=== PATIENT | female | born 1960 | race African-American/Black ===

== ENCOUNTER 2023-01-04 01:13 | Emergency (ER) | payer OTHER ==
--- OUTSIDE RECORDS SUMMARY | 2023-01-04 01:20 | XMS REPORT | Clinical Summary ---
:1960 Demographics Address [address] [place] [address] Home Phone Email Address Email Address Preferred Language [place] Marital Status Single Christianity Affiliation Unknown Race Black or Ethnic Group Not or Author Organization [facility] Address [address] [place] [address] Care Team Providers Name Role Phone Manpreet Gutierrez MD Primary Care Provider Allergies Active Allergy Reactions Severity Noted Date Comments Tramadol 09/14/2018 Medications Medication Sig Dispensed Refills Start Date End Date Status amLODIPine (NORVASC) 10 mg Take 10 mg by 0 9 Active tablet mouth daily. aspirin 81 mg EC tablet Take 81 mg by 0 08/16/2016 Active mouth daily. atorvastatin (LIPITOR) 40 Take 40 mg by 0 06/23/2018 Active mg tablet mouth daily. enalapril (VASOTEC) 20 mg Take 20 mg by 0 05/29/2018 Active tablet mouth daily. hydroCHLOROthiazide Take 25 mg by 0 06/23/2018 Active (HYDRODIURIL) 25 mg tablet mouth daily. citalopram (CeleXA) 10 mg Take 1 tablet 30 tablet 2 01/20/2019 Active tabletIndications: (10 mg) by Adjustment disorder with mouth daily. depressed mood varenicline (CHANTIX) 1 mg Take 1/2 56 tablet 0 01/20/2019 Active tabletIndications: Tobacco tablet by dependence syndrome mouth daily for 4 days, THEN take 1 tablet daily for 6 days, THEN take 1 tablet twice a day from then on (take each tablet / dose with full meal) Active Problems Problem Noted Date Tobacco dependence syndrome 11/24/2018 Adjustment disorder with depressed mood 11/24/2018 Multiple nodules of lung 11/24/2018 Overview: May 2018 CT: Screening CT read as raul ng RADS category 2. November 24, 2018:Pulmonary findings are mos t consistent with chronic or atypical infection, possibly atypical mycobacterial infection. There is no significant change from May and no convincing evidence of primary or metastatic lung cancer. Last Assessment & Plan: She continues to actively smoke, and has a tobacco history that would place her eligible for NLST with yearly annual low dose CT based lung cancer screening. Her CT today indicates that she can retu rn to yearly screening. We have offered to work with her to return to screening back near her home where she has previously had screening before, at [facility], but e indicates that she would rather enter a screening program in [facility]. We will see if it is possible to get her enrolled in ED or Kristine trial for low- dose CT based screening. If she is ineligible for this, we will refer her to cancer prevention for standard CT screening. She can return to clinic as necessary. Cough 11/24/2018 Last Assessment & Plan: Formatting of th is note might be different from the original. 2 weeks of cough, productive of renal sp utum. No hemoptysis. She has emphysema by CT. No pulmonary fu nction testing on record. This seems to be a mild respiratory infection, with no evidence right now that this is any acute exacerbation of COPD. [facility]. However, I have asked her to establish care with a primary medical doctor for continued follow-up of this. Should she be unable to, we can certainly measure pulm onary function testing here and consider more advanced therapy for COPD. Surgical History Surgery Date Site/Laterality Comments HYSTERECTOMY BACK SURGERY Medical History Medical History Date Comments Chronic obstructive pulmonary disease Hypertension Hyperlipidemia H/O: depression Family History Medical History Relation Name Comments Lung cancer Maternal Grandmother Relation Name Status Comments Maternal Grandmother Social History Tobacco Use Types Packs/Day Years Used Date Smoking Tobacco: Every Day Cigarettes 0.5 40 S tarted: 05/05/1978 Smokeless Tobacco: Never Tobacco Cessation: Ready to Quit: Yes; C ounseling Given: Yes Comments: 10 cpd since 2016 Alcohol Use Standard Drinks/Week Comments Not Currently 0 (1 standard drink = 0.6 oz pure alcoho l) Sex Assigned at Date Recorded Not on file Obstetrics History Last Filed Vital Signs Not on file Plan of Treatment Health Maintenance Due Date Last Done Comments COVID-19 Vaccination (#1) 1960 Results Not on fileafter 01/04/2022 Insurance Payer Benefit Plan / Subscriber ID Effective Dates Phone Addre ss Type Group [employer] [id number] 2019-[address] [place] [address] Guarantor Name Account Type Relation to Date of Phone Bill ing Patient Address Pebbles Bains Personal/Family Self 1960 [address] [facility] [address] [place] [address] Pebbles Bains Personal/Family Self [address] [place] [address] N (Home) [address] [place] [address] Pebbles Bains Personal/Family Self [address] [place] [address] N (Home) [address] [place] [address] Care Teams Nuclear Engineer Relationship Specialty Start Date End Date Manpreet Gutierrez MD PCP - General Internal Medicine 09/14/[address] [place] [id number]
--- OUTSIDE RECORDS SUMMARY | 2023-01-04 01:39 | XMS REPORT | Continuity of Care Document ---
:1960 Author Organization [facility] t Address [address] [facility] [address] [place] [address] Care Team Providers Name Role Phone Manpreet Gutierrez MD Primary Care Physician DEBORAH NELSON Attending Clinician Unavailable Eva Elaine MA Attending Clinician Unavailable SHOLA KWONG Attending Clinician Unavailable Lara Manning MD Attending Clinician Shola Kwong MD Attending Clinician RANDA MALDONADO Attending Clinician Unavailable Deborah Nelson MD Attending Clinician Zaina Garcia Attending Clinician Unavailable EBEN PADILLA Attending Clinician Unavailable Eben Padilla MD Attending Clinician Sola GUPTA, Wes Attending Clinician WES DOUGLAS Attending Clinician Unavailable Doctor Unassigned, [place] Attending Clinician Unavailable Godfrey Ginna Apple Attending Clinician Unavailable TRACY WILLSON Attending Clinician Unavailable TRACY WILLSON Attending Clinician Unavailable Ivy Pinto MD Attending Clinician LYNDSEY SOLITARIO Attending Clinician Unavailable Lisa Mejia Attending Clinician Unavailable Ashley Greer Attending Clinician MELISSA VIDAL Attending Clinician Unavailable Service/[place], Surgery C Attending Clinician Unavailable Melissa Vidal DO Attending Clinician PHOEBE COLON JR Attending Clinician Unavailable Rickie Lester RN Attending Clinician Unavailable LARA VALDES Attending Clinician Unavailable Roberto Johnson MD Attending Clinician Lara Valdes MD Attending Clinician Lion Palacios Attending Clinician Unavailable SHAILESH MATTHEWS Attending Clinician Unavailable Meghan Choi LVN Attending Clinician Unavailable GEN GOODE Attending Clinician Unavailable Gen Goode MD Attending Clinician BILL ENGLISH Attending Clinician Unavailable Bill Gomes Attending Clinician Annabella Cope Attending Clinician [phone] ANNABELLA SAAB Attending Clinician Unavailable Unknown, Attending Attending Clinician Unavailable Randa Maldonado MD Attending Clinician Nicole SOUTH, Carrol Palma Attending Clinician Unavailable HOUSTON SCOTT Attending Clinician Unavailable Pamela Monreal Attending Clinician [phone] Clara Pelaez MD Attending Clinician [place] Scott MD Attending Clinician Ruth Ann Wyatt RN Attending Clinician Unavailable STEPHANIE MOYA Attending Clinician Unavailable Stephanie Moya MD Attending Clinician Alexa Saab MD Attending Clinician ALEXA SAAB Attending Clinician Unavailable ROBERTO JOHNSON Attending Clinician Unavailable Solange Laboy PA-C Attending Clinician [phone] SOLANGE LABOY Attending Clinician Unavailable Pcp-Lab Attending Clinician Unavailable Rasheed GUPTA, John Solis Attending Clinician JOHN IQBAL Attending Clinician Unavailable Shailesh Matthews MD Attending Clinician NIESHA MAURICIO Attending Clinician Unavailable Jayy Cunningham MD Attending Clinician Regina Vega MD Attending Clinician RIN ESTRADA Attending Clinician Unavailable Phani Cardoso Attending Clinician PHANI CARDOSO Attending Clinician Unavailable Rin Ryan Attending Clinician TRISTIAN HOOVER Attending Clinician Unavailable Tristian Hoover MD Attending Clinician LEILA CROCKER Attending Clinician Unavailable Leila Crocker MD Attending Clinician Agustina Thorpe Attending Clinician AGUSTINA SMITH Attending Clinician Unavailable ANAYELI ALFARO Attending Clinician Unavailable Nurse, Gal Adult Urgent Attending Clinician Unavailable UNKNOWN, ATTENDING Attending Clinician Unavailable Sonam Lance MD Attending Clinician JING MANZANARES Attending Clinician Unavailable BRUNO RUTLEDGE Attending Clinician Unavailable Bruno Rutledge MD Attending Clinician Berenice Joe Attending Clinician BERENICE HANNA Attending Clinician Unavailable Andria Fagan MD Attending Clinician PHIL ALBA Attending Clinician Unavailable SATYA RIBEIRO Attending Clinician Unavailable SHIREEN GALVEZ Attending Clinician Unavailable MARSHALL COLON Attending Clinician Unavailable VALENTE QUARLES Attending Clinician Unavailable Navarro Callahan Attending Clinician Unavailable Francoise Liang MD Attending Clinician Skylar Kendall Attending Clinician Unavailable MILDRED DIAZ Attending Clinician Unavailable Mildred Diaz LCSW Attending Clinician José Gonzalez DO Attending Clinician LARA LOPEZ Attending Clinician Unavailable MELISSA LINDSEY II Attending Clinician Unavailable MICKEY NELSON Attending Clinician Unavailable VIDA AQUINO Attending Clinician Unavailable GLYNN FUENTES Attending Clinician Unavailable Physician, No Primary or Family Admitting Clinician Unavaila ble UNDEFINED Admitting Clinician Unavailable LARA VALDES Admitting Clinician Unavailable Lara Valdes MD Admitting Clinician CLARA PELAEZ Admitting Clinician Unavailable Clara Pelaez MD Admitting Clinician STEPHANIE MOYA Admitting Clinician Unavailable ROBERTO JOHNSON Admitting Clinician Unavailable NIESHA MAURICIO Admitting Clinician Unavailable DEBORAH NELSON Admitting Clinician Unavailable SHAILESH MATTHEWS Admitting Clinician Unavailable ALEXA SAAB Admitting Clinician Unavailable AGUSTINA SMITH Admitting Clinician Unavailable BERENICE HANNA Admitting Clinician Unavailable LARA LOPEZ Admitting Clinician Unavailable GLYNN FUENTES Admitting Clinician Unavailable Payers Payer Name Policy Type Policy Number Effective Date Expiration Date S jolie [facility] [id number] 2021 00:00:00 [employer] [id number] 2020 00:00:00 [facility] DUAL [id number] 2021 COMP HMO D SNP 00:00:00 [facility] [place] STAR PLUS [id number] 2020 00:00:00 Problems Condition Condition Condition Status Onset Resolution Last Treating Co mments Source Name Details Category Date Date Treatment Clinician Date Open wound Open wound Disease Active U nivers of scalp, of scalp, 5-24 ity of unspecif[place] Medical wound wound Branch type, type, initial initial encounter encounter Ankle Ankle Disease Active Univers wound, wound, 5-24 ity of right, right, 00:00: [place] initial initial 00 Medical encounter encounter Bran ch Open knee Open knee Disease Active Uni vers wound, wound, 5-24 ity of left, left, 00:00: [place] initial initial Medical encounter encounter Bran ch Open knee Open knee Disease Active Uni vers wound, wound, 5-24 ity of right, right, 00:00: [place] initial initial Medical encounter encounter Bran ch Obesity Obesity Disease Active Univers (BMI (BMI 5-04 ity of 30-39.9) 30-39.9) 00:00: [place] Medical Branch Trauma Trauma Disease Active Univers 5-03 ity of 00:00: Medical Branch Chronic Chronic Disease Active 2021-05 Univers obstructiv obstructiv 1- it y of e e 00:00: [place] pulmonary pulmonary 00 Medi zita disease disease Branch with acute with acute exacerbati exacerbati on on Tobacco Tobacco Disease Active Univers dependence dependence - it y of syndrome syndrome 00:00: 00 MD [facility] Adjustment Adjustment Disease Active U nivers disorder disorder 7- ity of with with 00:00: [place] depressed depressed mood mood [facility] Multiple Multiple Disease Active Overview: Un enzo nodules of nodules of 7- Formattin ity of lung lung 00:00: g of this note might be Anderso different n from the Cancer original. Center May 2018 CT: Screening CT read as lung RADS category 2.November 24, 2018:Pulm onary findings are most consisten t with chronic or atypical infection , possibly atypical mycobacte rial infection . There is no significa nt change from May and no convincin g evidence of primary or metastati c lung cancer.La st Assessmen t & Plan: Formattin g of this note might be different from the original. She continues to actively smoke, and has a tobacco history that would place her eligible for NLST with yearly annual low dose CT based lung cancer screening .Her CT today indicates that she can return to yearly screening . We have offered to work with her to return to screening back near her home where she has previousl y had screening before, at [facility], but she indicates that she would rather enter a screening program in [facility]. We will see if it is possible to get her enrolled in LCED or Kristine trial for low-dose CT based screening . If she is ineligibl e for this, we will refer her to cancer preventio n for standard CT screening .She can return to clinic as necessary . Cough Cough Disease Active Last Univers 7-23 Assessmen ity of 00:00: t & Plan: Trent rangel of this Anderso note n might be Cancer different Center from the original. 2 weeks of cough, productiv e of renal sputum. No hemoptysi s.She has emphysema by CT. No pulmonary function testing on record. This seems to be a mild respirato ry infection , with no evidence right now that this is any acute exacerbat ion of COPD. We will watch for clinical resolutio n of this cough without treating this as a COPD exacerbat ion. However, I have asked her to establish care with a primary medical doctor for continued follow-up of this. Should she be unable to, we can certainly measure pulmonary function testing here and consider more advanced therapy for COPD. Anxiety Anxiety Disease Active Univers 2-12 ity of 00:00: Medical Branch Light Light Disease Active Univers cigarette cigarette 2-12 ity of smoker smoker 00:00: [place] (1-9 (1-9 00 Medical cigs/day) cigs/day) Bran ch Prediabete Prediabete Disease Active U nivers s s 2-12 ity of 00:: Medical Branch S/P lumbar S/P lumbar Disease Active U nivers fusion fusion 9-25 ity of :: Medical Branch Hypertensi Hypertensi Disease Active 2014-05 U nivers ve urgency ve urgency 0-26 it y of 00:: Medical Branch Crushing Crushing Disease Active Overview: Un enzo injury of injury of 3-18 Formattin i ty of finger finger 00:00: g of this note Medical might be Branch different from the original. ICD10 Diagnosis Term Clammer Utility Essential Essential Disease Active Overview: Univers hypertensi hypertensi 9-30 Formattin ity of on on 00:00: g of this note Medical might be Branch different from the original. ICD10 Diagnosis Term Clammer Utility Allergies, Adverse Reactions, Alerts Allergy Allergy Status Severity Reaction(s) Onset Inactive Treating Comm ents Source Name Type Date Date Clinician Gabapent Propensi Active Hallucinatio 2020-05 Patient Univers in ty to ns 06-10 reported ity of adverse 00:00: [place] reaction 00 Medical s to Branch drug Pregabal Propensi Active Itching 2020-05 Patient Univ ers in ty to 06-10 reported ity of adverse 00:00: [place] reaction 00 Medical s to Branch drug GABAPENT DRUG Active Hallucinates 2020-05 Un enzo IN INGREDI 06-10 ity of 00:00: [place] 00 Medical Branch PREGABAL DRUG Active ITCHING 2020-05 Univers IN INGREDI 06-10 ity of 00:00: [place] 00 Medical Branch CODEINE DRUG Active Unknown-Cmnt Uni vers INGREDI 01-26 ity of 00:00: [place] 00 Medical Branch Codeine Propensi Active Unknown - Patient Uni vers ty to See comments 01-26 reports ity of adverse 00:00: Tylenol [place] reaction with Medical s codeine Branch make her itch Tramadol Propensi Active Univer s ty to 09-14 ity of adverse 00:00: [place] reaction 00 MD [facility] TRAMADOL DRUG Active Other-Cmnt 2015-05 Univ ers INGREDI 05-08 ity of 00:00: [place] 00 Medical Branch Tramadol Propensi Active Other - See 2015-05 Instruct e Univers ty to comments 05-08 d not to ity of adverse 00:00: take it [place] reaction 00 "throws Medical s my Branch metabolis m off" Sulfa DA Active [place] ITCHING RASH [facility] (Sulfona 7-11 [place] mide 00:00: d Antibiot 00 [facility] ics[facility] Sulfa DA Active [place] [facility] (Sulfona 7-11 Clear mide 00:00: [facility] Antibiot [facility] tramadol DA Active [place] 2013-05 [facility] Clear 00:[facility] [place] [facility] tramadol DA Active [place] SHORTNESS OF 2013-05 [facility] A BREATH [place] 00:00: d 00 [facility] MELOXICA DRUG Active Rash 2008-05 Univers M INGREDI 0-26 ity of 00:00: [place] 00 Medical Branch METHOCAR DRUG Active Rash 2008-05 Univers BAMOL INGREDI 0-26 ity of 00:00: [place] 00 Medical Branch Meloxica Propensi Active Rash 2008-05 Univer s m ty to 0-26 ity of adverse 00:00: [place] reaction 00 Medical s Branch Methocar Propensi Active Rash 2008-05 Univer s bamol ty to 0-26 ity of adverse 00:00: [place] reaction 00 Medical s Branch Family History Family Member Diagnosis Comments Start Date Stop Date Source Maternal grandmother Lung cancer Uni versity of [place] MD Blair Avila r Ramon Social History Social Habit Start Date Stop Date Quantity Comments Source History SDOH University o f Alcohol Std Drinks [place] [facility] History SDOH University o f Alcohol Binge [place] [facility] al Branch History SDOH Social Unive rsity of Connections Get [place] Med ical Together Branch History SDOH Social Unive rsity of Connections Synagogue [place] [facility] History SDOH Social Unive rsity of Connections [place] [facility] Membership Branch History SDOH Social Unive rsity of Connections [place] [facility] Meetings Branch Gender identity Universit y of [place] [facility] Sexual orientation Univer sity of [place] [facility] History of tobacco Passive smoker Un iversity of use [place] [facility] Exposure to 2022-09-22 2022-10-02 Not sure University of SARS-CoV-2 (event) 00:00:00 13:18:00 [place] [facility] History SDOH 2022-09-06 2022-09-06 2 University o f Transport Med 00:00:00 00:00:00 [place] Medic al Branch History SDOH 2022-09-06 2022-09-06 2 University o f Transport Non-Med 00:00:00 00:00:00 [place] M edical Branch History SDOH 2022-09-06 2022-09-06 1 University o f Alcohol Frequency 00:00:00 00:00:00 [place] M edical Branch History SDOH Social 2022-09-06 2022-09-06 5 Unive rsity of Connections Phone 00:00:00 00:00:00 [place] M edical Branch History SDOH Social 2022-09-06 2022-09-06 7 Unive rsity of Connections Living 00:00:00 00:00:00 [place] [facility] History SDOH 2022-09-06 2022-09-06 0 University o f Physical Activity 00:00:00 00:00:00 [place] M edical DPW Branch History SDOH 2022-09-06 2022-09-06 0 University o f Physical Activity 00:00:00 00:00:00 Francheska Criss edical MPS Branch History of Social 2022-04-08 2022-04-08 Univers ity of function 00:00:00 00:00:00 [place] [facility] History SDOH Food 2022-04-03 2022-04-03 1 Univers ity of Worry 00:00:00 00:00:00 [place] [facility] History SDOH Food 2022-04-03 2022-04-03 1 Univers ity of Scarcity 00:00:00 00:00:00 [facility] Tobacco use and 2022-03-31 2022-03-31 User of Universit y of exposure 00:00:00 00:00:00 smokeless [facility] tobacco [place] Alcohol intake 2019-01-18 2019-01-18 Ex-drinker University of 00:00:00 00:00:00 (finding) [place] MD [facility] Tobacco Comment 2018-11-24 2018-11-24 10 cpd since Univers ity of 00:00:00 00:00:00 2016 [place] MD Bartolo murphy [facility] Cigarettes smoked 2018-11-24 2018-11-24 Univers ity of current (pack per 00:00:00 00:00:00 [place] Criss Dennis ) - Reported Cancer Ce nter Cigarette 2018-11-24 2018-11-24 University of pack-years 00:00:00 00:00:00 [place] MD Bartolo murphy [facility] Sex Ass[birth year] At [birth year] Universit y of 00:00:00 00:00:00 [place] MD Bartolo murphy [facility] Smoking Status Start Date Stop Date Source Tobacco smoking consumption Univ ersity of [facility] unknown Branch Occasional tobacco smoker 2022-03-31 00:00:00 Un iversity of [facility] Smokes tobacco daily 2018-11-24 00:00:00 [facility] [place] [facility] [place] Medications Ordered Filled Start Stop Current Ordering Indication Dosage Frequency Signature Comments Components Source Medication Medication Date Date Medication? Clinician (SIG) Name Name enalapril 2022-0 Yes [id number] 20mg Take 1 Un enzo 20 mg 8-22 tablet by ity of tablet 00:00: mouth in [place] 00 the Medical morning Branch and 1 tablet in the evening. FLUoxetine 2022-0 Yes [id number] 20mg Take 1 Univers 20 mg 8-22 tablet by ity of tablet 00:00: mouth in [place] 00 the Medical morning. Branch enalapril 2022-0 Yes [id number] 20mg Take 1 Un enzo 20 mg 8-22 tablet by ity of tablet 00:00: mouth in [place] 00 the Medical morning Branch and 1 tablet in the evening. FLUoxetine 2022-0 Yes [id number] 20mg Take 1 Univers 20 mg 8-22 tablet by ity of tablet 00:00: mouth in [place] 00 the Medical morning. Branch enalapril 2022-0 Yes [id number] 20mg Take 1 Un enzo 20 mg 8-22 tablet by ity of tablet 00:00: mouth in [place] the Medical morning Branch and 1 tablet in the evening. FLUoxetine 2022-0 Yes [id number] 20mg Take 1 Univers 20 mg 8-22 tablet by ity of tablet 00:00: mouth in [place] the Medical morning. Branch enalapril 2022-0 Yes [id number] 20mg Take 1 Un enzo 20 mg 8-22 tablet by ity of tablet 00:00: mouth in [place] 00 the Medical morning Branch and 1 tablet in the evening. FLUoxetine 2022-0 Yes [id number] 20mg Take 1 Univers 20 mg 8-22 tablet by ity of tablet 00:00: mouth in [place] the Medical morning. Branch enalapril 2022-0 Yes [id number] 20mg Take 1 Un enzo 20 mg 8-22 tablet by ity of tablet 00:00: mouth in [place] the Medical morning Branch and 1 tablet in the evening. FLUoxetine 2022-0 Yes [id number] 20mg Take 1 Univers 20 mg 8-22 tablet by ity of tablet 00:00: mouth in [place] 00 the Medical morning. Branch enalapril 2022-0 Yes [id number] 20mg Take 1 Un enzo 20 mg 8-22 tablet by ity of tablet 00:00: mouth in [place] 00 the Medical morning Branch and 1 tablet in the evening. FLUoxetine 2022-0 Yes [id number] 20mg Take 1 Univers 20 mg 8-22 tablet by ity of tablet 00:00: mouth in [place] 00 the Medical morning. Branch HYDROcodone 2022-0 2022- Yes [id number] 1{tbl} Take 1 U nivers -acetaminop 8-15 08-26 tablet by it y of hen 5-325 00:00: 04:59 mouth [place] mg tablet 00 :00 every 4 Medical (four) Branch hours as needed for Pain (scale 7-10) for up to 10 days. Indication s: acute pain HYDROcodone 2022- Yes [id number] 1{tbl} Take 1 U nivers -acetaminop 8-15 08-26 tablet by it y of hen 5-325 00:00: 04:59 mouth [place] mg tablet 00 :00 every 4 Medical (four) Branch hours as needed for Pain (scale 7-10) for up to 10 days. Indication s: acute pain HYDROcodone 2022- Yes [id number] 1{tbl} Take 1 U nivers -acetaminop 8-15 08-26 tablet by it y of hen 5-325 00:00: 04:59 mouth [place] mg tablet 00 :00 every 4 Medical (four) Branch hours as needed for Pain (scale 7-10) for up to 10 days. Indication s: acute pain HYDROcodone 2022- Yes [id number] 1{tbl} Take 1 U nivers -acetaminop 8-15 08-26 tablet by it y of hen 5-325 00:00: 04:59 mouth [place] mg tablet 00 :00 every 4 Medical (four) Branch hours as needed for Pain (scale 7-10) for up to 10 days. Indication s: acute pain HYDROcodone 2022- Yes [id number] 1{tbl} Take 1 U nivers -acetaminop 8-15 08-26 tablet by it y of hen 5-325 00:00: 04:59 mouth [place] mg tablet 00 :00 every 4 Medical (four) Branch hours as needed for Pain (scale 7-10) for up to 10 days. Indication s: acute pain HYDROcodone 2022-2022- Yes [id number] 1{tbl} Take 1 U nivers -acetaminop 8-15 08-26 tablet by it y of hen 5-325 00:00: 04:59 mouth [place] mg tablet 00 :00 every 4 Medical (four) Branch hours as needed for Pain (scale 7-10) for up to 10 days. Indication s: acute pain HYDROcodone 2023-0 2023- Yes [id number] 1{tbl} Take 1 U nivers -acetaminop 8-15 08-26 tablet by it y of hen 5-325 00:00: 04:59 mouth [place] mg tablet 00 :00 every 4 Medical (four) Branch hours as needed for Pain (scale 7-10) for up to 10 days. Indication s: acute pain HYDROcodone 2022-0 3- Yes [id number] 1{tbl} Take 1 U nivers -acetaminop 8-15 08-26 tablet by it y of hen 5-325 00:00: 04:59 mouth [place] mg tablet 00 :00 every 4 Medical (four) Branch hours as needed for Pain (scale 7-10) for up to 10 days. Indication s: acute pain amLODIPine 2022-0 Yes [id number] 10mg Take 1 U nivers 10 mg 5-19 tablet by ity of tablet 00:00: mouth in [place] 00 the Medical morning. Branch Diclofenac 2022-0 Yes [id number] Apply 2 Univers Sodium 1 % 5-19 grams to ity o f gel 00:00: the skin [place] 00 of the Medical affected Branch area four times per day (maximum of 30 g per day) enalapril 2022-0 Yes [id number] 20mg Take 1 Un enzo 20 mg 5-19 tablet by ity of tablet 00:00: mouth in [place] 00 the Medical morning Branch and 1 tablet in the evening. pantoprazol 2022-0 Yes [id number] 40mg Take 1 Univers e 5-19 tablet by ity of (PROTONIX) 00:00: mouth in [facility] as 40 mg EC 00 the Medical tablet morning. Branch SERTraline 2022-0 Yes [id number] 100mg Take 1 Univers (ZOLOFT) 5-19 tablet by ity of 100 mg 00:00: mouth at [place] tablet 00 bedtime. Medical Branch amLODIPine 2022-0 Yes [id number] 10mg Take 1 U nivers 10 mg 5-19 tablet by ity of tablet 00:00: mouth in [place] 00 the Medical morning. Branch Diclofenac 2022-0 Yes [id number] Apply 2 Univers Sodium 1 % 5-19 grams to ity o f gel 00:00: the skin [place] 00 of the Medical affected Branch area four times per day (maximum of 30 g per day) enalapril 2022-0 Yes [id number] 20mg Take 1 Un enzo 20 mg 5-19 tablet by ity of tablet 00:00: mouth in [place] 00 the Medical morning Branch and 1 tablet in the evening. pantoprazol 2022-0 Yes [id number] 40mg Take 1 Univers e 5-19 tablet by ity of (PROTONIX) 00:00: mouth in [place] 40 mg EC 00 the Medical tablet morning. Branch SERTraline 2022-0 Yes [id number] 100mg Take 1 Univers (ZOLOFT) 5-19 tablet by ity of 100 mg 00:00: mouth at [place] tablet 00 bedtime. Medical Branch amLODIPine 2022-0 Yes [id number] 10mg Take 1 U nivers 10 mg 5-19 tablet by ity of tablet 00:00: mouth in [place] 00 the Medical morning. Branch Diclofenac 2022-0 Yes [id number] Apply 2 Univers Sodium 1 % 5-19 grams to ity o f gel 00:00: the skin [place] 00 of the Medical affected Branch area four times per day (maximum of 30 g per day) enalapril 2022-0 Yes [id number] 20mg Take 1 Un enzo 20 mg 5-19 tablet by ity of tablet 00:00: mouth in [place] the Medical morning Branch and 1 tablet in the evening. pantoprazol 2022-0 Yes [id number] 40mg Take 1 Univers e 5-19 tablet by ity of (PROTONIX) 00:00: mouth in [place] 40 mg EC 00 the Medical tablet morning. Branch SERTraline 2022-0 Yes [id number] 100mg Take 1 Univers (ZOLOFT) 5-19 tablet by ity of 100 mg 00:00: mouth at [place] tablet 00 bedtime. Medical Branch amLODIPine 2022-0 Yes [id number] 10mg Take 1 U nivers 10 mg 5-19 tablet by ity of tablet 00:00: mouth in [place] 00 the Medical morning. Branch Diclofenac 3-0 Yes [id number] Apply 2 Univers Sodium 1 % 5-19 grams to ity o f gel 00:00: the skin [place] 00 of the Medical affected Branch area four times per day (maximum of 30 g per day) enalapril 2023-0 Yes [id number] 20mg Take 1 Un enzo 20 mg 5-19 tablet by ity of tablet 00:00: mouth in [place] 00 the Medical morning Branch and 1 tablet in the evening. pantoprazol 3-0 Yes [id number] 40mg Take 1 Univers e 5-19 tablet by ity of (PROTONIX) 00:00: mouth in [place] 40 mg EC 00 the Medical tablet morning. Branch SERTraline 2022-0 Yes [id number] 100mg Take 1 Univers (ZOLOFT) 5-19 tablet by ity of 100 mg 00:00: mouth at [place] tablet 00 bedtime. Medical Branch amLODIPine 2022-0 Yes [id number] 10mg Take 1 U nivers 10 mg 5-19 tablet by ity of tablet 00:00: mouth in [place] 00 the Medical morning. Branch Diclofenac 2022-0 Yes [id number] Apply 2 Univers Sodium 1 % 5-19 grams to ity o f gel 00:00: the skin [place] 00 of the Medical affected Branch area four times per day (maximum of 30 g per day) enalapril 2022-0 Yes [id number] 20mg Take 1 Un enzo 20 mg 5-19 tablet by ity of tablet 00:00: mouth in [place] 00 the Medical morning Branch and 1 tablet in the evening. pantoprazol 2022-0 Yes [id number] 40mg Take 1 Univers e 5-19 tablet by ity of (PROTONIX) 00:00: mouth in [place] 40 mg EC 00 the Medical tablet morning. Branch SERTraline 2022-0 Yes [id number] 100mg Take 1 Univers (ZOLOFT) 5-19 tablet by ity of 100 mg 00:00: mouth at [place] tablet 00 bedtime. Medical Branch amLODIPine 2022-0 Yes [id number] 10mg Take 1 U nivers 10 mg 5-19 tablet by ity of tablet 00:00: mouth in [place] 00 the Medical morning. Branch Diclofenac 2022-0 Yes [id number] Apply 2 Univers Sodium 1 % 5-19 grams to ity o f gel 00:00: the skin [place] 00 of the Medical affected Branch area four times per day (maximum of 30 g per day) enalapril 2023-0 Yes [id number] 20mg Take 1 Un enzo 20 mg 5-19 tablet by ity of tablet 00:00: mouth in [place] 00 the Medical morning Branch and 1 tablet in the evening. pantoprazol 2023-0 Yes [id number] 40mg Take 1 [facility] e 5-19 tablet by [facility] of (PROTONIX) 00:00: mouth in [place] 40 mg EC 00 the Medical tablet morning. Branch SERTraline 2022-0 Yes [id number] 100mg Take 1 [facility] (ZOLOFT) 5-19 tablet by ity of 100 mg 00:00: mouth at [place] tablet 00 bedtime. Medical Branch amLODIPine 2022-0 Yes [id number] 10mg Take 1 [facility] nivers 10 mg 5-19 tablet by ity of tablet 00:00: mouth in [place] 00 the Medical morning. Branch Diclofenac 2022-0 Yes [id number] Apply 2 [facility] Sodium 1 % 5-19 grams to ity o f gel 00:00: the skin [place] 00 of the Medical affected Branch area four times per day (maximum of 30 g per day) enalapril 2022-0 Yes [id number] 20mg Take 1 Un enzo 20 mg 5-19 tablet by ity of tablet 00:00: mouth in [place] 00 the Medical morning Branch and 1 tablet in the evening. pantoprazol 2022-0 Yes [id number] 40mg Take 1 [facility] e 5-19 tablet by ity of (PROTONIX) 00:00: mouth in [place] as 40 mg EC 00 the Medical tablet morning. Branch SERTraline 2022-0 Yes [id number] 100mg Take 1 [facility] (ZOLOFT) 5-19 tablet by ity of 100 mg 00:00: mouth at [place] tablet 00 bedtime. Medical Branch amLODIPine 2022-0 Yes [id number] 10mg Take 1 [facility] nivers 10 mg 5-19 tablet by ity of tablet 00:00: mouth in [place] 00 the Medical morning. Branch Diclofenac 2022-0 Yes [id number] Apply 2 [facility] Sodium 1 % 5-19 grams to ity o f gel 00:00: the skin [place] 00 of the Medical affected Branch area four times per day (maximum of 30 g per day) enalapril 3-0 Yes [id number] 20mg Take 1 Un enzo 20 mg 5-19 tablet by ity of tablet 00:00: mouth in [place] 00 the Medical morning Branch and 1 tablet in the evening. pantoprazol 3-0 Yes [id number] 40mg Take 1 [facility] e 5-19 tablet by ity of (PROTONIX) 00:00: mouth in [place] as 40 mg EC 00 the Medical tablet morning. Branch SERTraline 2023-0 Yes [id number] 100mg Take 1 [facility] (ZOLOFT) 5-19 tablet by ity of 100 mg 00:00: mouth at [place] tablet 00 bedtime. Medical Branch amLODIPine 2022-0 Yes [id number] 10mg Take 1 [facility] nivers 10 mg 5-19 tablet by ity of tablet 00:00: mouth in [place] 00 the Medical morning. Branch Diclofenac 3-0 Yes [id number] Apply 2 [facility] Sodium 1 % 5-19 grams to ity o f gel 00:00: the skin [place] 00 of the Medical affected Branch area four times per day (maximum of 30 g per day) enalapril 3-0 Yes [id number] 20mg Take 1 [facility] enzo 20 mg 5-19 tablet by ity of tablet 00:00: mouth in [place] 00 the Medical morning Branch and 1 tablet in the evening. pantoprazol 2022-0 Yes [id number] 40mg Take 1 [facility] e 5-19 tablet by it[facility] of (PROTONIX) 00:00: mouth in [place] 40 mg EC 00 the Medical tablet morning. Branch SERTraline 2022-0 Yes [id number] 100mg Take 1 [facility] (ZOLOFT) 5-19 tablet by ity of 100 mg 00:00: mouth at [place] tablet 00 bedtime. Medical Branch amLODIPine 2022-0 Yes [id number] 10mg Take 1 [facility] nivers 10 mg 5-19 tablet by ity of tablet 00:00: mouth in [place] 00 the Medical morning. Branch Diclofenac 2022-0 Yes [id number] Apply 2 [facility] Sodium 1 % 5-19 grams to ity o f gel 00:00: the skin [place] 00 of the Medical affected Branch area four times per day (maximum of 30 g per day) enalapril 3-0 Yes [id number] 20mg Take 1 [facility] enzo 20 mg 5-19 tablet by ity of tablet 00:00: mouth in [place] 00 the Medical morning Branch and 1 tablet in the evening. pantoprazol 3-0 Yes [id number] 40mg Take 1 [facility] e 5-19 tablet by ity of (PROTONIX) 00:00: mouth in [place] as 40 mg EC 00 the Medical tablet morning. Branch SERTraline 2022-0 Yes [id number] 100mg Take 1 [facility] (ZOLOFT) 5-19 tablet by ity of 100 mg 00:00: mouth at [place] tablet 00 bedtime. Medical Branch amLODIPine 2022-0 Yes [id number] 10mg Take 1 U nivers 10 mg 5-19 tablet by ity of tablet 00:00: mouth in [place] 00 the Medical morning. Branch Diclofenac 2022-0 Yes [id number] Apply 2 [facility] Sodium 1 % 5-19 grams to ity o f gel 00:00: the skin [place] 00 of the Medical affected Branch area four times per day (maximum of 30 g per day) enalapril 3-0 Yes [id number] 20mg Take 1 [facility] enzo 20 mg 5-19 tablet by ity of tablet 00:00: mouth in [place] 00 the Medical morning Branch and 1 tablet in the evening. pantoprazol 2022-0 Yes [id number] 40mg Take 1 [facility] e 5-19 tablet by ity of (PROTONIX) 00:00: mouth in [facility] as 40 mg EC 00 the Medical tablet morning. Branch SERTraline 2022-0 Yes [id number] 100mg Take 1 [facility] (ZOLOFT) 5-19 tablet by ity of 100 mg 00:00: mouth at [place] tablet 00 bedtime. Medical Branch amLODIPine 2022-0 Yes [id number] 10mg Take 1 U nivers 10 mg 5-19 tablet by ity of tablet 00:00: mouth in [place] the Medical morning. Branch Diclofenac 2022-0 Yes [id number] Apply 2 [facility] Sodium 1 % 5-19 grams to ity o f gel 00:00: the skin [place] 00 of the Medical affected Branch area four times per day (maximum of 30 g per day) enalapril 3-0 Yes [id number] 20mg Take 1 Un enzo 20 mg 5-19 tablet by ity of tablet 00:00: mouth in [place] 00 the Medical morning Branch and 1 tablet in the evening. pantoprazol 2022-0 Yes [id number] 40mg Take 1 [facility] e 5-19 tablet by ity of (PROTONIX) 00:00: mouth in [place] as 40 mg EC 00 the Medical tablet morning. Branch SERTraline 2022-0 Yes [id number] 100mg Take 1 [facility] (ZOLOFT) 5-19 tablet by ity of 100 mg 00:00: mouth at [place] tablet 00 bedtime. Medical Branch amLODIPine 2022-0 Yes [id number] 10mg Take 1 [facility] nivers 10 mg 5-19 tablet by ity of tablet 00:00: mouth in [place] 00 the Medical morning. Branch Diclofenac 2022-0 Yes [id number] Apply 2 [facility] Sodium 1 % 5-19 grams to ity o f gel 00:00: the skin [place] 00 of the Medical affected Branch area four times per day (maximum of 30 g per day) enalapril 3-0 Yes [id number] 20mg Take 1 [facility] enzo 20 mg 5-19 tablet by ity of tablet 00:00: mouth in [place] 00 the Medical morning Branch and 1 tablet in the evening. pantoprazol 2022-0 Yes [id number] 40mg Take 1 [facility] e 5-19 tablet by ity of (PROTONIX) 00:00: mouth in [place] as 40 mg EC 00 the Medical tablet morning. Branch SERTraline 2022-0 Yes [id number] 100mg Take 1 [facility] (ZOLOFT) 5-19 tablet by ity of 100 mg 00:00: mouth at [place] tablet 00 bedtime. Medical Branch amLODIPine 2022-0 Yes [id number] 10mg Take 1 [facility] nivers 10 mg 5-19 tablet by ity of tablet 00:00: mouth in [place] 00 the Medical morning. Branch Diclofenac 2022-0 Yes [id number] Apply 2 [facility] Sodium 1 % 5-19 grams to ity o f gel 00:00: the skin [place] 00 of the Medical affected Branch area four times per day (maximum of 30 g per day) enalapril 2022-0 Yes [id number] 20mg Take 1 Un enzo 20 mg 5-19 tablet by ity of tablet 00:00: mouth in [place] 00 the Medical morning Branch and 1 tablet in the evening. pantoprazol 2022-0 Yes [id number] 40mg Take 1 [facility] e 5-19 tablet by ity of (PROTONIX) 00:00: mouth in [place] as 40 mg EC 00 the Medical tablet morning. Branch SERTraline 2022-0 Yes [id number] 100mg Take 1 [facility] (ZOLOFT) 5-19 tablet by ity of 100 mg 00:00: mouth at [place] tablet 00 bedtime. Medical Branch amLODIPine 2022-0 Yes [id number] 10mg Take 1 [facility] nivers 10 mg 5-19 tablet by ity of tablet 00:00: mouth in [place] 00 the Medical morning. Branch Diclofenac 2022-0 Yes [id number] Apply 2 [facility] Sodium 1 % 5-19 grams to ity o f gel 00:00: the skin [place] 00 of the Medical affected Branch area four times per day (maximum of 30 g per day) enalapril 3-0 Yes [id number] 20mg Take 1 Un enzo 20 mg 5-19 tablet by ity of tablet 00:00: mouth in [place] 00 the Medical morning Branch and 1 tablet in the evening. pantoprazol 2022-0 Yes [id number] 40mg Take 1 [facility] e 5-19 tablet by ity of (PROTONIX) 00:00: mouth in [place] as 40 mg EC 00 the Medical tablet morning. Branch SERTraline 2022-0 Yes [id number] 100mg Take 1 [facility] (ZOLOFT) 5-19 tablet by ity of 100 mg 00:00: mouth at [place] tablet 00 bedtime. Medical Branch amLODIPine 2022-0 Yes [id number] 10mg Take 1 [facility] nivers 10 mg 5-19 tablet by ity of tablet 00:00: mouth in [place] 00 the Medical morning. Branch Diclofenac 2022-0 Yes [id number] Apply 2 [facility] Sodium 1 % 5-19 grams to ity o f gel 00:00: the skin [place] 00 of the Medical affected Branch area four times per day (maximum of 30 g per day) enalapril 2022-0 Yes [id number] 20mg Take 1 Un enzo 20 mg 5-19 tablet by ity of tablet 00:00: mouth in [place] 00 the Medical morning Branch and 1 tablet in the evening. pantoprazol 2022-0 Yes [id number] 40mg Take 1 [facility] e 5-19 tablet by ity of (PROTONIX) 00:00: mouth in [place] as 40 mg EC 00 the Medical tablet morning. Branch SERTraline 2022-0 Yes [id number] 100mg Take 1 [facility] (ZOLOFT) 5-19 tablet by ity of 100 mg 00:00: mouth at [place] tablet 00 bedtime. Medical Branch amLODIPine 2022-0 Yes [id number] 10mg Take 1 [facility] nivers 10 mg 5-19 tablet by ity of tablet 00:00: mouth in [place] 00 the Medical morning. Branch Diclofenac 2022-0 Yes [id number] Apply 2 [facility] Sodium 1 % 5-19 grams to ity o f gel 00:00: the skin [place] 00 of the Medical affected Branch area four times per day (maximum of 30 g per day) enalapril 3-0 Yes [id number] 20mg Take 1 Un enzo 20 mg 5-19 tablet by ity of tablet 00:00: mouth in [place] 00 the Medical morning Branch and 1 tablet in the evening. pantoprazol 3-0 Yes [id number] 40mg Take 1 [facility] e 5-19 tablet by ity of (PROTONIX) 00:00: mouth in [place] as 40 mg EC 00 the Medical tablet morning. Branch SERTraline 2022-0 Yes [id number] 100mg Take 1 [facility] (ZOLOFT) 5-19 tablet by ity of 100 mg 00:00: mouth at [place] tablet 00 bedtime. Medical Branch amLODIPine 2022-0 Yes [id number] 10mg Take 1 U nivers 10 mg 5-19 tablet by ity of tablet 00:00: mouth in [place] 00 the Medical morning. Branch Diclofenac 2022-0 Yes [id number] Apply 2 [facility] Sodium 1 % 5-19 grams to ity o f gel 00:00: the skin [place] of the Medical affected Branch area four times per day (maximum of 30 g per day) enalapril 3-0 Yes [id number] 20mg Take 1 Un enzo 20 mg 5-19 tablet by ity of tablet 00:00: mouth in [place] the Medical morning Branch and 1 tablet in the evening. pantoprazol 2022-0 Yes [id number] 40mg Take 1 [facility] e 5-19 tablet by ity of (PROTONIX) 00:00: mouth in [place] as 40 mg EC 00 the Medical tablet morning. Branch SERTraline 2022-0 Yes [id number] 100mg Take 1 [facility] (ZOLOFT) 5-19 tablet by ity of 100 mg 00:00: mouth at [place] tablet 00 bedtime. Medical Branch amLODIPine 2022-0 Yes [id number] 10mg Take 1 U nivers 10 mg 5-19 tablet by ity of tablet 00:00: mouth in [place] 00 the Medical morning. Branch Diclofenac 2022-0 Yes [id number] Apply 2 [facility] Sodium 1 % 5-19 grams to ity o f gel 00:00: the skin [place] 00 of the Medical affected Branch area four times per day (maximum of 30 g per day) enalapril 2023-0 Yes [id number] 20mg Take 1 Un enzo 20 mg 5-19 tablet by ity of tablet 00:00: mouth in [place] 00 the Medical morning Branch and 1 tablet in the evening. pantoprazol 2022-0 Yes [id number] 40mg Take 1 [facility] e 5-19 tablet by ity of (PROTONIX) 00:00: mouth in [place] as 40 mg EC 00 the Medical tablet morning. Branch SERTraline 2022-0 Yes [id number] 100mg Take 1 [facility] (ZOLOFT) 5-19 tablet by ity of 100 mg 00:00: mouth at [place] tablet 00 bedtime. Medical Branch amLODIPine 2022-0 Yes [id number] 10mg Take 1 U nivers 10 mg 5-19 tablet by ity of tablet 00:00: mouth in [place] 00 the Medical morning. Branch Diclofenac 2022-0 Yes [id number] Apply 2 [facility] Sodium 1 % 5-19 grams to ity o f gel 00:00: the skin [place] 00 of the Medical affected Branch area four times per day (maximum of 30 g per day) enalapril 2022-0 Yes [id number] 20mg Take 1 Un enzo 20 mg 5-19 tablet by ity of tablet 00:00: mouth in [place] 00 the Medical morning Branch and 1 tablet in the evening. pantoprazol 2022-0 Yes [id number] 40mg Take 1 [facility] e 5-19 tablet by ity of (PROTONIX) 00:00: mouth in [place] as 40 mg EC 00 the Medical tablet morning. Branch SERTraline 2022-0 Yes [id number] 100mg Take 1 [facility] (ZOLOFT) 5-19 tablet by ity of 100 mg 00:00: mouth at [place] tablet 00 bedtime. Medical Branch amLODIPine 2022-0 Yes [id number] 10mg Take 1 U nivers 10 mg 5-19 tablet by ity of tablet 00:00: mouth in [place] 00 the Medical morning. Branch Diclofenac 2022-0 Yes [id number] Apply 2 [facility] Sodium 1 % 5-19 grams to ity o f gel 00:00: the skin [place] 00 of the Medical affected Branch area four times per day (maximum of 30 g per day) pantoprazol 3-0 Yes [id number] 40mg Take 1 [facility] e 5-19 tablet by ity of (PROTONIX) 00:00: mouth in [place] 40 mg EC 00 the Medical tablet morning. Branch amLODIPine 2022-0 Yes [id number] 10mg Take 1 U nivers 10 mg 5-19 tablet by ity of tablet 00:00: mouth in [place] 00 the Medical morning. Branch Diclofenac 2022-0 Yes [id number] Apply 2 [facility] Sodium 1 % 5-19 grams to ity o f gel 00:00: the skin [place] 00 of the Medical affected Branch area four times per day (maximum of 30 g per day) pantoprazol 2023-0 Yes [id number] 40mg Take 1 [facility] e 5-19 tablet by ity of (PROTONIX) 00:00: mouth in [place] as 40 mg EC 00 the Medical tablet morning. Branch amLODIPine 2022-0 Yes [id number] 10mg Take 1 U nivers 10 mg 5-19 tablet by ity of tablet 00:00: mouth in [place] 00 the Medical morning. Branch Diclofenac 2022-0 Yes [id number] Apply 2 [facility] Sodium 1 % 5-19 grams to ity o f gel 00:00: the skin [place] 00 of the Medical affected Branch area four times per day (maximum of 30 g per day) pantoprazol 2023-0 Yes [id number] 40mg Take 1 [facility] e 5-19 tablet by ity of (PROTONIX) 00:00: mouth in [place] as 40 mg EC 00 the Medical tablet morning. Branch amLODIPine 2022-0 Yes [id number] 10mg Take 1 U nivers 10 mg 5-19 tablet by ity of tablet 00:00: mouth in [place] 00 the Medical morning. Branch Diclofenac 2022-0 Yes [id number] Apply 2 [facility] Sodium 1 % 5-19 grams to ity o f gel 00:00: the skin [place] 00 of the Medical affected Branch area four times per day (maximum of 30 g per day) pantoprazol 2023-0 Yes [id number] 40mg Take 1 [facility] e 5-19 tablet by ity of (PROTONIX) 00:00: mouth in [place] 40 mg EC 00 the Medical tablet morning. Branch amLODIPine 2022-0 Yes [id number] 10mg Take 1 U nivers 10 mg 5-19 tablet by ity of tablet 00:00: mouth in [place] 00 the Medical morning. Branch Diclofenac 3-0 Yes [id number] Apply 2 [facility] Sodium 1 % 5-19 grams to ity o f gel 00:00: the skin [place] 00 of the Medical affected Branch area four times per day (maximum of 30 g per day) pantoprazol 2022-0 Yes [id number] 40mg Take 1 [facility] e 5-19 tablet by ity of (PROTONIX) 00:00: mouth in [place] 40 mg EC 00 the Medical tablet morning. Branch amLODIPine 0 Yes [id number] 10mg Take 1 U nivers 10 mg 5-19 tablet by ity of tablet 00:00: mouth in [place] 00 the Medical morning. Branch Diclofenac 2022-0 Yes [id number] Apply 2 [facility] Sodium 1 % 5-19 grams to ity o f gel 00:00: the skin [place] 00 of the Medical affected Branch area four times per day (maximum of 30 g per day) pantoprazol 2022-0 Yes [id number] 40mg Take 1 [facility] e 5-19 tablet by ity of (PROTONIX) 00:00: mouth in [place] as 40 mg EC 00 the Medical tablet morning. Branch enalapril 2022- No [id number] 20mg Take 1 U nivers 20 mg 5-19 08-22 tablet by ity of tablet 00:00: 00:00 mouth in [place] 00 :00 the Medical morning Branch and 1 tablet in the evening. SERTraline 2022- No [id number] 100mg Take 1 [facility] (ZOLOFT) 5-19 08-22 tablet by ity o f 100 mg 00:00: 00:00 mouth at [place] tablet 00 :00 bedtime. Medical Branch enalapril 2022- No [id number] 20mg Take 1 U nivers 20 mg 5-19 08-22 tablet by ity of tablet 00:00: 00:00 mouth in [place] 00 :00 the Medical morning Branch and 1 tablet in the evening. SERTraline 2022- No [id number] 100mg Take 1 [facility] (ZOLOFT) 5-19 08-22 tablet by ity o f 100 mg 00:00: 00:00 mouth at [place] tablet 00 :00 bedtime. Medical Branch enalapril 2022- No [id number] 20mg Take 1 U nivers 20 mg 5-19 08-22 tablet by ity of tablet 00:00: 00:00 mouth in [place] 00 :00 the Medical morning Branch and 1 tablet in the evening. SERTraline 2022- No [id number] 100mg Take 1 [facility] (ZOLOFT) -21 12-22 tablet by ity o f 100 mg 00:00: 00:00 mouth at [place] tablet 00 :00 bedtime. Medical Branch enalapril 2022- No [id number] 20mg Take 1 U nivers 20 mg -21 12-22 tablet by ity of tablet 00:00: 00:00 mouth in [place] 00 :00 the Medical morning Branch and 1 tablet in the evening. SERTraline 2022- No [id number] 100mg Take 1 [facility] (ZOLOFT) -21 12- tablet by ity o f 100 mg 00:00: 00:00 mouth at [place] tablet 00 :00 bedtime. Medical Branch SERTraline 2022- No [id number] 100mg Take 1 [facility] (ZOLOFT) -20 09- tablet by ity o f 100 mg 00:00: 00:00 mouth at [place] tablet 00 :00 bedtime. Medical Branch amLODIPine 2022- No [id number] 10mg Take 1 [facility] 10 mg -20 09- tablet by ity of tablet 00:00: 00:00 mouth in [place] 00 :00 the Medical morning. Branch enalapril 2022- No [id number] 20mg Take 1 U nivers 20 mg -20 09- tablet by ity of tablet 00:00: 00:00 mouth in [place] 00 :00 the Medical morning Branch and 1 tablet in the evening. pantoprazol 2022- No [id number] 40mg Take 1 [facility] e -20 09- tablet by ity of (PROTONIX) 00:00: 00:00 mouth in [place] 40 mg EC 00 :00 the Medical tablet morning. Branch Diclofenac 2022- No [id number] Apply 2 [facility] Sodium 1 % -20 09- grams to ity of gel 00:00: 00:00 the skin [place] 00 :00 of the Medical affected Branch area four times per day (maximum of 30 g per day) SERTraline 2022-2022- No [id number] 100mg Take 1 [facility] (ZOLOFT) -20 09-19 tablet by ity o f 100 mg 00:00: 00:00 mouth at [place] tablet 00 :00 bedtime. Medical Branch amLODIPine 2022- No [id number] 10mg Take 1 [facility] 10 mg 5-19 05-19 tablet by ity of tablet 00:00: 00:00 mouth in [place] 00 :00 the Medical morning. Branch enalapril 2022- No [id number] 20mg Take 1 U nivers 20 mg 5-19 05-19 tablet by ity of tablet 00:00: 00:00 mouth in [place] 00 :00 the Medical morning Branch and 1 tablet in the evening. pantoprazol 2022- No [id number] 40mg Take 1 [facility] e 5-19 05-19 tablet by ity of (PROTONIX) 00:00: 00:00 mouth in [place] 40 mg EC 00 :00 the Medical tablet morning. Branch Diclofenac 2022- No [id number] Apply 2 [facility] Sodium 1 % 5-19 05-19 grams to ity of gel 00:00: 00:00 the skin [place] 00 :00 of the Medical affected Branch area four times per day (maximum of 30 g per day) SERTraline 2022- No [id number] 100mg Take 1 [facility] (ZOLOFT) 5-19 05-19 tablet by ity o f 100 mg 00:00: 00:00 mouth at [place] tablet 00 :00 bedtime. Medical Branch amLODIPine 2022- No [id number] 10mg Take 1 [facility] 10 mg 5-19 05-19 tablet by ity of tablet 00:00: 00:00 mouth in [place] 00 :00 the Medical morning. Branch enalapril 2022- No [id number] 20mg Take 1 U nivers 20 mg 5-19 05-19 tablet by ity of tablet 00:00: 00:00 mouth in [place] 00 :00 the Medical morning Branch and 1 tablet in the evening. pantoprazol 2022- No [id number] 40mg Take 1 [facility] e 5-19 05-19 tablet by ity of (PROTONIX) 00:00: 00:00 mouth in [place] 40 mg EC 00 :00 the Medical tablet morning. Branch Diclofenac 2022- No [id number] Apply 2 [facility] Sodium 1 % 5-19 05-19 grams to ity of gel 00:00: 00:00 the skin [place] 00 :00 of the Medical affected Branch area four times per day (maximum of 30 g per day) cephALEXin 2023-0 2023- No 500mg Take 1 [facility] vers 500 mg 5-10 05-19 capsule by ity of capsule 00:00: 00:00 mouth in [place] 00 :00 the Medical morning Branch and 1 capsule at noon and 1 capsule in the evening. cephALEXin 2023-0 2023- No 500mg Take 1 [facility] vers 500 mg 5-10 05-19 capsule by ity of capsule 00:00: 00:00 mouth in [place] 00 :00 the Medical morning Branch and 1 capsule at noon and 1 capsule in the evening. cephALEXin 2023-0 2023- No 500mg Take 1 [facility] vers 500 mg 5-10 05-19 capsule by ity of capsule 00:00: 00:00 mouth in [place] 00 :00 the Medical morning Branch and 1 capsule at noon and 1 capsule in the evening. HYDROcodone 2022-0 Yes 1{tbl} 1 tablet, [facility] -acetaminop 5-05 Oral, ity of hen (NORCO 15:43: Q6HPRN, [place]) 5-325 mg 59 Starting Medi zita tablet 1 on Fri Branch tablet 09/06/22 at 1043, Until Discontinu ed, Routine, Pain (scale 7-10) enoxaparin 2022-0 Yes 30mg 30 mg, Unive rs (LOVENOX) 5-05 Subcutaneo ity of injection 13:00: us, Q12H, [place] 30 mg 00 First dose Medical (after Branch last modificati on) on Fri09/06/22 at 0800, Until Discontinu ed, Routine acetaminoph 2023-0 Yes [id number] 500mg Take 1 [facility] en 500 mg 5-05 tablet by ity o f tablet 00:00: mouth [place] 00 every 6 Medical (six) Branch hours as needed for Pain. acetaminoph 2023-0 Yes [id number] 500mg Take 1 [facility] en 500 mg 5-05 tablet by ity o f tablet 00:00: mouth [place] 00 every 6 Medical (six) Branch hours as needed for Pain. acetaminoph 2023-0 Yes [id number] 500mg Take 1 [facility] en 500 mg 5-05 tablet by ity o f tablet 00:00: mouth [place] 00 every 6 Medical (six) Branch hours as needed for Pain. acetaminoph 2023-0 Yes [id number] 500mg Take 1 [facility] en 500 mg 5-05 tablet by ity o f tablet 00:00: mouth [place] 00 every 6 Medical (six) Branch hours as needed for Pain. acetaminoph 2023-0 Yes [id number] 500mg Take 1 [facility] en 500 mg 5-05 tablet by ity o f tablet 00:00: mouth [place] 00 every 6 Medical (six) Branch hours as needed for Pain. acetaminoph 2023-0 Yes [id number] 500mg Take 1 [facility] en 500 mg 5-05 tablet by ity o f tablet 00:00: mouth [place] 00 every 6 Medical (six) Branch hours as needed for Pain. acetaminoph 2023-0 Yes [id number] 500mg Take 1 [facility] en 500 mg 5-05 tablet by ity o f tablet 00:00: mouth [place] 00 every 6 Medical (six) Branch hours as needed for Pain. acetaminoph 2023-0 Yes [id number] 500mg Take 1 [facility] en 500 mg 5-05 tablet by ity o f tablet 00:00: mouth [place] 00 every 6 Medical (six) Branch hours as needed for Pain. acetaminoph 2023-0 Yes [id number] 500mg Take 1 [facility] en 500 mg 5-05 tablet by ity o f tablet 00:00: mouth [place] 00 every 6 Medical (six) Branch hours as needed for Pain. acetaminoph 2023-0 Yes [id number] 500mg Take 1 [facility] en 500 mg 5-05 tablet by ity o f tablet 00:00: mouth [place] 00 every 6 Medical (six) Branch hours as needed for Pain. acetaminoph 2023-0 Yes [id number] 500mg Take 1 [facility] en 500 mg 5-05 tablet by ity o f tablet 00:00: mouth [place] 00 every 6 Medical (six) Branch hours as needed for Pain. acetaminoph 2023-0 Yes [id number] 500mg Take 1 [facility] en 500 mg 5-05 tablet by ity o f tablet 00:00: mouth [place] 00 every 6 Medical (six) Branch hours as needed for Pain. acetaminoph 2023-0 Yes [id number] 500mg Take 1 [facility] en 500 mg 5-05 tablet by ity o f tablet 00:00: mouth [place] 00 every 6 Medical (six) Branch hours as needed for Pain. acetaminoph 2023-0 Yes [id number] 500mg Take 1 [facility] en 500 mg 5-05 tablet by ity o f tablet 00:00: mouth [place] 00 every 6 Medical (six) Branch hours as needed for Pain. acetaminoph 2023-0 Yes [id number] 500mg Take 1 [facility] en 500 mg 5-05 tablet by ity o f tablet 00:00: mouth [place] 00 every 6 Medical (six) Branch hours as needed for Pain. acetaminoph 2023-0 Yes [id number] 500mg Take 1 [facility] en 500 mg 5-05 tablet by ity o f tablet 00:00: mouth [place] 00 every 6 Medical (six) Branch hours as needed for Pain. acetaminoph 2023-0 Yes [id number] 500mg Take 1 [facility] en 500 mg 5-05 tablet by ity o f tablet 00:00: mouth [place] 00 every 6 Medical (six) Branch hours as needed for Pain. acetaminoph 2023-0 Yes [id number] 500mg Take 1 [facility] en 500 mg 5-05 tablet by ity o f tablet 00:00: mouth [place] 00 every 6 Medical (six) Branch hours as needed for Pain. acetaminoph 2023-0 Yes [id number] 500mg Take 1 [facility] en 500 mg 5-05 tablet by ity o f tablet 00:00: mouth [place] 00 every 6 Medical (six) Branch hours as needed for Pain. acetaminoph 2023-0 Yes [id number] 500mg Take 1 [facility] en 500 mg 5-05 tablet by ity o f tablet 00:00: mouth [place] 00 every 6 Medical (six) Branch hours as needed for Pain. acetaminoph 2023-0 Yes [id number] 500mg Take 1 [facility] en 500 mg 5-05 tablet by ity o f tablet 00:00: mouth [place] 00 every 6 Medical (six) Branch hours as needed for Pain. acetaminoph 2023-0 Yes [id number] 500mg Take 1 [facility] en 500 mg 5-05 tablet by ity o f tablet 00:00: mouth [place] 00 every 6 Medical (six) Branch hours as needed for Pain. acetaminoph 2023-0 Yes [id number] 500mg Take 1 [facility] en 500 mg 5-05 tablet by ity o f tablet 00:00: mouth [place] 00 every 6 Medical (six) Branch hours as needed for Pain. acetaminoph 2023-0 Yes [id number] 500mg Take 1 [facility] en 500 mg 5-05 tablet by ity o f tablet 00:00: mouth [place] 00 every 6 Medical (six) Branch hours as needed for Pain. acetaminoph 2023-0 Yes [id number] 500mg Take 1 [facility] en 500 mg 5-05 tablet by ity o f tablet 00:00: mouth [place] 00 every 6 Medical (six) Branch hours as needed for Pain. acetaminoph 2023-0 Yes [id number] 500mg Take 1 [facility] en 500 mg 5-05 tablet by ity o f tablet 00:00: mouth [place] 00 every 6 Medical (six) Branch hours as needed for Pain. acetaminoph 2023-0 Yes [id number] 500mg Take 1 [facility] en 500 mg 5-05 tablet by ity o f tablet 00:00: mouth [place] 00 every 6 Medical (six) Branch hours as needed for Pain. acetaminoph 2023-0 Yes [id number] 500mg Take 1 [facility] en 500 mg 5-05 tablet by ity o f tablet 00:00: mouth [place] 00 every 6 Medical (six) Branch hours as needed for Pain. acetaminoph 2023-0 Yes [id number] 500mg Take 1 [facility] en 500 mg 5-05 tablet by ity o f tablet 00:00: mouth [place] 00 every 6 Medical (six) Branch hours as needed for Pain. acetaminoph 2023-0 Yes [id number] 500mg Take 1 [facility] en 500 mg 5-05 tablet by ity o f tablet 00:00: mouth [place] 00 every 6 Medical (six) Branch hours as needed for Pain. acetaminoph 2023-0 Yes [id number] 500mg Take 1 [facility] en 500 mg 5-05 tablet by ity o f tablet 00:00: mouth [place] 00 every 6 Medical (six) Branch hours as needed for Pain. acetaminoph 2023-0 Yes [id number] 500mg Take 1 [facility] en 500 mg 5-05 tablet by ity o f tablet 00:00: mouth [place] 00 every 6 Medical (six) Branch hours as needed for Pain. acetaminoph 2023-0 Yes [id number] 500mg Take 1 [facility] en 500 mg 5-05 tablet by ity o f tablet 00:00: mouth [place] 00 every 6 Medical (six) Branch hours as needed for Pain. acetaminoph 2023-0 Yes [id number] 500mg Take 1 [facility] en 500 mg 5-05 tablet by ity o f tablet 00:00: mouth [place] 00 every 6 Medical (six) Branch hours as needed for Pain. acetaminoph 2023-0 Yes [id number] 500mg Take 1 [facility] en 500 mg 5-05 tablet by ity o f tablet 00:00: mouth [place] 00 every 6 Medical (six) Branch hours as needed for Pain. acetaminoph 2023-0 Yes [id number] 500mg Take 1 [facility] en 500 mg 5-05 tablet by ity o f tablet 00:00: mouth [place] 00 every 6 Medical (six) Branch hours as needed for Pain. acetaminoph 3-0 Yes [id number] 500mg Take 1 [facility] en 500 mg 5-05 tablet by ity o f tablet 00:00: mouth [place] 00 every 6 Medical (six) Branch hours as needed for Pain. HYDROcodone 2022-0 2022- No [id number] 1{tbl} Take 1 U nivers -acetaminop 5-05 05-13 tablet by it y of hen (NORCO) 00:00: 04:59 mouth [place] 5-325 mg 00 :00 every 6 Medical tablet (six) Branch hours as needed for Pain (scale 7-10) for up to 7 days. Indication s: acute pain HYDROcodone 2022-0 2022- No 4647 1{tbl} Take 1 U nivers -acetaminop 5-05 05-13 tablet by it y of hen (NORCO) 00:00: 04:59 mouth [place] 5-325 mg 00 :00 every 6 Medical tablet (six) Branch hours as needed for Pain (scale 7-10) for up to 7 days. Indication s: acute pain HYDROcodone 3-0 2022- No 4647 1{tbl} Take 1 U nivers -acetaminop 5-05 05-13 tablet by it y of hen (NORCO) 00:00: 04:59 mouth [place] 5-325 mg 00 :00 every 6 Medical tablet (six) Branch hours as needed for Pain (scale 7-10) for up to 7 days. Indication s: acute pain HYDROcodone 2022- No 4647 1{tbl} Take 1 U nivers -acetaminop 5-05 05-13 tablet by it y of hen ([employer]) 00:00: 04:59 mouth [place] 5-325 mg 00 :00 every 6 Medical tablet (six) Branch hours as needed for Pain (scale 7-10) for up to 7 days. Indication s: acute pain HYDROcodone 2022- No 4647 1{tbl} Take 1 U nivers -acetaminop 5-05 05-13 tablet by it y of hen ([employer]) 00:00: 04:59 mouth [place] 5-325 mg 00 :00 every 6 Medical tablet (six) Branch hours as needed for Pain (scale 7-10) for up to 7 days. Indication s: acute pain HYDROcodone 2022- No 4647 1{tbl} Take 1 U nivers -acetaminop 5-05 05-13 tablet by it y of hen ([employer]) 00:00: 04:59 mouth [place] 5-325 mg 00 :00 every 6 Medical tablet (six) Branch hours as needed for Pain (scale 7-10) for up to 7 days. Indication s: acute pain HYDROcodone 2022- No 4647 1{tbl} Take 1 U nivers -acetaminop 5-05 05-13 tablet by it y of hen ([employer]) 00:00: 04:59 mouth [place] 5-325 mg 00 :00 every 6 Medical tablet (six) Branch hours as needed for Pain (scale 7-10) for up to 7 days. Indication s: acute pain celecoxib 0 Yes 100mg 100 mg, Univ ers (CELEBREX) 5-04 Oral, BID ity of capsule 100 22:00: MEALS, [place] mg 00 First dose Medical on [place] Branch 09/05/22 at 1700, Until Discontinu ed, Routine methocarbam 2022-0 Yes 500mg 500 mg, Un enzo oL 5-04 Oral, QID, ity of (ROBAXIN) 17:00: First dose [place] tablet 500 00 on [place] Medical mg 09/05/22 at Branch 1200, Until Discontinu ed, Routine amLODIPine 2022-0 Yes 5mg 5 mg, Univer s (NORVASC) 5-04 Oral, ity of tablet 5 mg 14:00: DAILY, [place] 00 First dose Medical on [facility]3] 09/05/22 at 0900, Until Discontinu ed, Routine multivitami 2022-0 Yes 1{tbl} 1 tablet, Univers n tablet 1 09-05 Oral, ity of tablet 14:00: DAILY, [place] 00 First dose Medical on [facility]3] 09/05/22 at 0900, Until Discontinu ed, Routine foLIC acid 0 Yes 1mg 1 mg, Univer s (FOLATE) 09-05 Oral, ity of tablet 1 mg 14:00: DAILY, [place] 00 First dose Medical on [facility]3] 09/05/22 at 0900, Until Discontinu ed, Routine thiamine 2022-0 Yes 100mg 100 mg, Unive rs (VITAMIN 09-05 Oral, ity of B1) tablet 14:00: DAILY, [place] 100 mg 00 First dose Medical on [facility]3] 09/05/22 at 0900, Until Discontinu ed, Routine pantoprazol 0 Yes 40mg 40 mg, Univ ers e 09-05 Oral, ity of (PROTONIX) 14:00: DAILY, [place] EC tablet 00 First dose Medi zita 40 mg on [facility]3] 09/05/22 at 0900, Until Discontinu ed, Routine bacitracin 2022-0 Yes Topical Univ ers 500 unit/g 09-05 (Apply To ity of ointment 30 13:00: Affected [place] g tube 00 Areas), Medical TID, First Branch dose on [facility] 09/05/22 at 0800, Until Discontinu ed, Routine NaCl 0.9% 2022-0 202- No 1000mL at 100 Uni vers (NS) IV 09-05 05-04 mL/hr, IV ity of infusion 05:30: 16:16 Infusion, [place] 1,000 mL 00 :35 CONTINUOUS Medic al , Starting Branch on [facility] 09/05/22 at 0030, Until [facility] 09/05/22 at 1116, Routine oxazepam 2022-0 Yes 15mg 15 mg, Univers (SERAX) -04 Oral, ity of capsule 15 05:16: Q4HPRN, [place] mg 56 Starting Medical on [facility]3] 09/05/22 at 0016, Until Discontinu ed, Routine, Only while awake for DBP equal to or greater than 100, HR equal to or greater than 100. labetaloL Yes 20mg 20 mg, Univer s (NORMODYNE) 09-05 Slow IV ity o f injection 05:15: Push, PRN [place] 20 mg 26 - SEE Medical INSTRUCTIO Branch NS, Starting on [place] 09/05/22 at 0015, Until Discontinu ed, Routine, Give IV every 10 minutes until target of SBP < 140 reached, max cumulative dose 300 mg in a day. NaCl 0.9% 2022- No 1000mL at 125 Uni vers (NS) IV 09-05-04 mL/hr, IV ity of infusion 04:30: 05:19 Infusion, [place] 1,000 mL 00 :00 CONTINUOUS Medic al , Starting Branch on Fri09/04/22 at 2330, Until [place] 09/05/22 at 0019, Routine labetaloL No 10mg 10 mg, Unive rs (NORMODYNE) 09-05- Slow IV ity of injection 03:21: 05:19 Push, PRN [place] 10 mg 20 :00 - SEE Medical INSTRUCTIO Branch NS, Starting on Fri09/04/22 at 2221, Until Fri09/05/22 at 0019, Routine, high blood pressure acetaminoph 2022- No 1000mg 1,000 mg, Univers en ADULT 09-05- IV ity of (OFIRMEV) 03:00: 22:28 Infusion, [place] injection 00 :00 at 400 Medical 1,000 mg mL/hr Branch Administer over 15 Minutes, Q8H, 3 doses, First dose on Fri09/04/22 at 2200, Last dose on Fri09/05/22 at 1400, Routine
Indicatio n: Non-periop erative Patient&lt ;br>Approv ed by: Per Policy (NPO Status) morpHINE (2 2022- No 2mg 2 mg, Slow Univers mg/mL) 09-05 05-05 IV Push, ity of injection 2 02:49: 15:44 Q3HPRN, [place] mg 14 :23 Starting Medical on Fri Branch 09/04/22 at 2149, Until Fri09/06/22 at 1044, Routine, Pain (scale 7-10) pantoprazol 2022- No 40mg 40 mg, Uni vers e 09-05 Slow IV ity of (PROTONIX) 02:45: 05:19 Push, [place] injection 00 :00 Q24H, 3 Medical 40 mg doses, Branch First dose on Fri09/04/22 at 2145, Last dose on Fri09/06/22 at 2145 ondansetron Yes 4mg 4 mg, Slow Univers (ZOFRAN 09-05 IV Push, ity of (PF)) 02:32: Q6HPRN, [place] injection 4 29 Starting Medi zita mg on Fri09/04/22 at 2132, Until Discontinu ed, Routine, Nausea and Vomiting (N/V) ceFAZolin 2022- No 2000mg 2,000 mg, Univers (ANCEF) 09-05 Intravenou ity o f 2,000 mg in 02:30: 03:00 s, ONCE, 1 [place] NaCl 0.9% 00 :00 dose, On Medica l (NS) 100 mL Fri09/04/22 Br anch MINI-BAG at 2130, Administer over 30 Minutes, 100 mL
R chato for Anti-Infec tive: Empiric Non-Surgic al Prophylaxi s
Durat ion of therapy: 72 hours FENTanyl PF 2022- No 100ug 100 mcg, Univers (SUBLIMAZE 09-05 Slow IV ity o f (PF)) 02:30: 03:45 Push, [place] injection 00 :00 ONCE, 1 Medical 100 mcg dose, On Branch Fri09/04/22 at 2130, Routine iopamidol 2022- No [id number] 100mL 100 mL, Univers (ISOVUE 09-05 Intravenou ity o f 370-500 mL) 01:45: 01:40 s, ONCE, 1 [place] injection 00 :00 dose, On Medica l 100 mL Fri09/04/22 Branch at 2045, Routine capsicum 2022- No [id number] Apply to Univers 0.075 % 06-12 area(s) 4 ity of topical 00:00: 05:59 (four) [place] cream 00 :00 times Medical daily as Branch needed for Pain (scale 7-10) for up to 14 days. capsicum 2022-2022- No [id number] Apply to Univers 0.075 % 06-12 area(s) 4 ity of topical 00:00: 05:59 (four) [place] cream 00 :00 times Medical daily as Branch needed for Pain (scale 7-10) for up to 14 days. capsicum 2022-2022- No [id number] Apply to Univers 0.075 % 06-12 area(s) 4 ity of topical 00:00: 05:59 (four) [place] cream 00 :00 times Medical daily as Branch needed for Pain (scale 7-10) for up to 14 days. capsicum 2022-2022- No [id number] Apply to Univers 0.075 % 06-12 area(s) 4 ity of topical 00:00: 05:59 (four) [place] cream 00 :00 times Medical daily as Branch needed for Pain (scale 7-10) for up to 14 days. capsicum 2022-2022- No [id number] Apply to Univers 0.075 % 06-12 area(s) 4 ity of topical 00:00: 05:59 (four) [place] cream 00 :00 times Medical daily as Branch needed for Pain (scale 7-10) for up to 14 days. lidocaine 5 2022- No [id number] 1{patch Apply 1 Univers % (700 06-07 9107 } Patch to ity of mg/patch) 00:00: 05:59 area(s) in [place] patch 00 :00 the Medical morning Branch for 10 doses. lidocaine 5 2022- No [id number] 1{patch Apply 1 Univers % (700 06-07 9107 } Patch to ity of mg/patch) 00:00: 05:59 area(s) in [place] patch 00 :00 the Medical morning Branch for 10 doses. lidocaine 5 2022- No [id number] 1{patch Apply 1 Univers % (700 06-07 9107 } Patch to ity of mg/patch) 00:00: 05:59 area(s) in [place] patch 00 :00 the Medical morning Branch for 10 doses. lidocaine 5 2022- No [id number] 1{patch Apply 1 Univers % (700 06-07 9107 } Patch to ity of mg/patch) 00:00: 05:59 area(s) in [place] patch 00 :00 the Medical morning Branch for 10 doses. lidocaine 5 2022- No [id number] 1{patch Apply 1 Univers % (700 06-07 9107 } Patch to ity of mg/patch) 00:00: 05:59 area(s) in [place] patch 00 :00 the Medical morning Branch for 10 doses. lidocaine 5 2022- No [id number] 1{patch Apply 1 Univers % (700 06-07 9107 } Patch to ity of mg/patch) 00:00: 05:59 area(s) in [place] patch 00 :00 the Medical morning Branch for 10 doses. lidocaine 5 2022- No [id number] 1{patch Apply 1 Univers % (700 06-07 9107 } Patch to ity of mg/patch) 00:00: 05:59 area(s) in [place] patch 00 :00 the Medical morning Branch for 10 doses. predniSONE 2022-0 2022- No [id number] 20mg Take 1 Univers 20 mg [id number] tablet by ity of tablet 00:00: 05:59 mouth in [place] 00 :00 the Medical morning Branch for 5 days. predniSONE 2022-0 2022- No [id number] 20mg Take 1 Univers 20 mg 06-07 9107 tablet by ity of tablet 00:00: 05:59 mouth in [place] 00 :00 the Medical morning Branch for 5 days. predniSONE 202-0 202- No [id number] 20mg Take 1 Univers 20 mg [id number] tablet by ity of tablet 00:00: 05:59 mouth in [place] 00 :00 the Medical morning Branch for 5 days. predniSONE 2022-0 2022- No [id number] 20mg Take 1 Univers 20 mg 06-07 9107 tablet by ity of tablet 00:00: 05:59 mouth in [place] 00 :00 the Medical morning Branch for 5 days. methylPREDN 2021-05- No [id number] 40mg Univers ISolone 06-25 ity of acetate 00:15: 19:00 [place] (DEPO-MEDRO 00 :00 Medical L) Branch injection 40 mg methylPREDN 2021-05- No [id number] 40mg 40 mg, Univers ISolone 06-25 Intralesio ity o f acetate 00:15: 19:00 nal, ONCE, [place] (DEPO-MEDRO 00 :00 1 dose, On Me dical L) Tue Branch injection 04/23/22 40 mg at 1815, Routine methylPREDN 2021-05- No [id number] 40mg Univers ISolone 06-25 ity of acetate 00:15: 19:00 [place] (DEPO-MEDRO 00 :00 Medical L) Branch injection 40 mg methylPREDN 2021-05- No [id number] 40mg 40 mg, Univers ISolone 06-25 Intralesio ity o f acetate 00:15: 19:00 nal, ONCE, [place] (DEPO-MEDRO 00 :00 1 dose, On Me dical L) Tue Branch injection 04/23/22 40 mg at 1815, Routine SERTraline 2021-05 Yes [id number] 100mg Take 1 Univers (ZOLOFT) 2-05 tablet by ity of 100 mg 00:00: mouth at [place] tablet 00 bedtime. Medical Branch albuterol 2021-05 Yes [id number] 2{puff} Inhale 2 Univers 90 2-05 Puffs ity of mcg/actuati 00:00: every 4 [place] on inhaler 00 (four) Medical hours as Branch needed for Wheezing or Shortness of Breath. tiotropium 2021-05 Yes [id number] 18ug Inhale 1 Univers 18 mcg 2-05 capsule in ity of inhalation 00:00: the [place] 00 morning. Medical Branch SERTraline 2021-05 Yes [id number] 100mg Take 1 Univers (ZOLOFT) 2-05 tablet by ity of 100 mg 00:00: mouth at [place] tablet 00 bedtime. Medical Branch albuterol 2021-05 Yes [id number] 2{puff} Inhale 2 Univers 90 2-05 Puffs ity of mcg/actuati 00:00: every 4 [place] on inhaler 00 (four) Medical hours as Branch needed for Wheezing or Shortness of Breath. tiotropium 2021-05 Yes [id number] 18ug Inhale 1 Univers 18 mcg 2-05 capsule in ity of inhalation 00:00: the [place] 00 morning. Medical Branch SERTraline 2021-05 Yes [id number] 100mg Take 1 Univers (ZOLOFT) 2-05 tablet by ity of 100 mg 00:00: mouth at [place] tablet 00 bedtime. Medical Branch albuterol 2021-05 Yes [id number] 2{puff} Inhale 2 Univers 90 2-05 Puffs ity of mcg/actuati 00:00: every 4 [place] on inhaler 00 (four) Medical hours as Branch needed for Wheezing or Shortness of Breath. tiotropium 2021-05 Yes [id number] 18ug Inhale 1 Univers 18 mcg 2-05 capsule in ity of inhalation 00:00: the [place] 00 morning. Medical Branch SERTraline 2021-05 Yes [id number] 100mg Take 1 Univers (ZOLOFT) 2-05 tablet by ity of 100 mg 00:00: mouth at [place] tablet 00 bedtime. Medical Branch albuterol 2021-05 Yes [id number] 2{puff} Inhale 2 Univers 90 2-05 Puffs ity of mcg/actuati 00:00: every 4 [place] on inhaler 00 (four) Medical hours as Branch needed for Wheezing or Shortness of Breath. tiotropium 2021-05 Yes [id number] 18ug Inhale 1 Univers 18 mcg 2-05 capsule in ity of inhalation 00:00: the [place] 00 morning. Medical Branch SERTraline 2021-05 Yes [id number] 100mg Take 1 Univers (ZOLOFT) 2-05 tablet by ity of 100 mg 00:00: mouth at [place] tablet 00 bedtime. Medical Branch albuterol 2021-05 Yes [id number] 2{puff} Inhale 2 Univers 90 2-05 Puffs ity of mcg/actuati 00:00: every 4 [place] on inhaler 00 (four) Medical hours as Branch needed for Wheezing or Shortness of Breath. tiotropium 2021-05 Yes [id number] 18ug Inhale 1 Univers 18 mcg 2-05 capsule in ity of inhalation 00:00: the [place] 00 morning. Medical Branch SERTraline 2021-05 Yes [id number] 100mg Take 1 Univers (ZOLOFT) 2-05 tablet by ity of 100 mg 00:00: mouth at [place] tablet 00 bedtime. Medical Branch albuterol 2021-05 Yes [id number] 2{puff} Inhale 2 Univers 90 2-05 Puffs ity of mcg/actuati 00:00: every 4 [place] on inhaler 00 (four) Medical hours as Branch needed for Wheezing or Shortness of Breath. tiotropium 2021-05 Yes [id number] 18ug Inhale 1 Univers 18 mcg 2-05 capsule in ity of inhalation 00:00: the [place] 00 morning. Medical Branch SERTraline 2021-05 Yes [id number] 100mg Take 1 Univers (ZOLOFT) 2-05 tablet by ity of 100 mg 00:00: mouth at [place] tablet 00 bedtime. Medical Branch albuterol 2021-05 Yes [id number] 2{puff} Inhale 2 Univers 90 2-05 Puffs ity of mcg/actuati 00:00: every 4 [place] on inhaler 00 (four) Medical hours as Branch needed for Wheezing or Shortness of Breath. tiotropium 2021-05 Yes [id number] 18ug Inhale 1 Univers 18 mcg 2-05 capsule in ity of inhalation 00:00: the [place] 00 morning. Medical Branch SERTraline 2021-05 Yes [id number] 100mg Take 1 Univers (ZOLOFT) 2-05 tablet by ity of 100 mg 00:00: mouth at [place] tablet 00 bedtime. Medical Branch albuterol 2021-05 Yes [id number] 2{puff} Inhale 2 Univers 90 2-05 Puffs ity of mcg/actuati 00:00: every 4 [place] on inhaler 00 (four) Medical hours as Branch needed for Wheezing or Shortness of Breath. tiotropium 2021-05 Yes [id number] 18ug Inhale 1 Univers 18 mcg 2-05 capsule in ity of inhalation 00:00: the [place] 00 morning. Medical Branch SERTraline 2021-05 Yes [id number] 100mg Take 1 Univers (ZOLOFT) 2-05 tablet by ity of 100 mg 00:00: mouth at [place] tablet 00 bedtime. Medical Branch albuterol 2021-05 Yes [id number] 2{puff} Inhale 2 Univers 90 2-05 Puffs ity of mcg/actuati 00:00: every 4 [place] on inhaler 00 (four) Medical hours as Branch needed for Wheezing or Shortness of Breath. tiotropium 2021-05 Yes [id number] 18ug Inhale 1 Univers 18 mcg 2-05 capsule in ity of inhalation 00:00: the [place] 00 morning. Medical Branch SERTraline 2021-05 Yes [id number] 100mg Take 1 Univers (ZOLOFT) 2-05 tablet by ity of 100 mg 00:00: mouth at [place] tablet 00 bedtime. Medical Branch albuterol 2021-05 Yes [id number] 2{puff} Inhale 2 Univers 90 2-05 Puffs ity of mcg/actuati 00:00: every 4 [place] on inhaler 00 (four) Medical hours as Branch needed for Wheezing or Shortness of Breath. tiotropium 2021-05 Yes [id number] 18ug Inhale 1 Univers 18 mcg 2-05 capsule in ity of inhalation 00:00: the [place] 00 morning. Medical Branch SERTraline 2021-05 Yes [id number] 100mg Take 1 Univers (ZOLOFT) 2-05 tablet by ity of 100 mg 00:00: mouth at [place] tablet 00 bedtime. Medical Branch albuterol 2021-05 Yes [id number] 2{puff} Inhale 2 Univers 90 2-05 Puffs ity of mcg/actuati 00:00: every 4 [place] on inhaler 00 (four) Medical hours as Branch needed for Wheezing or Shortness of Breath. tiotropium 2021-05 Yes [id number] 18ug Inhale 1 Univers 18 mcg 2-05 capsule in ity of inhalation 00:00: the [place] 00 morning. Medical Branch SERTraline 2021-05 Yes [id number] 100mg Take 1 Univers (ZOLOFT) 2-05 tablet by ity of 100 mg 00:00: mouth at [place] tablet 00 bedtime. Medical Branch albuterol 2021-05 Yes [id number] 2{puff} Inhale 2 Univers 90 2-05 Puffs ity of mcg/actuati 00:00: every 4 [place] on inhaler 00 (four) Medical hours as Branch needed for Wheezing or Shortness of Breath. tiotropium 2021-05 Yes [id number] 18ug Inhale 1 Univers 18 mcg 2-05 capsule in ity of inhalation 00:00: the [place] 00 morning. Medical Branch SERTraline 2021-05 Yes [id number] 100mg Take 1 Univers (ZOLOFT) 2-05 tablet by ity of 100 mg 00:00: mouth at [place] tablet 00 bedtime. Medical Branch albuterol 2021-05 Yes [id number] 2{puff} Inhale 2 Univers 90 2-05 Puffs ity of mcg/actuati 00:00: every 4 [place] on inhaler 00 (four) Medical hours as Branch needed for Wheezing or Shortness of Breath. tiotropium 2021-05 Yes [id number] 18ug Inhale 1 Univers 18 mcg 2-05 capsule in ity of inhalation 00:00: the [place] 00 morning. Medical Branch SERTraline 2021-05 Yes [id number] 100mg Take 1 Univers (ZOLOFT) 2-05 tablet by ity of 100 mg 00:00: mouth at [place] tablet 00 bedtime. Medical Branch albuterol 2021-05 Yes [id number] 2{puff} Inhale 2 Univers 90 2-05 Puffs ity of mcg/actuati 00:00: every 4 [place] on inhaler 00 (four) Medical hours as Branch needed for Wheezing or Shortness of Breath. tiotropium 2021-05 Yes [id number] 18ug Inhale 1 Univers 18 mcg 2-05 capsule in ity of inhalation 00:00: the [place] 00 morning. Medical Branch SERTraline 2021-05 Yes [id number] 100mg Take 1 Univers (ZOLOFT) 2-05 tablet by ity of 100 mg 00:00: mouth at [place] tablet 00 bedtime. Medical Branch albuterol 2021-05 Yes [id number] 2{puff} Inhale 2 Univers 90 2-05 Puffs ity of mcg/actuati 00:00: every 4 [place] on inhaler 00 (four) Medical hours as Branch needed for Wheezing or Shortness of Breath. tiotropium 2021-05 Yes [id number] 18ug Inhale 1 Univers 18 mcg 2-05 capsule in ity of inhalation 00:00: the [place] 00 morning. Medical Branch SERTraline 2021-05 Yes [id number] 100mg Take 1 Univers (ZOLOFT) 2-05 tablet by ity of 100 mg 00:00: mouth at [place] tablet 00 bedtime. Medical Branch albuterol 2021-05 Yes [id number] 2{puff} Inhale 2 Univers 90 2-05 Puffs ity of mcg/actuati 00:00: every 4 [place] on inhaler 00 (four) Medical hours as Branch needed for Wheezing or Shortness of Breath. tiotropium 2021-05 Yes [id number] 18ug Inhale 1 Univers 18 mcg 2-05 capsule in ity of inhalation 00:00: the [place] 00 morning. Medical Branch SERTraline 2021-05 Yes [id number] 100mg Take 1 Univers (ZOLOFT) 2-05 tablet by ity of 100 mg 00:00: mouth at [place] tablet 00 bedtime. Medical Branch albuterol 2021-05 Yes [id number] 2{puff} Inhale 2 Univers 90 2-05 Puffs ity of mcg/actuati 00:00: every 4 [place] on inhaler 00 (four) Medical hours as Branch needed for Wheezing or Shortness of Breath. tiotropium 2021-05 Yes [id number] 18ug Inhale 1 Univers 18 mcg 2-05 capsule in ity of inhalation 00:00: the [place] 00 morning. Medical Branch SERTraline 2021-05 Yes [id number] 100mg Take 1 Univers (ZOLOFT) 2-05 tablet by ity of 100 mg 00:00: mouth at [place] tablet 00 bedtime. Medical Branch albuterol 2021-05 Yes [id number] 2{puff} Inhale 2 Univers 90 2-05 Puffs ity of mcg/actuati 00:00: every 4 [place] on inhaler 00 (four) Medical hours as Branch needed for Wheezing or Shortness of Breath. tiotropium 2021-05 Yes [id number] 18ug Inhale 1 Univers 18 mcg 2-05 capsule in ity of inhalation 00:00: the [place] 00 morning. Medical Branch SERTraline 2021-05 Yes [id number] 100mg Take 1 Univers (ZOLOFT) 2-05 tablet by ity of 100 mg 00:00: mouth at [place] tablet 00 bedtime. Medical Branch albuterol 2021-05 Yes [id number] 2{puff} Inhale 2 Univers 90 2-05 Puffs ity of mcg/actuati 00:00: every 4 [place] on inhaler 00 (four) Medical hours as Branch needed for Wheezing or Shortness of Breath. tiotropium 2021-05 Yes [id number] 18ug Inhale 1 Univers 18 mcg 2-05 capsule in ity of inhalation 00:00: the [place] 00 morning. Medical Branch SERTraline 2021-05 Yes [id number] 100mg Take 1 Univers (ZOLOFT) 2-05 tablet by ity of 100 mg 00:00: mouth at [place] tablet 00 bedtime. Medical Branch albuterol 2021-05 Yes [id number] 2{puff} Inhale 2 Univers 90 2-05 Puffs ity of mcg/actuati 00:00: every 4 [place] on inhaler 00 (four) Medical hours as Branch needed for Wheezing or Shortness of Breath. tiotropium 2021-05 Yes [id number] 18ug Inhale 1 Univers 18 mcg 2-05 capsule in ity of inhalation 00:00: the [place] 00 morning. Medical Branch SERTraline 2021-05 Yes [id number] 100mg Take 1 Univers (ZOLOFT) 2-05 tablet by ity of 100 mg 00:00: mouth at [place] tablet 00 bedtime. Medical Branch albuterol 2021-05 Yes [id number] 2{puff} Inhale 2 Univers 90 2-05 Puffs ity of mcg/actuati 00:00: every 4 [place] on inhaler 00 (four) Medical hours as Branch needed for Wheezing or Shortness of Breath. tiotropium 2021-05 Yes [id number] 18ug Inhale 1 Univers 18 mcg 2-05 capsule in ity of inhalation 00:00: the [place] 00 morning. Medical Branch SERTraline 2021-05 Yes [id number] 100mg Take 1 Univers (ZOLOFT) 2-05 tablet by ity of 100 mg 00:00: mouth at [place] tablet 00 bedtime. Medical Branch albuterol 2021-05 Yes [id number] 2{puff} Inhale 2 Univers 90 2-05 Puffs ity of mcg/actuati 00:00: every 4 [place] on inhaler 00 (four) Medical hours as Branch needed for Wheezing or Shortness of Breath. tiotropium 2021-05 Yes [id number] 18ug Inhale 1 Univers 18 mcg 2-05 capsule in ity of inhalation 00:00: the [place] 00 morning. Medical Branch SERTraline 2021-05 Yes [id number] 100mg Take 1 Univers (ZOLOFT) 2-05 tablet by ity of 100 mg 00:00: mouth at [place] tablet 00 bedtime. Medical Branch albuterol 2021-05 Yes [id number] 2{puff} Inhale 2 Univers 90 2-05 Puffs ity of mcg/actuati 00:00: every 4 [place] on inhaler 00 (four) Medical hours as Branch needed for Wheezing or Shortness of Breath. tiotropium 2021-05 Yes [id number] 18ug Inhale 1 Univers 18 mcg 2-05 capsule in ity of inhalation 00:00: the [place] 00 morning. Medical Branch SERTraline 2021-05 Yes [id number] 100mg Take 1 Univers (ZOLOFT) 2-05 tablet by ity of 100 mg 00:00: mouth at [place] tablet 00 bedtime. Medical Branch albuterol 2021-05 Yes [id number] 2{puff} Inhale 2 [facility] 90 2-05 Puffs ity of mcg/actuati 00:00: every 4 [place] as on inhaler 00 (four) Medical hours as Branch needed for Wheezing or Shortness of Breath. tiotropium 2021-05 Yes [id number] 18ug Inhale 1 [facility] 18 mcg 2-05 capsule in ity of inhalation 00:00: the [place] 00 morning. Medical Branch SERTraline 2021-05 Yes [id number] 100mg Take 1 [facility] (ZOLOFT) 2-05 tablet by ity of 100 mg 00:00: mouth at [place] tablet 00 bedtime. Medical Branch albuterol 2021-05 Yes [id number] 2{puff} Inhale 2 [facility] 90 2-05 Puffs ity of mcg/actuati 00:00: every 4 [place] as on inhaler 00 (four) Medical hours as Branch needed for Wheezing or Shortness of Breath. tiotropium 2021-05 Yes [id number] 18ug Inhale 1 [facility] 18 mcg 2-05 capsule in ity of inhalation 00:00: the [place] 00 morning. Medical Branch SERTraline 2021-05 Yes [id number] 100mg Take 1 [facility] (ZOLOFT) 2-05 tablet by ity of 100 mg 00:00: mouth at [place] tablet 00 bedtime. Medical Branch albuterol 2021-05 Yes [id number] 2{puff} Inhale 2 [facility] 90 2-05 Puffs ity of mcg/actuati 00:00: every 4 [place] as on inhaler 00 (four) Medical hours as Branch needed for Wheezing or Shortness of Breath. tiotropium 2021-05 Yes [id number] 18ug Inhale 1 [facility] 18 mcg 2-05 capsule in ity of inhalation 00:00: the [place] 00 morning. Medical Branch SERTraline 2021-05 Yes [id number] 100mg Take 1 [facility] (ZOLOFT) 2-05 tablet by ity of 100 mg 00:00: mouth at [place] tablet 00 bedtime. Medical Branch albuterol 2021-05 Yes [id number] 2{puff} Inhale 2 [facility] 90 2-05 Puffs ity of mcg/actuati 00:00: every 4 [place] as on inhaler 00 (four) Medical hours as Branch needed for Wheezing or Shortness of Breath. tiotropium 2021-05 Yes [id number] 18ug Inhale 1 [facility] 18 mcg 2-05 capsule in ity of inhalation 00:00: the [place] 00 morning. Medical Branch SERTraline 2021-05 Yes [id number] 100mg Take 1 [facility] (ZOLOFT) 2-05 tablet by ity of 100 mg 00:00: mouth at [place] tablet 00 bedtime. Medical Branch albuterol 2021-05 Yes [id number] 2{puff} Inhale 2 [facility] 90 2-05 Puffs ity of mcg/actuati 00:00: every 4 [place] as on inhaler 00 (four) Medical hours as Branch needed for Wheezing or Shortness of Breath. tiotropium 2021-05 Yes [id number] 18ug Inhale 1 [facility] 18 mcg 2-05 capsule in ity of inhalation 00:00: the [place] 00 morning. Medical Branch SERTraline 2021-05 Yes [id number] 100mg Take 1 [facility] (ZOLOFT) 2-05 tablet by ity of 100 mg 00:00: mouth at [place] tablet 00 bedtime. Medical Branch albuterol 2021-05 Yes [id number] 2{puff} Inhale 2 [facility] 90 2-05 Puffs ity of mcg/actuati 00:00: every 4 [place] as on inhaler 00 (four) Medical hours as Branch needed for Wheezing or Shortness of Breath. tiotropium 2021-05 Yes [id number] 18ug Inhale 1 [facility] 18 mcg 2-05 capsule in ity of inhalation 00:00: the [place] 00 morning. Medical Branch SERTraline 2021-05 Yes [id number] 100mg Take 1 [facility] (ZOLOFT) 2-05 tablet by ity of 100 mg 00:00: mouth at [place] tablet 00 bedtime. Medical Branch albuterol 2021-05 Yes [id number] 2{puff} Inhale 2 [facility] 90 2-05 Puffs ity of mcg/actuati 00:00: every 4 [place] as on inhaler 00 (four) Medical hours as Branch needed for Wheezing or Shortness of Breath. tiotropium 2021-05 Yes [id number] 18ug Inhale 1 [facility] 18 mcg 2-05 capsule in ity of inhalation 00:00: the [place] morning. Medical Branch albuterol 2021-05 Yes [id number] 2{puff} Inhale 2 [facility] 90 2-05 Puffs ity of mcg/actuati 00:00: every 4 [place] as on inhaler 00 (four) Medical hours as Branch needed for Wheezing or Shortness of Breath. tiotropium 2021-05 Yes [id number] 18ug Inhale 1 [facility] 18 mcg 2-05 capsule in ity of inhalation 00:00: the [place] 00 morning. Medical Branch albuterol 2021-05 Yes [id number] 2{puff} Inhale 2 [facility] 90 2-05 Puffs ity of mcg/actuati 00:00: every 4 [place] as on inhaler 00 (four) Medical hours as Branch needed for Wheezing or Shortness of Breath. tiotropium 2021-05 Yes [id number] 18ug Inhale 1 [facility] 18 mcg 2-05 capsule in ity of inhalation 00:00: the [place] morning. Medical Branch albuterol 2021-05 Yes [id number] 2{puff} Inhale 2 [facility] 90 2-05 Puffs ity of mcg/actuati 00:00: every 4 [place] as on inhaler 00 (four) Medical hours as Branch needed for Wheezing or Shortness of Breath. tiotropium 2021-05 Yes [id number] 18ug Inhale 1 [facility] 18 mcg 2-05 capsule in ity of inhalation 00:00: the [place] 00 morning. Medical Branch albuterol 2021-05 Yes [id number] 2{puff} Inhale 2 [facility] 90 2-05 Puffs ity of mcg/actuati 00:00: every 4 [place] as on inhaler 00 (four) Medical hours as Branch needed for Wheezing or Shortness of Breath. tiotropium 2021-05 Yes [id number] 18ug Inhale 1 [facility] 18 mcg 2-05 capsule in ity of inhalation 00:00: the [place] 00 morning. Medical Branch albuterol 2021-05 Yes [id number] 2{puff} Inhale 2 [facility] 90 2-05 Puffs ity of mcg/actuati 00:00: every 4 [place] as on inhaler 00 (four) Medical hours as Branch needed for Wheezing or Shortness of Breath. tiotropium 2021-05 Yes [id number] 18ug Inhale 1 [facility] 18 mcg 2-05 capsule in ity of inhalation 00:00: the [place] 00 morning. Medical Branch albuterol 2021-05 Yes [id number] 2{puff} Inhale 2 [facility] 90 2-05 Puffs ity of mcg/actuati 00:00: every 4 [place] as on inhaler 00 (four) Medical hours as Branch needed for Wheezing or Shortness of Breath. tiotropium 2021-05 Yes [id number] 18ug Inhale 1 [facility] 18 mcg 2-05 capsule in ity of inhalation 00:00: the [place] 00 morning. Medical Branch albuterol 2021-05 Yes [id number] 2{puff} Inhale 2 [facility] 90 2-05 Puffs ity of mcg/actuati 00:00: every 4 [place] as on inhaler 00 (four) Medical hours as Branch needed for Wheezing or Shortness of Breath. tiotropium 2021-05 Yes [id number] 18ug Inhale 1 [facility] 18 mcg 2-05 capsule in ity of inhalation 00:00: the [place] morning. Medical Branch albuterol 2021-05 Yes [id number] 2{puff} Inhale 2 [facility] 90 2-05 Puffs ity of mcg/actuati 00:00: every 4 [place] as on inhaler 00 (four) Medical hours as Branch needed for Wheezing or Shortness of Breath. tiotropium 2021-05 Yes [id number] 18ug Inhale 1 [facility] 18 mcg 2-05 capsule in ity of inhalation 00:00: the [place] 00 morning. Medical Branch albuterol 2021-05 Yes [id number] 2{puff} Inhale 2 [facility] 90 2-05 Puffs ity of mcg/actuati 00:00: every 4 [place] as on inhaler 00 (four) Medical hours as Branch needed for Wheezing or Shortness of Breath. tiotropium 2021-05 Yes [id number] 18ug Inhale 1 [facility] 18 mcg 2-05 capsule in ity of inhalation 00:00: the [place] 00 morning. Medical Branch albuterol 2021-05 Yes [id number] 2{puff} Inhale 2 [facility] 90 2-05 Puffs ity of mcg/actuati 00:00: every 4 [place] as on inhaler 00 (four) Medical hours as Branch needed for Wheezing or Shortness of Breath. tiotropium 2021-05 Yes [id number] 18ug Inhale 1 [facility] 18 mcg 2-05 capsule in ity of inhalation 00:00: the [place] 00 morning. Medical Branch albuterol 2021-05 Yes [id number] 2{puff} Inhale 2 [facility] 90 2-05 Puffs ity of mcg/actuati 00:00: every 4 [place] as on inhaler 00 (four) Medical hours as Branch needed for Wheezing or Shortness of Breath. tiotropium 2021-05 Yes [id number] 18ug Inhale 1 [facility] 18 mcg 2-05 capsule in ity of inhalation 00:00: the [place] 00 morning. Medical Branch albuterol 2021-05 Yes [id number] 2{puff} Inhale 2 [facility] 90 2-05 Puffs ity of mcg/actuati 00:00: every 4 [place] as on inhaler 00 (four) Medical hours as Branch needed for Wheezing or Shortness of Breath. tiotropium 2021-05 Yes [id number] 18ug Inhale 1 [facility] 18 mcg 2-05 capsule in ity of inhalation 00:00: the [place] morning. Medical Branch albuterol 2021-05 Yes [id number] 2{puff} Inhale 2 [facility] 90 2-05 Puffs ity of mcg/actuati 00:00: every 4 [place] as on inhaler 00 (four) Medical hours as Branch needed for Wheezing or Shortness of Breath. tiotropium 2021-05 Yes [id number] 18ug Inhale 1 [facility] 18 mcg 2-05 capsule in ity of inhalation 00:00: the [place] 00 morning. Medical Branch albuterol 2021-05 Yes [id number] 2{puff} Inhale 2 [facility] 90 2-05 Puffs ity of mcg/actuati 00:00: every 4 [place] as on inhaler 00 (four) Medical hours as Branch needed for Wheezing or Shortness of Breath. tiotropium 2021-05 Yes [id number] 18ug Inhale 1 [facility] 18 mcg 2-05 capsule in ity of inhalation 00:00: the [place] 00 morning. Medical Branch albuterol 2021-05 Yes [id number] 2{puff} Inhale 2 [facility] 90 2-05 Puffs ity of mcg/actuati 00:00: every 4 [place] as on inhaler 00 (four) Medical hours as Branch needed for Wheezing or Shortness of Breath. tiotropium 2021-05 Yes [id number] 18ug Inhale 1 [facility] 18 mcg 2-05 capsule in ity of inhalation 00:00: the [place] 00 morning. Medical Branch albuterol 2021-05 Yes [id number] 2{puff} Inhale 2 [facility] 90 2-05 Puffs ity of mcg/actuati 00:00: every 4 [place] as on inhaler 00 (four) Medical hours as Branch needed for Wheezing or Shortness of Breath. tiotropium 2021-05 Yes [id number] 18ug Inhale 1 [facility] 18 mcg 2-05 capsule in ity of inhalation 00:00: the [place] 00 morning. Medical Branch albuterol 2021-05 Yes [id number] 2{puff} Inhale 2 [facility] 90 2-05 Puffs ity of mcg/actuati 00:00: every 4 [place] as on inhaler 00 (four) Medical hours as Branch needed for Wheezing or Shortness of Breath. tiotropium 2021-05 Yes [id number] 18ug Inhale 1 [facility] 18 mcg 2-05 capsule ity of inhalation 00:00: in the [place] 00 morning. Medical Branch albuterol 2021-05 Yes [id number] 2{puff} Inhale 2 [facility] 90 2-05 Puffs ity of mcg/actuati 00:00: every 4 [place] as on inhaler 00 (four) Medical hours as Branch needed for Wheezing or Shortness of Breath. tiotropium 2021-05 Yes [id number] 18ug Inhale 1 [facility] 18 mcg 2-05 capsule in ity of inhalation 00:00: the [place] 00 morning. Medical Branch albuterol 2021-05 Yes [id number] 2{puff} Inhale 2 [facility] 90 2-05 Puffs ity of mcg/actuati 00:00: every 4 [place] as on inhaler 00 (four) Medical hours as Branch needed for Wheezing or Shortness of Breath. tiotropium 2021-05 Yes [id number] 18ug Inhale 1 [facility] 18 mcg 2-05 capsule in ity of inhalation 00:00: the [place] 00 morning. Medical Branch albuterol 2021-05 Yes [id number] 2{puff} Inhale 2 [facility] 90 2-05 Puffs ity of mcg/actuati 00:00: every 4 [place] as on inhaler 00 (four) Medical hours as Branch needed for Wheezing or Shortness of Breath. tiotropium 2021-05 Yes [id number] 18ug Inhale 1 [facility] 18 mcg 2-05 capsule in ity of inhalation 00:00: the [place] 00 morning. Medical Branch albuterol 2021-05 Yes [id number] 2{puff} Inhale 2 [facility] 90 2-05 Puffs ity of mcg/actuati 00:00: every 4 [place] as on inhaler 00 (four) Medical hours as Branch needed for Wheezing or Shortness of Breath. tiotropium 2021-05 Yes [id number] 18ug Inhale 1 [facility] 18 mcg 2-05 capsule in ity of inhalation 00:00: the [place] 00 morning. Medical Branch albuterol 2021-05 Yes [id number] 2{puff} Inhale 2 [facility] 90 2-05 Puffs ity of mcg/actuati 00:00: every 4 [place] as on inhaler 00 (four) Medical hours as Branch needed for Wheezing or Shortness of Breath. tiotropium 2021-05 Yes [id number] 18ug Inhale 1 [facility] 18 mcg 2-05 capsule in ity of inhalation 00:00: the [place] morning. Medical Branch albuterol 2021-05 Yes [id number] 2{puff} Inhale 2 [facility] 90 2-05 Puffs ity of mcg/actuati 00:00: every 4 [place] as on inhaler 00 (four) Medical hours as Branch needed for Wheezing or Shortness of Breath. tiotropium 2021-05 Yes [id number] 18ug Inhale 1 [facility] 18 mcg 2-05 capsule in ity of inhalation 00:00: the [place] 00 morning. Medical Branch albuterol 2021-05 Yes [id number] 2{puff} Inhale 2 [facility] 90 2-05 Puffs ity of mcg/actuati 00:00: every 4 [place] as on inhaler 00 (four) Medical hours as Branch needed for Wheezing or Shortness of Breath. tiotropium 2021-05 Yes [id number] 18ug Inhale 1 [facility] 18 mcg 2-05 capsule in ity of inhalation 00:00: the [place] 00 morning. Medical Branch albuterol 2021-05 Yes [id number] 2{puff} Inhale 2 [facility] 90 2-05 Puffs ity of mcg/actuati 00:00: every 4 [place] as on inhaler 00 (four) Medical hours as Branch needed for Wheezing or Shortness of Breath. tiotropium 2021-05 Yes [id number] 18ug Inhale 1 [facility] 18 mcg 2-05 capsule in ity of inhalation 00:00: the [place] 00 morning. Medical Branch albuterol 2021-05 Yes [id number] 2{puff} Inhale 2 [facility] 90 2-05 Puffs ity of mcg/actuati 00:00: every 4 [place] as on inhaler 00 (four) Medical hours as Branch needed for Wheezing or Shortness of Breath. tiotropium 2021-05 Yes [id number] 18ug Inhale 1 [facility] 18 mcg 2-05 capsule in ity of inhalation 00:00: the [place] 00 morning. Medical Branch SERTraline 2021-05- No [id number] 100mg Take 1 [facility] (ZOLOFT) 2- 05-19 tablet by ity o f 100 mg 00:00: 00:00 mouth at [place] tablet 00 :00 bedtime. Medical Branch SERTraline 2021-05- No [id number] 100mg Take 1 [facility] (ZOLOFT) 2- 05-19 tablet by ity o f 100 mg 00:00: 00:00 mouth at [place] tablet 00 :00 bedtime. Medical Branch SERTraline 2021-05- No [id number] 100mg Take 1 [facility] (ZOLOFT) 2-05 05-19 tablet by ity o f 100 mg 00:00: 00:00 mouth at [place] tablet 00 :00 bedtime. Medical Branch predniSONE 2021-05- No [id number] 40mg Take 2 [facility] 20 mg 06-02 tablets by ity of tablet 00:00: 05:59 mouth in [place] 00 :00 the Medical morning Branch for 3 days. predniSONE 2021-05- No [id number] 40mg Take 2 [facility] 20 mg 06-02 tablets by ity of tablet 00:00: 05:59 mouth in [place] 00 :00 the Medical morning Branch for 3 days. fluticasone 2021-05 Yes 1{spray 1 [place], [facility] propionate 06-01 } Nasal, ity of 50 15:00: DAILY, [place] mcg/actuati 00 First dose Me dical on nasal on Fri Branch spray 1 04/01/22 [place] at 0900, Until Discontinu ed, Routine amLODIPine 2021-05 Yes 10mg 10 mg, Unive rs (NORVASC) 06-01 Oral, ity of tablet 10 15:00: DAILY, [place] mg 00 First dose Medical on Fri Branch 04/01/22 at 0900, Until Discontinu ed, Routine predniSONE 2021-05 No 40mg 40 mg, Univ ers (DELTASONE) 06-0103 Oral, ity of tablet 40 15:00: 14:59 DAILY, 5 [place] as mg 00 :00 doses, Medical First dose Branch on Fri04/01/22 at 0900, Last dose on Fri04/05/22 at 0900, Routine SERTraline 2021-05 Yes 100mg 100 mg, Uni vers (ZOLOFT) 06-01 Oral, QHS, ity o f tablet 100 03:00: First dose [place] mg 00 on [facility] 03/31/22 Branch at 2100, Until Discontinu ed, Routine ipratropium 2021-05 Yes 3mL 3 mL, Unive rs -albuteroL 06-01 Inhalation ity of (DUONEB) 02:00: , Q4H, [place] 0.5 mg-3 00 First dose Medic al mg(2.5 mg on [facility] base)/3 mL 03/31/22 nebulizer at 2000, solution 3 Until mL Discontinu ed, Routine famotidine 2021-05 Yes 40mg 40 mg, Unive rs (PEPCID AC) 06-01 Oral, BID, it y of tablet 40 02:00: First dose [place] mg 00 on [facility] 03/31/22 Branch at 2000, Until Discontinu ed, Routine enalapril 2021-05 Yes 20mg 20 mg, Univer s (VASOTEC) 06-01 Oral, BID, ity of tablet 20 02:00: First dose [place] mg 00 on [facility] 03/31/22 Branch at 2000, Until Discontinu ed, Routine doxycycline 2021-05- No [id number] 100mg Take 1 [facility] hyclate 100 06-01 capsule by i ty of mg capsule 00:00: 05:59 mouth [place] 00 :00 every 12 Medical (twelve) Branch hours for 3 days. doxycycline 2021-05- No [id number] 100mg Take 1 [facility] hyclate 100 06-01 capsule by i ty of mg capsule 00:00: 05:59 mouth [place] 00 :00 every 12 Medical (twelve) Branch hours for 3 days. doxycycline 2021-05- No 100mg 100 mg, U nivers hyclate 05-31 Oral, Q12H ity o f (Vibramycin 22:30: 22:29 ABX, 10 [place] ) capsule 00 :00 doses, Medical 100 mg First dose Branch on [place] 03/31/22 at 1630, Last dose on Fri04/05/22 at 0430, EDMUNDO
Re ason for Anti-Infec tive: Empiric Therapy for Suspected Infection< br>Empiric Therapy Site: Respirator y
Durat ion of therapy: 5 days guaiFENesin 2021-05 Yes 200mg 200 mg, Un enzo 100 mg/5 mL 05-31 Oral, ity of solution 22:23: Q6HPRN, [place] 200 mg 06 Starting Medical on [facility] 03/31/22 at 1623, Until Discontinu ed, Routine, Cough acetaminoph 2021-05 Yes 650mg 650 mg, Un enzo en 05-31 Oral, ity of (TYLENOL) 22:20: Q6HPRN, [place] tablet 650 48 Starting Medic al mg on [facility] 03/31/22 at 1620, Until Discontinu ed, Routine, Pain (scale 1-3) albuterol 2021-05 Yes 2{puff} 2 Puff, Un enzo (VENTOLIN) 05-31 Inhalation ity of inhaler 2 22:12: , Q4HPRN, [place] as Puff 11 Starting Medical on [facility] 03/31/22 at 1612, Until Discontinu ed, Routine, Wheezing, Shortness of Breath iopamidol 2021-05- No [id number] 80mL 80 mL, Univers (ISOVUE 05-31 Intravenou ity o f 370-500 mL) 20:45: 20:45 s, ONCE, 1 [place] injection 00 :00 dose, On Medica l 80 mL [place] Branch 03/31/22 at 1445, Routine methylpredn 2021-05 No 125mg 125 mg, U nivers isolone sod 05-31 Intravenou i ty of succ 18:15: 17:36 s, ONCE, 1 [place] (SOLU-MEDRO 00 :00 dose, On Medi zita L) Sun Branch injection 03/31/22 125 mg at 1215, 2 mL ipratropium 2021-05 No 3mL 3 mL, Univ ers -albuteroL 05-31 Inhalation it y of (DUONEB) 18:00: 21:02 , QID, [place] 0.5 mg-3 00 :36 First dose Medic al mg(2.5 mg on [place] Branch base)/3 mL 03/31/22 nebulizer at 1200, solution 3 Until mL Discontinu ed, Routine ondansetron 2021-05 No 4mg 4 mg, Slow Univers (ZOFRAN 05-30 IV Push, ity of (PF)) 11:00: 10:29 ONCE, 1 [place] injection 4 00 :00 dose, On Medi zita mg Sat Branch 03/30/22 at 0500, EDMUNDO ipratropium 2021-05 No 3mL 3 mL, Univ ers -albuteroL 05-30 Inhalation it y of (DUONEB) 11:00: 10:50 , ONCE, 1 [place] as 0.5 mg-3 00 :00 dose, On Medical mg(2.5 mg [facility] Branch base)/3 mL 03/30/22 nebulizer at 0500, solution 3 Routine mL NaCl 0.9% 2021-05- No 1000mL at 999 Uni vers (NS) bolus 05-30 mL/hr, ity of infusion 11:00: 12:05 1,000 mL, [place] as 1,000 mL 00 :00 IV Medical Infusion, Branch ONCE, 1 dose, On 03/30/22 at 0500, STAT ketorolac 2022-1 2022- No 30mg 30 mg, Unive rs (TORADOL) 05-30 Slow IV ity of injection 10:45: 10:29 Push, [place] 30 mg 00 :00 ONCE, 1 Medical dose, On Branch 03/30/22 at 0445, Routine methylpredn 2021-05- No 125mg 125 mg, U nivers isolone sod 05-30 Intravenou i ty of succ 10:45: 10:30 s, ONCE, 1 [place] (SOLU-MEDRO 00 :00 dose, On Medi zita L) Sat Branch injection 03/30/22 125 mg at 0445, 2 mL benzonatate 2021-05 Yes [id number] 100mg Take 1 [facility] 100 mg 1-26 capsule by ity of capsule 00:00: mouth 3 [place] (three) Medical times Branch daily as needed for Cough. albuterol 2021-05 Yes [id number] 2{puff} Inhale 2 [facility] 90 1-26 Puffs ity of mcg/actuati 00:00: every 4 [place] as on inhaler 00 (four) Medical hours as Branch needed for Wheezing or Shortness of Breath. proMETHazin 2021-05 Yes [id number] 25mg Take 1 Univers e 25 mg 1-26 tablet by ity of tablet 00:00: mouth [place] 00 every 6 Medical (six) Branch hours as needed for Nausea and Vomiting (N/V). benzonatate 2021-05 Yes [id number] 100mg Take 1 [facility] 100 mg 1-26 capsule by ity of capsule 00:00: mouth 3 [place] 00 (three) Medical times Branch daily as needed for Cough. albuterol 2021-05 Yes [id number] 2{puff} Inhale 2 [facility] 90 1-26 Puffs ity of mcg/actuati 00:00: every 4 [place] as on inhaler 00 (four) Medical hours as Branch needed for Wheezing or Shortness of Breath. proMETHazin 2021-05 Yes [id number] 25mg Take 1 Univers e 25 mg 1-26 tablet by ity of tablet 00:00: mouth [place] 00 every 6 Medical (six) Branch hours as needed for Nausea and Vomiting (N/V). benzonatate 2021-05 Yes [id number] 100mg Take 1 [facility] 100 mg 1-26 capsule by ity of capsule 00:00: mouth 3 [place] 00 (three) Medical times Branch daily as needed for Cough. albuterol 2021-05 Yes [id number] 2{puff} Inhale 2 [facility] 90 1-26 Puffs ity of mcg/actuati 00:00: every 4 [place] as on inhaler 00 (four) Medical hours as Branch needed for Wheezing or Shortness of Breath. proMETHazin 2021-05 Yes [id number] 25mg Take 1 Univers e 25 mg 1-26 tablet by ity of tablet 00:00: mouth [place] 00 every 6 Medical (six) Branch hours as needed for Nausea and Vomiting (N/V). benzonatate 2021-05 Yes [id number] 100mg Take 1 [facility] 100 mg 1-26 capsule by ity of capsule 00:00: mouth 3 (three) Medical times Branch daily as needed for Cough. albuterol 2021-05 Yes [id number] 2{puff} Inhale 2 [facility] 90 1-26 Puffs ity of mcg/actuati 00:00: every 4 [place] as on inhaler 00 (four) Medical hours as Branch needed for Wheezing or Shortness of Breath. proMETHazin 2021-05 Yes [id number] 25mg Take 1 Univers e 25 mg 1-26 tablet by ity of tablet 00:00: mouth [place] 00 every 6 Medical (six) Branch hours as needed for Nausea and Vomiting (N/V). benzonatate 2021-05 Yes [id number] 100mg Take 1 [facility] 100 mg 1-26 capsule by ity of capsule 00:00: mouth 3 (three) Medical times Branch daily as needed for Cough. albuterol 2021-05 Yes [id number] 2{puff} Inhale 2 [facility] 90 1-26 Puffs ity of mcg/actuati 00:00: every 4 [place] as on inhaler 00 (four) Medical hours as Branch needed for Wheezing or Shortness of Breath. proMETHazin 2021-05 Yes [id number] 25mg Take 1 Univers e 25 mg 1-26 tablet by ity of tablet 00:00: mouth [place] 00 every 6 Medical (six) Branch hours as needed for Nausea and Vomiting (N/V). benzonatate 2021-05 Yes [id number] 100mg Take 1 [facility] 100 mg 1-26 capsule by ity of capsule 00:00: mouth 3 [place] 00 (three) Medical times Branch daily as needed for Cough. proMETHazin 2021-05 Yes [id number] 25mg Take 1 Univers e 25 mg 1-26 tablet by ity of tablet 00:00: mouth [place] 00 every 6 Medical (six) Branch hours as needed for Nausea and Vomiting (N/V). benzonatate 2021-05 Yes [id number] 100mg Take 1 [facility] 100 mg 1-26 capsule by ity of capsule 00:00: mouth 3 [place] 00 (three) Medical times Branch daily as needed for Cough. proMETHazin 2021-05 Yes [id number] 25mg Take 1 Univers e 25 mg 1-26 tablet by ity of tablet 00:00: mouth [place] 00 every 6 Medical (six) Branch hours as needed for Nausea and Vomiting (N/V). benzonatate 2021-05 Yes [id number] 100mg Take 1 [facility] 100 mg 1-26 capsule by ity of capsule 00:00: mouth 3 [place] 00 (three) Medical times Branch daily as needed for Cough. proMETHazin 2021-05 Yes [id number] 25mg Take 1 Univers e 25 mg 1-26 tablet by ity of tablet 00:00: mouth [place] 00 every 6 Medical (six) Branch hours as needed for Nausea and Vomiting (N/V). benzonatate 2021-05 Yes [id number] 100mg Take 1 [facility] 100 mg 1-26 capsule by ity of capsule 00:00: mouth 3 00 (three) Medical times Branch daily as needed for Cough. proMETHazin 2021-05 Yes [id number] 25mg Take 1 Univers e 25 mg 1-26 tablet by ity of tablet 00:00: mouth [place] 00 every 6 Medical (six) Branch hours as needed for Nausea and Vomiting (N/V). benzonatate 2021-05 Yes [id number] 100mg Take 1 [facility] 100 mg 1-26 capsule by ity of capsule 00:00: mouth 3 [place] 00 (three) Medical times Branch daily as needed for Cough. proMETHazin 2021-05 Yes [id number] 25mg Take 1 Univers e 25 mg 1-26 tablet by ity of tablet 00:00: mouth [place] 00 every 6 Medical (six) Branch hours as needed for Nausea and Vomiting (N/V). benzonatate 2021-05 Yes [id number] 100mg Take 1 [facility] 100 mg 1-26 capsule by ity of capsule 00:00: mouth 3 [place] 00 (three) Medical times Branch daily as needed for Cough. proMETHazin 2021-05 Yes [id number] 25mg Take 1 Univers e 25 mg 1-26 tablet by ity of tablet 00:00: mouth [place] 00 every 6 Medical (six) Branch hours as needed for Nausea and Vomiting (N/V). benzonatate 2021-05 Yes [id number] 100mg Take 1 [facility] 100 mg 1-26 capsule by ity of capsule 00:00: mouth 3 [place] 00 (three) Medical times Branch daily as needed for Cough. proMETHazin 2021-05 Yes [id number] 25mg Take 1 Univers e 25 mg 1-26 tablet by ity of tablet 00:00: mouth [place] 00 every 6 Medical (six) Branch hours as needed for Nausea and Vomiting (N/V). benzonatate 2021-05 Yes [id number] 100mg Take 1 [facility] 100 mg 1-26 capsule by ity of capsule 00:00: mouth 3 [place] 00 (three) Medical times Branch daily as needed for Cough. proMETHazin 2021-05 Yes [id number] 25mg Take 1 Univers e 25 mg 1-26 tablet by ity of tablet 00:00: mouth [place] 00 every 6 Medical (six) Branch hours as needed for Nausea and Vomiting (N/V). benzonatate 2021-05 Yes [id number] 100mg Take 1 [facility] 100 mg 1-26 capsule by ity of capsule 00:00: mouth 3 [place] 00 (three) Medical times Branch daily as needed for Cough. proMETHazin 2021-05 Yes [id number] 25mg Take 1 Univers e 25 mg 1-26 tablet by ity of tablet 00:00: mouth [place] 00 every 6 Medical (six) Branch hours as needed for Nausea and Vomiting (N/V). benzonatate 2021-05 Yes [id number] 100mg Take 1 [facility] 100 mg 1-26 capsule by ity of capsule 00:00: mouth 3 [place] 00 (three) Medical times Branch daily as needed for Cough. proMETHazin 2021-05 Yes [id number] 25mg Take 1 Univers e 25 mg 1-26 tablet by ity of tablet 00:00: mouth [place] 00 every 6 Medical (six) Branch hours as needed for Nausea and Vomiting (N/V). benzonatate 2021-05 Yes [id number] 100mg Take 1 [facility] 100 [facility]-26 capsule by [facility] capsule 00:00: mouth 3 [place] 00 (three) Medical times Branch daily as needed for Cough. proMETHazin 2021-05 Yes [id number] 25mg Take 1 [facility] e 25 mg 1-26 tablet by [facility] tablet 00:00: mouth [place] 00 every 6 Medical (six) Branch hours as needed for Nausea and Vomiting (N/V). benzonatate 2021-05 Yes [id number] 100mg Take 1 [facility] 100 mg 1-26 capsule by [facility] capsule 00:00: mouth 3 00 (three) Medical times Branch daily as needed for Cough. proMETHazin 2021-05 Yes [id number] 25mg Take 1 [facility] 25 mg 1-26 tablet by [facility] tablet 00:00: mouth [place] 00 every 6 Medical (six) Branch hours as needed for Nausea and Vomiting (N/V). benzonatate 2021-05 Yes [id number] 100mg Take 1 [facility] 100 mg 1-26 capsule by [facility] capsule 00:00: mouth 3 00 (three) Medical times Branch daily as needed for Cough. proMETHazin 2021-05 Yes [id number] 25mg Take 1 [facility] 25 mg 1-26 tablet by [facility] tablet 00:00: mouth [place] 00 every 6 Medical (six) Branch hours as needed for Nausea and Vomiting (N/V). benzonatate 2021-05 Yes [id number] 100mg Take 1 [facility] 100 mg 1-26 capsule by [facility] capsule 00:00: mouth 3 00 (three) Medical times Branch daily as needed for Cough. proMETHazin 2021-05 Yes [id number] 25mg Take 1 [facility] 25 mg 1-26 tablet by [facility] tablet 00:00: mouth [place] 00 every 6 Medical (six) Branch hours as needed for Nausea and Vomiting (N/V). benzonatate 2021-05 Yes [id number] 100mg Take 1 [facility] 100 mg 1-26 capsule by [facility] capsule 00:00: mouth 3 00 (three) Medical times Branch daily as needed for Cough. proMETHazin 2021-05 Yes [id number] 25mg Take 1 [facility] 25 mg 1-26 tablet by [facility] tablet 00:00: mouth [place] 00 every 6 Medical (six) Branch hours as needed for Nausea and Vomiting (N/V). benzonatate 2021-05 Yes [id number] 100mg Take 1 [facility] 100 mg 1-26 capsule by [facility] capsule 00:00: mouth 3 [place] 00 (three) Medical times Branch daily as needed for Cough. proMETHazin 2021-05 Yes [id number] 25mg Take 1 [facility] 25 mg 1-26 tablet by [facility] tablet 00:00: mouth [place] 00 every 6 Medical (six) Branch hours as needed for Nausea and Vomiting (N/V). benzonatate 2021-05 Yes [id number] 100mg Take 1 [facility] 100 mg 1-26 capsule by [facility] capsule 00:00: mouth 3 [place] 00 (three) Medical times Branch daily as needed for Cough. proMETHazin 2021-05 Yes [id number] 25mg Take 1 [facility] 25 mg 1-26 tablet by [facility] tablet 00:00: mouth [place] 00 every 6 Medical (six) Branch hours as needed for Nausea and Vomiting (N/V). benzonatate 2021-05 Yes [id number] 100mg Take 1 [facility] 100 mg 1-26 capsule by [facility] capsule 00:00: mouth 3 00 (three) Medical times Branch daily as needed for Cough. proMETHazin 2021-05 Yes [id number] 25mg Take 1 [facility] 25 mg 1-26 tablet by [facility] tablet 00:00: mouth [place] 00 every 6 Medical (six) Branch hours as needed for Nausea and Vomiting (N/V). benzonatate 2021-05 Yes [id number] 100mg Take 1 [facility] 100 mg 1-26 capsule by [facility] capsule 00:00: mouth 3 [place] 00 (three) Medical times Branch daily as needed for Cough. proMETHazin 2021-05 Yes [id number] 25mg Take 1 [facility] 25 mg 1-26 tablet by [facility] tablet 00:00: mouth [place] 00 every 6 Medical (six) Branch hours as needed for Nausea and Vomiting (N/V). benzonatate 2021-05 Yes [id number] 100mg Take 1 [facility] 100 mg 1-26 capsule by [facility] capsule 00:00: mouth 3 [place] 00 (three) Medical times Branch daily as needed for Cough. proMETHazin 2021-05 Yes [id number] 25mg Take 1 [facility] 25 mg 1-26 tablet by [facility] tablet 00:00: mouth [place] 00 every 6 Medical (six) Branch hours as needed for Nausea and Vomiting (N/V). benzonatate 2021-05 Yes [id number] 100mg Take 1 [facility] 100 mg 1-26 capsule by [facility] capsule 00:00: mouth 3 [place] 00 (three) Medical times Branch daily as needed for Cough. proMETHazin 2021-05 Yes [id number] 25mg Take 1 [facility] 25 mg 1-26 tablet by [facility] tablet 00:00: mouth [place] 00 every 6 Medical (six) Branch hours as needed for Nausea and Vomiting (N/V). benzonatate 2021-05 Yes [id number] 100mg Take 1 [facility] 100 mg 1-26 capsule by [facility] capsule 00:00: mouth 3 [place] 00 (three) Medical times Branch daily as needed for Cough. proMETHazin 2021-05 Yes [id number] 25mg Take 1 [facility] 25 mg 1-26 tablet by [facility] tablet 00:00: mouth [place] 00 every 6 Medical (six) Branch hours as needed for Nausea and Vomiting (N/V). benzonatate 2021-05 Yes [id number] 100mg Take 1 [facility] 100 mg 1-26 capsule by [facility] capsule 00:00: mouth 3 [place] 00 (three) Medical times Branch daily as needed for Cough. proMETHazin 2021-05 Yes [id number] 25mg Take 1 [facility] 25 mg 1-26 tablet by [facility] tablet 00:00: mouth [place] 00 every 6 Medical (six) Branch hours as needed for Nausea and Vomiting (N/V). benzonatate 2021-05 Yes [id number] 100mg Take 1 [facility] 100 mg 1-26 capsule by [facility] capsule 00:00: mouth 3 [place] 00 (three) Medical times Branch daily as needed for Cough. proMETHazin 2021-05 Yes [id number] 25mg Take 1 [facility] 25 mg 1-26 tablet by [facility] tablet 00:00: mouth [place] 00 every 6 Medical (six) Branch hours as needed for Nausea and Vomiting (N/V). benzonatate 2021-05 Yes [id number] 100mg Take 1 [facility] 100 mg 1-26 capsule by [facility] capsule 00:00: mouth 3 [place] 00 (three) Medical times Branch daily as needed for Cough. proMETHazin 2021-05 Yes [id number] 25mg Take 1 [facility] 25 mg 1-26 tablet by [facility] tablet 00:00: mouth [place] 00 every 6 Medical (six) Branch hours as needed for Nausea and Vomiting (N/V). benzonatate 2021-05 Yes [id number] 100mg Take 1 [facility] 100 mg 1-26 capsule by [facility] capsule 00:00: mouth 3 [place] 00 (three) Medical times Branch daily as needed for Cough. proMETHazin 2021-05 Yes [id number] 25mg Take 1 [facility] 25 mg 1-26 tablet by [facility] tablet 00:00: mouth [place] 00 every 6 Medical (six) Branch hours as needed for Nausea and Vomiting (N/V). benzonatate 2021-05 Yes [id number] 100mg Take 1 [facility] 100 mg 1-26 capsule by [facility] capsule 00:00: mouth 3 [place] 00 (three) Medical times Branch daily as needed for Cough. proMETHazin 2021-05 Yes [id number] 25mg Take 1 [facility] 25 mg 1-26 tablet by [facility] tablet 00:00: mouth [place] 00 every 6 Medical (six) Branch hours as needed for Nausea and Vomiting (N/V). benzonatate 2021-05 Yes [id number] 100mg Take 1 [facility] 100 mg 1-26 capsule by [facility] capsule 00:00: mouth 3 [place] 00 (three) Medical times Branch daily as needed for Cough. proMETHazin 2021-05 Yes [id number] 25mg Take 1 [facility] 25 mg 1-26 tablet by [facility] tablet 00:00: mouth [place] 00 every 6 Medical (six) Branch hours as needed for Nausea and Vomiting (N/V). benzonatate 2021-05 Yes [id number] 100mg Take 1 [facility] 100 mg 1-26 capsule by [facility] capsule 00:00: mouth 3 [place] 00 (three) Medical times Branch daily as needed for Cough. proMETHazin 2021-05 Yes [id number] 25mg Take 1 [facility] 25 mg 1-26 tablet by [facility] tablet 00:00: mouth [place] 00 every 6 Medical (six) Branch hours as needed for Nausea and Vomiting (N/V). benzonatate 2021-05 Yes [id number] 100mg Take 1 [facility] 100 mg 1-26 capsule by [facility] capsule 00:00: mouth 3 [place] 00 (three) Medical times Branch daily as needed for Cough. proMETHazin 2021-05 Yes [id number] 25mg Take 1 [facility] 25 mg 1-26 tablet by [facility] tablet 00:00: mouth [place] 00 every 6 Medical (six) Branch hours as needed for Nausea and Vomiting (N/V). benzonatate 2021-05 Yes [id number] 100mg Take 1 [facility] 100 mg 1-26 capsule by [facility] capsule 00:00: mouth 3 [place] 00 (three) Medical times Branch daily as needed for Cough. proMETHazin 2021-05 Yes [id number] 25mg Take 1 [facility] 25 mg 1-26 tablet by [facility] tablet 00:00: mouth [place] 00 every 6 Medical (six) Branch hours as needed for Nausea and Vomiting (N/V). benzonatate 2021-05 Yes [id number] 100mg Take 1 [facility] 100 mg 1-26 capsule by [facility] capsule 00:00: mouth 3 00 (three) Medical times Branch daily as needed for Cough. proMETHazin 2021-05 Yes [id number] 25mg Take 1 [facility] 25 mg 1-26 tablet by [facility] tablet 00:00: mouth [place] 00 every 6 Medical (six) Branch hours as needed for Nausea and Vomiting (N/V). benzonatate 2021-05 Yes [id number] 100mg Take 1 [facility] 100 mg 1-26 capsule by [facility] capsule 00:00: mouth 3 00 (three) Medical times Branch daily as needed for Cough. proMETHazin 2021-05 Yes [id number] 25mg Take 1 [facility] 25 mg 1-26 tablet by [facility] tablet 00:00: mouth [place] 00 every 6 Medical (six) Branch hours as needed for Nausea and Vomiting (N/V). benzonatate 2021-05 Yes [id number] 100mg Take 1 [facility] 100 mg 1-26 capsule by [facility] capsule 00:00: mouth 3 [place] 00 (three) Medical times Branch daily as needed for Cough. proMETHazin 2021-05 Yes [id number] 25mg Take 1 [facility] 25 mg 1-26 tablet by [facility] tablet 00:00: mouth [place] 00 every 6 Medical (six) Branch hours as needed for Nausea and Vomiting (N/V). benzonatate 2021-05 Yes [id number] 100mg Take 1 [facility] 100 mg 1-26 capsule by [facility] capsule 00:00: mouth 3 [place] 00 (three) Medical times Branch daily as needed for Cough. proMETHazin 2021-05 Yes [id number] 25mg Take 1 [facility] 25 mg 1-26 tablet by [facility] of tablet 00:00: mouth [place] 00 every 6 Medical (six) Branch hours as needed for Nausea and Vomiting (N/V). benzonatate 2021-05 Yes [id number] 100mg Take 1 [facility] 100 mg 1-26 capsule by [facility] capsule 00:00: mouth 3 [place] 00 (three) Medical times Branch daily as needed for Cough. proMETHazin 2021-05 Yes [id number] 25mg Take 1 [facility] 25 mg 1-26 tablet by [facility] of tablet 00:00: mouth [place] 00 every 6 Medical (six) Branch hours as needed for Nausea and Vomiting (N/V). benzonatate 2021-05 Yes [id number] 100mg Take 1 [facility] 100 mg 1-26 capsule by [facility] capsule 00:00: mouth 3 [place] 00 (three) Medical times Branch daily as needed for Cough. proMETHazin 2021-05 Yes [id number] 25mg Take 1 [facility] 25 mg 1-26 tablet by [facility] tablet 00:00: mouth [place] 00 every 6 Medical (six) Branch hours as needed for Nausea and Vomiting (N/V). benzonatate 2021-05 Yes [id number] 100mg Take 1 [facility] 100 mg 1-26 capsule by [facility] capsule 00:00: mouth 3 [place] 00 (three) Medical times Branch daily as needed for Cough. proMETHazin 2021-05 Yes [id number] 25mg Take 1 [facility] 25 mg 1-26 tablet by [facility] of tablet 00:00: mouth [place] 00 every 6 Medical (six) Branch hours as needed for Nausea and Vomiting (N/V). benzonatate 2021-05 Yes [id number] 100mg Take 1 [facility] 100 mg 1-26 capsule by [facility] capsule 00:00: mouth 3 [place] 00 (three) Medical times Branch daily as needed for Cough. proMETHazin 2021-05 Yes [id number] 25mg Take 1 [facility] 25 mg 1-26 tablet by [facility] of tablet 00:00: mouth [place] 00 every 6 Medical (six) Branch hours as needed for Nausea and Vomiting (N/V). benzonatate 2021-05 Yes [id number] 100mg Take 1 [facility] 100 mg 1-26 capsule by [facility] capsule 00:00: mouth 3 [place] 00 (three) Medical times Branch daily as needed for Cough. proMETHazin 2021-05 Yes [id number] 25mg Take 1 [facility] 25 mg 1-26 tablet by [facility] of tablet 00:00: mouth [place] 00 every 6 Medical (six) Branch hours as needed for Nausea and Vomiting (N/V). benzonatate 2021-05 Yes [id number] 100mg Take 1 [facility] 100 mg 1-26 capsule by [facility] capsule 00:00: mouth 3 [place] 00 (three) Medical times Branch daily as needed for Cough. proMETHazin 2021-05 Yes [id number] 25mg Take 1 [facility] 25 mg 1-26 tablet by [facility] of tablet 00:00: mouth [place] 00 every 6 Medical (six) Branch hours as needed for Nausea and Vomiting (N/V). benzonatate 2021-05 Yes [id number] 100mg Take 1 [facility] 100 mg 1-26 capsule by [facility] of capsule 00:00: mouth 3 [place] 00 (three) Medical times Branch daily as needed for Cough. proMETHazin 2021-05 Yes [id number] 25mg Take 1 [facility] 25 mg 1-26 tablet by [facility] of tablet 00:00: mouth [place] 00 every 6 Medical (six) Branch hours as needed for Nausea and Vomiting (N/V). benzonatate 2021-05 Yes [id number] 100mg Take 1 [facility] 100 mg 1-26 capsule by [facility] of capsule 00:00: mouth 3 [place] 00 (three) Medical times Branch daily as needed for Cough. proMETHazin 2021-05 Yes [id number] 25mg Take 1 [facility] 25 mg 1-26 tablet by [facility] of tablet 00:00: mouth [place] 00 every 6 Medical (six) Branch hours as needed for Nausea and Vomiting (N/V). benzonatate 2021-05 Yes [id number] 100mg Take 1 [facility] 100 mg 1-26 capsule by [facility] capsule 00:00: mouth 3 [place] 00 (three) Medical times Branch daily as needed for Cough. proMETHazin 2021-05 Yes [id number] 25mg Take 1 [facility] 25 mg 1-26 tablet by [facility] of tablet 00:00: mouth [place] 00 every 6 Medical (six) Branch hours as needed for Nausea and Vomiting (N/V). benzonatate 2021-05 Yes [id number] 100mg Take 1 [facility] 100 mg 1-26 capsule by [facility] capsule 00:00: mouth 3 [place] 00 (three) Medical times Branch daily as needed for Cough. proMETHazin 2021-05 Yes [id number] 25mg Take 1 [facility] 25 mg 1-26 tablet by [facility] of tablet 00:00: mouth [place] 00 every 6 Medical (six) Branch hours as needed for Nausea and Vomiting (N/V). benzonatate 2021-05 Yes [id number] 100mg Take 1 [facility] 100 mg 1-26 capsule by [facility] of capsule 00:00: mouth 3 [place] 00 (three) Medical times Branch daily as needed for Cough. proMETHazin 2021-05 Yes [id number] 25mg Take 1 [facility] 25 mg 1-26 tablet by [facility] of tablet 00:00: mouth [place] 00 every 6 Medical (six) Branch hours as needed for Nausea and Vomiting (N/V). benzonatate 2021-05 Yes [id number] 100mg Take 1 [facility] 100 mg 1-26 capsule by [facility] of capsule 00:00: mouth 3 [place] 00 (three) Medical times Branch daily as needed for Cough. proMETHazin 2021-05 Yes [id number] 25mg Take 1 [facility] 25 mg 1-26 tablet by [facility] of tablet 00:00: mouth [place] 00 every 6 Medical (six) Branch hours as needed for Nausea and Vomiting (N/V). benzonatate 2021-05 Yes [id number] 100mg Take 1 [facility] 100 mg 1-26 capsule by [facility] capsule 00:00: mouth 3 [place] 00 (three) Medical times Branch daily as needed for Cough. proMETHazin 2021-05 Yes [id number] 25mg Take 1 [facility] 25 mg 1-26 tablet by [facility] of tablet 00:00: mouth [place] 00 every 6 Medical (six) Branch hours as needed for Nausea and Vomiting (N/V). benzonatate 2021-05 Yes [id number] 100mg Take 1 [facility] 100 mg 1-26 capsule by [facility] of capsule 00:00: mouth 3 [place] 00 (three) Medical times Branch daily as needed for Cough. proMETHazin 2021-05 Yes [id number] 25mg Take 1 [facility] 25 mg 1-26 tablet by [facility] of tablet 00:00: mouth [place] 00 every 6 Medical (six) Branch hours as needed for Nausea and Vomiting (N/V). benzonatate 2021-05 Yes [id number] 100mg Take 1 [facility] 100 mg 1-26 capsule by [facility] of capsule 00:00: mouth 3 [place] 00 (three) Medical times Branch daily as needed for Cough. proMETHazin 2021-05 Yes [id number] 25mg Take 1 [facility] 25 mg 1-26 tablet by [facility] of tablet 00:00: mouth [place] 00 every 6 Medical (six) Branch hours as needed for Nausea and Vomiting (N/V). benzonatate 2021-05 Yes [id number] 100mg Take 1 [facility] 100 mg 1-26 capsule by [facility] of capsule 00:00: mouth 3 [place] 00 (three) Medical times Branch daily as needed for Cough. proMETHazin 2021-05 Yes [id number] 25mg Take 1 [facility] e 25 mg 1-26 tablet by [facility] of tablet 00:00: mouth [place] 00 every 6 Medical (six) Branch hours as needed for Nausea and Vomiting (N/V). benzonatate 2021-05 Yes [id number] 100mg Take 1 [facility] 100 mg 1-26 capsule by [facility] of capsule 00:00: mouth 3 [place] 00 (three) Medical times Branch daily as needed for Cough. proMETHazin 2021-05 Yes [id number] 25mg Take 1 [facility] e 25 mg 1-26 tablet by [facility] of tablet 00:00: mouth [place] 00 every 6 Medical (six) Branch hours as needed for Nausea and Vomiting (N/V). benzonatate 2021-05 Yes [id number] 100mg Take 1 [facility] 100 mg 1-26 capsule by [facility] of capsule 00:00: mouth 3 [place] 00 (three) Medical times Branch daily as needed for Cough. proMETHazin 2021-05 Yes [id number] 25mg Take 1 [facility] e 25 mg 1-26 tablet by [facility] of tablet 00:00: mouth [place] 00 every 6 Medical (six) Branch hours as needed for Nausea and Vomiting (N/V). benzonatate 2021-05 Yes [id number] 100mg Take 1 [facility] 100 mg 1-26 capsule by [facility] of capsule 00:00: mouth 3 [place] 00 (three) Medical times Branch daily as needed for Cough. proMETHazin 2021-05 Yes [id number] 25mg Take 1 [facility] e 25 mg 1-26 tablet by [facility] of tablet 00:00: mouth [place] 00 every 6 Medical (six) Branch hours as needed for Nausea and Vomiting (N/V). benzonatate 2021-05 Yes [id number] 100mg Take 1 [facility] 100 mg 1-26 capsule by [facility] of capsule 00:00: mouth 3 [place] 00 (three) Medical times Branch daily as needed for Cough. proMETHazin 2021-05 Yes [id number] 25mg Take 1 [facility] e 25 mg 1-26 tablet by [facility] of tablet 00:00: mouth [place] 00 every 6 Medical (six) Branch hours as needed for Nausea and Vomiting (N/V). benzonatate 2021-05 Yes [id number] 100mg Take 1 [facility] 100 mg 1-26 capsule by [facility] of capsule 00:00: mouth 3 [place] 00 (three) Medical times Branch daily as needed for Cough. proMETHazin 2021-05 Yes [id number] 25mg Take 1 [facility] e 25 mg 1-26 tablet by [facility] of tablet 00:00: mouth [place] 00 every 6 Medical (six) Branch hours as needed for Nausea and Vomiting (N/V). albuterol 2021-05- No [id number] 2{puff} Inhale 2 [facility] 90 1-26 12-05 Puffs [facility] of mcg/actuati 00:00: 00:00 every 4 [place] on inhaler 00 :00 (four) Medical hours as Branch needed for Wheezing or Shortness of Breath. albuterol 2021-05- No [id number] 2{puff} Inhale 2 [facility] 90 1-26 12-05 Puffs [facility] of mcg/actuati 00:00: 00:00 every 4 [place] on inhaler 00 :00 (four) Medical hours as Branch needed for Wheezing or Shortness of Breath. albuterol 2021-05- No [id number] 2{puff} Inhale 2 [facility] 90 1-26 12-05 Puffs [facility] of mcg/actuati 00:00: 00:00 every 4 [place] on inhaler 00 :00 (four) Medical hours as Branch needed for Wheezing or Shortness of Breath. predniSONE 2021-05- No [id number] 60mg Take 3 [facility] 20 mg 1-26 12-02 tablets by [facility] of tablet 00:00: 05:59 mouth [place] 00 :00 every Medical morning Branch for 5 days. predniSONE 2021-05- No [id number] 60mg Take 3 [facility] 20 mg -26 12-02 tablets by [facility] of tablet 00:00: 05:59 mouth [place] 00 :00 every Medical morning Branch for 5 days. predniSONE 2021-05- No [id number] 60mg Take 3 [facility] 20 mg -26 11-28 tablets by [facility] of tablet 00:00: 00:00 mouth [place] 00 :00 every Medical morning Branch for 5 days. amLODIPine 2021-05 Yes [id number] 10mg Take 1 [facility] 10 mg 1-22 tablet by [facility] of tablet 00:00: mouth in [place] 00 the Medical morning. Branch SERTraline 2021-05 Yes [id number] 100mg Take 1 [facility] (ZOLOFT) 1-22 tablet by [facility] of 100 mg 00:00: mouth at [place] tablet 00 bedtime. Medical Branch amLODIPine 2021-05 Yes [id number] 10mg Take 1 [facility] 10 mg 1-22 tablet by [facility] of tablet 00:00: mouth in [place] 00 the Medical morning. Branch SERTraline 2021-05 Yes [id number] 100mg Take 1 [facility] (ZOLOFT) 1-22 tablet by [facility] of 100 mg 00:00: mouth at [place] tablet 00 bedtime. Medical Branch amLODIPine 2021-05 Yes [id number] 10mg Take 1 [facility] 10 mg 1-22 tablet by [facility] of tablet 00:00: mouth in [place] 00 the Medical morning. Branch SERTraline 2021-05 Yes [id number] 100mg Take 1 [facility] (ZOLOFT) 1-22 tablet by [facility] of 100 mg 00:00: mouth at [place] tablet 00 bedtime. Medical Branch amLODIPine 2021-05 Yes [id number] 10mg Take 1 [facility] 10 mg 1-22 tablet by [facility] of tablet 00:00: mouth in [place] 00 the Medical morning. Branch SERTraline 2021-05 Yes [id number] 100mg Take 1 [facility] (ZOLOFT) 1-22 tablet by [facility] of 100 mg 00:00: mouth at [place] tablet 00 bedtime. Medical Branch amLODIPine 2021-05 Yes [id number] 10mg Take 1 [facility] 10 mg 1-22 tablet by [facility] of tablet 00:00: mouth in [place] 00 the Medical morning. Branch SERTraline 2021-05 Yes [id number] 100mg Take 1 [facility] (ZOLOFT) 1-22 tablet by [facility] of 100 mg 00:00: mouth at [place] tablet 00 bedtime. Medical Branch amLODIPine 2021-05 Yes [id number] 10mg Take 1 [facility] 10 mg 1-22 tablet by [facility] of tablet 00:00: mouth in [place] 00 the Medical morning. Branch SERTraline 2021-05 Yes [id number] 100mg Take 1 [facility] (ZOLOFT) 1-22 tablet by [facility] of 100 mg 00:00: mouth at [place] tablet 00 bedtime. Medical Branch amLODIPine 2021-05 Yes [id number] 10mg Take 1 [facility] 10 mg 1-22 tablet by [facility] of tablet 00:00: mouth in [place] 00 the Medical morning. Branch amLODIPine 2021-05 Yes [id number] 10mg Take 1 [facility] 10 mg 1-22 tablet by [facility] of tablet 00:00: mouth in [place] the Medical morning. Branch amLODIPine 2021-05 Yes [id number] 10mg Take 1 [facility] 10 mg 1-22 tablet by [facility] of tablet 00:00: mouth in [place] the Medical morning. Branch amLODIPine 2021-05 Yes [id number] 10mg Take 1 [facility] 10 mg 1-22 tablet by [facility] of tablet 00:00: mouth in [place] the Medical morning. Branch amLODIPine 2021-05 Yes [id number] 10mg Take 1 [facility] 10 mg 1-22 tablet by [facility] of tablet 00:00: mouth in [place] 00 the Medical morning. Branch amLODIPine 2021-05 Yes [id number] 10mg Take 1 [facility] 10 mg 1-22 tablet by [facility] of tablet 00:00: mouth in [place] 00 the Medical morning. Branch amLODIPine 2021- Yes [id number] 10mg Take 1 [facility] 10 mg 1-22 tablet by [facility] of tablet 00:00: mouth in [place] 00 the Medical morning. Branch amLODIPine 2021- Yes [id number] 10mg Take 1 [facility] 10 mg 1-22 tablet by [facility] of tablet 00:00: mouth in [place] the Medical morning. Branch amLODIPine 2021-05 Yes [id number] 10mg Take 1 [facility] 10 mg 1-22 tablet by [facility] of tablet 00:00: mouth in [place] the Medical morning. Branch amLODIPine 2021-05 Yes [id number] 10mg Take 1 [facility] 10 mg 1-22 tablet by [facility] of tablet 00:00: mouth in [place] the Medical morning. Branch amLODIPine 2021-05 Yes [id number] 10mg Take 1 [facility] 10 mg 1-22 tablet by [facility] of tablet 00:00: mouth in [place] the Medical morning. Branch amLODIPine 2021-05 Yes [id number] 10mg Take 1 [facility] 10 mg 1-22 tablet by [facility] of tablet 00:00: mouth in [place] the Medical morning. Branch amLODIPine 2021- Yes [id number] 10mg Take 1 [facility] 10 mg 1-22 tablet by [facility] of tablet 00:00: mouth in [place] the Medical morning. Branch amLODIPine 2021-05 Yes [id number] 10mg Take 1 [facility] 10 mg 1-22 tablet by [facility] of tablet 00:00: mouth in [place] the Medical morning. Branch amLODIPine 2021-05 Yes [id number] 10mg Take 1 [facility] 10 mg 1-22 tablet by [facility] of tablet 00:00: mouth in [place] the Medical morning. Branch amLODIPine 2021-05 Yes [id number] 10mg Take 1 [facility] 10 mg 1-22 tablet by [facility] of tablet 00:00: mouth in [place] the Medical morning. Branch amLODIPine 2021- Yes [id number] 10mg Take 1 [facility] 10 mg 1-22 tablet by [facility] of tablet 00:00: mouth in [place] the Medical morning. Branch amLODIPine 2021- Yes [id number] 10mg Take 1 [facility] 10 mg 1-22 tablet by [facility] of tablet 00:00: mouth in [place] the Medical morning. Branch amLODIPine 2021- Yes [id number] 10mg Take 1 [facility] 10 mg 1-22 tablet by [facility] of tablet 00:00: mouth in [place] 00 the Medical morning. Branch amLODIPine 2021- Yes [id number] 10mg Take 1 [facility] 10 mg 1-22 tablet by [facility] of tablet 00:00: mouth in [place] 00 the Medical morning. Branch amLODIPine 2021-05 Yes [id number] 10mg Take 1 [facility] 10 mg 1-22 tablet by [facility] of tablet 00:00: mouth in [place] 00 the Medical morning. Branch amLODIPine 2021-05 Yes [id number] 10mg Take 1 [facility] 10 mg 1-22 tablet by [facility] of tablet 00:00: mouth in [place] 00 the Medical morning. Branch amLODIPine 2021-05 Yes [id number] 10mg Take 1 [facility] 10 mg 1-22 tablet by [facility] of tablet 00:00: mouth in [place] 00 the Medical morning. Branch amLODIPine 2021-05 Yes [id number] 10mg Take 1 [facility] 10 mg 1-22 tablet by [facility] of tablet 00:00: mouth in [place] 00 the Medical morning. Branch amLODIPine 2021-05 Yes [id number] 10mg Take 1 [facility] 10 mg 1-22 tablet by [facility] of tablet 00:00: mouth in [place] 00 the Medical morning. Branch amLODIPine 2021-05 Yes [id number] 10mg Take 1 [facility] 10 mg 1-22 tablet by [facility] of tablet 00:00: mouth in [place] 00 the Medical morning. Branch amLODIPine 2021-05 Yes [id number] 10mg Take 1 [facility] 10 mg 1-22 tablet by [facility] of tablet 00:00: mouth in [place] 00 the Medical morning. Branch amLODIPine 2021-05 Yes [id number] 10mg Take 1 [facility] 10 mg 1-22 tablet by [facility] of tablet 00:00: mouth in [place] 00 the Medical morning. Branch amLODIPine 2021-05 Yes [id number] 10mg Take 1 [facility] 10 mg 1-22 tablet by [facility] of tablet 00:00: mouth in [place] 00 the Medical morning. Branch amLODIPine 2021-05 Yes [id number] 10mg Take 1 [facility] 10 mg 1-22 tablet by [facility] of tablet 00:00: mouth in [place] 00 the Medical morning. Branch amLODIPine 2021-05- No [id number] 10mg Take 1 [facility] 10 mg 1-22 05-19 tablet by [facility] of tablet 00:00: 00:00 mouth in [place] 00 :00 the Medical morning. Branch amLODIPine 2021-2022- No [id number] 10mg Take 1 [facility] 10 mg 1-22 05-19 tablet by [facility] of tablet 00:00: 00:00 mouth in [place] 00 :00 the Medical morning. Branch amLODIPine 2021-05- No [id number] 10mg Take 1 [facility] 10 mg 05-26 05-19 tablet by ity of tablet 00:00: 00:00 mouth in [place] 00 :00 the Medical morning. Branch SERTraline 2021-05- No [id number] 100mg Take 1 [facility] (ZOLOFT) 05-26 tablet by ity o f 100 mg 00:00: 00:00 mouth at [place] tablet 00 :00 bedtime. Medical Branch SERTraline 2021-05- No [id number] 100mg Take 1 [facility] (ZOLOFT) 05-26 tablet by ity o f 100 mg 00:00: 00:00 mouth at [place] tablet 00 :00 bedtime. Medical Branch SERTraline 2021-05- No [id number] 100mg Take 1 [facility] (ZOLOFT) 05-26 tablet by ity o f 100 mg 00:00: 00:00 mouth at [place] tablet 00 :00 bedtime. Medical Branch MIGDALIA Burciaga 2021-05 Yes Take by [facility] rs 1-09 mouth. ity of 00:00: [place] 00 Medical Branch MIGDALIA Burciaga 2021-05 Yes Take by [facility] rs 1-09 mouth. ity of 00:00: [place] 00 Medical Branch MIGDALIA Burciaga 2021-05 Yes Take by [facility] rs 1-09 mouth. ity of 00:00: [place] 00 Medical Branch MIGDALIA Burciaga 2021-05 Yes Take by [facility] rs 1-09 mouth. ity of 00:00: 00 Medical Branch MIGDALIA Burciaga 2021-05 Yes Take by [facility] rs 1-09 mouth. ity of 00:00: 00 Medical Branch LOGANOS Patrica 2021-05 Yes Take by [facility] rs 1-09 mouth. ity of 00:00: [place] 00 Medical Branch MIGDALIA Burciaga 2021-05 Yes Take by [facility] rs 1-09 mouth. ity of 00:00: [place] 00 Medical Branch MIGDALIA Burciaga 2021-05 Yes Take by [facility] rs 1-09 mouth. ity of 00:00: [place] 00 Medical Branch MIGDALIA Burciaga 2021-05 Yes Take by [facility] rs 1-09 mouth. ity of 00:00: [place] 00 Medical Branch VIOS Patrica 2021-05 Yes Take by [facility] rs 1-09 mouth. ity of 00:00: [place] 00 Medical Branch VIOS Patrica 2021-05 Yes Take by [facility] rs 1-09 mouth. ity of 00:00: [place] 00 Medical Branch VIOS Patrica 2021-05 Yes Take by [facility] rs 1-09 mouth. ity of 00:00: [place] 00 Medical Branch VIOS Patrica 2021-05 Yes Take by [facility] rs 1-09 mouth. ity of 00:00: [place] 00 Medical Branch VIOS Patrica 2021-05 Yes Take by [facility] rs 1-09 mouth. ity of 00:00: [place] 00 Medical Branch VIOS Patrica 2021-05 Yes Take by [facility] rs 1-09 mouth. ity of 00:00: [place] 00 Medical Branch VIOS Patrica 2021-05 Yes Take by [facility] rs 1-09 mouth. ity of 00:00: [place] 00 Medical Branch VIOS Patrica 2021-05 Yes Take by [facility] rs 1-09 mouth. ity of 00:00: [place] 00 Medical Branch VIOS Patrica 2021-05 Yes Take by [facility] rs 1-09 mouth. ity of 00:00: [place] 00 Medical Branch VIOS Patrica 2021-05 Yes Take by [facility] rs 1-09 mouth. ity of 00:00: [place] 00 Medical Branch VIOS Patrica 2021-05 Yes Take by [facility] rs 1-09 mouth. ity of 00:00: [place] 00 Medical Branch VIOS Patrica 2021-05 Yes Take by [facility] rs 1-09 mouth. ity of 00:00: [place] 00 Medical Branch VIOS Patrica 2021-05 Yes Take by [facility] rs 1-09 mouth. ity of 00:00: [place] 00 Medical Branch VIOS Patrica 2021-05 Yes Take by [facility] rs 1-09 mouth. ity of 00:00: [place] 00 Medical Branch VIOS Patrica 2021-05 Yes Take by [facility] rs 1-09 mouth. ity of 00:00: [place] 00 Medical Branch VIOS Patrica 2021-05 Yes Take by [facility] rs 1-09 mouth. ity of 00:00: [place] 00 Medical Branch VIOS Patrica 2021-05 Yes Take by [facility] rs 1-09 mouth. ity of 00:00: [place] 00 Medical Branch VIOS Patrica 2021-05 Yes Take by [facility] rs 1-09 mouth. ity of 00:00: [place] 00 Medical Branch VIOS Patrica 2021-05 Yes Take by [facility] rs 1-09 mouth. ity of 00:00: [place] 00 Medical Branch VIOS Patrica 2021-05 Yes Take by [facility] rs 1-09 mouth. ity of 00:00: [place] 00 Medical Branch VIOS Patrica 2021-05 Yes Take by [facility] rs 1-09 mouth. ity of 00:00: [place] 00 Medical Branch VIOS Patrica 2021-05 Yes Take by [facility] ers 1-09 mouth. ity of 00:00: [place] 00 Medical Branch VIOS Patrica 2021-05 Yes Take by [facility] rs 1-09 mouth. ity of 00:00: [place] 00 Medical Branch VIOS Patrica 2021-05 Yes Take by [facility] rs 1-09 mouth. ity of 00:00: [place] 00 Medical Branch VIOS Patrica 2021-05 Yes Take by [facility] rs 1-09 mouth. ity of 00:00: [place] 00 Medical Branch VIOS Patrica 2021-05 Yes Take by [facility] rs 1-09 mouth. ity of 00:00: [place] 00 Medical Branch VIOS Patrica 2021-05 Yes Take by [facility] rs 1-09 mouth. ity of 00:00: [place] 00 Medical Branch VIOS Patrica 2021-05 Yes Take by [facility] rs 1-09 mouth. ity of 00:00: [place] 00 Medical Branch VIOS Patrica 2021-05 Yes Take by [facility] rs 1-09 mouth. ity of 00:00: [place] 00 Medical Branch VIOS Patrica 2021-05 Yes Take by [facility] rs 1-09 mouth. ity of 00:00: [place] 00 Medical Branch VIOS Patrica 2021-05 Yes Take by [facility] rs 1-09 mouth. ity of 00:00: [place] 00 Medical Branch VIOS Patrica 2021-05 Yes Take by [facility] rs 1-09 mouth. ity of 00:00: [place] 00 Medical Branch VIOS Patrica 2021-05 Yes Take by [facility] rs 1-09 mouth. ity of 00:00: [place] 00 Medical Branch VIOS Patrica 2021-05 Yes Take by [facility] rs 1-09 mouth. ity of 00:00: [place] 00 Medical Branch VIOS Patrica 2021-05 Yes Take by Unive rs 1-09 mouth. ity of 00:00: Medical Branch VIOS Patrica 2021-05 Yes Take by Unive rs 1-09 mouth. ity of 00:00: Medical Branch VIOS Partica 2021-05 Yes Take by [facility] rs -09 mouth. ity of 00:00: Medical Branch VIOS Patrica 2021-05 Yes Take by Unive rs 1-09 mouth. ity of 00:00: Medical Branch VIOS Patrica 2021-05 Yes Take by [facility] rs -09 mouth. ity of 00:00: Medical Branch VIOS Patrica 2021-05 Yes Take by [facility] rs -09 mouth. ity of 00:00: Medical Branch HYDROcodone 2021-05 Yes 1{tbl} 1 tablet, [facility] -acetaminop 05-07 Oral, ity of hen (NORCO) 19:34: Q6HPRN, [place] as 10-325 mg 36 Starting Medica l tablet 1 on [place] Branch tablet 03/07/22 at 1434, Until Discontinu ed, Routine, Pain (scale 1-3) HYDROcodone 2021-05- No [id number] 1{tbl} Take 1-2 [facility] -acetaminop 05-07-11 tablets by i ty of hen 5-325 00:00: 05:59 mouth [place] mg tablet 00 :00 every 6 Medical (six) Branch hours as needed for Pain (scale 1-3) for up to 7 days. Indication s: acute pain predniSONE 2021-05- No [id number] 60mg Take 3 [facility] 20 mg 05-07 tablets by ity of tablet 00:00: 05:59 mouth [place] 00 :00 every Medical morning Branch for 5 days. benzonatate 2021- No [id number] 200mg Take 2 [facility] (TESSALON 12-28 capsules ity o f DAVID) 100 00:00: 04:59 by mouth [place] mg capsule 00 :00 every 8 Medica l (eight) Branch hours as needed for Cough for up to 7 days. dextrometho 2021- No [id number] 10mL Take 10 mL [facility] rphan-guaif 12-28 by mouth ity of enesin 00:00: 04:59 every 6 [place] 10-100 mg/5 00 :00 (six) Medical mL solution hours as Bran ch needed for Cough for up to 7 days. methylPREDN 2021-0 Yes Take by [facility] ISolone 4 8-17 mouth ity of mg tablets 00:00: SEE-INSTRU [place] 00 CTIONS. Medical follow Branch package directions albuterol 2021-0 Yes [id number] 2{puff} Inhale 2 [facility] 90 8-17 Puffs ity of mcg/actuati 00:00: every 4 [place] on inhaler 00 (four) Medical hours as Branch needed for Wheezing or Shortness of Breath. methylPREDN 2021-0 Yes [id number] Take by [facility] ISolone 4 8-17 mouth ity of mg tablets 00:00: SEE-INSTRU [place] 00 CTIONS. Medical follow Branch package directions albuterol 2021-0 Yes [id number] 2{puff} Inhale 2 [facility] 90 8-17 Puffs ity of mcg/actuati 00:00: every 4 [place] inhaler 00 (four) Medical hours as Branch needed for Wheezing or Shortness of Breath. methylPREDN 2021-0 Yes [id number] Take by [facility] ISolone 4 8-17 mouth ity of mg tablets 00:00: SEE-INSTRU [place] 00 CTIONS. Medical follow Branch package directions albuterol 2021-0 Yes [id number] 2{puff} Inhale 2 [facility] 90 8-17 Puffs ity of mcg/actuati 00:00: every 4 [place] on inhaler 00 (four) Medical hours as Branch needed for Wheezing or Shortness of Breath. methylPREDN 2021-0 Yes [id number] Take by [facility] ISolone 4 8-17 mouth ity of mg tablets 00:00: SEE-INSTRU [place] 00 CTIONS. Medical follow Branch package directions methylPREDN 2021-0 Yes [id number] Take by [facility] ISolone 4 8-17 mouth ity of mg tablets 00:00: SEE-INSTRU [place] 00 CTIONS. Medical follow Branch package directions methylPREDN 2021-0 Yes [id number] Take by [facility] ISolone 4 8-17 mouth ity of mg tablets 00:00: SEE-INSTRU [place] 00 CTIONS. Medical follow Branch package directions methylPREDN 2022-0 Yes [id number] Take by [facility] [place] [facility] ISolone 4 8-17 mouth ity of mg tablets 00:00: SEE-INSTRU [place] 00 CTIONS. Medical follow Branch package directions methylPREDN 2022-0 Yes Take by [facility] [place] [facility] ISolone 4 8-17 mouth ity of mg tablets 00:00: SEE-INSTRU [place] 00 CTIONS. Medical follow Branch package directions methylPREDN 2022-0 Yes Take by [facility] [place] [facility] ISolone 4 8-17 mouth ity of mg tablets 00:00: SEE-INSTRU [place] 00 CTIONS. Medical follow Branch package directions methylPREDN 2022-0 Yes [id number] Take by [facility] 4 8-17 mouth ity of mg tablets 00:00: SEE-INSTRU [place] 00 CTIONS. Medical follow Branch package directions methylPREDN 2022-0 Yes [id number] Take by [facility] [place] [facility] ISolone 4 8-17 mouth ity of mg tablets 00:00: SEE-INSTRU [place] 00 CTIONS. Medical follow Branch package directions methylPREDN 2022-0 Yes Take by [facility] [place] [facility] ISolone 4 8-17 mouth ity of mg tablets 00:00: SEE-INSTRU [place] 00 CTIONS. Medical follow Branch package directions methylPREDN 2022-0 Yes Take by [facility] 4 8-17 mouth ity of mg tablets 00:00: SEE-INSTRU [place] 00 CTIONS. Medical follow Branch package directions methylPREDN 2022-0 Yes [id number] Take by [facility] [place] [facility] ISolone 4 8-17 mouth ity of mg tablets 00:00: SEE-INSTRU [place] 00 CTIONS. Medical follow Branch package directions methylPREDN 2022-0 Yes [id number] Take by [facility] 4 8-17 mouth ity of mg tablets 00:00: SEE-INSTRU [place] 00 CTIONS. Medical follow Branch package directions methylPREDN 2022-0 Yes [id number] Take by [facility] [place] [facility] ISolone 4 8-17 mouth ity of mg tablets 00:00: SEE-INSTRU [place] 00 CTIONS. Medical follow Branch package directions methylPREDN 2022-0 Yes [id number] Take by [facility] [place] [facility] ISolone 4 8-17 mouth ity of mg tablets 00:00: SEE-INSTRU [place] 00 CTIONS. Medical follow Branch package directions methylPREDN 2022-0 Yes [id number] Take by [facility] 4 8-17 mouth ity of mg tablets 00:00: SEE-INSTRU [place] 00 CTIONS. Medical follow Branch package directions methylPREDN 2022-0 Yes [id number] Take by [facility] 4 8-17 mouth ity of mg tablets 00:00: SEE-INSTRU [place] 00 CTIONS. Medical follow Branch package directions methylPREDN 2022-0 Yes [id number] Take by [facility] 4 8-17 mouth ity of mg tablets 00:00: SEE-INSTRU [place] 00 CTIONS. Medical follow Branch package directions methylPREDN 2022-0 Yes [id number] Take by [facility] 4 8-17 mouth ity of mg tablets 00:00: SEE-INSTRU [place] 00 CTIONS. Medical follow Branch package directions methylPREDN 2022-0 Yes [id number] Take by [facility] 4 8-17 mouth ity of mg tablets 00:00: SEE-INSTRU [place] 00 CTIONS. Medical follow Branch package directions methylPREDN 2022-0 Yes [id number] Take by [facility] 4 8-17 mouth ity of mg tablets 00:00: SEE-INSTRU [place] 00 CTIONS. Medical follow Branch package directions methylPREDN 2022-0 Yes [id number] Take by [facility] 4 8-17 mouth ity of mg tablets 00:00: SEE-INSTRU [place] 00 CTIONS. Medical follow Branch package directions methylPREDN 2022-0 Yes [id number] Take by [facility] 4 8-17 mouth ity of mg tablets 00:00: SEE-INSTRU [place] 00 CTIONS. Medical follow Branch package directions methylPREDN 2022-0 Yes [id number] Take by [facility] 4 8-17 mouth ity of mg tablets 00:00: SEE-INSTRU [place] 00 CTIONS. Medical follow Branch package directions methylPREDN 2022-0 Yes [id number] Take by [facility] 4 8-17 mouth ity of mg tablets 00:00: SEE-INSTRU [place] 00 CTIONS. Medical follow Branch package directions methylPREDN 2022-0 Yes [id number] Take by [facility] 4 8-17 mouth ity of mg tablets 00:00: SEE-INSTRU [place] 00 CTIONS. Medical follow Branch package directions methylPREDN 2022-0 Yes Take by [facility] 4 8-17 mouth ity of mg tablets 00:00: SEE-INSTRU [place] 00 CTIONS. Medical follow Branch package directions methylPREDN 2022-[address] [facility] 4 8-17 mouth ity of mg tablets 00:00: SEE-INSTRU [place] 00 CTIONS. Medical follow Branch package directions methylPREDN 2022-[address] [facility] 4 8-17 mouth ity of mg tablets 00:00: SEE-INSTRU [place] 00 CTIONS. Medical follow Branch package directions methylPREDN 2022-0 Yes [id number] Take by [facility] 4 8-17 mouth ity of mg tablets 00:00: SEE-INSTRU [place] 00 CTIONS. Medical follow Branch package directions methylPREDN 2022-[address] [facility] 4 8-17 mouth ity of mg tablets 00:00: SEE-INSTRU [place] 00 CTIONS. Medical follow Branch package directions methylPREDN 2022-[address] [facility] 4 8-17 mouth ity of mg tablets 00:00: SEE-INSTRU [place] 00 CTIONS. Medical follow Branch package directions methylPREDN 2022-0 Yes [id number] Take by [facility] 4 8-17 mouth ity of mg tablets 00:00: SEE-INSTRU [place] 00 CTIONS. Medical follow Branch package directions methylPREDN 2022-[address] [facility] 4 8-17 mouth ity of mg tablets 00:00: SEE-INSTRU [place] 00 CTIONS. Medical follow Branch package directions methylPREDN 2022-0 Yes Take by [facility] 4 8-17 mouth ity of mg tablets 00:00: SEE-INSTRU [place] 00 CTIONS. Medical follow Branch package directions methylPREDN 2022-0 Yes [id number] Take by [facility] 4 8-17 mouth ity of mg tablets 00:00: SEE-INSTRU [place] 00 CTIONS. Medical follow Branch package directions methylPREDN 2022-0 Yes [id number] Take by [facility] [place] [facility] ISolone 4 8-17 mouth ity of mg tablets 00:00: SEE-INSTRU [place] 00 CTIONS. Medical follow Branch package directions methylPREDN 2022-0 Yes Take by [facility] [place] [facility] ISolone 4 8-17 mouth ity of mg tablets 00:00: SEE-INSTRU [place] 00 CTIONS. Medical follow Branch package directions methylPREDN 2022-0 Yes Take by [facility] 4 8-17 mouth ity of mg tablets 00:00: SEE-INSTRU [place] 00 CTIONS. Medical follow Branch package directions methylPREDN 2022-0 Yes Take by [facility] 4 8-17 mouth ity of mg tablets 00:00: SEE-INSTRU [place] 00 CTIONS. Medical follow Branch package directions methylPREDN 2022-0 Yes [id number] Take by [facility] 4 8-17 mouth ity of mg tablets 00:00: SEE-INSTRU [place] 00 CTIONS. Medical follow Branch package directions methylPREDN 2022-[address] [facility] 4 8-17 mouth ity of mg tablets 00:00: SEE-INSTRU [place] 00 CTIONS. Medical follow Branch package directions methylPREDN 2022-0 Yes Take by [facility] 4 8-17 mouth ity of mg tablets 00:00: SEE-INSTRU [place] 00 CTIONS. Medical follow Branch package directions methylPREDN 2022-0 Yes [id number] Take by [facility] 4 8-17 mouth ity of mg tablets 00:00: SEE-INSTRU [place] 00 CTIONS. Medical follow Branch package directions methylPREDN 2022-0 Yes [id number] Take by [facility] 4 8-17 mouth ity of mg tablets 00:00: SEE-INSTRU [place] 00 CTIONS. Medical follow Branch package directions methylPREDN 2022-0 Yes [id number] Take by [facility] [place] [facility] ISolone 4 8-17 mouth ity of mg tablets 00:00: SEE-INSTRU [place] 00 CTIONS. Medical follow Branch package directions methylPREDN 2022-0 Yes [id number] Take by [facility] [place] [facility] ISolone 4 8-17 mouth ity of mg tablets 00:00: SEE-INSTRU [place] 00 CTIONS. Medical follow Branch package directions methylPREDN 2022-0 Yes Take by [facility] 4 8-17 mouth ity of mg tablets 00:00: SEE-INSTRU [place] 00 CTIONS. Medical follow Branch package directions methylPREDN 2022-0 Yes Take by [facility] 4 8-17 mouth ity of mg tablets 00:00: SEE-INSTRU [place] 00 CTIONS. Medical follow Branch package directions methylPREDN 2022-[address] [facility] 4 8-17 mouth ity of mg tablets 00:00: SEE-INSTRU [place] 00 CTIONS. Medical follow Branch package directions methylPREDN 2022-[address] [facility] 4 8-17 mouth ity of mg tablets 00:00: SEE-INSTRU [place] 00 CTIONS. Medical follow Branch package directions methylPREDN 2022-[address] [facility] 4 8-17 mouth ity of mg tablets 00:00: SEE-INSTRU [place] 00 CTIONS. Medical follow Branch package directions methylPREDN 2022-0 Yes [id number] Take by [facility] 4 8-17 mouth ity of mg tablets 00:00: SEE-INSTRU [place] 00 CTIONS. Medical follow Branch package directions methylPREDN 2022-0 Yes [id number] Take by [facility] 4 8-17 mouth ity of mg tablets 00:00: SEE-INSTRU [place] 00 CTIONS. Medical follow Branch package directions methylPREDN 2022-0 Yes [id number] Take by [facility] 4 8-17 mouth ity of mg tablets 00:00: SEE-INSTRU [place] 00 CTIONS. Medical follow Branch package directions methylPREDN 2022-0 Yes [id number] Take by [facility] 4 8-17 mouth ity of mg tablets 00:00: SEE-INSTRU [place] 00 CTIONS. Medical follow Branch package directions methylPREDN 2022-0 Yes [id number] Take by [facility] 4 8-17 mouth ity of mg tablets 00:00: SEE-INSTRU [place] 00 CTIONS. Medical follow Branch package directions methylPREDN 2022-0 Yes [id number] Take by [facility] ISolone 4 8-17 mouth ity of mg tablets 00:00: SEE-INSTRU [place] 00 CTIONS. Medical follow Branch package directions methylPREDN 2021-0 Yes [id number] Take by [facility] ISolone 4 8-17 mouth ity of mg tablets 00:00: SEE-INSTRU [place] 00 CTIONS. Medical follow Branch package directions methylPREDN 2021-0 Yes [id number] Take by [facility] ISolone 4 8-17 mouth ity of mg tablets 00:00: SEE-INSTRU [place] 00 CTIONS. Medical follow Branch package directions methylPREDN 2021-0 Yes [id number] Take by [facility] ISolone 4 8-17 mouth ity of mg tablets 00:00: SEE-INSTRU [place] 00 CTIONS. Medical follow Branch package directions methylPREDN 2021-0 Yes [id number] Take by [facility] [place] [facility] ISolone 4 8-17 mouth ity of mg tablets 00:00: SEE-INSTRU [place] 00 CTIONS. Medical follow Branch package directions albuterol 2021- No [id number] 2{puff} Inhale 2 [facility] 90 -17 11-26 Puffs ity of mcg/actuati 00:00: 00:00 every 4 [place] on inhaler 00 :00 (four) Medical hours as Branch needed for Wheezing or Shortness of Breath. benzonatate 2021- No [id number] 100mg Take 1 [facility] 100 mg 17 08-26 capsule by ity of capsule 00:00: 00:00 mouth 3 [place] 00 :00 (three) Medical times Branch daily as needed for Cough. lactulose Yes [id number] Take 30 ml [facility] 10 gram/15 6-29 once day x ity of mL oral 00:00: 2 weeks [place] solution 00 for Medical constipati Branch on lactulose Yes [id number] Take 30 ml [facility] 10 gram/15 6-29 once day x ity of mL oral 00:00: 2 weeks [place] solution 00 for Medical constipati Branch on lactulose Yes [id number] Take 30 ml [facility] 10 gram/15 6-29 once day x ity of mL oral 00:00: 2 weeks [place] solution 00 for Medical constipati Branch on lactulose Yes [id number] Take 30 ml [facility] 10 gram/15 6-29 once day x ity of mL oral 00:00: 2 weeks [place] solution 00 for Medical constipati Branch on lactulose 2021-0 Yes [id number] Take 30 ml [facility] 10 gram/15 6-29 once day x ity of mL oral 00:00: 2 weeks [place] solution 00 for Medical constipati Branch on lactulose 2021-0 Yes [id number] Take 30 ml [facility] 10 gram/15 6-29 once day x ity of mL oral 00:00: 2 weeks [place] solution 00 for Medical constipati Branch on lactulose 2021-0 Yes [id number] Take 30 ml [facility] 10 gram/15 6-29 once day x ity of mL oral 00:00: 2 weeks [place] solution 00 for Medical constipati Branch on lactulose 2021-0 Yes [id number] Take 30 ml [facility] 10 gram/15 6-29 once day x ity of mL oral 00:00: 2 weeks [place] solution 00 for Medical constipati Branch on lactulose 2021-0 Yes [id number] Take 30 ml [facility] 10 gram/15 6-29 once day x ity of mL oral 00:00: 2 weeks [place] solution 00 for Medical constipati Branch on lactulose 2021-0 Yes [id number] Take 30 ml [facility] 10 gram/15 6-29 once day x ity of mL oral 00:00: 2 weeks [place] solution 00 for Medical constipati Branch on lactulose 2021-0 Yes [id number] Take 30 ml [facility] 10 gram/15 6-29 once day x ity of mL oral 00:00: 2 weeks [place] solution 00 for Medical constipati Branch on lactulose 2021-0 Yes [id number] Take 30 ml [facility] 10 gram/15 6-29 once day x ity of mL oral 00:00: 2 weeks [place] solution 00 for Medical constipati Branch on lactulose 2021-0 Yes [id number] Take 30 ml [facility] 10 gram/15 6-29 once day x ity of mL oral 00:00: 2 weeks [place] solution 00 for Medical constipati Branch on lactulose 2021-0 Yes [id number] Take 30 ml [facility] 10 gram/15 6-29 once day x ity of mL oral 00:00: 2 weeks [place] solution 00 for Medical constipati Branch on lactulose 2021-0 Yes [id number] Take 30 ml [facility] 10 gram/15 6-29 once day x ity of mL oral 00:00: 2 weeks [place] solution 00 for Medical constipati Branch on lactulose 2021-0 Yes [id number] Take 30 ml [facility] 10 gram/15 6-29 once day x ity of mL oral 00:00: 2 weeks [place] solution 00 for Medical constipati Branch on lactulose 2021-0 Yes [id number] Take 30 ml [facility] 10 gram/15 6-29 once day x ity of mL oral 00:00: 2 weeks [place] solution 00 for Medical constipati Branch on lactulose 2021-0 Yes [id number] Take 30 ml [facility] 10 gram/15 6-29 once day x ity of mL oral 00:00: 2 weeks [place] solution 00 for Medical constipati Branch on lactulose 2021-0 Yes [id number] Take 30 ml [facility] 10 gram/15 6-29 once day x ity of mL oral 00:00: 2 weeks [place] solution 00 for Medical constipati Branch on lactulose 2021-0 Yes [id number] Take 30 ml [facility] 10 gram/15 6-29 once day x ity of mL oral 00:00: 2 weeks [place] solution 00 for Medical constipati Branch on lactulose 2021-0 Yes [id number] Take 30 ml [facility] 10 gram/15 6-29 once day x ity of mL oral 00:00: 2 weeks [place] solution 00 for Medical constipati Branch on lactulose 2021-0 Yes [id number] Take 30 ml [facility] 10 gram/15 6-29 once day x ity of mL oral 00:00: 2 weeks [place] solution 00 for Medical constipati Branch on lactulose 2021-0 Yes [id number] Take 30 ml [facility] 10 gram/15 6-29 once day x ity of mL oral 00:00: 2 weeks [place] solution 00 for Medical constipati Branch on lactulose 2021-0 Yes [id number] Take 30 ml [facility] 10 gram/15 6-29 once day x ity of mL oral 00:00: 2 weeks [place] solution 00 for Medical constipati Branch on lactulose 2021-0 Yes [id number] Take 30 ml [facility] 10 gram/15 6-29 once day x ity of mL oral 00:00: 2 weeks [place] solution 00 for Medical constipati Branch on lactulose 2021-0 Yes [id number] Take 30 ml [facility] 10 gram/15 6-29 once day x ity of mL oral 00:00: 2 weeks [place] solution 00 for Medical constipati Branch on lactulose 2021-0 Yes [id number] Take 30 ml [facility] 10 gram/15 6-29 once day x ity of mL oral 00:00: 2 weeks [place] solution 00 for Medical constipati Branch on lactulose 2021-0 Yes [id number] Take 30 ml [facility] 10 gram/15 6-29 once day x ity of mL oral 00:00: 2 weeks [place] solution 00 for Medical constipati Branch on lactulose 2021-0 Yes [id number] Take 30 ml [facility] 10 gram/15 6-29 once day x ity of mL oral 00:00: 2 weeks [place] [facility] 00 for [facility] constipati Branch on lactulose 2021- Yes [id number] Take 30 ml [facility] 10 gram/15 6-29 once day x ity of mL oral 00:00: 2 weeks [place] [facility] 00 for [facility] constipati Branch on lactulose Yes [id number] Take 30 ml [facility] 10 gram/15 6-29 once day x [facility] of mL oral 00:00: 2 weeks [place] [facility] 00 for [facility] constipati Branch on lactulose 2021-0 Yes [id number] Take 30 ml [facility] 10 gram/15 6-29 once day x ity of mL oral 00:00: 2 weeks [place] [facility] 00 for Medical constipati Branch on lactulose Yes [id number] Take 30 ml [facility] 10 gram/15 6-29 once day x ity of mL oral 00:00: 2 weeks [place] solution 00 for Medical constipati Branch on lactulose 2021-0 Yes [id number] Take 30 ml [facility] 10 gram/15 6-29 once day x ity of mL oral 00:00: 2 weeks [place] [facility] 00 for Medical constipati Branch on lactulose 2021-0 Yes [id number] Take 30 ml [facility] 10 gram/15 6-29 once day x ity of mL oral 00:00: 2 weeks [place] solution 00 for Medical constipati Branch on lactulose 2021-0 Yes [id number] Take 30 ml [facility] 10 gram/15 6-29 once day x ity of mL oral 00:00: 2 weeks [place] solution 00 for Medical constipati Branch on lactulose 2021-0 Yes [id number] Take 30 ml [facility] 10 gram/15 6-29 once day x ity of mL oral 00:00: 2 weeks [place] solution 00 for Medical constipati Branch on lactulose 2021-0 Yes [id number] Take 30 ml [facility] 10 gram/15 6-29 once day x ity of mL oral 00:00: 2 weeks [place] solution 00 for Medical constipati Branch on lactulose 2021-0 Yes [id number] Take 30 ml [facility] 10 gram/15 6-29 once day x ity of mL oral 00:00: 2 weeks [place] solution 00 for Medical constipati Branch on lactulose 2021-0 Yes [id number] Take 30 ml [facility] 10 gram/15 6-29 once day x ity of mL oral 00:00: 2 weeks [place] solution 00 for Medical constipati Branch on lactulose 2021-0 Yes [id number] Take 30 ml [facility] 10 gram/15 6-29 once day x ity of mL oral 00:00: 2 weeks [place] solution 00 for Medical constipati Branch on lactulose 2021-0 Yes [id number] Take 30 ml [facility] 10 gram/15 6-29 once day x ity of mL oral 00:00: 2 weeks [place] [facility] 00 for Medical constipati Branch on lactulose 2021-0 Yes [id number] Take 30 ml [facility] 10 gram/15 6-29 once day x ity of mL oral 00:00: 2 weeks [place] [facility] 00 for Medical constipati Branch on lactulose 2021-0 Yes [id number] Take 30 ml [facility] 10 gram/15 6-29 once day x ity of mL oral 00:00: 2 weeks [place] [facility] 00 for Medical constipati Branch on lactulose 2021-0 Yes [id number] Take 30 ml [facility] 10 gram/15 6-29 once day x ity of mL oral 00:00: 2 weeks [place] [facility] 00 for [facility] constipati Branch on lactulose 2021-0 Yes [id number] Take 30 ml [facility] 10 gram/15 6-29 once day x it[facility] of mL oral 00:00: 2 weeks [place] [facility] 00 for [facility] constipati Branch on lactulose 2021-0 Yes [id number] Take 30 ml [facility] 10 gram/15 6-29 once day x it[facility] of mL oral 00:00: 2 weeks [place] solution 00 for Medical constipati Branch on lactulose 2021-0 Yes [id number] Take 30 ml [facility] 10 gram/15 6-29 once day x ity of mL oral 00:00: 2 weeks [place] [facility] 00 for Medical constipati Branch on lactulose 2021-0 Yes [id number] Take 30 ml [facility] 10 gram/15 6-29 once day x ity of mL oral 00:00: 2 weeks [place] [facility] 00 for [facility] constipati Branch on lactulose 2021-0 Yes [id number] Take 30 ml [facility] 10 gram/15 6-29 once day x ity of mL oral 00:00: 2 weeks [place] solution 00 for Medical constipati Branch on lactulose 2021-0 Yes [id number] Take 30 ml [facility] 10 gram/15 6-29 once day x ity of mL oral 00:00: 2 weeks [place] solution 00 for Medical constipati Branch on lactulose 2021-0 Yes [id number] Take 30 ml [facility] 10 gram/15 6-29 once day x ity of mL oral 00:00: 2 weeks [place] [facility] 00 for Medical constipati Branch on lactulose 2021-0 Yes [id number] Take 30 ml [facility] 10 gram/15 6-29 once day x [facility] of mL oral 00:00: 2 weeks [place] [facility] 00 for [facility] constipati Branch on lactulose 2021-0 Yes [id number] Take 30 ml [facility] 10 gram/15 6-29 once day x [facility] of mL oral 00:00: 2 weeks [place] [facility] 00 for [facility] constipati Branch on lactulose 2021-0 Yes [id number] Take 30 ml [facility] 10 gram/15 6-29 once day x [facility] of mL oral 00:00: 2 weeks [place] solution 00 for Medical constipati Branch on lactulose 2021-0 Yes [id number] Take 30 ml [facility] 10 gram/15 6-29 once day x ity of mL oral 00:00: 2 weeks [place] [facility] 00 for [facility] constipati Branch on lactulose 2021-0 Yes [id number] Take 30 ml [facility] 10 gram/15 6-29 once day x [facility] of mL oral 00:00: 2 weeks [place] solution 00 for [facility] constipati Branch on lactulose 2021-0 Yes [id number] Take 30 ml [facility] 10 gram/15 6-29 once day x [facility] of mL oral 00:00: 2 weeks [place] solution 00 for [facility] constipati Branch on lactulose 2021-0 Yes [id number] Take 30 ml [facility] 10 gram/15 6-29 once day x ity of mL oral 00:00: 2 weeks [place] [facility] 00 for [facility] constipati Branch on lactulose 2021-0 Yes [id number] Take 30 ml [facility] 10 gram/15 6-29 once day x [facility] of mL oral 00:00: 2 weeks [place] [facility] 00 for Medical constipati Branch on lactulose 2021-0 Yes [id number] Take 30 ml [facility] 10 gram/15 6-29 once day x [facility] of mL oral 00:00: 2 weeks [place] [facility] 00 for [facility] constipati Branch on lactulose 2021-0 Yes [id number] Take 30 ml [facility] 10 gram/15 6-29 once day x [facility] of mL oral 00:00: 2 weeks [place] [facility] 00 for [facility] constipati Branch on lactulose 2021-0 Yes [id number] Take 30 ml [facility] 10 gram/15 6-29 once day x [facility] of mL oral 00:00: 2 weeks [place] [facility] 00 for [facility] constipati Branch on lactulose 2021-0 Yes [id number] Take 30 ml [facility] 10 gram/15 6-29 once day x it[facility] of mL oral 00:00: 2 weeks [place] [facility] 00 for Medical constipati Branch on amLODIPine Yes [id number] 10mg Take 1 [facility] 10 mg 6-06 tablet by [facility] of tablet 00:00: mouth [place] 00 daily. [facility] Branch ondansetron 2021- Yes [id number] 4mg Take 1 [facility] 4 mg 6-06 tablet by [facility] of disintegrat 00:00: mouth [place] ing tablet 00 every 8 Medica l (eight) Branch hours as needed for Nausea and Vomiting (N/V). dicyclomine 2021-0 Yes [id number] 10mg Take 1 [facility] 10 mg 6-06 capsule by [facility] of capsule 00:00: mouth [place] 00 every 6 Medical (six) Branch hours as needed for Abdominal pain. famotidine 0 Yes [id number] 40mg Take 1 [facility] 40 mg 6-06 tablet by [facility] of tablet 00:00: mouth 2 [place] 00 (two) Medical times Branch daily. amLODIPine 2021-0 Yes [id number] 10mg Take 1 [facility] 10 mg 6-06 tablet by [facility] of tablet 00:00: mouth [place] 00 daily. Medical Branch ondansetron 2021-0 Yes [id number] 4mg Take 1 [facility] 4 mg 6-06 tablet by [facility] of disintegrat 00:00: mouth [place] ing tablet 00 every 8 Medica l (eight) Branch hours as needed for Nausea and Vomiting (N/V). dicyclomine 2021-0 Yes [id number] 10mg Take 1 [facility] 10 mg 6-06 capsule by [facility] of capsule 00:00: mouth [place] 00 every 6 Medical (six) Branch hours as needed for Abdominal pain. famotidine 2-0 Yes [id number] 40mg Take 1 [facility] 40 mg 6-06 tablet by [facility] of tablet 00:00: mouth 2 [place] 00 (two) Medical times Branch daily. ondansetron 2-0 Yes [id number] 4mg Take 1 [facility] 4 mg 6-06 tablet by [facility] of disintegrat 00:00: mouth [place] ing tablet 00 every 8 Medica l (eight) Branch hours as needed for Nausea and Vomiting (N/V). dicyclomine 2-0 Yes [id number] 10mg Take 1 [facility] 10 mg 6-06 capsule by [facility] of capsule 00:00: mouth [place] 00 every 6 Medical (six) Branch hours as needed for Abdominal pain. famotidine 2-0 Yes [id number] 40mg Take 1 [facility] 40 mg 6-06 tablet by [facility] of tablet 00:00: mouth 2 [place] 00 (two) Medical times Branch daily. ondansetron 2-0 Yes [id number] 4mg Take 1 [facility] 4 mg 6-06 tablet by [facility] of disintegrat 00:00: mouth [place] ing tablet 00 every 8 Medica l (eight) Branch hours as needed for Nausea and Vomiting (N/V). dicyclomine 2022-0 Yes [id number] 10mg Take 1 [facility] 10 mg 6-06 capsule by [facility] of capsule 00:00: mouth [place] 00 every 6 Medical (six) Branch hours as needed for Abdominal pain. famotidine 2022-0 Yes [id number] 40mg Take 1 [facility] 40 mg 6-06 tablet by [facility] of tablet 00:00: mouth 2 [place] 00 (two) Medical times Branch daily. ondansetron 2022-0 Yes [id number] 4mg Take 1 [facility] 4 mg 6-06 tablet by [facility] of disintegrat 00:00: mouth [place] ing tablet 00 every 8 Medica l (eight) Branch hours as needed for Nausea and Vomiting (N/V). dicyclomine 2022-0 Yes [id number] 10mg Take 1 [facility] 10 mg 6-06 capsule by [facility] of capsule 00:00: mouth [place] 00 every 6 Medical (six) Branch hours as needed for Abdominal pain. famotidine 2022-0 Yes [id number] 40mg Take 1 [facility] 40 mg 6-06 tablet by [facility] of tablet 00:00: mouth 2 [place] 00 (two) Medical times Branch daily. ondansetron 2022-0 Yes [id number] 4mg Take 1 [facility] 4 mg 6-06 tablet by [facility]y of disintegrat 00:00: mouth [place] ing tablet 00 every 8 Medica l (eight) Branch hours as needed for Nausea and Vomiting (N/V). dicyclomine 2-0 Yes [id number] 10mg Take 1 [facility] 10 mg 6-06 capsule by [facility] of capsule 00:00: mouth [place] 00 every 6 Medical (six) Branch hours as needed for Abdominal pain. famotidine 2-0 Yes [id number] 40mg Take 1 [facility] 40 mg 6-06 tablet by [facility] of tablet 00:00: mouth 2 [place] 00 (two) Medical times Branch daily. ondansetron 2-0 Yes [id number] 4mg Take 1 [facility] 4 mg 6-06 tablet by [facility] of disintegrat 00:00: mouth [place] ing tablet 00 every 8 Medica l (eight) Branch hours as needed for Nausea and Vomiting (N/V). dicyclomine 2-0 Yes [id number] 10mg Take 1 [facility] 10 mg 6-06 capsule by [facility] of capsule 00:00: mouth [place] 00 every 6 Medical (six) Branch hours as needed for Abdominal pain. famotidine 2-0 Yes [id number] 40mg Take 1 [facility] 40 mg 6-06 tablet by [facility] of tablet 00:00: mouth 2 [place] 00 (two) Medical times Branch daily. ondansetron 2-0 Yes [id number] 4mg Take 1 [facility] 4 mg 6-06 tablet by [facility]y of disintegrat 00:00: mouth [place] ing tablet 00 every 8 Medica l (eight) Branch hours as needed for Nausea and Vomiting (N/V). dicyclomine 2022-0 Yes [id number] 10mg Take 1 [facility] 10 mg 6-06 capsule by [facility] of capsule 00:00: mouth [place] 00 every 6 Medical (six) Branch hours as needed for Abdominal pain. famotidine 2022-0 Yes [id number] 40mg Take 1 [facility] 40 mg 6-06 tablet by [facility] of tablet 00:00: mouth 2 [place] 00 (two) Medical times Branch daily. ondansetron 2021-0 Yes [id number] 4mg Take 1 [facility] 4 mg 6-06 tablet by [facility] of disintegrat 00:00: mouth [place] ing tablet 00 every 8 Medica l (eight) Branch hours as needed for Nausea and Vomiting (N/V). dicyclomine 2022-0 Yes [id number] 10mg Take 1 [facility] 10 mg 6-06 capsule by [facility] of capsule 00:00: mouth [place] 00 every 6 Medical (six) Branch hours as needed for Abdominal pain. famotidine 2022-0 Yes [id number] 40mg Take 1 [facility] 40 mg 6-06 tablet by [facility] of tablet 00:00: mouth 2 [place] 00 (two) Medical times Branch daily. ondansetron 2022-0 Yes [id number] 4mg Take 1 [facility] 4 mg 6-06 tablet by [facility] of disintegrat 00:00: mouth [place] ing tablet 00 every 8 Medica l (eight) Branch hours as needed for Nausea and Vomiting (N/V). dicyclomine 2022-0 Yes [id number] 10mg Take 1 [facility] 10 mg 6-06 capsule by [facility] of capsule 00:00: mouth [place] 00 every 6 Medical (six) Branch hours as needed for Abdominal pain. famotidine 2022-0 Yes [id number] 40mg Take 1 [facility] 40 mg 6-06 tablet by [facility] of tablet 00:00: mouth 2 [place] 00 (two) Medical times Branch daily. ondansetron 2022-0 Yes [id number] 4mg Take 1 [facility] 4 mg 6-06 tablet by [facility]y of disintegrat 00:00: mouth [place] ing tablet 00 every 8 Medica l (eight) Branch hours as needed for Nausea and Vomiting (N/V). dicyclomine 2022-0 Yes [id number] 10mg Take 1 [facility] 10 mg 6-06 capsule by [facility] of capsule 00:00: mouth [place] 00 every 6 Medical (six) Branch hours as needed for Abdominal pain. famotidine 2022-0 Yes [id number] 40mg Take 1 [facility] 40 mg 6-06 tablet by [facility] of tablet 00:00: mouth 2 [place] 00 (two) Medical times Branch daily. ondansetron 2022-0 Yes [id number] 4mg Take 1 [facility] 4 mg 6-06 tablet by ity of disintegrat 00:00: mouth [place] ing tablet 00 every 8 Medica l (eight) Branch hours as needed for Nausea and Vomiting (N/V). dicyclomine 2022-0 Yes [id number] 10mg Take 1 [facility] 10 mg 6-06 capsule by [facility] of capsule 00:00: mouth [place] 00 every 6 Medical (six) Branch hours as needed for Abdominal pain. famotidine 2022-0 Yes [id number] 40mg Take 1 [facility] 40 mg 6-06 tablet by [facility] of tablet 00:00: mouth 2 [place] 00 (two) Medical times Branch daily. ondansetron 2022-0 Yes [id number] 4mg Take 1 [facility] 4 mg 6-06 tablet by ity of disintegrat 00:00: mouth [place] ing tablet 00 every 8 Medica l (eight) Branch hours as needed for Nausea and Vomiting (N/V). dicyclomine 2022-0 Yes [id number] 10mg Take 1 [facility] 10 mg 6-06 capsule by [facility] of capsule 00:00: mouth [place] 00 every 6 Medical (six) Branch hours as needed for Abdominal pain. famotidine 2-0 Yes [id number] 40mg Take 1 [facility] 40 mg 6-06 tablet by [facility] of tablet 00:00: mouth 2 [place] 00 (two) Medical times Branch daily. ondansetron 2022-0 Yes [id number] 4mg Take 1 [facility] 4 mg 6-06 tablet by [facility]y of disintegrat 00:00: mouth [place] ing tablet 00 every 8 Medica l (eight) Branch hours as needed for Nausea and Vomiting (N/V). dicyclomine 2022-0 Yes [id number] 10mg Take 1 [facility] 10 mg 6-06 capsule by [facility] of capsule 00:00: mouth [place] 00 every 6 Medical (six) Branch hours as needed for Abdominal pain. famotidine 2022-0 Yes [id number] 40mg Take 1 [facility] 40 mg 6-06 tablet by [facility] of tablet 00:00: mouth 2 [place] 00 (two) Medical times Branch daily. ondansetron 2022-0 Yes [id number] 4mg Take 1 [facility] 4 mg 6-06 tablet by [facility]y of disintegrat 00:00: mouth [place] ing tablet 00 every 8 Medica l (eight) Branch hours as needed for Nausea and Vomiting (N/V). dicyclomine 2022-0 Yes [id number] 10mg Take 1 [facility] 10 mg 6-06 capsule by [facility] of capsule 00:00: mouth [place] 00 every 6 Medical (six) Branch hours as needed for Abdominal pain. famotidine 2022-0 Yes [id number] 40mg Take 1 [facility] 40 mg 6-06 tablet by [facility] of tablet 00:00: mouth 2 [place] 00 (two) Medical times Branch daily. ondansetron 2022-0 Yes [id number] 4mg Take 1 [facility] 4 mg 6-06 tablet by [facility]y of disintegrat 00:00: mouth [place] ing tablet 00 every 8 Medica l (eight) Branch hours as needed for Nausea and Vomiting (N/V). dicyclomine 2022-0 Yes [id number] 10mg Take 1 [facility] 10 mg 6-06 capsule by [facility] of capsule 00:00: mouth [place] 00 every 6 Medical (six) Branch hours as needed for Abdominal pain. famotidine 2-0 Yes [id number] 40mg Take 1 [facility] 40 mg 6-06 tablet by [facility] of tablet 00:00: mouth 2 [place] 00 (two) Medical times Branch daily. ondansetron 2-0 Yes [id number] 4mg Take 1 [facility] 4 mg 6-06 tablet by [facility]y of disintegrat 00:00: mouth [place] ing tablet 00 every 8 Medica l (eight) Branch hours as needed for Nausea and Vomiting (N/V). dicyclomine 2022-0 Yes [id number] 10mg Take 1 [facility] 10 mg 6-06 capsule by [facility] of capsule 00:00: mouth [place] 00 every 6 Medical (six) Branch hours as needed for Abdominal pain. famotidine 2022-0 Yes [id number] 40mg Take 1 [facility] 40 mg 6-06 tablet by [facility] of tablet 00:00: mouth 2 [place] 00 (two) Medical times Branch daily. ondansetron 2022-0 Yes [id number] 4mg Take 1 [facility] 4 mg 6-06 tablet by [facility]y of disintegrat 00:00: mouth [place] ing tablet 00 every 8 Medica l (eight) Branch hours as needed for Nausea and Vomiting (N/V). dicyclomine 2022-0 Yes [id number] 10mg Take 1 [facility] 10 mg 6-06 capsule by [facility] of capsule 00:00: mouth [place] 00 every 6 Medical (six) Branch hours as needed for Abdominal pain. famotidine 2022-0 Yes [id number] 40mg Take 1 [facility] 40 mg 6-06 tablet by [facility] of tablet 00:00: mouth 2 [place] 00 (two) Medical times Branch daily. ondansetron 2022-0 Yes [id number] 4mg Take 1 [facility] 4 mg 6-06 tablet by [facility]y of disintegrat 00:00: mouth [place] ing tablet 00 every 8 Medica l (eight) Branch hours as needed for Nausea and Vomiting (N/V). dicyclomine 2022-0 Yes [id number] 10mg Take 1 [facility] 10 mg 6-06 capsule by [facility] of capsule 00:00: mouth [place] 00 every 6 Medical (six) Branch hours as needed for Abdominal pain. famotidine 2022-0 Yes [id number] 40mg Take 1 [facility] 40 mg 6-06 tablet by [facility] of tablet 00:00: mouth 2 [place] 00 (two) Medical times Branch daily. ondansetron 2022-0 Yes [id number] 4mg Take 1 [facility] 4 mg 6-06 tablet by [facility] of disintegrat 00:00: mouth [place] ing tablet 00 every 8 Medica l (eight) Branch hours as needed for Nausea and Vomiting (N/V). dicyclomine 2022-0 Yes [id number] 10mg Take 1 [facility] 10 mg 6-06 capsule by [facility] of capsule 00:00: mouth [place] 00 every 6 Medical (six) Branch hours as needed for Abdominal pain. famotidine 2022-0 Yes [id number] 40mg Take 1 [facility] 40 mg 6-06 tablet by [facility] of tablet 00:00: mouth 2 [place] 00 (two) Medical times Branch daily. ondansetron 2022-0 Yes [id number] 4mg Take 1 [facility] 4 mg 6-06 tablet by [facility]y of disintegrat 00:00: mouth [place] ing tablet 00 every 8 Medica l (eight) Branch hours as needed for Nausea and Vomiting (N/V). dicyclomine 2022-0 Yes [id number] 10mg Take 1 [facility] 10 mg 6-06 capsule by [facility] of capsule 00:00: mouth [place] 00 every 6 Medical (six) Branch hours as needed for Abdominal pain. famotidine 2022-0 Yes [id number] 40mg Take 1 [facility] 40 mg 6-06 tablet by [facility] of tablet 00:00: mouth 2 [place] 00 (two) Medical times Branch daily. ondansetron 2022-0 Yes [id number] 4mg Take 1 [facility] 4 mg 6-06 tablet by [facility]y of disintegrat 00:00: mouth [place] ing tablet 00 every 8 Medica l (eight) Branch hours as needed for Nausea and Vomiting (N/V). dicyclomine 2022-0 Yes [id number] 10mg Take 1 [facility] 10 mg 6-06 capsule by [facility] of capsule 00:00: mouth [place] 00 every 6 Medical (six) Branch hours as needed for Abdominal pain. famotidine 2022-0 Yes [id number] 40mg Take 1 [facility] 40 mg 6-06 tablet by [facility] of tablet 00:00: mouth 2 [place] (two) Medical times Branch daily. ondansetron 2-0 Yes [id number] 4mg Take 1 [facility] 4 mg 6-06 tablet by [facility]y of disintegrat 00:00: mouth [place] ing tablet 00 every 8 Medica l (eight) Branch hours as needed for Nausea and Vomiting (N/V). dicyclomine 2-0 Yes [id number] 10mg Take 1 [facility] 10 mg 6-06 capsule by [facility] of capsule 00:00: mouth [place] 00 every 6 Medical (six) Branch hours as needed for Abdominal pain. famotidine 2-0 Yes [id number] 40mg Take 1 [facility] 40 mg 6-06 tablet by [facility] of tablet 00:00: mouth 2 [place] (two) Medical times Branch daily. ondansetron 2-0 Yes [id number] 4mg Take 1 [facility] 4 mg 6-06 tablet by [facility]y of disintegrat 00:00: mouth [place] ing tablet 00 every 8 Medica l (eight) Branch hours as needed for Nausea and Vomiting (N/V). dicyclomine 2022-0 Yes [id number] 10mg Take 1 [facility] 10 mg 6-06 capsule by [facility] of capsule 00:00: mouth [place] 00 every 6 Medical (six) Branch hours as needed for Abdominal pain. famotidine 2022-0 Yes [id number] 40mg Take 1 [facility] 40 mg 6-06 tablet by [facility] of tablet 00:00: mouth 2 [place] 00 (two) Medical times Branch daily. ondansetron 2022-0 Yes [id number] 4mg Take 1 [facility] 4 mg 6-06 tablet by [facility]y of disintegrat 00:00: mouth [place] ing tablet 00 every 8 Medica l (eight) Branch hours as needed for Nausea and Vomiting (N/V). dicyclomine 2022-0 Yes [id number] 10mg Take 1 [facility] 10 mg 6-06 capsule by [facility] of capsule 00:00: mouth [place] 00 every 6 Medical (six) Branch hours as needed for Abdominal pain. famotidine 2022-0 Yes [id number] 40mg Take 1 [facility] 40 mg 6-06 tablet by [facility] of tablet 00:00: mouth 2 [place] 00 (two) Medical times Branch daily. ondansetron 2022-0 Yes [id number] 4mg Take 1 [facility] 4 mg 6-06 tablet by [facility]y of disintegrat 00:00: mouth [place] ing tablet 00 every 8 Medica l (eight) Branch hours as needed for Nausea and Vomiting (N/V). dicyclomine 2022-0 Yes [id number] 10mg Take 1 [facility] 10 mg 6-06 capsule by [facility] of capsule 00:00: mouth [place] 00 every 6 Medical (six) Branch hours as needed for Abdominal pain. famotidine 2022-0 Yes [id number] 40mg Take 1 [facility] 40 mg 6-06 tablet by [facility] of tablet 00:00: mouth 2 [place] 00 (two) Medical times Branch daily. ondansetron 2022-0 Yes [id number] 4mg Take 1 [facility] 4 mg 6-06 tablet by [facility]y of disintegrat 00:00: mouth [place] ing tablet 00 every 8 Medica l (eight) Branch hours as needed for Nausea and Vomiting (N/V). dicyclomine 2022-0 Yes [id number] 10mg Take 1 [facility] 10 mg 6-06 capsule by [facility] of capsule 00:00: mouth [place] 00 every 6 Medical (six) Branch hours as needed for Abdominal pain. famotidine 2022-0 Yes [id number] 40mg Take 1 [facility] 40 mg 6-06 tablet by [facility] of tablet 00:00: mouth 2 [place] 00 (two) Medical times Branch daily. ondansetron 2022-0 Yes [id number] 4mg Take 1 [facility] 4 mg 6-06 tablet by ity of disintegrat 00:00: mouth [place] ing tablet 00 every 8 Medica l (eight) Branch hours as needed for Nausea and Vomiting (N/V). dicyclomine 2022-0 Yes [id number] 10mg Take 1 [facility] 10 mg 6-06 capsule by [facility] of capsule 00:00: mouth [place] 00 every 6 Medical (six) Branch hours as needed for Abdominal pain. famotidine 2022-0 Yes [id number] 40mg Take 1 [facility] 40 mg 6-06 tablet by [facility] of tablet 00:00: mouth 2 [place] 00 (two) Medical times Branch daily. ondansetron 2022-0 Yes [id number] 4mg Take 1 [facility] 4 mg 6-06 tablet by [facility] of disintegrat 00:00: mouth [place] ing tablet 00 every 8 Medica l (eight) Branch hours as needed for Nausea and Vomiting (N/V). dicyclomine 2022-0 Yes [id number] 10mg Take 1 [facility] 10 mg 6-06 capsule by [facility] of capsule 00:00: mouth [place] 00 every 6 Medical (six) Branch hours as needed for Abdominal pain. famotidine 2022-0 Yes [id number] 40mg Take 1 [facility] 40 mg 6-06 tablet by [facility] of tablet 00:00: mouth 2 [place] 00 (two) Medical times Branch daily. ondansetron 2022-0 Yes [id number] 4mg Take 1 [facility] 4 mg 6-06 tablet by [facility]y of disintegrat 00:00: mouth [place] ing tablet 00 every 8 Medica l (eight) Branch hours as needed for Nausea and Vomiting (N/V). dicyclomine 2022-0 Yes [id number] 10mg Take 1 [facility] 10 mg 6-06 capsule by [facility] of capsule 00:00: mouth [place] 00 every 6 Medical (six) Branch hours as needed for Abdominal pain. famotidine 2022-0 Yes [id number] 40mg Take 1 [facility] 40 mg 6-06 tablet by [facility] of tablet 00:00: mouth 2 [place] 00 (two) Medical times Branch daily. ondansetron 2022-0 Yes [id number] 4mg Take 1 [facility] 4 mg 6-06 tablet by [facility]y of disintegrat 00:00: mouth [place] ing tablet 00 every 8 Medica l (eight) Branch hours as needed for Nausea and Vomiting (N/V). dicyclomine 2022-0 Yes [id number] 10mg Take 1 [facility] 10 mg 6-06 capsule by [facility] of capsule 00:00: mouth [place] 00 every 6 Medical (six) Branch hours as needed for Abdominal pain. famotidine 2021-0 Yes [id number] 40mg Take 1 [facility] 40 mg 6-06 tablet by [facility] of tablet 00:00: mouth 2 [place] 00 (two) Medical times Branch daily. ondansetron 2021-0 Yes [id number] 4mg Take 1 [facility] 4 mg 6-06 tablet by [facility]y of disintegrat 00:00: mouth [place] ing tablet 00 every 8 Medica l (eight) Branch hours as needed for Nausea and Vomiting (N/V). dicyclomine 2021-0 Yes [id number] 10mg Take 1 [facility] 10 mg 6-06 capsule by [facility] of capsule 00:00: mouth [place] 00 every 6 Medical (six) Branch hours as needed for Abdominal pain. famotidine 2021-0 Yes [id number] 40mg Take 1 [facility] 40 mg 6-06 tablet by [facility] of tablet 00:00: mouth 2 [place] 00 (two) Medical times Branch daily. ondansetron 2021-0 Yes [id number] 4mg Take 1 [facility] 4 mg 6-06 tablet by [facility] of disintegrat 00:00: mouth [place] ing tablet 00 every 8 Medica l (eight) Branch hours as needed for Nausea and Vomiting (N/V). dicyclomine 2-0 Yes [id number] 10mg Take 1 [facility] 10 mg 6-06 capsule by [facility] of capsule 00:00: mouth [place] 00 every 6 Medical (six) Branch hours as needed for Abdominal pain. famotidine 2-0 Yes [id number] 40mg Take 1 [facility] 40 mg 6-06 tablet by [facility] of tablet 00:00: mouth 2 [place] 00 (two) Medical times Branch daily. ondansetron 2022-0 Yes [id number] 4mg Take 1 [facility] 4 mg 6-06 tablet by [facility]y of disintegrat 00:00: mouth [place] ing tablet 00 every 8 Med[facility] l (eight) Branch hours as needed for Nausea and Vomiting (N/V). dicyclomine 2022-0 Yes [id number] 10mg Take 1 [facility] 10 mg 6-06 capsule by [facility] of capsule 00:00: mouth [place] 00 every 6 Medical (six) Branch hours as needed for Abdominal pain. famotidine 2022-0 Yes [id number] 40mg Take 1 [facility] 40 mg 6-06 tablet by [facility] of tablet 00:00: mouth 2 [place] 00 (two) Medical times Branch daily. ondansetron 2022-0 Yes [id number] 4mg Take 1 [facility] 4 mg 6-06 tablet by [facility] of disintegrat 00:00: mouth [place] ing tablet 00 every 8 Med[facility] l (eight) Branch hours as needed for Nausea and Vomiting (N/V). dicyclomine 2022-0 Yes [id number] 10mg Take 1 [facility] 10 mg 6-06 capsule by [facility] of capsule 00:00: mouth [place] 00 every 6 Medical (six) Branch hours as needed for Abdominal pain. famotidine 2-0 Yes [id number] 40mg Take 1 [facility] 40 mg 6-06 tablet by [facility] tablet 00:00: mouth 2 [place] 00 (two) Medical times Branch daily. ondansetron 2-0 Yes [id number] 4mg Take 1 [facility] 4 mg 6-06 tablet by [facility] disintegrat 00:00: mouth [place] ing tablet 00 every 8 Medica l (eight) Branch hours as needed for Nausea and Vomiting (N/V). dicyclomine 2022-0 Yes [id number] 10mg Take 1 [facility] 10 mg 6-06 capsule by [facility] capsule 00:00: mouth [place] 00 every 6 Medical (six) Branch hours as needed for Abdominal pain. famotidine 2022-0 Yes [id number] 40mg Take 1 [facility] 40 mg 6-06 tablet by [facility] tablet 00:00: mouth 2 [place] 00 (two) Medical times Branch daily. ondansetron 2022-0 Yes [id number] 4mg Take 1 [facility] 4 mg 6-06 tablet by [facility] disintegrat 00:00: mouth [place] ing tablet 00 every 8 Medica l (eight) Branch hours as needed for Nausea and Vomiting (N/V). dicyclomine 2022-0 Yes [id number] 10mg Take 1 [facility] 10 mg 6-06 capsule by [facility] capsule 00:00: mouth [place] 00 every 6 Medical (six) Branch hours as needed for Abdominal pain. famotidine 2022-0 Yes [id number] 40mg Take 1 [facility] 40 mg 6-06 tablet by [facility] tablet 00:00: mouth 2 [place] 00 (two) Medical times Branch daily. ondansetron 2022-0 Yes [id number] 4mg Take 1 [facility] 4 mg 6-06 tablet by [facility] disintegrat 00:00: mouth [place] ing tablet 00 every 8 Medica l (eight) Branch hours as needed for Nausea and Vomiting (N/V). dicyclomine 2022-0 Yes [id number] 10mg Take 1 [facility] 10 mg 6-06 capsule by [facility] capsule 00:00: mouth [place] 00 every 6 Medical (six) Branch hours as needed for Abdominal pain. famotidine 2022-0 Yes [id number] 40mg Take 1 [facility] 40 mg 6-06 tablet by [facility] tablet 00:00: mouth 2 [place] 00 (two) Medical times Branch daily. ondansetron 2022-0 Yes [id number] 4mg Take 1 [facility] 4 mg 6-06 tablet by [facility] disintegrat 00:00: mouth [place] ing tablet 00 every 8 Medica l (eight) Branch hours as needed for Nausea and Vomiting (N/V). dicyclomine 2022-0 Yes [id number] 10mg Take 1 [facility] 10 mg 6-06 capsule by [facility] capsule 00:00: mouth [place] 00 every 6 Medical (six) Branch hours as needed for Abdominal pain. ondansetron 2022-0 Yes [id number] 4mg Take 1 [facility] 4 mg 6-06 tablet by [facility] of disintegrat 00:00: mouth [place] ing tablet 00 every 8 Medica l (eight) Branch hours as needed for Nausea and Vomiting (N/V). dicyclomine 2022-0 Yes [id number] 10mg Take 1 [facility] 10 mg 6-06 capsule by [facility] capsule 00:00: mouth [place] 00 every 6 Medical (six) Branch hours as needed for Abdominal pain. ondansetron 2022-0 Yes [id number] 4mg Take 1 [facility] 4 mg 6-06 tablet by [facility] disintegrat 00:00: mouth [place] ing tablet 00 every 8 [facility] (eight) Branch hours as needed for Nausea and Vomiting (N/V). dicyclomine 2022-0 Yes [id number] 10mg Take 1 [facility] 10 mg 6-06 capsule by [facility] capsule 00:00: mouth [place] 00 every 6 Medical (six) Branch hours as needed for Abdominal pain. ondansetron 2022-0 Yes [id number] 4mg Take 1 [facility] 4 mg 6-06 tablet by [facility] disintegrat 00:00: mouth [place] ing tablet 00 every 8 [facility] (eight) Branch hours as needed for Nausea and Vomiting (N/V). dicyclomine 2022-0 Yes [id number] 10mg Take 1 [facility] 10 mg 6-06 capsule by [facility] capsule 00:00: mouth [place] 00 every 6 Medical (six) Branch hours as needed for Abdominal pain. ondansetron 2022-0 Yes [id number] 4mg Take 1 [facility] 4 mg 6-06 tablet by [facility] of disintegrat 00:00: mouth [place] ing tablet 00 every 8 [facility] (eight) Branch hours as needed for Nausea and Vomiting (N/V). dicyclomine 2022-0 Yes [id number] 10mg Take 1 [facility] 10 mg 6-06 capsule by [facility] of capsule 00:00: mouth [place] 00 every 6 Medical (six) Branch hours as needed for Abdominal pain. ondansetron 2022-0 Yes [id number] 4mg Take 1 [facility] 4 mg 6-06 tablet by [facility] of disintegrat 00:00: mouth [place] ing tablet 00 every 8 [facility] (eight) Branch hours as needed for Nausea and Vomiting (N/V). dicyclomine 2022-0 Yes [id number] 10mg Take 1 [facility] 10 mg 6-06 capsule by [facility] capsule 00:00: mouth [place] 00 every 6 Medical (six) Branch hours as needed for Abdominal pain. ondansetron 2022-0 Yes [id number] 4mg Take 1 [facility] 4 mg 6-06 tablet by [facility] of disintegrat 00:00: mouth [place] ing tablet 00 every 8 [facility] (eight) Branch hours as needed for Nausea and Vomiting (N/V). dicyclomine 2022-0 Yes [id number] 10mg Take 1 [facility] 10 mg 6-06 capsule by [facility] capsule 00:00: mouth [place] 00 every 6 Medical (six) Branch hours as needed for Abdominal pain. ondansetron 2022-0 Yes [id number] 4mg Take 1 [facility] 4 mg 6-06 tablet by [facility] of disintegrat 00:00: mouth [place] ing tablet 00 every 8 Med[facility] l (eight) Branch hours as needed for Nausea and Vomiting (N/V). dicyclomine 2022-0 Yes [id number] 10mg Take 1 [facility] 10 mg 6-06 capsule by [facility] capsule 00:00: mouth [place] 00 every 6 Medical (six) Branch hours as needed for Abdominal pain. ondansetron 2022-0 Yes [id number] 4mg Take 1 [facility] 4 mg 6-06 tablet by [facility] of disintegrat 00:00: mouth [place] ing tablet 00 every 8 Medica l (eight) Branch hours as needed for Nausea and Vomiting (N/V). dicyclomine 2022-0 Yes [id number] 10mg Take 1 [facility] 10 mg 6-06 capsule by [facility] capsule 00:00: mouth [place] 00 every 6 Medical (six) Branch hours as needed for Abdominal pain. ondansetron 2022-0 Yes [id number] 4mg Take 1 [facility] 4 mg 6-06 tablet by [facility] of disintegrat 00:00: mouth [place] ing tablet 00 every 8 [facility] (eight) Branch hours as needed for Nausea and Vomiting (N/V). dicyclomine 2022-0 Yes [id number] 10mg Take 1 [facility] 10 mg 6-06 capsule by [facility] capsule 00:00: mouth [place] 00 every 6 Medical (six) Branch hours as needed for Abdominal pain. ondansetron 2022-0 Yes [id number] 4mg Take 1 [facility] 4 mg 6-06 tablet by [facility] disintegrat 00:00: mouth [place] ing tablet 00 every 8 [facility] (eight) Branch hours as needed for Nausea and Vomiting (N/V). dicyclomine 2022-0 Yes [id number] 10mg Take 1 [facility] 10 mg 6-06 capsule by [facility] capsule 00:00: mouth [place] 00 every 6 Medical (six) Branch hours as needed for Abdominal pain. ondansetron 2022-0 Yes [id number] 4mg Take 1 [facility] 4 mg 6-06 tablet by [facility] disintegrat 00:00: mouth [place] ing tablet 00 every 8 [facility] (eight) Branch hours as needed for Nausea and Vomiting (N/V). dicyclomine 2022-0 Yes [id number] 10mg Take 1 [facility] 10 mg 6-06 capsule by [facility] capsule 00:00: mouth [place] 00 every 6 Medical (six) Branch hours as needed for Abdominal pain. ondansetron 2022-0 Yes [id number] 4mg Take 1 [facility] 4 mg 6-06 tablet by [facility] disintegrat 00:00: mouth [place] ing tablet 00 every 8 [facility] (eight) Branch hours as needed for Nausea and Vomiting (N/V). dicyclomine 2022-0 Yes [id number] 10mg Take 1 [facility] 10 mg 6-06 capsule by [facility] capsule 00:00: mouth [place] 00 every 6 Medical (six) Branch hours as needed for Abdominal pain. ondansetron 2022-0 Yes [id number] 4mg Take 1 [facility] 4 mg 6-06 tablet by [facility] disintegrat 00:00: mouth [place] ing tablet 00 every 8 [facility] (eight) Branch hours as needed for Nausea and Vomiting (N/V). dicyclomine 2022-0 Yes [id number] 10mg Take 1 [facility] 10 mg 6-06 capsule by [facility] capsule 00:00: mouth [place] 00 every 6 Medical (six) Branch hours as needed for Abdominal pain. ondansetron 2022-0 Yes [id number] 4mg Take 1 [facility] 4 mg 6-06 tablet by [facility] disintegrat 00:00: mouth [place] ing tablet 00 every 8 Med[facility] (eight) Branch hours as needed for Nausea and Vomiting (N/V). dicyclomine 2022-0 Yes [id number] 10mg Take 1 [facility] 10 mg 6-06 capsule by [facility] capsule 00:00: mouth [place] 00 every 6 Medical (six) Branch hours as needed for Abdominal pain. ondansetron 2022-0 Yes [id number] 4mg Take 1 [facility] 4 mg 6-06 tablet by [facility] of disintegrat 00:00: mouth [place] ing tablet 00 every 8 [facility] (eight) Branch hours as needed for Nausea and Vomiting (N/V). dicyclomine 2022-0 Yes [id number] 10mg Take 1 [facility] 10 mg 6-06 capsule by [facility] capsule 00:00: mouth [place] 00 every 6 Medical (six) Branch hours as needed for Abdominal pain. ondansetron 2022-0 Yes [id number] 4mg Take 1 [facility] 4 mg 6-06 tablet by [facility] of disintegrat 00:00: mouth [place] ing tablet 00 every 8 Med[facility] l (eight) Branch hours as needed for Nausea and Vomiting (N/V). dicyclomine 2022-0 Yes [id number] 10mg Take 1 [facility] 10 mg 6-06 capsule by [facility] capsule 00:00: mouth [place] 00 every 6 Medical (six) Branch hours as needed for Abdominal pain. ondansetron 2022-0 Yes [id number] 4mg Take 1 [facility] 4 mg 6-06 tablet by [facility] of disintegrat 00:00: mouth [place] ing tablet 00 every 8 Medica l (eight) Branch hours as needed for Nausea and Vomiting (N/V). dicyclomine 2022-0 Yes [id number] 10mg Take 1 [facility] 10 mg 6-06 capsule by [facility] of capsule 00:00: mouth [place] 00 every 6 Medical (six) Branch hours as needed for Abdominal pain. ondansetron 2022-0 Yes [id number] 4mg Take 1 [facility] 4 mg 6-06 tablet by [facility] of disintegrat 00:00: mouth [place] ing tablet 00 every 8 Med[facility] l (eight) Branch hours as needed for Nausea and Vomiting (N/V). dicyclomine 2022-0 Yes [id number] 10mg Take 1 [facility] 10 mg 6-06 capsule by [facility] of capsule 00:00: mouth [place] 00 every 6 Medical (six) Branch hours as needed for Abdominal pain. ondansetron 2022-0 Yes [id number] 4mg Take 1 [facility] 4 mg 6-06 tablet by [facility] of disintegrat 00:00: mouth [place] ing tablet 00 every 8 Medica l (eight) Branch hours as needed for Nausea and Vomiting (N/V). dicyclomine 2022-0 Yes [id number] 10mg Take 1 [facility] 10 mg 6-06 capsule by [facility] of capsule 00:00: mouth [place] 00 every 6 Medical (six) Branch hours as needed for Abdominal pain. ondansetron 2022-0 Yes [id number] 4mg Take 1 [facility] 4 mg 6-06 tablet by [facility] of disintegrat 00:00: mouth [place] ing tablet 00 every 8 Medica l (eight) Branch hours as needed for Nausea and Vomiting (N/V). dicyclomine 2022-0 Yes [id number] 10mg Take 1 [facility] 10 mg 6-06 capsule by [facility] of capsule 00:00: mouth [place] 00 every 6 Medical (six) Branch hours as needed for Abdominal pain. ondansetron 2022-0 Yes [id number] 4mg Take 1 [facility] 4 mg 6-06 tablet by [facility] of disintegrat 00:00: mouth [place] ing tablet 00 every 8 Medica l (eight) Branch hours as needed for Nausea and Vomiting (N/V). dicyclomine 2022-0 Yes [id number] 10mg Take 1 [facility] 10 mg 6-06 capsule by [facility] of capsule 00:00: mouth [place] 00 every 6 Medical (six) Branch hours as needed for Abdominal pain. ondansetron 2022-0 Yes [id number] 4mg Take 1 [facility] 4 mg 6-06 tablet by [facility] of disintegrat 00:00: mouth [place] ing tablet 00 every 8 Medica l (eight) Branch hours as needed for Nausea and Vomiting (N/V). dicyclomine 2022-0 Yes [id number] 10mg Take 1 [facility] 10 mg 6-06 capsule by [facility] of capsule 00:00: mouth [place] 00 every 6 Medical (six) Branch hours as needed for Abdominal pain. ondansetron 2022-0 Yes [id number] 4mg Take 1 [facility] 4 mg 6-06 tablet by [facility] of disintegrat 00:00: mouth [place] ing tablet 00 every 8 Medica l (eight) Branch hours as needed for Nausea and Vomiting (N/V). dicyclomine 2022-0 Yes [id number] 10mg Take 1 [facility] 10 mg 6-06 capsule by [facility] of capsule 00:00: mouth [place] 00 every 6 Medical (six) Branch hours as needed for Abdominal pain. ondansetron 2022-0 Yes [id number] 4mg Take 1 [facility] 4 mg 6-06 tablet by [facility] of disintegrat 00:00: mouth [place] ing tablet 00 every 8 Medica l (eight) Branch hours as needed for Nausea and Vomiting (N/V). dicyclomine 2022-0 Yes [id number] 10mg Take 1 [facility] 10 mg 6-06 capsule by [facility] of capsule 00:00: mouth [place] 00 every 6 Medical (six) Branch hours as needed for Abdominal pain. ondansetron 2022-0 Yes [id number] 4mg Take 1 [facility] 4 mg 6-06 tablet by [facility] of disintegrat 00:00: mouth [place] ing tablet 00 every 8 Medica l (eight) Branch hours as needed for Nausea and Vomiting (N/V). dicyclomine Yes [id number] 10mg Take 1 [facility] 10 mg 6-06 capsule by [facility] of capsule 00:00: mouth [place] 00 every 6 Medical (six) Branch hours as needed for Abdominal pain. famotidine 2022- No [id number] 40mg Take 1 [facility] 40 mg 6-06 05-19 tablet by [facility] tablet 00:00: 00:00 mouth 2 [place] 00 :00 (two) Medical times Branch daily. famotidine 2022- No [id number] 40mg Take 1 [facility] 40 mg 6-06 05-19 tablet by [facility] of tablet 00:00: 00:00 mouth 2 [place] 00 :00 (two) Medical times Branch daily. famotidine 2022- No [id number] 40mg Take 1 [facility] 40 mg 6-06 05-19 tablet by [facility] of tablet 00:00: 00:00 mouth 2 [place] 00 :00 (two) Medical times Branch daily. amLODIPine 2021- No [id number] 10mg Take 1 [facility] 10 mg 6-06 11-22 tablet by [facility] of tablet 00:00: 00:00 mouth [place] 00 :00 daily. Medical Branch FLUTICASONE 0 Yes [id number] Use 1 [facility] PROPIONATE 5-14 spray into [facility]y of 50 00:00: each [place] mcg/actuati 00 nostril Medic al on nasal every day Branch spray SERTraline 0 Yes [id number] 100mg Take 1 [facility] (ZOLOFT) 5-14 tablet by [facility] of 100 mg 00:00: mouth at [place] tablet 00 bedtime. Medical Branch DULoxetine 0 Yes [id number] 20mg Take 1 [facility] 20 mg 5-14 capsule by [facility] of capsule 00:00: mouth [place] 00 daily. Medical Branch cyclobenzap 0 Yes [id number] 5mg Take 1 [facility] rine 5 mg 5-14 tablet by [facility] o f tablet 00:00: mouth 3 [place] 00 (three) Medical times Branch daily. FLUTICASONE 2021-0 Yes [id number] Use 1 [facility] PROPIONATE 5-14 spray into [facility]y of 50 00:00: each [place] mcg/actuati 00 nostril Medic al on nasal every day Branch spray SERTraline 0 Yes [id number] 100mg Take 1 [facility] (ZOLOFT) 5-14 tablet by [facility] of 100 mg 00:00: mouth at [place] tablet 00 bedtime. Medical Branch DULoxetine Yes [id number] 20mg Take 1 [facility] 20 mg 5-14 capsule by [facility] of capsule 00:00: mouth [place] 00 daily. Medical Branch cyclobenzap Yes [id number] 5mg Take 1 [facility] rine 5 mg 5-14 tablet by [facility] o f tablet 00:00: mouth 3 [place] 00 (three) Medical times Branch daily. FLUTICASONE Yes [id number] Use 1 [facility] PROPIONATE 5-14 spray into [facility]y of 50 00:00: each [place] mcg/actuati 00 nostril Medic al on nasal every day Branch spray DULoxetine Yes [id number] 20mg Take 1 [facility] 20 mg 5-14 capsule by [facility] of capsule 00:00: mouth [place] 00 daily. Medical Branch cyclobenzap Yes [id number] 5mg Take 1 [facility] rine 5 mg 5-14 tablet by [facility] o f tablet 00:00: mouth 3 [place] 00 (three) Medical times Branch daily. FLUTICASONE 2021-0 Yes [id number] Use 1 [facility] PROPIONATE 5-14 spray into [facility]y of 50 00:00: each [place] mcg/actuati 00 nostril Medic al on nasal every day Branch spray DULoxetine 0 Yes [id number] 20mg Take 1 [facility] 20 mg 5-14 capsule by [facility] of capsule 00:00: mouth [place] 00 daily. Medical Branch cyclobenzap 0 Yes [id number] 5mg Take 1 [facility] rine 5 mg 5-14 tablet by ity o f tablet 00:00: mouth 3 [place] 00 (three) Medical times Branch daily. FLUTICASONE 2021-0 Yes [id number] Use 1 [facility] PROPIONATE 5-14 spray into ity of 50 00:00: each [place] mcg/actuati 00 nostril Medic al on nasal every day Branch spray DULoxetine 0 Yes [id number] 20mg Take 1 [facility] 20 mg 5-14 capsule by [facility] of capsule 00:00: mouth [place] 00 daily. Medical Branch cyclobenzap 0 Yes [id number] 5mg Take 1 [facility] rine 5 mg 5-14 tablet by ity o f tablet 00:00: mouth 3 00 (three) Medical times Branch daily. FLUTICASONE 2021-0 Yes [id number] Use 1 [facility] PROPIONATE 5-14 spray into ity of 50 00:00: each [place] mcg/actuati 00 nostril Medic al on nasal every day Branch spray DULoxetine 2021-0 Yes [id number] 20mg Take 1 [facility] 20 mg 5-14 capsule by [facility] of capsule 00:00: mouth 00 daily. Medical Branch cyclobenzap 0 Yes [id number] 5mg Take 1 [facility] rine 5 mg 5-14 tablet by ity o f tablet 00:00: mouth 3 00 (three) Medical times Branch daily. FLUTICASONE 2021-0 Yes [id number] Use 1 [facility] PROPIONATE 5-14 spray into ity of 50 00:00: each [place] mcg/actuati 00 nostril Medic al on nasal every day Branch spray DULoxetine 2021-0 Yes [id number] 20mg Take 1 [facility] 20 mg 5-14 capsule by [facility] of capsule 00:00: mouth [place] 00 daily. Medical Branch cyclobenzap 0 Yes [id number] 5mg Take 1 [facility] rine 5 mg 5-14 tablet by ity o f tablet 00:00: mouth 3 (three) Medical times Branch daily. FLUTICASONE 2021-0 Yes [id number] Use 1 [facility] PROPIONATE 5-14 spray into ity of 50 00:00: each [place] mcg/actuati 00 nostril Medic al on nasal every day Branch spray DULoxetine 2021-0 Yes [id number] 20mg Take 1 [facility] 20 mg 5-14 capsule by [facility]y of capsule 00:00: mouth 00 daily. Medical Branch cyclobenzap 0 Yes [id number] 5mg Take 1 [facility] rine 5 mg 5-14 tablet by ity o f tablet 00:00: mouth 3 00 (three) Medical times Branch daily. FLUTICASONE 2021-0 Yes [id number] Use 1 [facility] PROPIONATE 5-14 spray into ity of 50 00:00: each [place] mcg/actuati 00 nostril Medic al on nasal every day Branch spray cyclobenzap 2021-0 Yes [id number] 5mg Take 1 [facility] rine 5 mg 5-14 tablet by ity o f tablet 00:00: mouth 3 00 (three) Medical times Branch daily. FLUTICASONE 2022-0 Yes [id number] Use 1 [facility] PROPIONATE 5-14 spray into ity of 50 00:00: each [place] mcg/actuati 00 nostril Medic al on nasal every day Branch spray cyclobenzap 2022-0 Yes [id number] 5mg Take 1 [facility] rine 5 mg 5-14 tablet by ity o f tablet 00:00: mouth 3 [place] 00 (three) Medical times Branch daily. FLUTICASONE 2022-0 Yes [id number] Use 1 [facility] PROPIONATE 5-14 spray into ity of 50 00:00: each [place] mcg/actuati 00 nostril Medic al on nasal every day Branch spray cyclobenzap 2022-0 Yes [id number] 5mg Take 1 [facility] rine 5 mg 5-14 tablet by ity o f tablet 00:00: mouth 3 00 (three) Medical times Branch daily. FLUTICASONE 2022-0 Yes [id number] Use 1 [facility] PROPIONATE 5-14 spray into ity of 50 00:00: each [place] mcg/actuati 00 nostril Medic al on nasal every day Branch spray cyclobenzap 2-0 Yes [id number] 5mg Take 1 [facility] rine 5 mg 5-14 tablet by ity o f tablet 00:00: mouth 3 [place] (three) Medical times Branch daily. FLUTICASONE 2022-0 Yes [id number] Use 1 [facility] PROPIONATE 5-14 spray into ity of 50 00:00: each [place] mcg/actuati 00 nostril Medic al on nasal every day Branch spray cyclobenzap 2022-0 Yes [id number] 5mg Take 1 [facility] rine 5 mg 5-14 tablet by ity o f tablet 00:00: mouth 3 [place] 00 (three) Medical times Branch daily. FLUTICASONE 2022-0 Yes [id number] Use 1 [facility] PROPIONATE 5-14 spray into ity of 50 00:00: each [place] mcg/actuati 00 nostril Medic al on nasal every day Branch spray cyclobenzap 2022-0 Yes [id number] 5mg Take 1 [facility] rine 5 mg 5-14 tablet by ity o f tablet 00:00: mouth 3 [place] 00 (three) Medical times Branch daily. FLUTICASONE 2022-0 Yes [id number] Use 1 [facility] PROPIONATE 5-14 spray into ity of 50 00:00: each [place] mcg/actuati 00 nostril Medic al on nasal every day Branch spray cyclobenzap 2021-0 Yes [id number] 5mg Take 1 [facility] rine 5 mg 5-14 tablet by ity o f tablet 00:00: mouth 3 [place] 00 (three) Medical times Branch daily. FLUTICASONE 2-0 Yes [id number] Use 1 [facility] PROPIONATE 5-14 spray into ity of 50 00:00: each [place] mcg/actuati 00 nostril Medic al on nasal every day Branch spray cyclobenzap 2021-0 Yes [id number] 5mg Take 1 [facility] rine 5 mg 5-14 tablet by ity o f tablet 00:00: mouth 3 [place] 00 (three) Medical times Branch daily. FLUTICASONE 2-0 Yes [id number] Use 1 [facility] PROPIONATE 5-14 spray into ity of 50 00:00: each [place] mcg/actuati 00 nostril Medic al on nasal every day Branch spray cyclobenzap 2021-0 Yes [id number] 5mg Take 1 [facility] rine 5 mg 5-14 tablet by ity o f tablet 00:00: mouth 3 [place] 00 (three) Medical times Branch daily. FLUTICASONE 2-0 Yes [id number] Use 1 [facility] PROPIONATE 5-14 spray into ity of 50 00:00: each [place] mcg/actuati 00 nostril Medic al on nasal every day Branch spray cyclobenzap 2021-0 Yes [id number] 5mg Take 1 [facility] rine 5 mg 5-14 tablet by ity o f tablet 00:00: mouth 3 [place] 00 (three) Medical times Branch daily. FLUTICASONE 2-0 Yes [id number] Use 1 [facility] PROPIONATE 5-14 spray into ity of 50 00:00: each [place] mcg/actuati 00 nostril Medic al on nasal every day Branch spray cyclobenzap 2-0 Yes [id number] 5mg Take 1 [facility] rine 5 mg 5-14 tablet by ity o f tablet 00:00: mouth 3 [place] 00 (three) Medical times Branch daily. FLUTICASONE 2022-0 Yes [id number] Use 1 [facility] PROPIONATE 5-14 spray into ity of 50 00:00: each [place] mcg/actuati 00 nostril Medic al on nasal every day Branch spray cyclobenzap 2021-0 Yes [id number] 5mg Take 1 [facility] rine 5 mg 5-14 tablet by ity o f tablet 00:00: mouth 3 [place] (three) Medical times Branch daily. FLUTICASONE 2-0 Yes [id number] Use 1 [facility] PROPIONATE 5-14 spray into ity of 50 00:00: each [place] mcg/actuati 00 nostril Medic al on nasal every day Branch spray cyclobenzap 2021-0 Yes [id number] 5mg Take 1 [facility] rine 5 mg 5-14 tablet by ity o f tablet 00:00: mouth 3 [place] (three) Medical times Branch daily. FLUTICASONE 2-0 Yes [id number] Use 1 [facility] PROPIONATE 5-14 spray into ity of 50 00:00: each [place] mcg/actuati 00 nostril Medic al on nasal every day Branch spray cyclobenzap 2021-0 Yes [id number] 5mg Take 1 [facility] rine 5 mg 5-14 tablet by ity o f tablet 00:00: mouth 3 [place] (three) Medical times Branch daily. FLUTICASONE 2-0 Yes [id number] Use 1 [facility] PROPIONATE 5-14 spray into ity of 50 00:00: each [place] mcg/actuati 00 nostril Medic al on nasal every day Branch spray cyclobenzap 2021-0 Yes [id number] 5mg Take 1 [facility] rine 5 mg 5-14 tablet by ity o f tablet 00:00: mouth 3 [place] (three) Medical times Branch daily. FLUTICASONE 2-0 Yes [id number] Use 1 [facility] PROPIONATE 5-14 spray into ity of 50 00:00: each [place] mcg/actuati 00 nostril Medic al on nasal every day Branch spray cyclobenzap 2-0 Yes [id number] 5mg Take 1 [facility] rine 5 mg 5-14 tablet by ity o f tablet 00:00: mouth 3 [place] (three) Medical times Branch daily. FLUTICASONE 2022-0 Yes [id number] Use 1 [facility] PROPIONATE 5-14 spray into ity of 50 00:00: each [place] mcg/actuati 00 nostril Medic al on nasal every day Branch spray cyclobenzap 2-0 Yes [id number] 5mg Take 1 [facility] rine 5 mg 5-14 tablet by ity o f tablet 00:00: mouth 3 [place] (three) Medical times Branch daily. FLUTICASONE 2022-0 Yes [id number] Use 1 [facility] PROPIONATE 5-14 spray into ity of 50 00:00: each [place] mcg/actuati 00 nostril Medic al on nasal every day Branch spray cyclobenzap 2022-0 Yes [id number] 5mg Take 1 [facility] rine 5 mg 5-14 tablet by ity o f tablet 00:00: mouth 3 [place] (three) Medical times Branch daily. FLUTICASONE 2022-0 Yes [id number] Use 1 [facility] PROPIONATE 5-14 spray into ity of 50 00:00: each [place] mcg/actuati 00 nostril Medic al on nasal every day Branch spray cyclobenzap 2-0 Yes [id number] 5mg Take 1 [facility] rine 5 mg 5-14 tablet by ity o f tablet 00:00: mouth 3 [place] (three) Medical times Branch daily. FLUTICASONE 2022-0 Yes [id number] Use 1 [facility] PROPIONATE 5-14 spray into ity of 50 00:00: each [place] mcg/actuati 00 nostril Medic al on nasal every day Branch spray cyclobenzap 2-0 Yes [id number] 5mg Take 1 [facility] rine 5 mg 5-14 tablet by ity o f tablet 00:00: mouth 3 [place] (three) Medical times Branch daily. FLUTICASONE 2022-0 Yes [id number] Use 1 [facility] PROPIONATE 5-14 spray into ity of 50 00:00: each [place] mcg/actuati 00 nostril Medic al on nasal every day Branch spray cyclobenzap 2022-0 Yes [id number] 5mg Take 1 [facility] rine 5 mg 5-14 tablet by ity o f tablet 00:00: mouth 3 [place] (three) Medical times Branch daily. FLUTICASONE 2022-0 Yes [id number] Use 1 [facility] PROPIONATE 5-14 spray into ity of 50 00:00: each [place] mcg/actuati 00 nostril Medic al on nasal every day Branch spray cyclobenzap 2022-0 Yes [id number] 5mg Take 1 [facility] rine 5 mg 5-14 tablet by ity o f tablet 00:00: mouth 3 [place] (three) Medical times Branch daily. FLUTICASONE 2022-0 Yes [id number] Use 1 [facility] PROPIONATE 5-14 spray into ity of 50 00:00: each [place] mcg/actuati 00 nostril Medic al on nasal every day Branch spray cyclobenzap 2-0 Yes [id number] 5mg Take 1 [facility] rine 5 mg 5-14 tablet by ity o f tablet 00:00: mouth 3 [place] 00 (three) Medical times Branch daily. FLUTICASONE 2-0 Yes [id number] Use 1 [facility] PROPIONATE 5-14 spray into ity of 50 00:00: each [place] mcg/actuati 00 nostril Medic al on nasal every day Branch spray cyclobenzap 2021-0 Yes [id number] 5mg Take 1 [facility] rine 5 mg 5-14 tablet by ity o f tablet 00:00: mouth 3 [place] 00 (three) Medical times Branch daily. FLUTICASONE 2-0 Yes [id number] Use 1 [facility] PROPIONATE 5-14 spray into ity of 50 00:00: each [place] mcg/actuati 00 nostril Medic al on nasal every day Branch spray cyclobenzap 2021-0 Yes [id number] 5mg Take 1 [facility] rine 5 mg 5-14 tablet by ity o f tablet 00:00: mouth 3 [place] 00 (three) Medical times Branch daily. FLUTICASONE 2-0 Yes [id number] Use 1 [facility] PROPIONATE 5-14 spray into ity of 50 00:00: each [place] mcg/actuati 00 nostril Medic al on nasal every day Branch spray cyclobenzap 2-0 Yes [id number] 5mg Take 1 [facility] rine 5 mg 5-14 tablet by ity o f tablet 00:00: mouth 3 [place] 00 (three) Medical times Branch daily. FLUTICASONE 2-0 Yes [id number] Use 1 [facility] PROPIONATE 5-14 spray into ity of 50 00:00: each [place] mcg/actuati 00 nostril Medic al on nasal every day Branch spray cyclobenzap 2022-0 Yes [id number] 5mg Take 1 [facility] rine 5 mg 5-14 tablet by ity o f tablet 00:00: mouth 3 [place] 00 (three) Medical times Branch daily. FLUTICASONE 2022-0 Yes [id number] Use 1 [facility] PROPIONATE 5-14 spray into ity of 50 00:00: each [place] mcg/actuati 00 nostril Medic al on nasal every day Branch spray cyclobenzap 2021-0 Yes [id number] 5mg Take 1 [facility] rine 5 mg 5-14 tablet by ity o f tablet 00:00: mouth 3 [place] (three) Medical times Branch daily. FLUTICASONE 2-0 Yes [id number] Use 1 [facility] PROPIONATE 5-14 spray into ity of 50 00:00: each [place] mcg/actuati 00 nostril Medic al on nasal every day Branch spray cyclobenzap 2021-0 Yes [id number] 5mg Take 1 [facility] rine 5 mg 5-14 tablet by ity o f tablet 00:00: mouth 3 [place] (three) Medical times Branch daily. FLUTICASONE 2-0 Yes [id number] Use 1 [facility] PROPIONATE 5-14 spray into ity of 50 00:00: each [place] mcg/actuati 00 nostril Medic al on nasal every day Branch spray cyclobenzap 2021-0 Yes [id number] 5mg Take 1 [facility] rine 5 mg 5-14 tablet by ity o f tablet 00:00: mouth 3 [place] (three) Medical times Branch daily. FLUTICASONE 2-0 Yes [id number] Use 1 [facility] PROPIONATE 5-14 spray into ity of 50 00:00: each [place] mcg/actuati 00 nostril Medic al on nasal every day Branch spray cyclobenzap 2021-0 Yes [id number] 5mg Take 1 [facility] rine 5 mg 5-14 tablet by ity o f tablet 00:00: mouth 3 [place] (three) Medical times Branch daily. FLUTICASONE 2-0 Yes [id number] Use 1 [facility] PROPIONATE 5-14 spray into ity of 50 00:00: each [place] mcg/actuati 00 nostril Medic al on nasal every day Branch spray cyclobenzap 2-0 Yes [id number] 5mg Take 1 [facility] rine 5 mg 5-14 tablet by ity o f tablet 00:00: mouth 3 [place] (three) Medical times Branch daily. FLUTICASONE 2-0 Yes [id number] Use 1 [facility] PROPIONATE 5-14 spray into ity of 50 00:00: each [place] mcg/actuati 00 nostril Medic al on nasal every day Branch spray cyclobenzap 2-0 Yes [id number] 5mg Take 1 [facility] rine 5 mg 5-14 tablet by ity o f tablet 00:00: mouth 3 (three) Medical times Branch daily. FLUTICASONE 2022-0 Yes [id number] Use 1 [facility] PROPIONATE 5-14 spray into ity of 50 00:00: each [place] mcg/actuati 00 nostril Medic al on nasal every day Branch spray cyclobenzap 2-0 Yes [id number] 5mg Take 1 [facility] rine 5 mg 5-14 tablet by ity o f tablet 00:00: mouth 3 (three) Medical times Branch daily. FLUTICASONE 2022-0 Yes [id number] Use 1 [facility] PROPIONATE 5-14 spray into ity of 50 00:00: each [place] mcg/actuati 00 nostril Medic al on nasal every day Branch spray cyclobenzap 2-0 Yes [id number] 5mg Take 1 [facility] rine 5 mg 5-14 tablet by ity o f tablet 00:00: mouth 3 (three) Medical times Branch daily. FLUTICASONE 2022-0 Yes [id number] Use 1 [facility] PROPIONATE 5-14 spray into ity of 50 00:00: each [place] mcg/actuati 00 nostril Medic al on nasal every day Branch spray cyclobenzap 2-0 Yes [id number] 5mg Take 1 [facility] rine 5 mg 5-14 tablet by ity o f tablet 00:00: mouth 3 (three) Medical times Branch daily. FLUTICASONE 2022-0 Yes [id number] Use 1 [facility] PROPIONATE 5-14 spray into ity of 50 00:00: each [place] mcg/actuati 00 nostril Medic al on nasal every day Branch spray cyclobenzap 2-0 Yes [id number] 5mg Take 1 [facility] rine 5 mg 5-14 tablet by ity o f tablet 00:00: mouth 3 [place] (three) Medical times Branch daily. FLUTICASONE 2022-0 Yes [id number] Use 1 [facility] PROPIONATE 5-14 spray into ity of 50 00:00: each [place] mcg/actuati 00 nostril Medic al on nasal every day Branch spray cyclobenzap 2022-0 Yes [id number] 5mg Take 1 [facility] rine 5 mg 5-14 tablet by ity o f tablet 00:00: mouth 3 (three) Medical times Branch daily. FLUTICASONE 2022-0 Yes [id number] Use 1 [facility] PROPIONATE 5-14 spray into ity of 50 00:00: each [place] mcg/actuati 00 nostril Medic al on nasal every day Branch spray cyclobenzap 2-0 Yes [id number] 5mg Take 1 [facility] rine 5 mg 5-14 tablet by ity o f tablet 00:00: mouth 3 [place] 00 (three) Medical times Branch daily. FLUTICASONE 2022-0 Yes [id number] Use 1 [facility] PROPIONATE 5-14 spray into ity of 50 00:00: each [place] mcg/actuati 00 nostril Medic al on nasal every day Branch spray cyclobenzap 2021-0 Yes [id number] 5mg Take 1 [facility] rine 5 mg 5-14 tablet by ity o f tablet 00:00: mouth 3 [place] 00 (three) Medical times Branch daily. FLUTICASONE 2022-0 Yes [id number] Use 1 [facility] PROPIONATE 5-14 spray into ity of 50 00:00: each [place] mcg/actuati 00 nostril Medic al on nasal every day Branch spray cyclobenzap 2021-0 Yes [id number] 5mg Take 1 [facility] rine 5 mg 5-14 tablet by ity o f tablet 00:00: mouth 3 [place] 00 (three) Medical times Branch daily. FLUTICASONE 2-0 Yes [id number] Use 1 [facility] PROPIONATE 5-14 spray into ity of 50 00:00: each [place] mcg/actuati 00 nostril Medic al on nasal every day Branch spray cyclobenzap 2-0 Yes [id number] 5mg Take 1 [facility] rine 5 mg 5-14 tablet by ity o f tablet 00:00: mouth 3 [place] 00 (three) Medical times Branch daily. FLUTICASONE 2022-0 Yes [id number] Use 1 [facility] PROPIONATE 5-14 spray into ity of 50 00:00: each [place] mcg/actuati 00 nostril Medic al on nasal every day Branch spray cyclobenzap 2-0 Yes [id number] 5mg Take 1 [facility] rine 5 mg 5-14 tablet by ity o f tablet 00:00: mouth 3 [place] 00 (three) Medical times Branch daily. FLUTICASONE 2022-0 Yes [id number] Use 1 [facility] PROPIONATE 5-14 spray into ity of 50 00:00: each [place] mcg/actuati 00 nostril Medic al on nasal every day Branch spray cyclobenzap 2021-0 Yes [id number] 5mg Take 1 [facility] rine 5 mg 5-14 tablet by ity o f tablet 00:00: mouth 3 [place] (three) Medical times Branch daily. FLUTICASONE 2022-0 Yes [id number] Use 1 [facility] PROPIONATE 5-14 spray into ity of 50 00:00: each [place] mcg/actuati 00 nostril Medic al on nasal every day Branch spray cyclobenzap 2021-0 Yes [id number] 5mg Take 1 [facility] rine 5 mg 5-14 tablet by ity o f tablet 00:00: mouth 3 [place] (three) Medical times Branch daily. FLUTICASONE 2-0 Yes [id number] Use 1 [facility] PROPIONATE 5-14 spray into ity of 50 00:00: each [place] mcg/actuati 00 nostril Medic al on nasal every day Branch spray cyclobenzap 2021-0 Yes [id number] 5mg Take 1 [facility] rine 5 mg 5-14 tablet by ity o f tablet 00:00: mouth 3 [place] (three) Medical times Branch daily. FLUTICASONE 2-0 Yes [id number] Use 1 [facility] PROPIONATE 5-14 spray into ity of 50 00:00: each [place] mcg/actuati 00 nostril Medic al on nasal every day Branch spray cyclobenzap 2021-0 Yes [id number] 5mg Take 1 [facility] rine 5 mg 5-14 tablet by ity o f tablet 00:00: mouth 3 [place] (three) Medical times Branch daily. FLUTICASONE 2022-0 Yes [id number] Use 1 [facility] PROPIONATE 5-14 spray into ity of 50 00:00: each [place] mcg/actuati 00 nostril Medic al on nasal every day Branch spray cyclobenzap 2-0 Yes [id number] 5mg Take 1 [facility] rine 5 mg 5-14 tablet by ity o f tablet 00:00: mouth 3 [place] (three) Medical times Branch daily. FLUTICASONE 2022-0 Yes [id number] Use 1 [facility] PROPIONATE 5-14 spray into ity of 50 00:00: each [place] mcg/actuati 00 nostril Medic al on nasal every day Branch spray cyclobenzap 2-0 Yes [id number] 5mg Take 1 [facility] rine 5 mg 5-14 tablet by ity o f tablet 00:00: mouth 3 [place] (three) Medical times Branch daily. FLUTICASONE 2022-0 Yes [id number] Use 1 [facility] PROPIONATE 5-14 spray into ity of 50 00:00: each [place] mcg/actuati 00 nostril Medic al on nasal every day Branch spray cyclobenzap 2022-0 Yes [id number] 5mg Take 1 [facility] rine 5 mg 5-14 tablet by ity o f tablet 00:00: mouth 3 [place] (three) Medical times Branch daily. FLUTICASONE 2022-0 Yes [id number] Use 1 [facility] PROPIONATE 5-14 spray into ity of 50 00:00: each [place] mcg/actuati 00 nostril Medic al on nasal every day Branch spray cyclobenzap 2-0 Yes [id number] 5mg Take 1 [facility] rine 5 mg 5-14 tablet by ity o f tablet 00:00: mouth 3 [place] (three) Medical times Branch daily. FLUTICASONE 2022-0 Yes [id number] Use 1 [facility] PROPIONATE 5-14 spray into ity of 50 00:00: each [place] mcg/actuati 00 nostril Medic al on nasal every day Branch spray cyclobenzap 2-0 Yes [id number] 5mg Take 1 [facility] rine 5 mg 5-14 tablet by ity o f tablet 00:00: mouth 3 [place] (three) Medical times Branch daily. FLUTICASONE 2022-0 Yes [id number] Use 1 [facility] PROPIONATE 5-14 spray into ity of 50 00:00: each [place] mcg/actuati 00 nostril Medic al on nasal every day Branch spray cyclobenzap 2022-0 Yes [id number] 5mg Take 1 [facility] rine 5 mg 5-14 tablet by ity o f tablet 00:00: mouth 3 [place] (three) Medical times Branch daily. FLUTICASONE 2022-0 Yes [id number] Use 1 [facility] PROPIONATE 5-14 spray into ity of 50 00:00: each [place] mcg/actuati 00 nostril Medic al on nasal every day Branch spray cyclobenzap 2022-0 Yes [id number] 5mg Take 1 [facility] rine 5 mg 5-14 tablet by ity o f tablet 00:00: mouth 3 [place] 00 (three) Medical times Branch daily. FLUTICASONE 2021- Yes [id number] Use 1 [facility] PROPIONATE 5-14 spray into ity of 50 00:00: each [place] mcg/actuati 00 nostril Medic al on nasal every day Branch spray cyclobenzap 0 Yes [id number] 5mg Take 1 [facility] rine 5 mg 5-14 tablet by ity o f tablet 00:00: mouth 3 [place] 00 (three) Medical times Branch daily. FLUTICASONE 2021- Yes [id number] Use 1 [facility] PROPIONATE 5-14 spray into ity of 50 00:00: each [place] mcg/actuati 00 nostril Medic al on nasal every day Branch spray cyclobenzap Yes [id number] 5mg Take 1 [facility] rine 5 mg 5-14 tablet by ity o f tablet 00:00: mouth 3 [place] 00 (three) Medical times Branch daily. DULoxetine 2021- No [id number] 20mg Take 1 [facility] 20 mg 5-14 12-05 capsule by ity of capsule 00:00: 00:00 mouth [place] 00 :00 daily. Medical Branch DULoxetine 2021- No [id number] 20mg Take 1 [facility] 20 mg 5-14 12-05 capsule by ity of capsule 00:00: 00:00 mouth [place] 00 :00 daily. Medical Branch DULoxetine 2021- No [id number] 20mg Take 1 [facility] 20 mg 5-14 12-05 capsule by ity of capsule 00:00: 00:00 mouth [place] 00 :00 daily. Medical Branch SERTraline 2021- No [id number] 100mg Take 1 [facility] (ZOLOFT) 5-14 11-22 tablet by ity o f 100 mg 00:00: 00:00 mouth at [place] tablet 00 :00 bedtime. Medical Branch chlorthalid 2020-05 Yes [id number] 25mg Take 1 [facility] one 25 mg 2-15 tablet by ity o f tablet 00:00: mouth [place] 00 daily. Medical Branch chlorthalid 2020-05 Yes [id number] 25mg Take 1 [facility] one 25 mg 2-15 tablet by ity o f tablet 00:00: mouth [place] 00 daily. Medical Branch chlorthalid 2020-05 Yes [id number] 25mg Take 1 [facility] one 25 mg 2-15 tablet by ity o f tablet 00:00: mouth [place] 00 daily. Medical Branch chlorthalid 2020-05 Yes [id number] 25mg Take 1 [facility] one 25 mg 2-15 tablet by ity o f tablet 00:00: mouth [place] 00 daily. Medical Branch chlorthalid 2020-05 Yes [id number] 25mg Take 1 [facility] one 25 mg 2-15 tablet by ity o f tablet 00:00: mouth [place] 00 daily. Medical Branch chlorthalid 2020-05 Yes [id number] 25mg Take 1 [facility] one 25 mg 2-15 tablet by ity o f tablet 00:00: mouth [place] 00 daily. Medical Branch chlorthalid 2020-05 Yes [id number] 25mg Take 1 [facility] one 25 mg 2-15 tablet by ity o f tablet 00:00: mouth [place] 00 daily. Medical [facility] chlorthalid 2020-05 Yes [id number] 25mg Take 1 [facility] one 25 mg 2-15 tablet by ity o f tablet 00:00: mouth [place] 00 daily. Medical Branch chlorthalid 2020-05 Yes [id number] 25mg Take 1 [facility] one 25 mg 2-15 tablet by ity o f tablet 00:00: mouth [place] 00 daily. Medical Branch chlorthalid 2020-05 Yes [id number] 25mg Take 1 [facility] one 25 mg 2-15 tablet by ity o f tablet 00:00: mouth [place] 00 daily. Medical [facility] chlorthalid 2020-05 Yes [id number] 25mg Take 1 [facility] one 25 mg 2-15 tablet by ity o f tablet 00:00: mouth [place] 00 daily. Medical [facility] chlorthalid 2020-05 Yes [id number] 25mg Take 1 [facility] one 25 mg 2-15 tablet by ity o f tablet 00:00: mouth [place] 00 daily. Medical [facility] chlorthalid 2020-05 Yes [id number] 25mg Take 1 [facility] one 25 mg 2-15 tablet by ity o f tablet 00:00: mouth [place] 00 daily. Medical [facility] chlorthalid 2020-05 Yes [id number] 25mg Take 1 [facility] one 25 mg 2-15 tablet by ity o f tablet 00:00: mouth [place] 00 daily. Medical [facility] chlorthalid 2020-05 Yes [id number] 25mg Take 1 [facility] one 25 mg 2-15 tablet by ity o f tablet 00:00: mouth [place] 00 daily. Medical [facility] chlorthalid 2020-05 Yes [id number] 25mg Take 1 [facility] one 25 mg 2-15 tablet by ity o f tablet 00:00: mouth [place] 00 daily. Medical [facility] chlorthalid 2020-05 Yes [id number] 25mg Take 1 [facility] one 25 mg 2-15 tablet by ity o f tablet 00:00: mouth [place] 00 daily. Medical [facility] chlorthalid 2020-05 Yes [id number] 25mg Take 1 [facility] one 25 mg 2-15 tablet by ity o f tablet 00:00: mouth [place] 00 daily. Medical [facility] chlorthalid 2020-05 Yes [id number] 25mg Take 1 [facility] one 25 mg 2-15 tablet by ity o f tablet 00:00: mouth [place] 00 daily. Medical [facility] chlorthalid 2020-05 Yes [id number] 25mg Take 1 [facility] one 25 mg 2-15 tablet by ity o f tablet 00:00: mouth [place] 00 daily. Medical [facility] chlorthalid 2020-05 Yes [id number] 25mg Take 1 [facility] one 25 mg 2-15 tablet by ity o f tablet 00:00: mouth [place] 00 daily. Medical [facility] chlorthalid 2020-05 Yes [id number] 25mg Take 1 [facility] one 25 mg 2-15 tablet by ity o f tablet 00:00: mouth [place] 00 daily. Medical [facility] chlorthalid 2020-05 Yes [id number] 25mg Take 1 [facility] one 25 mg 2-15 tablet by ity o f tablet 00:00: mouth [place] 00 daily. Medical [facility] chlorthalid 2020-05 Yes [id number] 25mg Take 1 [facility] one 25 mg 2-15 tablet by ity o f tablet 00:00: mouth [place] 00 daily. [facility] chlorthalid 2020-05 Yes [id number] 25mg Take 1 [facility] one 25 mg 2-15 tablet by ity o f tablet 00:00: mouth [place] 00 daily. [facility] chlorthalid 2020-05 Yes [id number] 25mg Take 1 [facility] one 25 mg 2-15 tablet by ity o f tablet 00:00: mouth [place] 00 daily. Medical [facility] chlorthalid 2020-05 Yes [id number] 25mg Take 1 [facility] one 25 mg 2-15 tablet by ity o f tablet 00:00: mouth [place] 00 daily. Medical [facility] chlorthalid 2020-05 Yes [id number] 25mg Take 1 [facility] one 25 mg 2-15 tablet by ity o f tablet 00:00: mouth [place] 00 daily. [facility] chlorthalid 2020-05 Yes [id number] 25mg Take 1 [facility] one 25 mg 2-15 tablet by ity o f tablet 00:00: mouth [place] 00 daily. Medical [facility] chlorthalid 2020-05 Yes [id number] 25mg Take 1 [facility] one 25 mg 2-15 tablet by ity o f tablet 00:00: mouth [place] 00 daily. [facility] chlorthalid 2020-05 Yes [id number] 25mg Take 1 [facility] one 25 mg 2-15 tablet by ity o f tablet 00:00: mouth [place] 00 daily. [facility] chlorthalid 2020-05 Yes [id number] 25mg Take 1 [facility] one 25 mg 2-15 tablet by ity o f tablet 00:00: mouth [place] 00 daily. [facility] chlorthalid 2020-05 Yes [id number] 25mg Take 1 [facility] one 25 mg 2-15 tablet by ity o f tablet 00:00: mouth [place] 00 daily. [facility] chlorthalid 2020-05 Yes [id number] 25mg Take 1 [facility] one 25 mg 2-15 tablet by ity o f tablet 00:00: mouth [place] 00 daily. [facility] chlorthalid 2020-05 Yes [id number] 25mg Take 1 [facility] one 25 mg 2-15 tablet by ity o f tablet 00:00: mouth [place] 00 daily. [facility] chlorthalid 2020-05 Yes [id number] 25mg Take 1 [facility] one 25 mg 2-15 tablet by ity o f tablet 00:00: mouth [place] 00 daily. [facility] chlorthalid 2020-05 Yes [id number] 25mg Take 1 [facility] one 25 mg 2-15 tablet by ity o f tablet 00:00: mouth [place] 00 daily. [facility] chlorthalid 2020-05 Yes [id number] 25mg Take 1 [facility] one 25 mg 2-15 tablet by ity o f tablet 00:00: mouth [place] 00 daily. [facility] chlorthalid 2020-05 Yes [id number] 25mg Take 1 [facility] one 25 mg 2-15 tablet by ity o f tablet 00:00: mouth [place] 00 daily. [facility] chlorthalid 2020-05 Yes [id number] 25mg Take 1 [facility] one 25 mg 2-15 tablet by ity o f tablet 00:00: mouth [place] 00 daily. [facility] chlorthalid 2020-05 Yes [id number] 25mg Take 1 [facility] one 25 mg 2-15 tablet by ity o f tablet 00:00: mouth [place] 00 daily. [facility] chlorthalid 2020-05 Yes [id number] 25mg Take 1 [facility] one 25 mg 2-15 tablet by ity o f tablet 00:00: mouth [place] 00 daily. [facility] chlorthalid 2020-05 Yes [id number] 25mg Take 1 [facility] one 25 mg 2-15 tablet by ity o f tablet 00:00: mouth [place] 00 daily. [facility] chlorthalid 2020-05 Yes [id number] 25mg Take 1 [facility] one 25 mg 2-15 tablet by ity o f tablet 00:00: mouth [place] 00 daily. [facility] chlorthalid 2020-05 Yes [id number] 25mg Take 1 [facility] one 25 mg 2-15 tablet by ity o f tablet 00:00: mouth [place] 00 daily. [facility] chlorthalid 2020-05 Yes [id number] 25mg Take 1 [facility] one 25 mg 2-15 tablet by ity o f tablet 00:00: mouth [place] 00 daily. [facility] chlorthalid 2020-05 Yes [id number] 25mg Take 1 [facility] one 25 mg 2-15 tablet by ity o f tablet 00:00: mouth [place] 00 daily. [facility] chlorthalid 2020-05 Yes [id number] 25mg Take 1 [facility] one 25 mg 2-15 tablet by ity o f tablet 00:00: mouth [place] 00 daily. [facility] chlorthalid 2020-05 Yes [id number] 25mg Take 1 [facility] one 25 mg 2-15 tablet by ity o f tablet 00:00: mouth [place] 00 daily. [facility] chlorthalid 2020-05 Yes [id number] 25mg Take 1 [facility] one 25 mg 2-15 tablet by ity o f tablet 00:00: mouth [place] 00 daily. [facility] chlorthalid 2020-05 Yes [id number] 25mg Take 1 [facility] one 25 mg 2-15 tablet by ity o f tablet 00:00: mouth [place] 00 daily. [facility] chlorthalid 2020-05 Yes [id number] 25mg Take 1 [facility] one 25 mg 2-15 tablet by ity o f tablet 00:00: mouth [place] 00 daily. [facility] chlorthalid 2020-05 Yes [id number] 25mg Take 1 [facility] one 25 mg 2-15 tablet by ity o f tablet 00:00: mouth [place] 00 daily. [facility] chlorthalid 2020-05 Yes [id number] 25mg Take 1 [facility] one 25 mg 2-15 tablet by ity o f tablet 00:00: mouth [place] 00 daily. [facility] chlorthalid 2020-05 Yes [id number] 25mg Take 1 [facility] one 25 mg 2-15 tablet by ity o f tablet 00:00: mouth [place] 00 daily. [facility] chlorthalid 2020-05 Yes [id number] 25mg Take 1 [facility] one 25 mg 2-15 tablet by ity o f tablet 00:00: mouth [place] 00 daily. [facility] chlorthalid 2020-05 Yes [id number] 25mg Take 1 [facility] one 25 mg 2-15 tablet by ity o f tablet 00:00: mouth [place] 00 daily. [facility] chlorthalid 2020-05 Yes [id number] 25mg Take 1 [facility] one 25 mg 2-15 tablet by ity o f tablet 00:00: mouth [place] 00 daily. [facility] chlorthalid 2020-05 Yes [id number] 25mg Take 1 [facility] one 25 mg 2-15 tablet by ity o f tablet 00:00: mouth [place] 00 daily. [facility] chlorthalid 2020-05 Yes [id number] 25mg Take 1 [facility] one 25 mg 2-15 tablet by ity o f tablet 00:00: mouth [place] 00 daily. [facility] chlorthalid 2020-05 Yes [id number] 25mg Take 1 [facility] one 25 mg 2-15 tablet by ity o f tablet 00:00: mouth [place] 00 daily. [facility] chlorthalid 2020-05 Yes [id number] 25mg Take 1 [facility] one 25 mg 2-15 tablet by ity o f tablet 00:00: mouth [place] 00 daily. [facility] chlorthalid 2020-05 Yes [id number] 25mg Take 1 [facility] one 25 mg 2-15 tablet by ity o f tablet 00:00: mouth [place] 00 daily. [facility] chlorthalid 2020-05 Yes [id number] 25mg Take 1 [facility] one 25 mg 2-15 tablet by ity o f tablet 00:00: mouth [place] 00 daily. Medical [facility] simethicone 2020-05 Yes [id number] 80mg Take 1 [facility] 80 mg 2-06 tablet by ity of chewable 00:00: mouth [place] tablet 00 after Medical meals and Branch at bedtime. sodium 2020-05 Yes [id number] 1{spray Use 1 Un enzo chloride 2-06 } [facility] in ity of (SALINE 00:00: each [place] NASAL) 0.65 00 nostril as Me dical % nasal needed Branch spray (nasal congestion ). cetirizine 2020-05 Yes [id number] 10mg Take 1 [facility] 10 mg 2-06 tablet by ity of tablet 00:00: mouth [place] 00 daily. Medical [facility] simethicone 2020-05 Yes [id number] 80mg Take 1 [facility] 80 mg 2-06 tablet by ity of chewable 00:00: mouth [place] tablet 00 after Medical meals and Branch at bedtime. sodium 2020-05 Yes [id number] 1{spray Use 1 [facility] enzo chloride 2-06 } [facility] in [facility]y of (SALINE 00:00: each [place] NASAL) 0.65 00 nostril as Me dical % nasal needed Branch spray (nasal congestion ). cetirizine 2020-05 Yes [id number] 10mg Take 1 [facility] 10 mg 2-06 tablet by ity of tablet 00:00: mouth [place] 00 daily. Medical [facility] simethicone 2020-05 Yes [id number] 80mg Take 1 [facility] 80 mg 2-06 tablet by ity of chewable 00:00: mouth [place] tablet 00 after Medical meals and Branch at bedtime. sodium 2020-05 Yes [id number] 1{spray Use 1 [facility] enzo chloride 2-06 } [facility] in [facility]y of (SALINE 00:00: each [place] NASAL) 0.65 00 nostril as Me dical % nasal needed Branch spray (nasal congestion ). cetirizine 2020-05 Yes [id number] 10mg Take 1 [facility] 10 mg 2-06 tablet by ity of tablet 00:00: mouth [place] 00 daily. Medical [facility] simethicone 2020-05 Yes [id number] 80mg Take 1 [facility] 80 mg 2-06 tablet by ity of chewable 00:00: mouth [place] tablet 00 after Medical meals and Branch at bedtime. sodium 2020-05 Yes [id number] 1{spray Use 1 Un enzo chloride 2-06 } [facility] in [facility]y of (SALINE 00:00: each [place] NASAL) 0.65 00 nostril as Me dical % nasal needed Branch spray (nasal congestion ). cetirizine 2020-05 Yes [id number] 10mg Take 1 [facility] 10 mg 2-06 tablet by ity of tablet 00:00: mouth [place] 00 daily. Medical [facility] simethicone 2020-05 Yes [id number] 80mg Take 1 [facility] 80 mg 2-06 tablet by ity of chewable 00:00: mouth [place] tablet 00 after Medical meals and Branch at bedtime. sodium 2020-05 Yes [id number] 1{spray Use 1 Un enzo chloride 2-06 } [facility] in [facility]y of (SALINE 00:00: each [place] NASAL) 0.65 00 nostril as Me dical % nasal needed Branch spray (nasal congestion ). cetirizine 2020-05 Yes [id number] 10mg Take 1 [facility] 10 mg 2-06 tablet by ity of tablet 00:00: mouth [place] 00 daily. Medical [facility] simethicone 2020-05 Yes [id number] 80mg Take 1 [facility] 80 mg 2-06 tablet by ity of chewable 00:00: mouth [place] tablet 00 after Medical meals and Branch at bedtime. sodium 2020-05 Yes [id number] 1{spray Use 1 Un enzo chloride 2-06 } [facility] in [facility]y of (SALINE 00:00: each [place] NASAL) 0.65 00 nostril as Me dical % nasal needed Branch spray (nasal congestion ). cetirizine 2020-05 Yes [id number] 10mg Take 1 [facility] 10 mg 2-06 tablet by ity of tablet 00:00: mouth [place] 00 daily. [facility] [place] simethicone 2020-05 Yes [id number] 80mg Take 1 [facility] 80 mg 2-06 tablet by ity of chewable 00:00: mouth [place] tablet 00 after Medical meals and Branch at bedtime. sodium 2020-05 Yes [id number] 1{spray Use 1 [facility] enzo chloride 2-06 } [facility] in [facility]y of (SALINE 00:00: each [place] NASAL) 0.65 00 nostril as Me dical % nasal needed Branch spray (nasal congestion ). cetirizine 2020-05 Yes [id number] 10mg Take 1 [facility] 10 mg 2-06 tablet by ity of tablet 00:00: mouth [place] 00 daily. [facility] [place] simethicone 2020-05 Yes [id number] 80mg Take 1 [facility] 80 mg 2-06 tablet by ity of chewable 00:00: mouth [place] tablet 00 after Medical meals and Branch at bedtime. sodium 2020-05 Yes [id number] 1{spray Use 1 [facility] enzo chloride 2-06 } [facility] in [facility] of (SALINE 00:00: each [place] NASAL) 0.65 00 nostril as Me dical % nasal needed Branch spray (nasal congestion ). cetirizine 2020-05 Yes [id number] 10mg Take 1 [facility] 10 mg 2-06 tablet by ity of tablet 00:00: mouth [place] 00 daily. Medical [facility] simethicone 2020-05 Yes [id number] 80mg Take 1 [facility] 80 mg 2-06 tablet by ity of chewable 00:00: mouth [place] tablet 00 after Medical meals and Branch at bedtime. sodium 2020-05 Yes [id number] 1{spray Use 1 [facility] enzo chloride 2-06 } [facility] in [facility] of (SALINE 00:00: each [place] NASAL) 0.65 00 nostril as Me dical % nasal needed Branch spray (nasal congestion ). cetirizine 2020-05 Yes [id number] 10mg Take 1 [facility] 10 mg 2-06 tablet by ity of tablet 00:00: mouth [place] 00 daily. Medical [facility] simethicone 2020-05 Yes [id number] 80mg Take 1 [facility] 80 mg 2-06 tablet by ity of chewable 00:00: mouth [place] tablet 00 after Medical meals and Branch at bedtime. sodium 2020-05 Yes [id number] 1{spray Use 1 Un enzo chloride 2-06 } [facility] in [facility] of (SALINE 00:00: each [place] NASAL) 0.65 00 nostril as Me dical % nasal needed Branch spray (nasal congestion ). cetirizine 2020-05 Yes [id number] 10mg Take 1 [facility] 10 mg 2-06 tablet by ity of tablet 00:00: mouth [place] 00 daily. Medical [facility] simethicone 2020-05 Yes [id number] 80mg Take 1 [facility] 80 mg 2-06 tablet by ity of chewable 00:00: mouth [place] tablet 00 after Medical meals and Branch at bedtime. sodium 2020-05 Yes [id number] 1{spray Use 1 [facility] enzo chloride 2-06 } [facility] in [facility] of (SALINE 00:00: each [place] NASAL) 0.65 00 nostril as Me dical % nasal needed Branch spray (nasal congestion ). cetirizine 2020-05 Yes [id number] 10mg Take 1 [facility]06 tablet by [facility] tablet 00:00: mouth [place] 00 daily. [facility] simethicone 2020-05 Yes [id number] 80mg Take 1 [facility] 80 mg 2-06 tablet by [facility] chewable 00:00: mouth [place] tablet 00 after Medical meals and Branch at bedtime. sodium 2020-05 Yes [id number] 1{spray Use 1 Un enzo chloride 2-06 } [facility] (SALINE 00:00: each [place] NASAL) 0.65 00 nostril as Me dical % nasal needed Branch spray (nasal congestion ). cetirizine 2020-05 Yes [id number] 10mg Take 1 [facility] 10 mg 2-06 tablet by [facility] of tablet 00:00: mouth [place] 00 daily. [facility] simethicone 2020-05 Yes [id number] 80mg Take 1 [facility] 80 mg 2-06 tablet by [facility] of chewable 00:00: mouth [place] tablet 00 after Medical meals and Branch at bedtime. sodium 2020-05 Yes [id number] 1{spray Use 1 Un enzo chloride 2-06 } [facility] (SALINE 00:00: each [place] NASAL) 0.65 00 nostril as Me dical % nasal needed Branch spray (nasal congestion ). cetirizine 2020-05 Yes [id number] 10mg Take 1 [facility] 10 mg 2-06 tablet by [facility] of tablet 00:00: mouth [place] 00 daily. [facility] simethicone 2020-05 Yes [id number] 80mg Take 1 [facility] 80 mg 2-06 tablet by [facility] of chewable 00:00: mouth [place] tablet 00 after Medical meals and Branch at bedtime. sodium 2020-05 Yes [id number] 1{spray Use 1 Un enzo chloride 2-06 } [facility] (SALINE 00:00: each [place] NASAL) 0.65 00 nostril as Me dical % nasal needed Branch spray (nasal congestion ). cetirizine 2020-05 Yes [id number] 10mg Take 1 [facility] 10 mg 2-06 tablet by [facility] of tablet 00:00: mouth [place] 00 daily. [facility] [place] simethicone 2020-05 Yes [id number] 80mg Take 1 [facility] 80 mg 2-06 tablet by [facility] of chewable 00:00: mouth [place] tablet 00 after Medical meals and Branch at bedtime. sodium 2020-05 Yes [id number] 1{spray Use 1 Un enzo chloride 2-06 } [facility] (SALINE 00:00: each [place] NASAL) 0.65 00 nostril as Me dical % nasal needed Branch spray (nasal congestion ). cetirizine 2020-05 Yes [id number] 10mg Take 1 [facility] 10 mg 2-06 tablet by [facility] of tablet 00:00: mouth [place] 00 daily. [facility] simethicone 2020-05 Yes [id number] 80mg Take 1 [facility] 80 mg 2-06 tablet by [facility] of chewable 00:00: mouth [place] tablet 00 after Medical meals and Branch at bedtime. sodium 2020-05 Yes [id number] 1{spray Use 1 Un enzo chloride 2-06 } [facility] (SALINE 00:00: each [place] NASAL) 0.65 00 nostril as Me dical % nasal needed Branch spray (nasal congestion ). cetirizine 2020-05 Yes [id number] 10mg Take 1 [facility] 10 mg 2-06 tablet by [facility] tablet 00:00: mouth [place] 00 daily. [facility] simethicone 2020-05 Yes [id number] 80mg Take 1 [facility] 80 mg 2-06 tablet by [facility] of chewable 00:00: mouth [place] tablet 00 after Medical meals and Branch at bedtime. sodium 2020-05 Yes [id number] 1{spray Use 1 Un enzo chloride 2-06 } [facility] (SALINE 00:00: each [place] NASAL) 0.65 00 nostril as Me dical % nasal needed Branch spray (nasal congestion ). cetirizine 2020-05 Yes [id number] 10mg Take 1 [facility] 10 mg 2-06 tablet by [facility] of tablet 00:00: mouth [place] 00 daily. [facility] simethicone 2020-05 Yes [id number] 80mg Take 1 [facility] 80 mg 2-06 tablet by it[facility] of chewable 00:00: mouth [place] tablet 00 after Medical meals and Branch at bedtime. sodium 2020-05 Yes [id number] 1{spray Use 1 Un enzo chloride 2-06 } [facility] (SALINE 00:00: each [place] NASAL) 0.65 00 nostril as Me dical % nasal needed Branch spray (nasal congestion ). cetirizine 2020-05 Yes [id number] 10mg Take 1 [facility] 10 mg 2-06 tablet by [facility] of tablet 00:00: mouth [place] 00 daily. [facility] simethicone 2020-05 Yes [id number] 80mg Take 1 [facility] 80 mg 2-06 tablet by [facility] of chewable 00:00: mouth [place] tablet 00 after Medical meals and Branch at bedtime. sodium 2020-05 Yes [id number] 1{spray Use 1 Un enzo chloride 2-06 } [facility] (SALINE 00:00: each [place] NASAL) 0.65 00 nostril as Me dical % nasal needed Branch spray (nasal congestion ). cetirizine 2020-05 Yes [id number] 10mg Take 1 [facility] 10 mg 2-06 tablet by [facility] of tablet 00:00: mouth [place] 00 daily. [facility] simethicone 2020-05 Yes [id number] 80mg Take 1 [facility] 80 mg 2-06 tablet by [facility] of chewable 00:00: mouth [place] tablet 00 after Medical meals and Branch at bedtime. sodium 2020-05 Yes [id number] 1{spray Use 1 Un enzo chloride 2-06 } [facility] (SALINE 00:00: each [place] NASAL) 0.65 00 nostril as Me dical % nasal needed Branch spray (nasal congestion ). cetirizine 2020-05 Yes [id number] 10mg Take 1 [facility] 10 mg 2-06 tablet by [facility] of tablet 00:00: mouth [place] 00 daily. [facility] simethicone 2020-05 Yes [id number] 80mg Take 1 [facility] 80 mg 2-06 tablet by [facility] of chewable 00:00: mouth [place] tablet 00 after Medical meals and Branch at bedtime. sodium 2020-05 Yes [id number] 1{spray Use 1 Un enzo chloride 2-06 } [facility] (SALINE 00:00: each [place] NASAL) 0.65 00 nostril as Me dical % nasal needed Branch spray (nasal congestion ). cetirizine 2020-05 Yes [id number] 10mg Take 1 [facility] 10 mg 2-06 tablet by [facility] of tablet 00:00: mouth [place] 00 daily. [facility] simethicone 2020-05 Yes [id number] 80mg Take 1 [facility] 80 mg 2-06 tablet by [facility] of chewable 00:00: mouth [place] tablet 00 after Medical meals and Branch at bedtime. sodium 2020-05 Yes [id number] 1{spray Use 1 Un enzo chloride 2-06 } [facility] (SALINE 00:00: each [place] NASAL) 0.65 00 nostril as Me dical % nasal needed Branch spray (nasal congestion ). cetirizine 2020-05 Yes [id number] 10mg Take 1 [facility] 10 mg 2-06 tablet by [facility] of tablet 00:00: mouth [place] 00 daily. [facility] simethicone 2020-05 Yes [id number] 80mg Take 1 [facility] 80 mg 2-06 tablet by [facility] of chewable 00:00: mouth [place] tablet 00 after Medical meals and Branch at bedtime. sodium 2020-05 Yes [id number] 1{spray Use 1 Un enzo chloride 2-06 } [facility] (SALINE 00:00: each [place] NASAL) 0.65 00 nostril as Me dical % nasal needed Branch spray (nasal congestion ). cetirizine 2020-05 Yes [id number] 10mg Take 1 [facility] 10 mg 2-06 tablet by [facility] of tablet 00:00: mouth [place] 00 daily. [facility] simethicone 2020-05 Yes [id number] 80mg Take 1 [facility] 80 mg 2-06 tablet by [facility] of chewable 00:00: mouth [place] tablet 00 after Medical meals and Branch at bedtime. sodium 2020-05 Yes [id number] 1{spray Use 1 Un enzo chloride 2-06 } [facility] (SALINE 00:00: each [place] NASAL) 0.65 00 nostril as Me dical % nasal needed Branch spray (nasal congestion ). cetirizine 2020-05 Yes [id number] 10mg Take 1 [facility] 10 mg 2-06 tablet by [facility] of tablet 00:00: mouth [place] 00 daily. [facility] simethicone 2020-05 Yes [id number] 80mg Take 1 [facility] 80 mg 2-06 tablet by [facility] of chewable 00:00: mouth [place] tablet 00 after Medical meals and Branch at bedtime. sodium 2020-05 Yes [id number] 1{spray Use 1 Un enzo chloride 2-06 } [facility] (SALINE 00:00: each [place] NASAL) 0.65 00 nostril as Me dical % nasal needed Branch spray (nasal congestion ). cetirizine 2020-05 Yes [id number] 10mg Take 1 [facility] 10 mg 2-06 tablet by [facility] of tablet 00:00: mouth [place] 00 daily. [facility] simethicone 2020-05 Yes [id number] 80mg Take 1 [facility] 80 mg 2-06 tablet by [facility] of chewable 00:00: mouth [place] tablet 00 after Medical meals and Branch at bedtime. sodium 2020-05 Yes [id number] 1{spray Use 1 Un enzo chloride 2-06 } [facility] (SALINE 00:00: each [place] NASAL) 0.65 00 nostril as Me dical % nasal needed Branch spray (nasal congestion ). cetirizine 2020-05 Yes [id number] 10mg Take 1 [facility] 10 mg 2-06 tablet by [facility] of tablet 00:00: mouth [place] 00 daily. [facility] simethicone 2020-05 Yes [id number] 80mg Take 1 [facility] 80 mg 2-06 tablet by [facility] of chewable 00:00: mouth [place] tablet 00 after Medical meals and Branch at bedtime. sodium 2020-05 Yes [id number] 1{spray Use 1 Un enzo chloride 2-06 } [facility] (SALINE 00:00: each [place] NASAL) 0.65 00 nostril as Me dical % nasal needed Branch spray (nasal congestion ). cetirizine 2020-05 Yes [id number] 10mg Take 1 [facility] 10 mg 2-06 tablet by [facility] of tablet 00:00: mouth [place] 00 daily. [facility] simethicone 2020-05 Yes [id number] 80mg Take 1 [facility] 80 mg 2-06 tablet by [facility] of chewable 00:00: mouth [place] tablet 00 after Medical meals and Branch at bedtime. sodium 2020-05 Yes [id number] 1{spray Use 1 Un enzo chloride 2-06 } [facility] (SALINE 00:00: each [place] NASAL) 0.65 00 nostril as Me dical % nasal needed Branch spray (nasal congestion ). cetirizine 2020-05 Yes [id number] 10mg Take 1 [facility] 10 mg 2-06 tablet by [facility] of tablet 00:00: mouth [place] 00 daily. [facility] simethicone 2020-05 Yes [id number] 80mg Take 1 [facility] 80 mg 2-06 tablet by [facility] of chewable 00:00: mouth [place] tablet 00 after Medical meals and Branch at bedtime. sodium 2020-05 Yes [id number] 1{spray Use 1 Un enzo chloride 2-06 } [facility] (SALINE 00:00: each [place] NASAL) 0.65 00 nostril as Me dical % nasal needed Branch spray (nasal congestion ). cetirizine 2020-05 Yes [id number] 10mg Take 1 [facility] 10 mg 2-06 tablet by [facility] of tablet 00:00: mouth [place] 00 daily. [facility] Branch simethicone 2020-05 Yes [id number] 80mg Take 1 [facility] 80 mg 2-06 tablet by [facility] of chewable 00:00: mouth [place] tablet 00 after Medical meals and Branch at bedtime. sodium 2020-05 Yes [id number] 1{spray Use 1 Un enzo chloride 2-06 } [facility] of (SALINE 00:00: each [place] NASAL) 0.65 00 nostril as Me dical % nasal needed Branch spray (nasal congestion ). cetirizine 2020-05 Yes [id number] 10mg Take 1 [facility] 10 mg 2-06 tablet by [facility] of tablet 00:00: mouth [place] 00 daily. [facility] [place] simethicone 2020-05 Yes [id number] 80mg Take 1 [facility] 80 mg 2-06 tablet by [facility]y of chewable 00:00: mouth [place] tablet 00 after Medical meals and Branch at bedtime. sodium 2020-05 Yes [id number] 1{spray Use 1 Un enzo chloride 2-06 } [facility] in [facility] of (SALINE 00:00: each [place] NASAL) 0.65 00 nostril as Me dical % nasal needed Branch spray (nasal congestion ). cetirizine 2020-05 Yes [id number] 10mg Take 1 [facility] 10 mg 2-06 tablet by [facility] of tablet 00:00: mouth [place] 00 daily. [facility] [place] simethicone 2020-05 Yes [id number] 80mg Take 1 [facility] 80 mg 2-06 tablet by it[facility] of chewable 00:00: mouth [place] tablet 00 after Medical meals and Branch at bedtime. sodium 2020-05 Yes [id number] 1{spray Use 1 Un enzo chloride 2-06 } [facility] in [facility] of (SALINE 00:00: each [place] NASAL) 0.65 00 nostril as Me dical % nasal needed Branch spray (nasal congestion ). cetirizine 2020-05 Yes [id number] 10mg Take 1 [facility] 10 mg 2-06 tablet by [facility] of tablet 00:00: mouth [place] 00 daily. [facility] simethicone 2020-05 Yes [id number] 80mg Take 1 [facility] 80 mg 2-06 tablet by it[facility] of chewable 00:00: mouth [place] tablet 00 after Medical meals and Branch at bedtime. sodium 2020-05 Yes [id number] 1{spray Use 1 Un enzo chloride 2-06 } [facility] in [facility] of (SALINE 00:00: each [place] NASAL) 0.65 00 nostril as Me dical % nasal needed Branch spray (nasal congestion ). cetirizine 2020-05 Yes [id number] 10mg Take 1 [facility] 10 mg 2-06 tablet by [facility] of tablet 00:00: mouth [place] 00 daily. [facility] simethicone 2020-05 Yes [id number] 80mg Take 1 [facility] 80 mg 2-06 tablet by it[facility] of chewable 00:00: mouth [place] tablet 00 after Medical meals and Branch at bedtime. sodium 2020-05 Yes [id number] 1{spray Use 1 Un enzo chloride 2-06 } [facility] in [facility] of (SALINE 00:00: each [place] NASAL) 0.65 00 nostril as Me dical % nasal needed Branch spray (nasal congestion ). cetirizine 2020-05 Yes [id number] 10mg Take 1 [facility] 10 mg 2-06 tablet by [facility] of tablet 00:00: mouth [place] 00 daily. [facility] simethicone 2020-05 Yes [id number] 80mg Take 1 [facility] 80 mg 2-06 tablet by [facility] of chewable 00:00: mouth [place] tablet 00 after Medical meals and Branch at bedtime. sodium 2020-05 Yes [id number] 1{spray Use 1 Un enzo chloride 2-06 } [facility] of (SALINE 00:00: each [place] NASAL) 0.65 00 nostril as Me dical % nasal needed Branch spray (nasal congestion ). cetirizine 2020-05 Yes [id number] 10mg Take 1 [facility] 10 mg 2-06 tablet by it[facility] of tablet 00:00: mouth [place] 00 daily. [facility] simethicone 2020-05 Yes [id number] 80mg Take 1 [facility] 80 mg 2-06 tablet by it[facility] of chewable 00:00: mouth [place] tablet 00 after Medical meals and Branch at bedtime. sodium 2020-05 Yes [id number] 1{spray Use 1 Un enzo chloride 2-06 } [facility] in [facility] of (SALINE 00:00: each [place] NASAL) 0.65 00 nostril as Me dical % nasal needed Branch spray (nasal congestion ). cetirizine 2020-05 Yes [id number] 10mg Take 1 [facility] 10 mg 2-06 tablet by [facility] of tablet 00:00: mouth [place] 00 daily. [facility] simethicone 2020-05 Yes [id number] 80mg Take 1 [facility] 80 mg 2-06 tablet by ity of chewable 00:00: mouth [place] tablet 00 after Medical meals and Branch at bedtime. sodium 2020-05 Yes [id number] 1{spray Use 1 Un enzo chloride 2-06 } [facility] in [facility] of (SALINE 00:00: each [place] NASAL) 0.65 00 nostril as Me dical % nasal needed Branch spray (nasal congestion ). cetirizine 2020-05 Yes [id number] 10mg Take 1 [facility] 10 mg 2-06 tablet by [facility] of tablet 00:00: mouth [place] 00 daily. [facility] simethicone 2020-05 Yes [id number] 80mg Take 1 [facility] 80 mg 2-06 tablet by [facility] of chewable 00:00: mouth [place] tablet 00 after Medical meals and Branch at bedtime. sodium 2020-05 Yes [id number] 1{spray Use 1 Un enzo chloride 2-06 } [facility] in [facility] (SALINE 00:00: each [place] NASAL) 0.65 00 nostril as Me dical % nasal needed Branch spray (nasal congestion ). cetirizine 2020-05 Yes [id number] 10mg Take 1 [facility] 10 mg 2-06 tablet by [facility] of tablet 00:00: mouth [place] 00 daily. [facility] simethicone 2020-05 Yes [id number] 80mg Take 1 [facility] 80 mg 2-06 tablet by [facility] of chewable 00:00: mouth [place] tablet 00 after Medical meals and Branch at bedtime. sodium 2020-05 Yes [id number] 1{spray Use 1 Un enzo chloride 2-06 } [facility] (SALINE 00:00: each [place] NASAL) 0.65 00 nostril as Me dical % nasal needed Branch spray (nasal congestion ). cetirizine 2020-05 Yes [id number] 10mg Take 1 [facility] 10 mg 2-06 tablet by [facility] of tablet 00:00: mouth [place] 00 daily. [facility] simethicone 2020-05 Yes [id number] 80mg Take 1 [facility] 80 mg 2-06 tablet by [facility] of chewable 00:00: mouth [place] tablet 00 after Medical meals and Branch at bedtime. sodium 2020-05 Yes [id number] 1{spray Use 1 Un enzo chloride 2-06 } [facility] in [facility] of (SALINE 00:00: each [place] NASAL) 0.65 00 nostril as Me dical % nasal needed Branch spray (nasal congestion ). cetirizine 2020-05 Yes [id number] 10mg Take 1 [facility] 10 mg 2-06 tablet by [facility] of tablet 00:00: mouth [place] 00 daily. [facility] simethicone 2020-05 Yes [id number] 80mg Take 1 [facility] 80 mg 2-06 tablet by [facility] of chewable 00:00: mouth [place] tablet 00 after Medical meals and Branch at bedtime. sodium 2020-05 Yes [id number] 1{spray Use 1 Un enzo chloride 2-06 } [facility] in [facility] of (SALINE 00:00: each [place] NASAL) 0.65 00 nostril as Me dical % nasal needed Branch spray (nasal congestion ). cetirizine 2020-05 Yes [id number] 10mg Take 1 [facility] 10 mg 2-06 tablet by it[facility] of tablet 00:00: mouth [place] 00 daily. [facility] simethicone 2020-05 Yes [id number] 80mg Take 1 [facility] 80 mg 2-06 tablet by it[facility] of chewable 00:00: mouth [place] tablet 00 after Medical meals and Branch at bedtime. sodium 2020-05 Yes [id number] 1{spray Use 1 Un enzo chloride 2-06 } [facility] of (SALINE 00:00: each [place] NASAL) 0.65 00 nostril as Me dical % nasal needed Branch spray (nasal congestion ). cetirizine 2020-05 Yes [id number] 10mg Take 1 [facility] 10 mg 2-06 tablet by [facility] of tablet 00:00: mouth [place] 00 daily. [facility] simethicone 2020-05 Yes [id number] 80mg Take 1 [facility] 80 mg 2-06 tablet by [facility] of chewable 00:00: mouth [place] tablet 00 after Medical meals and Branch at bedtime. sodium 2020-05 Yes [id number] 1{spray Use 1 Un enzo chloride 2-06 } [facility] (SALINE 00:00: each [place] NASAL) 0.65 00 nostril as Me dical % nasal needed Branch spray (nasal congestion ). cetirizine 2020-05 Yes [id number] 10mg Take 1 [facility] 10 mg 2-06 tablet by [facility] of tablet 00:00: mouth [place] 00 daily. [facility] simethicone 2020-05 Yes [id number] 80mg Take 1 [facility] 80 mg 2-06 tablet by [facility] of chewable 00:00: mouth [place] tablet 00 after Medical meals and Branch at bedtime. sodium 2020-05 Yes [id number] 1{spray Use 1 Un enzo chloride 2-06 } [facility] in [facility] (SALINE 00:00: each [place] NASAL) 0.65 00 nostril as Me dical % nasal needed Branch spray (nasal congestion ). cetirizine 2020-05 Yes [id number] 10mg Take 1 [facility] 10 mg 2-06 tablet by [facility] of tablet 00:00: mouth [place] 00 daily. [facility] simethicone 2020-05 Yes [id number] 80mg Take 1 [facility] 80 mg 2-06 tablet by [facility] of chewable 00:00: mouth [place] tablet 00 after Medical meals and Branch at bedtime. sodium 2020-05 Yes [id number] 1{spray Use 1 Un enzo chloride 2-06 } [facility] in [facility] of (SALINE 00:00: each [place] NASAL) 0.65 00 nostril as Me dical % nasal needed Branch spray (nasal congestion ). cetirizine 2020-05 Yes [id number] 10mg Take 1 [facility] 10 mg 2-06 tablet by [facility] of tablet 00:00: mouth [place] 00 daily. [facility] simethicone 2020-05 Yes [id number] 80mg Take 1 [facility] 80 mg 2-06 tablet by [facility] of chewable 00:00: mouth [place] tablet 00 after Medical meals and Branch at bedtime. sodium 2020-05 Yes [id number] 1{spray Use 1 Un enzo chloride 2-06 } [facility] of (SALINE 00:00: each [place] NASAL) 0.65 00 nostril as Me dical % nasal needed Branch spray (nasal congestion ). cetirizine 2020-05 Yes [id number] 10mg Take 1 [facility] 10 mg 2-06 tablet by [facility] of tablet 00:00: mouth [place] 00 daily. [facility] simethicone 2020-05 Yes [id number] 80mg Take 1 [facility] 80 mg 2-06 tablet by [facility] of chewable 00:00: mouth [place] tablet 00 after Medical meals and Branch at bedtime. sodium 2020-05 Yes [id number] 1{spray Use 1 Un enzo chloride 2-06 } [facility] in [facility] of (SALINE 00:00: each [place] NASAL) 0.65 00 nostril as Me dical % nasal needed Branch spray (nasal congestion ). cetirizine 2020-05 Yes [id number] 10mg Take 1 [facility] 10 mg 2-06 tablet by [facility] of tablet 00:00: mouth [place] 00 daily. [facility] simethicone 2020-05 Yes [id number] 80mg Take 1 [facility] 80 mg 2-06 tablet by ity of chewable 00:00: mouth [place] tablet 00 after Medical meals and Branch at bedtime. sodium 2020-05 Yes [id number] 1{spray Use 1 Un enzo chloride 2-06 } [facility] in [facility] of (SALINE 00:00: each [place] NASAL) 0.65 00 nostril as Me dical % nasal needed Branch spray (nasal congestion ). cetirizine 2020-05 Yes [id number] 10mg Take 1 [facility] 10 mg 2-06 tablet by ity of tablet 00:00: mouth [place] 00 daily. [facility] simethicone 2020-05 Yes [id number] 80mg Take 1 [facility] 80 mg 2-06 tablet by it[facility] of chewable 00:00: mouth [place] tablet 00 after Medical meals and Branch at bedtime. sodium 2020-05 Yes [id number] 1{spray Use 1 Un enzo chloride 2-06 } [facility] in [facility] (SALINE 00:00: each [place] NASAL) 0.65 00 nostril as Me dical % nasal needed Branch spray (nasal congestion ). cetirizine 2020-05 Yes [id number] 10mg Take 1 [facility] 10 mg 2-06 tablet by [facility] of tablet 00:00: mouth [place] 00 daily. [facility] simethicone 2020-05 Yes [id number] 80mg Take 1 [facility] 80 mg 2-06 tablet by [facility] of chewable 00:00: mouth [place] tablet 00 after Medical meals and Branch at bedtime. sodium 2020-05 Yes [id number] 1{spray Use 1 Un enzo chloride 2-06 } [facility] in [facility] (SALINE 00:00: each [place] NASAL) 0.65 00 nostril as Me dical % nasal needed Branch spray (nasal congestion ). cetirizine 2020-05 Yes [id number] 10mg Take 1 [facility] 10 mg 2-06 tablet by [facility] of tablet 00:00: mouth [place] 00 daily. [facility] simethicone 2020-05 Yes [id number] 80mg Take 1 [facility] 80 mg 2-06 tablet by [facility] of chewable 00:00: mouth [place] tablet 00 after Medical meals and Branch at bedtime. sodium 2020-05 Yes [id number] 1{spray Use 1 Un enzo chloride 2-06 } [facility] in [facility] (SALINE 00:00: each [place] NASAL) 0.65 00 nostril as Me dical % nasal needed Branch spray (nasal congestion ). cetirizine 2020-05 Yes [id number] 10mg Take 1 [facility] 10 mg 2-06 tablet by [facility] of tablet 00:00: mouth [place] 00 daily. [facility] simethicone 2020-05 Yes [id number] 80mg Take 1 [facility] 80 mg 2-06 tablet by [facility] of chewable 00:00: mouth [place] tablet 00 after Medical meals and Branch at bedtime. sodium 2020-05 Yes [id number] 1{spray Use 1 Un enzo chloride 2-06 } [facility] of (SALINE 00:00: each [place] NASAL) 0.65 00 nostril as Me dical % nasal needed Branch spray (nasal congestion ). cetirizine 2020-05 Yes [id number] 10mg Take 1 [facility] 10 mg 2-06 tablet by [facility] of tablet 00:00: mouth [place] 00 daily. [facility] simethicone 2020-05 Yes [id number] 80mg Take 1 [facility] 80 mg 2-06 tablet by [facility] of chewable 00:00: mouth [place] tablet 00 after Medical meals and Branch at bedtime. sodium 2020-05 Yes [id number] 1{spray Use 1 Un enzo chloride 2-06 } [facility] in [facility] of (SALINE 00:00: each [place] NASAL) 0.65 00 nostril as Me dical % nasal needed Branch spray (nasal congestion ). cetirizine 2020-05 Yes [id number] 10mg Take 1 [facility] 10 mg 2-06 tablet by [facility] of tablet 00:00: mouth [place] 00 daily. [facility] simethicone 2020-05 Yes [id number] 80mg Take 1 [facility] 80 mg 2-06 tablet by ity of chewable 00:00: mouth [place] tablet 00 after Medical meals and Branch at bedtime. sodium 2020-05 Yes [id number] 1{spray Use 1 Un enzo chloride 2-06 } [facility] in [facility] of (SALINE 00:00: each [place] NASAL) 0.65 00 nostril as Me dical % nasal needed Branch spray (nasal congestion ). cetirizine 2020-05 Yes [id number] 10mg Take 1 [facility] 10 mg 2-06 tablet by [facility] of tablet 00:00: mouth [place] 00 daily. [facility] simethicone 2020-05 Yes [id number] 80mg Take 1 [facility] 80 mg 2-06 tablet by [facility]y of chewable 00:00: mouth [place] tablet 00 after Medical meals and Branch at bedtime. sodium 2020-05 Yes [id number] 1{spray Use 1 Un enzo chloride 2-06 } [facility] in [facility] (SALINE 00:00: each [place] NASAL) 0.65 00 nostril as Me dical % nasal needed Branch spray (nasal congestion ). cetirizine 2020-05 Yes [id number] 10mg Take 1 [facility] 10 mg 2-06 tablet by [facility] of tablet 00:00: mouth [place] 00 daily. [facility] simethicone 2020-05 Yes [id number] 80mg Take 1 [facility] 80 mg 2-06 tablet by [facility]y of chewable 00:00: mouth [place] tablet 00 after Medical meals and Branch at bedtime. sodium 2020-05 Yes [id number] 1{spray Use 1 Un enzo chloride 2-06 } [facility] in [facility] of (SALINE 00:00: each [place] NASAL) 0.65 00 nostril as Me dical % nasal needed Branch spray (nasal congestion ). cetirizine 2020-05 Yes [id number] 10mg Take 1 [facility] 10 mg 2-06 tablet by [facility] of tablet 00:00: mouth [place] 00 daily. [facility] simethicone 2020-05 Yes [id number] 80mg Take 1 [facility] 80 mg 2-06 tablet by [facility]y of chewable 00:00: mouth [place] tablet 00 after Medical meals and Branch at bedtime. sodium 2020-05 Yes [id number] 1{spray Use 1 Un enzo chloride 2-06 } [facility] in [facility] of (SALINE 00:00: each [place] NASAL) 0.65 00 nostril as Me dical % nasal needed Branch spray (nasal congestion ). cetirizine 2020-05 Yes [id number] 10mg Take 1 [facility] 10 mg 2-06 tablet by [facility] of tablet 00:00: mouth [place] 00 daily. [facility] simethicone 2020-05 Yes [id number] 80mg Take 1 [facility] 80 mg 2-06 tablet by [facility] of chewable 00:00: mouth [place] tablet 00 after Medical meals and Branch at bedtime. sodium 2020-05 Yes [id number] 1{spray Use 1 Un enzo chloride 2-06 } [facility] in [facility] of (SALINE 00:00: each [place] NASAL) 0.65 00 nostril as Me dical % nasal needed Branch spray (nasal congestion ). cetirizine 2020-05 Yes [id number] 10mg Take 1 [facility] 10 mg 2-06 tablet by [facility] of tablet 00:00: mouth [place] 00 daily. [facility] simethicone 2020-05 Yes [id number] 80mg Take 1 [facility] 80 mg 2-06 tablet by [facility]y of chewable 00:00: mouth [place] tablet 00 after Medical meals and Branch at bedtime. sodium 2020-05 Yes [id number] 1{spray Use 1 Un enzo chloride 2-06 } [facility] in [facility] of (SALINE 00:00: each [place] NASAL) 0.65 00 nostril as Me dical % nasal needed Branch spray (nasal congestion ). cetirizine 2020-05 Yes [id number] 10mg Take 1 [facility] 10 mg 2-06 tablet by [facility] of tablet 00:00: mouth [place] 00 daily. [facility] simethicone 2020-05 Yes [id number] 80mg Take 1 [facility] 80 mg 2-06 tablet by [facility]y of chewable 00:00: mouth [place] tablet 00 after Medical meals and Branch at bedtime. sodium 2020-05 Yes [id number] 1{spray Use 1 Un enzo chloride 2-06 } [facility] in [facility] of (SALINE 00:00: each [place] NASAL) 0.65 00 nostril as Me dical % nasal needed Branch spray (nasal congestion ). cetirizine 2020-05 Yes [id number] 10mg Take 1 [facility] 10 mg 2-06 tablet by [facility] of tablet 00:00: mouth [place] 00 daily. Medical Branch simethicone 2020-05 Yes [id number] 80mg Take 1 [facility] 80 mg 2-06 tablet by ity of chewable 00:00: mouth [place] tablet 00 after Medical meals and Branch at bedtime. sodium 2020-05 Yes [id number] 1{spray Use 1 [facility] enzo chloride 2-06 } [facility] in ity of (SALINE 00:00: each [place] NASAL) 0.65 00 nostril as Me dical % nasal needed Branch spray (nasal congestion ). cetirizine 2020-05 Yes [id number] 10mg Take 1 [facility] 10 mg 2-06 tablet by ity of tablet 00:00: mouth [place] 00 daily. Medical Branch simethicone 2020-05 Yes [id number] 80mg Take 1 [facility] 80 mg 2-06 tablet by ity of chewable 00:00: mouth [place] tablet 00 after Medical meals and Branch at bedtime. sodium 2020-05 Yes [id number] 1{spray Use 1 [facility] enzo chloride 2-06 } [facility] in ity of (SALINE 00:00: each [place] NASAL) 0.65 00 nostril as Me dical % nasal needed Branch spray (nasal congestion ). cetirizine 2020-05 Yes [id number] 10mg Take 1 [facility] 10 mg 2-06 tablet by ity of tablet 00:00: mouth [place] 00 daily. Medical Branch simethicone 2020-05 Yes [id number] 80mg Take 1 [facility] 80 mg 2-06 tablet by ity of chewable 00:00: mouth [place] tablet 00 after Medical meals and Branch at bedtime. sodium 2020-05 Yes [id number] 1{spray Use 1 [facility] enzo chloride 2-06 } [facility] in ity of (SALINE 00:00: each [place] NASAL) 0.65 00 nostril as Me dical % nasal needed Branch spray (nasal congestion ). cetirizine 2020-05 Yes [id number] 10mg Take 1 [facility] 10 mg 2-06 tablet by ity of tablet 00:00: mouth [place] 00 daily. Medical Branch simethicone 2020-05 Yes [id number] 80mg Take 1 [facility] 80 mg 2-06 tablet by ity of chewable 00:00: mouth [place] tablet 00 after Medical meals and Branch at bedtime. sodium 2020-05 Yes [id number] 1{spray Use 1 [facility] enzo chloride 2-06 } [facility] in ity of (SALINE 00:00: each [place] NASAL) 0.65 00 nostril as Me dical % nasal needed Branch spray (nasal congestion ). cetirizine 2020-05 Yes [id number] 10mg Take 1 [facility] 10 mg 2-06 tablet by ity of tablet 00:00: mouth [place] 00 daily. Medical Branch enalapril 2020-05 Yes [id number] 20mg Take 1 [facility] enzo 20 mg 1-24 tablet by ity of tablet 00:00: mouth 2 (two) Medical times Branch daily. enalapril 2020-05 Yes [id number] 20mg Take 1 [facility] en[facility] 20 mg 1-24 tablet by ity of tablet 00:00: mouth 2 (two) Medical times Branch daily. enalapril 2020-05 Yes [id number] 20mg Take 1 [facility] en[facility] 20 mg 1-24 tablet by ity of tablet 00:00: mouth 2 [place] (two) Medical times Branch daily. enalapril 2020-05 Yes [id number] 20mg Take 1 [facility] 20 mg 1-24 tablet by ity of tablet 00:00: mouth 2 [place] 00 (two) Medical times Branch daily. enalapril 2020-05 Yes [id number] 20mg Take 1 [facility] 20 mg 1-24 tablet by ity of tablet 00:00: mouth (two) Medical times Branch daily. enalapril 2020-05 Yes [id number] 20mg Take 1 [facility] 20 mg 1-24 tablet by ity of tablet 00:00: mouth (two) Medical times Branch daily. enalapril 2020-05 Yes [id number] 20mg Take 1 [facility] 20 mg 1-24 tablet by ity of tablet 00:00: mouth (two) Medical times Branch daily. enalapril 2020-05 Yes [id number] 20mg Take 1 [facility] enoz 20 mg 1-24 tablet by ity of tablet 00:00: mouth (two) Medical times Branch daily. enalapril 2020-05 Yes [id number] 20mg Take 1 [facility] 20 mg 1-24 tablet by ity of tablet 00:00: mouth (two) Medical times Branch daily. enalapril 2020-05 Yes [id number] 20mg Take 1 [facility] 20 mg 1-24 tablet by ity of tablet 00:00: mouth (two) Medical times Branch daily. enalapril 2020-05 Yes [id number] 20mg Take 1 [facility] 20 mg 1-24 tablet by ity of tablet 00:00: mouth (two) Medical times Branch daily. enalapril 2020-05 Yes [id number] 20mg Take 1 [facility] 20 mg 1-24 tablet by ity of tablet 00:00: mouth (two) Medical times Branch daily. enalapril 2020-05 Yes [id number] 20mg Take 1 [facility] 20 mg 1-24 tablet by ity of tablet 00:00: mouth (two) Medical times Branch daily. enalapril 2020-05 Yes [id number] 20mg Take 1 [facility] 20 mg 1-24 tablet by ity of tablet 00:00: mouth (two) Medical times Branch daily. enalapril 2020-05 Yes [id number] 20mg Take 1 [facility] 20 mg 1-24 tablet by ity of tablet 00:00: mouth (two) Medical times Branch daily. enalapril 2020-05 Yes [id number] 20mg Take 1 [facility] 20 mg 1-24 tablet by ity of tablet 00:00: mouth (two) Medical times Branch daily. enalapril 2020-05 Yes [id number] 20mg Take 1 [facility] 20 mg 1-24 tablet by ity of tablet 00:00: mouth (two) Medical times Branch daily. enalapril 2020-05 Yes [id number] 20mg Take 1 [facility] 20 mg 1-24 tablet by ity of tablet 00:00: mouth (two) Medical times Branch daily. enalapril 2020-05 Yes [id number] 20mg Take 1 [facility] 20 mg 1-24 tablet by ity of tablet 00:00: mouth (two) Medical times Branch daily. enalapril 2020-05 Yes [id number] 20mg Take 1 [facility] 20 mg 1-24 tablet by ity of tablet 00:00: mouth (two) Medical times Branch daily. enalapril 2020-05 Yes [id number] 20mg Take 1 [facility] 20 mg 1-24 tablet by ity of tablet 00:00: mouth (two) Medical times Branch daily. enalapril 2020-05 Yes [id number] 20mg Take 1 [facility] 20 mg 1-24 tablet by ity of tablet 00:00: mouth (two) Medical times Branch daily. enalapril 2020-05 Yes [id number] 20mg Take 1 [facility] 20 mg 1-24 tablet by ity of tablet 00:00: mouth (two) Medical times Branch daily. enalapril 2020-05 Yes [id number] 20mg Take 1 [facility] 20 mg 1-24 tablet by ity of tablet 00:00: mouth (two) Medical times Branch daily. enalapril 2020-05 Yes [id number] 20mg Take 1 [facility] 20 mg 1-24 tablet by ity of tablet 00:00: mouth (two) Medical times Branch daily. enalapril 2020-05 Yes [id number] 20mg Take 1 [facility] 20 mg 1-24 tablet by ity of tablet 00:00: mouth (two) Medical times Branch daily. enalapril 2020-05 Yes [id number] 20mg Take 1 [facility] 20 mg 1-24 tablet by ity of tablet 00:00: mouth (two) Medical times Branch daily. enalapril 2020-05 Yes [id number] 20mg Take 1 [facility] 20 mg 1-24 tablet by ity of tablet 00:00: mouth (two) Medical times Branch daily. enalapril 2020-05 Yes [id number] 20mg Take 1 [facility] 20 mg 1-24 tablet by ity of tablet 00:00: mouth (two) Medical times Branch daily. enalapril 2020-05 Yes [id number] 20mg Take 1 [facility] 20 mg 1-24 tablet by ity of tablet 00:00: mouth (two) Medical times Branch daily. enalapril 2020-05 Yes [id number] 20mg Take 1 [facility] 20 mg 1-24 tablet by ity of tablet 00:00: mouth (two) Medical times Branch daily. enalapril 2020-05 Yes [id number] 20mg Take 1 [facility] 20 mg 1-24 tablet by ity of tablet 00:00: mouth (two) Medical times Branch daily. enalapril 2020-05 Yes [id number] 20mg Take 1 [facility] 20 mg 1-24 tablet by ity of tablet 00:00: mouth (two) Medical times Branch daily. enalapril 2020-05 Yes [id number] 20mg Take 1 [facility] 20 mg 1-24 tablet by ity of tablet 00:00: mouth (two) Medical times Branch daily. enalapril 2020-05 Yes [id number] 20mg Take 1 [facility] 20 mg 1-24 tablet by ity of tablet 00:00: mouth (two) Medical times Branch daily. enalapril 2020-05 Yes [id number] 20mg Take 1 [facility] 20 mg 1-24 tablet by ity of tablet 00:00: mouth (two) Medical times Branch daily. enalapril 2020-05 Yes [id number] 20mg Take 1 [facility] 20 mg 1-24 tablet by ity of tablet 00:00: mouth (two) Medical times Branch daily. enalapril 2020-05 Yes [id number] 20mg Take 1 [facility] en[facility] 20 mg 1-24 tablet by ity of tablet 00:00: mouth [place] (two) Medical times Branch daily. enalapril 2020-05- No [id number] 20mg Take 1 [facility] nivers 20 mg 1-24 05-19 tablet by ity of tablet 00:00: 00:00 mouth 2 [place] 00 :00 (two) Medical times Branch daily. enalapril 2020-05- No [id number] 20mg Take 1 [facility] nivers 20 mg 1-24 05-19 tablet by ity of tablet 00:00: 00:00 mouth 2 [place] 00 :00 (two) Medical times Branch daily. enalapril 2020-05- No [id number] 20mg Take 1 [facility] nivers 20 mg 1-24 05-19 tablet by ity of tablet 00:00: 00:00 mouth [place] 00 :00 (two) Medical times Branch daily. carvediloL 2020-05 Yes 25mg Take 1 [facility] 25 mg 1-17 tablet by ity of tablet 00:00: mouth [place] (two) Medical times Branch daily with meals. carvediloL 2020-05 Yes 25mg Take 1 [facility] 25 mg 1-17 tablet by ity of tablet 00:00: mouth [place] (two) Medical times Branch daily with meals. carvediloL 2020-05 Yes 25mg Take 1 [facility] 25 mg 1-17 tablet by ity of tablet 00:00: mouth [place] (two) Medical times Branch daily with meals. carvediloL 2020-05 Yes 25mg Take 1 [facility] 25 mg 1-17 tablet by ity of tablet 00:00: mouth [place] (two) Medical times Branch daily with meals. carvediloL 2020-05 Yes 25mg Take 1 [facility] 25 mg 1-17 tablet by ity of tablet 00:00: mouth [place] (two) Medical times Branch daily with meals. carvediloL 2020-05 Yes 25mg Take 1 [facility] 25 mg 1-17 tablet by ity of tablet 00:00: mouth [place] (two) Medical times Branch daily with meals. carvediloL 2020-05 Yes 25mg Take 1 [facility] 25 mg 1-17 tablet by ity of tablet 00:00: mouth 2 [place] 00 (two) Medical times Branch daily with meals. carvediloL 2020-05 Yes 25mg Take 1 [facility] rs 25 mg 1-17 tablet by ity of tablet 00:00: mouth 2 [place] 00 (two) Medical times Branch daily with meals. carvediloL 2020-05- No 25mg Take 1 [facility] ers 25 mg 1-17 12-05 tablet by ity of tablet 00:00: 00:00 mouth 2 [place] 00 :00 (two) Medical times Branch daily with meals. carvediloL 2020-05- No 25mg Take 1 [facility] ers 25 mg 1-17 12-05 tablet by ity of tablet 00:00: 00:00 mouth 2 [place] 00 :00 (two) Medical times Branch daily with meals. carvediloL 2020-05- No 25mg Take 1 [facility] ers 25 mg 1-17 12-05 tablet by ity of tablet 00:00: 00:00 mouth 2 [place] 00 :00 (two) Medical times Branch daily with meals. chlorhexidi 2020-0 Yes [id number] 15mL [facility] ne 0.12 % 7-20 spit out ity of mouthwash 00:00: [address] [place] [address] 00 (two) Medical times Branch daily. chlorhexidi 2020-0 Yes [id number] 15mL [facility] ne 0.12 % 7-20 spit out ity of mouthwash 00:00: [address] [place] [address] 00 (two) Medical times Branch daily. chlorhexidi 1-0 Yes [id number] 15mL [facility] ne 0.12 % 7-20 spit out ity of mouthwash 00:00: [address] [place] [address] 00 (two) Medical times Branch daily. chlorhexidi 1-0 Yes [id number] 15mL [facility] ne 0.12 % 7-20 spit out ity of mouthwash 00:00: [address] [place] [address] 00 (two) Medical times Branch daily. chlorhexidi 1-0 Yes [id number] 15mL [facility] ne 0.12 % 7-20 spit out ity of mouthwash 00:00: [address] [place] [address] 00 (two) Medical times Branch daily. chlorhexidi 2021-0 Yes [id number] 15mL [facility] ne 0.12 % 7-20 spit out ity of mouthwash 00:00: 15 mL 2 [place] 00 (two) Medical times Branch daily. chlorhexidi 2021-0 Yes [id number] 15mL [facility] ne 0.12 % 7-20 spit out ity of mouthwash 00:00: 15 mL 2 [place] 00 (two) Medical times Branch daily. chlorhexidi 2021-0 Yes [id number] 15mL [facility] ne 0.12 % 7-20 spit out ity of mouthwash 00:00: 15 mL 2 [place] 00 (two) Medical times Branch daily. chlorhexidi 2021-0 Yes [id number] 15mL [facility] ne 0.12 % 7-20 spit out ity of mouthwash 00:00: 15 mL 2 [place] 00 (two) Medical times Branch daily. chlorhexidi 2021-0 Yes [id number] 15mL [facility] ne 0.12 % 7-20 spit out ity of mouthwash 00:00: 15 mL 2 [place] 00 (two) Medical times Branch daily. chlorhexidi 2021-0 Yes [id number] 15mL [facility] ne 0.12 % 7-20 spit out ity of mouthwash 00:00: 15 mL 2 [place] 00 (two) Medical times Branch daily. chlorhexidi 2021-0 Yes [id number] 15mL [facility] ne 0.12 % 7-20 spit out ity of mouthwash 00:00: 15 mL 2 [place] 00 (two) Medical times Branch daily. chlorhexidi 2021-0 Yes [id number] 15mL [facility] ne 0.12 % 7-20 spit out ity of mouthwash 00:00: 15 mL 2 [place] 00 (two) Medical times Branch daily. chlorhexidi 2021-0 Yes [id number] 15mL [facility] ne 0.12 % 7-20 spit out ity of mouthwash 00:00: 15 mL 2 [place] 00 (two) Medical times Branch daily. chlorhexidi 2021-0 Yes [id number] 15mL [facility] ne 0.12 % 7-20 spit out ity of mouthwash 00:00: 15 mL 2 [place] 00 (two) Medical times Branch daily. chlorhexidi 2021-0 Yes [id number] 15mL [facility] ne 0.12 % 7-20 spit out ity of mouthwash 00:00: 15 mL 2 [place] 00 (two) Medical times Branch daily. chlorhexidi 2021-0 Yes [id number] 15mL [facility] ne 0.12 % 7-20 spit out ity of mouthwash 00:00: 15 mL 2 [place] 00 (two) Medical times Branch daily. chlorhexidi 2021-0 Yes [id number] 15mL [facility] ne 0.12 % 7-20 spit out ity of mouthwash 00:00: 15 mL 2 [place] 00 (two) Medical times Branch daily. chlorhexidi 2021-0 Yes [id number] 15mL [facility] ne 0.12 % 7-20 spit out ity of mouthwash 00:00: 15 mL 2 [place] 00 (two) Medical times Branch daily. chlorhexidi 2021-0 Yes [id number] 15mL [facility] ne 0.12 % 7-20 spit out ity of mouthwash 00:00: 15 mL 2 [place] 00 (two) Medical times Branch daily. chlorhexidi 2021-0 Yes [id number] 15mL [facility] ne 0.12 % 7-20 spit out ity of mouthwash 00:00: 15 mL 2 [place] 00 (two) Medical times Branch daily. chlorhexidi 2021-0 Yes [id number] 15mL [facility] ne 0.12 % 7-20 spit out ity of mouthwash 00:00: 15 mL 2 [place] 00 (two) Medical times Branch daily. chlorhexidi 2021-0 Yes [id number] 15mL [facility] ne 0.12 % 7-20 spit out ity of mouthwash 00:00: 15 mL 2 [place] 00 (two) Medical times Branch daily. chlorhexidi 2021-0 Yes [id number] 15mL [facility] ne 0.12 % 7-20 spit out ity of mouthwash 00:00: 15 mL 2 [place] 00 (two) Medical times Branch daily. chlorhexidi 2021-0 Yes [id number] 15mL [facility] ne 0.12 % 7-20 spit out ity of mouthwash 00:00: 15 mL 2 [place] 00 (two) Medical times Branch daily. chlorhexidi 2021-0 Yes [id number] 15mL [facility] ne 0.12 % 7-20 spit out ity of mouthwash 00:00: 15 mL 2 [place] 00 (two) Medical times Branch daily. chlorhexidi 2021-0 Yes [id number] 15mL [facility] ne 0.12 % 7-20 spit out ity of mouthwash 00:00: 15 mL 2 [place] 00 (two) Medical times Branch daily. chlorhexidi 1-0 Yes [id number] 15mL [facility] ne 0.12 % 7-20 spit out ity of mouthwash 00:00: 15 mL 2 [place] 00 (two) Medical times Branch daily. chlorhexidi 2021-0 Yes [id number] 15mL [facility] ne 0.12 % 7-20 spit out ity of mouthwash 00:00: 15 mL 2 [place] 00 (two) Medical times Branch daily. chlorhexidi 1-0 Yes [id number] 15mL [facility] ne 0.12 % 7-20 spit out ity of mouthwash 00:00: 15 mL 2 [place] 00 (two) Medical times Branch daily. chlorhexidi 1-0 Yes [id number] 15mL [facility] ne 0.12 % 7-20 spit out ity of mouthwash 00:00: 15 mL 2 [place] 00 (two) Medical times Branch daily. chlorhexidi 2021-0 Yes [id number] 15mL [facility] ne 0.12 % 7-20 spit out ity of mouthwash 00:00: 15 mL 2 [place] 00 (two) Medical times Branch daily. chlorhexidi 2021-0 Yes [id number] 15mL [facility] ne 0.12 % 7-20 spit out ity of mouthwash 00:00: 15 mL 2 [place] 00 (two) Medical times Branch daily. chlorhexidi 2021-0 Yes [id number] 15mL [facility] ne 0.12 % 7-20 spit out ity of mouthwash 00:00: 15 mL 2 [place] 00 (two) Medical times Branch daily. chlorhexidi 2021-0 Yes [id number] 15mL [facility] ne 0.12 % 7-20 spit out ity of mouthwash 00:00: 15 mL 2 [place] 00 (two) Medical times Branch daily. chlorhexidi 1-0 Yes [id number] 15mL [facility] ne 0.12 % 7-20 spit out ity of mouthwash 00:00: 15 mL 2 [place] 00 (two) Medical times Branch daily. chlorhexidi 1-0 Yes [id number] 15mL [facility] ne 0.12 % 7-20 spit out ity of mouthwash 00:00: 15 mL 2 [place] 00 (two) Medical times Branch daily. chlorhexidi 1-0 Yes [id number] 15mL [facility] ne 0.12 % 7-20 spit out ity of mouthwash 00:00: 15 mL 2 [place] 00 (two) Medical times Branch daily. chlorhexidi 1-0 Yes [id number] 15mL [facility] ne 0.12 % 7-20 spit out ity of mouthwash 00:00: 15 mL 2 [place] 00 (two) Medical times Branch daily. chlorhexidi 1-0 Yes [id number] 15mL [facility] ne 0.12 % 7-20 spit out ity of mouthwash 00:00: 15 mL 2 [place] 00 (two) Medical times Branch daily. chlorhexidi 1-0 Yes [id number] 15mL [facility] ne 0.12 % 7-20 spit out ity of mouthwash 00:00: 15 mL 2 [place] 00 (two) Medical times Branch daily. chlorhexidi 1-0 Yes [id number] 15mL [facility] ne 0.12 % 7-20 spit out ity of mouthwash 00:00: 15 mL 2 [place] 00 (two) Medical times Branch daily. chlorhexidi 2021-0 Yes [id number] 15mL [facility] ne 0.12 % 7-20 spit out ity of mouthwash 00:00: 15 mL 2 [place] 00 (two) Medical times Branch daily. chlorhexidi 2021-0 Yes [id number] 15mL [facility] ne 0.12 % 7-20 spit out ity of mouthwash 00:00: 15 mL 2 [place] 00 (two) Medical times Branch daily. chlorhexidi 1-0 Yes [id number] 15mL [facility] ne 0.12 % 7-20 spit out ity of mouthwash 00:00: 15 mL 2 [place] 00 (two) Medical times Branch daily. chlorhexidi 2021-0 Yes [id number] 15mL [facility] ne 0.12 % 7-20 spit out ity of mouthwash 00:00: 15 mL 2 [place] 00 (two) Medical times Branch daily. chlorhexidi 2021-0 Yes [id number] 15mL [facility] ne 0.12 % 7-20 spit out ity of mouthwash 00:00: 15 mL 2 [place] 00 (two) Medical times Branch daily. chlorhexidi 2021-0 Yes [id number] 15mL [facility] ne 0.12 % 7-20 spit out ity of mouthwash 00:00: 15 mL 2 [place] 00 (two) Medical times Branch daily. chlorhexidi 1-0 Yes [id number] 15mL [facility] ne 0.12 % 7-20 spit out ity of mouthwash 00:00: 15 mL 2 [place] 00 (two) Medical times Branch daily. chlorhexidi 1-0 Yes [id number] 15mL [facility] ne 0.12 % 7-20 spit out ity of mouthwash 00:00: 15 mL 2 [place] 00 (two) Medical times Branch daily. chlorhexidi 1-0 Yes [id number] 15mL [facility] ne 0.12 % 7-20 spit out ity of mouthwash 00:00: 15 mL 2 [place] 00 (two) Medical times Branch daily. chlorhexidi 1-0 Yes [id number] 15mL [facility] ne 0.12 % 7-20 spit out ity of mouthwash 00:00: 15 mL 2 [place] 00 (two) Medical times Branch daily. chlorhexidi 2021-0 Yes [id number] 15mL [facility] ne 0.12 % 7-20 spit out ity of mouthwash 00:00: 15 mL 2 [place] 00 (two) Medical times Branch daily. chlorhexidi 2021-0 Yes [id number] 15mL [facility] ne 0.12 % 7-20 spit out ity of mouthwash 00:00: 15 mL 2 [place] 00 (two) Medical times Branch daily. chlorhexidi 2021-0 Yes [id number] 15mL [facility] ne 0.12 % 7-20 spit out ity of mouthwash 00:00: 15 mL 2 [place] 00 (two) Medical times Branch daily. chlorhexidi 2021-0 Yes [id number] 15mL [facility] ne 0.12 % 7-20 spit out ity of mouthwash 00:00: 15 mL 2 [place] 00 (two) Medical times Branch daily. chlorhexidi 2021-0 Yes [id number] 15mL [facility] ne 0.12 % 7-20 spit out ity of mouthwash 00:00: 15 mL 2 [place] 00 (two) Medical times Branch daily. chlorhexidi 2021-0 Yes [id number] 15mL [facility] ne 0.12 % 7-20 spit out ity of mouthwash 00:00: 15 mL 2 [place] 00 (two) Medical times Branch daily. chlorhexidi 2021-0 Yes [id number] 15mL [facility] ne 0.12 % 7-20 spit out ity of mouthwash 00:00: 15 mL 2 [place] 00 (two) Medical times Branch daily. chlorhexidi 2021-0 Yes [id number] 15mL [facility] ne 0.12 % 7-20 spit out ity of mouthwash 00:00: 15 mL 2 [place] 00 (two) Medical times Branch daily. chlorhexidi 2021-0 Yes [id number] 15mL [facility] ne 0.12 % 7-20 spit out ity of mouthwash 00:00: 15 mL 2 [place] 00 (two) Medical times Branch daily. chlorhexidi 2021-0 Yes [id number] 15mL [facility] ne 0.12 % 7-20 spit out ity of mouthwash 00:00: 15 mL 2 [place] 00 (two) Medical times Branch daily. chlorhexidi 2021-0 Yes [id number] 15mL [facility] ne 0.12 % 7-20 spit out ity of mouthwash 00:00: 15 mL 2 [place] 00 (two) Medical times Branch daily. chlorhexidi 2021-0 Yes [id number] 15mL [facility] ne 0.12 % 7-20 spit out ity of mouthwash 00:00: 15 mL 2 [place] 00 (two) Medical times Branch daily. citalopram Yes Adjustment 10mg Take 1 [facility] (CeleXA) 10 9-18 disorder tablet (10 ity of mg tablet 00:00: with mg) by [place] 00 depressed mouth MD mood daily. [facility] varenicline Yes Tobacco Take 1/2 [facility] (CHANTIX) 1 9-18 dependence tablet by ity of mg tablet 00:00: syndrome mouth [place] 00 daily for MD 4 days, Anderso THEN take n 1 tablet Cancer daily for Center 6 days, THEN take 1 tablet twice a day from then on (take each tablet / dose with full meal) citalopram Yes Adjustment 10mg Take 1 [facility] (CeleXA) 10 9-18 disorder tablet (10 ity of mg tablet 00:00: with mg) by [place] depressed mouth MD mood daily. [facility] varenicline Yes Tobacco Take 1/2 [facility] (CHANTIX) 1 9-18 dependence tablet by ity of mg tablet 00:00: syndrome mouth [place] 00 daily for MD 4 days, Anderso THEN take n 1 tablet Cancer daily for Center 6 days, THEN take 1 tablet twice a day from then on (take each tablet / dose with full meal) citalopram Yes Adjustment 10mg Take 1 [facility] (CeleXA) 10 9-18 disorder tablet (10 ity of mg tablet 00:00: with mg) by [place] depressed mouth MD mood daily. [facility] varenicline Yes Tobacco Take 1/2 [facility] (CHANTIX) 1 9-18 dependence tablet by ity of mg tablet 00:00: syndrome mouth [place] 00 daily for MD 4 days, Anderso THEN take n 1 tablet Cancer daily for Center 6 days, THEN take 1 tablet twice a day from then on (take each tablet / dose with full meal) citalopram Yes Adjustment 10mg Take 1 [facility] (CeleXA) 10 9-18 disorder tablet (10 ity of mg tablet 00:00: with mg) by [place] depressed mouth MD mood daily. [facility] varenicline Yes Tobacco Take 1/2 [facility] (CHANTIX) 1 9-18 dependence tablet by ity of mg tablet 00:00: syndrome mouth [place] 00 daily for MD 4 days, Anderso THEN take n 1 tablet Cancer daily for Center 6 days, THEN take 1 tablet twice a day from then on (take each tablet / dose with full meal) citalopram Yes Adjustment 10mg Take 1 [facility] (CeleXA) 10 9-18 disorder tablet (10 ity of mg tablet 00:00: with mg) by [place] 00 depressed mouth MD mood daily. [facility] varenicline Yes Tobacco Take 1/2 [facility] (CHANTIX) 1 9-18 dependence tablet by ity of mg tablet 00:00: syndrome mouth [place] 00 daily for MD 4 days, Anderso THEN take n 1 tablet Cancer daily for Center 6 days, THEN take 1 tablet twice a day from then on (take each tablet / dose with full meal) citalopram Yes Adjustment 10mg Take 1 [facility] (CeleXA) 10 9-18 disorder tablet (10 ity of mg tablet 00:00: with mg) by [place] depressed mouth MD mood daily. [facility] varenicline Yes Tobacco Take 1/2 [facility] (CHANTIX) 1 9-18 dependence tablet by ity of mg tablet 00:00: syndrome mouth [place] 00 daily for MD 4 days, Anderso THEN take n 1 tablet Cancer daily for Center 6 days, THEN take 1 tablet twice a day from then on (take each tablet / dose with full meal) citalopram Yes Adjustment 10mg Take 1 [facility] (CeleXA) 10 9-18 disorder tablet (10 ity of mg tablet 00:00: with mg) by [place] depressed mouth MD mood daily. [facility] varenicline Yes Tobacco Take 1/2 [facility] (CHANTIX) 1 9-18 dependence tablet by ity of mg tablet 00:00: syndrome mouth [place] 00 daily for MD 4 days, Anderso THEN take n 1 tablet Cancer daily for Center 6 days, THEN take 1 tablet twice a day from then on (take each tablet / dose with full meal) atorvastati Yes 40mg Take 40 mg [facility] n (LIPITOR) 2-19 by mouth ity of 40 mg 00:00: daily. [place] tablet 00 [facility] hydroCHLORO Yes 25mg Take 25 mg [facility] thiazide 2-19 by mouth ity of (HYDRODIURI 00:00: daily. [place] 25 mg 00 [place] tablet [facility] atorvastati 2019-0 Yes 40mg Take 40 mg [facility] n (LIPITOR) 2-19 by mouth ity of 40 mg 00:00: daily. [place] tablet 00 [facility] hydroCHLORO 2019-0 Yes 25mg Take 25 mg [facility] thiazide 2-19 by mouth ity of (HYDRODIURI 00:00: daily. [place] 25 mg 00 [place] tablet [facility] atorvastati [id number] Yes 40mg Take 40 mg [facility] n (LIPITOR) 2-19 by mouth ity of 40 mg 00:00: daily. [place] tablet 00 [facility] hydroCHLORO [id number] Yes 25mg Take 25 mg [facility] thiazide 2-19 by mouth ity of (HYDRODIURI 00:00: daily. [place] 25 mg 00 [facility] atorvastati [id number] Yes 40mg Take 40 mg [facility] n (LIPITOR) 2-19 by mouth ity of 40 mg 00:00: daily. [place] tablet 00 [facility] hydroCHLORO 2019-0 Yes 25mg Take 25 mg [facility] thiazide 2-19 by mouth ity of (HYDRODIURI 00:00: daily. [place]) 25 mg 00 [place] tablet [facility] atorvastati [id number] Yes 40mg Take 40 mg [facility] n (LIPITOR) 2-19 by mouth ity of 40 mg 00:00: daily. [place] tablet 00 [facility] hydroCHLORO 2019-0 Yes 25mg Take 25 mg [facility] thiazide 2-19 by mouth ity of (HYDRODIURI 00:00: daily. [place]) 25 mg 00 [place] tablet [facility] atorvastati 2019-0 Yes 40mg Take 40 mg [facility] n (LIPITOR) 2-19 by mouth ity of 40 mg 00:00: daily. [place] tablet 00 [facility] hydroCHLORO 2019-0 Yes 25mg Take 25 mg [facility] thiazide 2-19 by mouth [facility]y [facility] (HYDRODIURI [place] 25 [place] 00 [place] tablet [facility] atorvastati 2019-0 Yes 40mg Take 40 mg [facility] n (LIPITOR) 2-19 by mouth ity of 40 mg 00:00: daily. [place] tablet 00 [facility] hydroCHLORO 2019-0 Yes 25mg Take 25 mg [facility] thiazide 2-19 by mouth [facility]y [facility] (HYDRODIURI [place] 25 mg 00 [facility] askew [facility] amLODIPine 0 Yes 10mg Take 10 mg U nivers (NORVASC) 1-25 by mouth ity of 10 mg 00:00: daily. [place] tablet [facility] enalapril 2018-0 Yes 20mg Take 20 mg Un [facility] (VASOTEC) 1-25 by mouth ity of 20 mg 00:00: daily. [place] tablet 00 [facility] amLODIPine 0 Yes 10mg Take 10 mg U nivers (NORVASC) 1-25 by mouth ity of 10 mg 00:00: daily. [place] tablet [facility] enalapril 2018-0 Yes 20mg Take 20 mg [facility] (VASOTEC) 1-25 by mouth ity of 20 mg 00:00: daily. [place] tablet 00 [facility] amLODIPine 0 Yes 10mg Take 10 mg [facility] nivers (NORVASC) 1-25 by mouth ity of 10 mg 00:00: daily. [place] tablet 00 [facility] enalapril 2018-0 Yes 20mg Take 20 mg [facility] (VASOTEC) 1-25 by mouth ity of 20 mg 00:00: daily. [place] tablet 00 [facility] amLODIPine 0 Yes 10mg Take 10 mg [facility] nivers (NORVASC) 1-25 by mouth ity of 10 mg 00:00: daily. [place] tablet 00 [facility] enalapril 2019-0 Yes 20mg Take 20 mg [facility] (VASOTEC) 1-25 by mouth ity of 20 mg 00:00: daily. [place] tablet 00 [facility] amLODIPine 2018-0 Yes 10mg Take 10 mg [facility]ivers (NORVASC) 1-25 by mouth ity of 10 mg 00:00: daily. [place] tablet 00 [facility] amLODIPine 2019-0 Yes 10mg Take 10 mg [facility] nivers (NORVASC) 1-25 by mouth ity of 10 mg 00:00: daily. [place] tablet 00 [facility] enalapril 2019-0 Yes 20mg Take 20 mg [facility] (VASOTEC) 1-25 by mouth ity of 20 mg 00:00: daily. [place] tablet 00 [facility] enalapril 2018-0 Yes 20mg Take 20 mg [facility] (VASOTEC) 1-25 by mouth ity of 20 mg 00:00: daily. [place] tablet 00 [facility] amLODIPine 2018-0 Yes 10mg Take 10 mg U nivers (NORVASC) 1-25 by mouth ity of 10 mg 00:00: daily. [place] tablet 00 [facility] enalapril 0 Yes 20mg Take 20 mg [facility] (VASOTEC) 1-25 by mouth ity of 20 mg 00:00: daily. [place] tablet 00 [facility] aspirin 81 2017-0 Yes 81mg Take 1 Unive rs mg EC 4-14 tablet by ity of tablet 00:00: mouth [place] 00 daily. [facility] aspirin 81 2017-0 Yes 81mg Take 1 Unive rs mg EC 4-14 tablet by ity of tablet 00:00: mouth [place] 00 daily. [facility] aspirin 81 2017-0 Yes 81mg Take 1 Unive rs mg EC 4-14 tablet by ity of tablet 00:00: mouth [place] 00 daily. [facility] aspirin 81 2017-0 Yes 81mg Take 1 Unive rs mg EC 4-14 tablet by ity of tablet 00:00: mouth [place] 00 daily. [facility] aspirin 81 2017-0 Yes 81mg Take 1 Unive rs mg EC 4-14 tablet by ity of tablet 00:00: mouth [place] 00 daily. [facility] aspirin 81 2017-0 Yes 81mg Take 1 Unive rs mg EC 4-14 tablet by ity of tablet 00:00: mouth [place] 00 daily. [facility] aspirin 81 2017-0 Yes 81mg Take 1 Unive rs mg EC 4-14 tablet by ity of tablet 00:00: mouth [place] 00 daily. [facility] aspirin 81 2017-0 Yes 81mg Take 1 Unive rs mg EC 4-14 tablet by ity of tablet 00:00: mouth [place] 00 daily. [facility] aspirin 81 2017-0 Yes 81mg Take 1 Unive rs mg EC 4-14 tablet by ity of tablet 00:00: mouth [place] 00 daily. [facility] aspirin 81 2017-0 Yes 81mg Take 1 Unive rs mg EC 4-14 tablet by ity of tablet 00:00: mouth [place] 00 daily. [facility] aspirin 81 2017-0 Yes 81mg Take 1 Unive rs mg EC 4-14 tablet by ity of tablet 00:00: mouth [place] 00 daily. [facility] aspirin 81 2017-0 Yes 81mg Take 1 Unive rs mg EC 4-14 tablet by ity of tablet 00:00: mouth [place] 00 daily. [facility] aspirin 81 2017-0 Yes 81mg Take 1 Unive rs mg EC 4-14 tablet by ity of tablet 00:00: mouth [place] 00 daily. [facility] aspirin 81 2017-0 Yes 81mg Take 1 Unive rs mg EC 4-14 tablet by ity of tablet 00:00: mouth [place] 00 daily. [facility] aspirin 81 2017-0 Yes 81mg Take 1 Unive rs mg EC 4-14 tablet by ity of tablet 00:00: mouth [place] 00 daily. [facility] aspirin 81 2017-0 Yes 81mg Take 1 Unive rs mg EC 4-14 tablet by ity of tablet 00:00: mouth [place] 00 daily. [facility] aspirin 81 2017-0 Yes 81mg Take 1 Unive rs mg EC 4-14 tablet by ity of tablet 00:00: mouth [place] 00 daily. [facility] aspirin 81 2017-0 Yes 81mg Take 1 Unive rs mg EC 4-14 tablet by ity of tablet 00:00: mouth [place] 00 daily. [facility] aspirin 81 2017-0 Yes 81mg Take 1 Unive rs mg EC 4-14 tablet by ity of tablet 00:00: mouth [place] 00 daily. [facility] aspirin 81 2017-0 Yes 81mg Take 1 Unive rs mg EC 4-14 tablet by ity of tablet 00:00: mouth [place] 00 daily. [facility] aspirin 81 2017-0 Yes 81mg Take 1 Unive rs mg EC 4-14 tablet by ity of tablet 00:00: mouth [place] 00 daily. [facility] aspirin 81 2017-0 Yes 81mg Take 1 Unive rs mg EC 4-14 tablet by ity of tablet 00:00: mouth [place] 00 daily. [facility] aspirin 81 2017-0 Yes 81mg Take 1 Unive rs mg EC 4-14 tablet by ity of tablet 00:00: mouth [place] 00 daily. [facility] aspirin 81 2017-0 Yes 81mg Take 1 Unive rs mg EC 4-14 tablet by ity of tablet 00:00: mouth [place] 00 daily. [facility] aspirin 81 2017-0 Yes 81mg Take 1 Unive rs mg EC 4-14 tablet by ity of tablet 00:00: mouth [place] 00 daily. [facility] aspirin 81 2017-0 Yes 81mg Take 1 Unive rs mg EC 4-14 tablet by ity of tablet 00:00: mouth [place] 00 daily. [facility] aspirin 81 2017-0 Yes 81mg Take 1 Unive rs mg EC 4-14 tablet by ity of tablet 00:00: mouth [place] 00 daily. [facility] aspirin 81 2017-0 Yes 81mg Take 1 Unive rs mg EC 4-14 tablet by ity of tablet 00:00: mouth [place] 00 daily. [facility] aspirin 81 2017-0 Yes 81mg Take 1 Unive rs mg EC 4-14 tablet by ity of tablet 00:00: mouth [place] 00 daily. [facility] aspirin 81 2017-0 Yes 81mg Take 1 Unive rs mg EC 4-14 tablet by ity of tablet 00:00: mouth [place] 00 daily. [facility] aspirin 81 2017-0 Yes 81mg Take 1 Unive rs mg EC 4-14 tablet by ity of tablet 00:00: mouth [place] 00 daily. [facility] aspirin 81 2017-0 Yes 81mg Take 1 Unive rs mg EC 4-14 tablet by ity of tablet 00:00: mouth [place] 00 daily. [facility] aspirin 81 2017-0 Yes 81mg Take 1 Unive rs mg EC 4-14 tablet by ity of tablet 00:00: mouth [place] 00 daily. [facility] aspirin 81 2017-0 Yes 81mg Take 1 Unive rs mg EC 4-14 tablet by ity of tablet 00:00: mouth [place] 00 daily. [facility] aspirin 81 2017-0 Yes 81mg Take 1 Unive rs mg EC 4-14 tablet by ity of tablet 00:00: mouth [place] 00 daily. [facility] aspirin 81 2017-0 Yes 81mg Take 1 Unive rs mg EC 4-14 tablet by ity of tablet 00:00: mouth [place] 00 daily. [facility] aspirin 81 2017-0 Yes 81mg Take 1 Unive rs mg EC 4-14 tablet by ity of tablet 00:00: mouth [place] 00 daily. [facility] aspirin 81 2017-0 Yes 81mg Take 1 Unive rs mg EC 4-14 tablet by ity of tablet 00:00: mouth [place] 00 daily. [facility] aspirin 81 2017-0 Yes 81mg Take 1 Unive rs mg EC 4-14 tablet by ity of tablet 00:00: mouth [place] 00 daily. [facility] aspirin 81 2017-0 Yes 81mg Take 1 Unive rs mg EC 4-14 tablet by ity of tablet 00:00: mouth [place] 00 daily. [facility] aspirin 81 2017-0 Yes 81mg Take 1 Unive rs mg EC 4-14 tablet by ity of tablet 00:00: mouth [place] 00 daily. [facility] aspirin 81 2017-0 Yes 81mg Take 1 Unive rs mg EC 4-14 tablet by ity of tablet 00:00: mouth [place] 00 daily. [facility] aspirin 81 2017-0 Yes 81mg Take 1 Unive rs mg EC 4-14 tablet by ity of tablet 00:00: mouth [place] 00 daily. [facility] aspirin 81 2017-0 Yes 81mg Take 1 Unive rs mg EC 4-14 tablet by ity of tablet 00:00: mouth [place] 00 daily. [facility] aspirin 81 2017-0 Yes 81mg Take 1 Unive rs mg EC 4-14 tablet by ity of tablet 00:00: mouth [place] 00 daily. [facility] aspirin 81 2017-0 Yes 81mg Take 1 Unive rs mg EC 4-14 tablet by ity of tablet 00:00: mouth [place] 00 daily. [facility] aspirin 81 2017-0 Yes 81mg Take 1 Unive rs mg EC 4-14 tablet by ity of tablet 00:00: mouth [place] 00 daily. [facility] aspirin 81 2017-0 Yes 81mg Take 1 Unive rs mg EC 4-14 tablet by ity of tablet 00:00: mouth [place] 00 daily. [facility] aspirin 81 2017-0 Yes 81mg Take 1 Unive rs mg EC 4-14 tablet by ity of tablet 00:00: mouth [place] 00 daily. [facility] aspirin 81 2017-0 Yes 81mg Take 1 Unive rs mg EC 4-14 tablet by ity of tablet 00:00: mouth [place] 00 daily. [facility] aspirin 81 2017-0 Yes 81mg Take 1 Unive rs mg EC 4-14 tablet by ity of tablet 00:00: mouth [place] 00 daily. [facility] aspirin 81 2017-0 Yes 81mg Take 1 Unive rs mg EC 4-14 tablet by ity of tablet 00:00: mouth [place] 00 daily. [facility] aspirin 81 2017-0 Yes 81mg Take 1 Unive rs mg EC 4-14 tablet by ity of tablet 00:00: mouth [place] 00 daily. [facility] aspirin 81 2017-0 Yes 81mg Take 1 Unive rs mg EC 4-14 tablet by ity of tablet 00:00: mouth [place] 00 daily. [facility] aspirin 81 2017-0 Yes 81mg Take 1 Unive rs mg EC 4-14 tablet by ity of tablet 00:00: mouth [place] 00 daily. [facility] aspirin 81 2017-0 Yes 81mg Take 1 Unive rs mg EC 4-14 tablet by ity of tablet 00:00: mouth [place] 00 daily. [facility] aspirin 81 2017-0 Yes 81mg Take 1 Unive rs mg EC 4-14 tablet by ity of tablet 00:00: mouth [place] 00 daily. [facility] aspirin 81 2017-0 Yes 81mg Take 1 Unive rs mg EC 4-14 tablet by ity of tablet 00:00: mouth [place] 00 daily. [facility] aspirin 81 2017-0 Yes 81mg Take 1 Unive rs mg EC 4-14 tablet by ity of tablet 00:00: mouth [place] 00 daily. [facility] aspirin 81 2017-0 Yes 81mg Take 1 Unive rs mg EC 4-14 tablet by ity of tablet 00:00: mouth [place] 00 daily. [facility] aspirin 81 2017-0 Yes 81mg Take 1 Unive rs mg EC 4-14 tablet by ity of tablet 00:00: mouth [place] 00 daily. [facility] aspirin 81 2017-0 Yes 81mg Take 1 Unive rs mg EC 4-14 tablet by ity of tablet 00:00: mouth [place] 00 daily. [facility] aspirin 81 2017-0 Yes 81mg Take 1 Unive rs mg EC 4-14 tablet by ity of tablet 00:00: mouth [place] 00 daily. [facility] aspirin 81 2017-0 Yes 81mg Take 1 Unive rs mg EC 4-14 tablet by ity of tablet 00:00: mouth [place] 00 daily. [facility] aspirin 81 2017-0 Yes 81mg Take 81 mg U nivers mg EC 4-14 by mouth ity of tablet 00:00: daily. [place] MD Angie wagner [facility] aspirin 81 2017-0 Yes 81mg Take 81 mg U nivers mg EC 4-14 by mouth ity of tablet 00:00: daily. [place] MD Angie wagner [facility] aspirin 81 2017-0 Yes 81mg Take 81 mg U nivers mg EC 4-14 by mouth ity of tablet 00:00: daily. [place] MD Angie wagner [facility] aspirin 81 2017- Yes 81mg Take 81 mg U nivers mg EC 4-14 by mouth ity of tablet 00:00: daily. [place] MD Angie wagner [facility] aspirin 81 2017-0 Yes 81mg Take 81 mg U nivers mg EC 4-14 by mouth ity of tablet 00:00: daily. [place] MD Angie wagner [facility] aspirin 81 2017-0 Yes 81mg Take 81 mg U nivers mg EC 4-14 by mouth ity of tablet 00:00: daily. [place] MD Angie wagner [facility] aspirin 81 2017- Yes 81mg Take 81 mg U nivers mg EC 4-14 by mouth ity of tablet 00:00: daily. [place] MD Angie wagner [facility] Immunizations Ordered Filled Immunization Date Status Comments [facility] e Immunization Name Name TD Pres-Free 2022-09-04 Completed [facility] 00:00:00 [facility] TD Pres-Free 2022-09-04 Completed [facility] o f 00:00:00 [facility] TD Pres-Free 2022-09-04 Completed [facility] o f 00:00:00 [facility] TD Pres-Free 2022-09-04 Completed [facility] o f 00:00:00 [facility] TD Pres-Free 2022-09-04 Completed [facility] o f 00:00:00 [facility] TD Pres-Free 2022-09-04 Completed [facility] o f 00:00:00 [facility] TD Pres-Free 2022-09-04 Completed [facility] o f 00:00:00 [facility] TD Pres-Free 2022-09-04 Completed [facility] o f 00:00:00 [facility] TD Pres-Free 2022-09-04 Completed [facility] o f 00:00:00 [facility] TD Pres-Free 2022-09-04 Completed [facility] o f 00:00:00 [facility] TD Pres-Free 2022-09-04 Completed [facility] o f 00:00:00 [facility] TD Pres-Free 2022-09-04 Completed [facility] o f 00:00:00 [facility] TD Pres-Free 2022-09-04 Completed [facility] o f 00:00:00 [facility] TD Pres-Free 2022-09-04 Completed [facility] o f 00:00:00 [facility] TD Pres-Free 2022-09-04 Completed [facility] o f 00:00:00 [facility] TD Pres-Free 2022-09-04 Completed [facility] o f 00:00:00 [facility] TD Pres-Free 2022-09-04 Completed [facility] o f 00:00:00 [facility] TD Pres-Free 2022-09-04 Completed [facility] o f 00:00:00 [facility] TD Pres-Free 2022-09-04 Completed [facility] o f 00:00:00 [facility] TD Pres-Free 2022-09-04 Completed [facility] o f 00:00:00 [facility] TD Pres-Free 2022-09-04 Completed [facility] o f 00:00:00 [facility] TD Pres-Free 2022-09-04 Completed [facility] o f 00:00:00 [facility] TD Pres-Free 2022-09-04 Completed [facility] o f 00:00:00 [facility] TD Pres-Free 2022-09-04 Completed [facility] o f 00:00:00 [facility] TD Pres-Free 2022-09-04 Completed [facility] o f 00:00:00 [facility] TD Pres-Free 2022-09-04 Completed [facility] o f 00:00:00 [facility] TD Pres-Free 2022-09-04 Completed [facility] o f 00:00:00 [facility] TD Pres-Free 2022-09-04 Completed [facility] o f 00:00:00 [facility] TD Pres-Free 2022-09-04 Completed [facility] o f 00:00:00 [facility] TD Pres-Free 2022-09-04 Completed [facility] o f 00:00:00 [facility] TD Pres-Free 2022-09-04 Completed [facility] o f 00:00:00 [facility] TD Pres-Free 2022-09-04 Completed [facility] o f 00:00:00 [facility] TD Pres-Free 2022-09-04 Completed [facility] o f 00:00:00 [facility] TD Pres-Free 2022-09-04 Completed [facility] o f 00:00:00 [facility] TD Pres-Free 2022-09-04 Completed [facility] o f 00:00:00 [facility] TD Pres-Free 2022-09-04 Completed [facility] o f 00:00:00 [facility] TD Pres-Free 2022-09-04 Completed [facility] o f 00:00:00 [facility] SARS-COV-2 COVID-19 2021-10-09 Completed Unive rsity of MODERNA 12+ YRS 00:00:00 [place] [facility] VACCINE [facility] SARS-COV-2 COVID-19 2021-10-09 Completed Unive rsity of MODERNA 12+ YRS 00:00:00 [place] [facility] VACCINE [facility] SARS-COV-2 COVID-19 2021-10-09 Completed Unive rsity of MODERNA 12+ YRS 00:00:00 [place] [facility] VACCINE [facility] SARS-COV-2 COVID-19 2021-10-09 Completed Unive rsity of MODERNA 12+ YRS 00:00:00 [place] [facility] VACCINE Branch SARS-COV-2 COVID-19 2021-10-09 Completed Unive rsity of MODERNA 12+ YRS 00:00:00 [place] [facility] VACCINE [facility] SARS-COV-2 COVID-19 2021-10-09 Completed Unive rsity of MODERNA 12+ YRS 00:00:00 [place] [facility] VACCINE Branch SARS-COV-2 COVID-19 2021-10-09 Completed Unive rsity of MODERNA 12+ YRS 00:00:00 [place] [facility] VACCINE Branch SARS-COV-2 COVID-19 2021-10-09 Completed Unive rsity of MODERNA 12+ YRS 00:00:00 [place] [facility] VACCINE Branch SARS-COV-2 COVID-19 2021-10-09 Completed Unive rsity of MODERNA 12+ YRS 00:00:00 [place] [facility] VACCINE Branch SARS-COV-2 COVID-19 2021-10-09 Completed Unive rsity of MODERNA 12+ YRS 00:00:00 [place] [facility] VACCINE Branch SARS-COV-2 COVID-19 2021-10-09 Completed Unive rsity of MODERNA 12+ YRS 00:00:00 [place] [facility] VACCINE Branch SARS-COV-2 COVID-19 2021-10-09 Completed Unive rsity of MODERNA 12+ YRS 00:00:00 [place] [facility] VACCINE Branch SARS-COV-2 COVID-19 2021-10-09 Completed Unive rsity of MODERNA 12+ YRS 00:00:00 [place] [facility] VACCINE Branch SARS-COV-2 COVID-19 2021-10-09 Completed Unive rsity of MODERNA 12+ YRS 00:00:00 [place] [facility] VACCINE [facility] SARS-COV-2 COVID-19 2021-10-09 Completed Unive rsity of MODERNA 12+ YRS 00:00:00 [place] [facility] VACCINE Branch SARS-COV-2 COVID-19 2021-10-09 Completed Unive rsity of MODERNA 12+ YRS 00:00:00 [place] [facility] VACCINE Branch SARS-COV-2 COVID-19 2021-10-09 Completed Unive rsity of MODERNA 12+ YRS 00:00:00 [place] [facility] VACCINE Branch SARS-COV-2 COVID-19 2021-10-09 Completed Unive rsity of MODERNA 12+ YRS 00:00:00 [place] [facility] VACCINE Branch SARS-COV-2 COVID-19 2021-10-09 Completed Unive rsity of MODERNA 12+ YRS 00:00:00 [place] [facility] VACCINE Branch SARS-COV-2 COVID-19 2021-10-09 Completed Unive rsity of MODERNA 12+ YRS 00:00:00 [place] [facility] VACCINE Branch SARS-COV-2 COVID-19 2021-10-09 Completed Unive rsity of MODERNA 12+ YRS 00:00:00 [place] [facility] VACCINE Branch SARS-COV-2 COVID-19 2021-10-09 Completed Unive rsity of MODERNA 12+ YRS 00:00:00 [place] [facility] VACCINE Branch SARS-COV-2 COVID-19 2021-10-09 Completed Unive rsity of MODERNA 12+ YRS 00:00:00 [place] [facility] VACCINE Branch SARS-COV-2 COVID-19 2021-10-09 Completed Unive rsity of MODERNA 12+ YRS 00:00:00 [place] [facility] VACCINE Branch SARS-COV-2 COVID-19 2021-10-09 Completed Unive rsity of MODERNA 12+ YRS 00:00:00 [place] [facility] VACCINE Branch SARS-COV-2 COVID-19 2021-10-09 Completed Unive rsity of MODERNA 12+ YRS 00:00:00 [place] [facility] VACCINE Branch SARS-COV-2 COVID-19 2021-10-09 Completed Unive rsity of MODERNA 12+ YRS 00:00:00 [place] [facility] VACCINE Branch SARS-COV-2 COVID-19 2021-10-09 Completed Unive rsity of MODERNA 12+ YRS 00:00:00 [place] [facility] VACCINE Branch SARS-COV-2 COVID-19 2021-10-09 Completed Unive rsity of MODERNA 12+ YRS 00:00:00 [place] [facility] VACCINE Branch SARS-COV-2 COVID-19 2021-10-09 Completed Unive rsity of MODERNA 12+ YRS 00:00:00 [place] [facility] VACCINE Branch SARS-COV-2 COVID-19 2021-10-09 Completed Unive rsity of MODERNA 12+ YRS 00:00:00 [place] [facility] VACCINE Branch SARS-COV-2 COVID-19 2021-10-09 Completed Unive rsity of MODERNA 12+ YRS 00:00:00 [place] [facility] VACCINE Branch SARS-COV-2 COVID-19 2021-10-09 Completed Unive rsity of MODERNA 12+ YRS 00:00:00 [place] [facility] VACCINE Branch SARS-COV-2 COVID-19 2021-10-09 Completed Unive rsity of MODERNA 12+ YRS 00:00:00 [place] [facility] VACCINE Branch SARS-COV-2 COVID-19 2021-10-09 Completed Unive rsity of MODERNA 12+ YRS 00:00:00 [place] [facility] VACCINE Branch SARS-COV-2 COVID-19 2021-10-09 Completed Unive rsity of MODERNA 12+ YRS 00:00:00 [place] [facility] VACCINE Branch SARS-COV-2 COVID-19 2021-10-09 Completed Unive rsity of MODERNA 12+ YRS 00:00:00 [place] [facility] VACCINE Branch SARS-COV-2 COVID-19 2021-10-09 Completed Unive rsity of MODERNA 12+ YRS 00:00:00 [place] [facility] VACCINE Branch SARS-COV-2 COVID-19 2021-10-09 Completed Unive rsity of MODERNA 12+ YRS 00:00:00 [place] [facility] VACCINE Branch SARS-COV-2 COVID-19 2021-10-09 Completed Unive rsity of MODERNA 12+ YRS 00:00:00 [place] [facility] VACCINE Branch SARS-COV-2 COVID-19 2021-10-09 Completed Unive rsity of MODERNA 12+ YRS 00:00:00 [place] [facility] VACCINE Branch SARS-COV-2 COVID-19 2021-10-09 Completed Unive rsity of MODERNA 12+ YRS 00:00:00 [place] [facility] VACCINE Branch SARS-COV-2 COVID-19 2021-10-09 Completed Unive rsity of MODERNA 12+ YRS 00:00:00 [place] [facility] VACCINE Branch SARS-COV-2 COVID-19 2021-10-09 Completed Unive rsity of MODERNA 12+ YRS 00:00:00 [place] [facility] VACCINE Branch SARS-COV-2 COVID-19 2021-10-09 Completed Unive rsity of MODERNA 12+ YRS 00:00:00 [place] [facility] VACCINE Branch SARS-COV-2 COVID-19 2021-10-09 Completed Unive rsity of MODERNA 12+ YRS 00:00:00 [place] [facility] VACCINE Branch SARS-COV-2 COVID-19 2021-10-09 Completed Unive rsity of MODERNA 12+ YRS 00:00:00 [place] [facility] VACCINE [facility] SARS-COV-2 COVID-19 2021-10-09 Completed Unive rsity of MODERNA 12+ YRS 00:00:00 [place] [facility] VACCINE Branch SARS-COV-2 COVID-19 2021-10-09 Completed Unive rsity of MODERNA 12+ YRS 00:00:00 [place] [facility] VACCINE Branch SARS-COV-2 COVID-19 2021-10-09 Completed Unive rsity of MODERNA 12+ YRS 00:00:00 [place] [facility] VACCINE Branch SARS-COV-2 COVID-19 2021-10-09 Completed Unive rsity of MODERNA 12+ YRS 00:00:00 [place] [facility] VACCINE Branch SARS-COV-2 COVID-19 2021-10-09 Completed Unive rsity of MODERNA 12+ YRS 00:00:00 [place] [facility] VACCINE Branch SARS-COV-2 COVID-19 2021-10-09 Completed Unive rsity of MODERNA 12+ YRS 00:00:00 [place] [facility] VACCINE [facility] SARS-COV-2 COVID-19 2021-10-09 Completed Unive rsity of MODERNA 12+ YRS 00:00:00 [place] [facility] VACCINE Branch SARS-COV-2 COVID-19 2021-10-09 Completed Unive rsity of MODERNA 12+ YRS 00:00:00 [place] [facility] VACCINE Branch SARS-COV-2 COVID-19 2021-10-09 Completed Unive rsity of MODERNA 12+ YRS 00:00:00 [place] [facility] VACCINE [facility] SARS-COV-2 COVID-19 2021-10-09 Completed Unive rsity of MODERNA 12+ YRS 00:00:00 [place] [facility] VACCINE [facility] Moderna COVID-19 Moderna COVID-19 2021-10-09 Completed Vaccine Vaccine 00:00:00 Influenza Virus 2021-04-09 Completed [facility] Vaccine [facility], 00:00:00 [place] [facility] Preserv and ABX Branch Free 6 MO-64 YRS Influenza Virus 2021-04-09 Completed [facility] Vaccine [facility], 00:00:00 [place] [facility] Preserv and ABX Branch Free 6 MO-64 YRS Influenza Virus 2021-04-09 Completed [facility] of Vaccine [facility], 00:00:00 [place] [facility] Preserv and ABX Branch Free 6 MO-64 YRS Influenza Virus 2021-04-09 Completed [facility] of Vaccine [facility], 00:00:00 [place] [facility] Preserv and ABX Branch Free 6 MO-64 YRS Influenza Virus 2021-04-09 Completed [facility] Vaccine [facility], 00:00:00 [place] [facility] Preserv and ABX Branch Free 6 MO-64 YRS Influenza Virus 2021-04-09 Completed [facility] Vaccine [facility], 00:00:00 [place] [facility] Preserv and ABX Branch Free 6 MO-64 YRS Influenza Virus 2021-04-09 Completed [facility] Vaccine [facility], 00:00:00 [place] [facility] Preserv and ABX Branch Free 6 MO-64 YRS Influenza Virus 2021-04-09 Completed [facility] of Vaccine [facility] IM, 00:00:00 [place] [facility] Preserv and ABX Branch Free 6 MO-64 YRS Influenza Virus 2021-04-09 Completed [facility] Vaccine [facility], 00:00:00 [place] [facility] Preserv and ABX Branch Free 6 MO-64 YRS Influenza Virus 2021-04-09 Completed [facility] Vaccine [facility], 00:00:00 [place] [facility] Preserv and ABX Branch Free 6 MO-64 YRS Influenza Virus 2021-04-09 Completed [facility] Vaccine [facility], 00:00:00 [place] [facility] Preserv and ABX Branch Free 6 MO-64 YRS Influenza Virus 2021-04-09 Completed [facility] Vaccine [facility], 00:00:00 [place] [facility] Preserv and ABX Branch Free 6 MO-64 YRS Influenza Virus 2021-04-09 Completed [facility] Vaccine [facility], 00:00:00 [place] [facility] Preserv and ABX Branch Free 6 MO-64 YRS Influenza Virus 2021-04-09 Completed [facility] Vaccine [facility], 00:00:00 [place] [facility] Preserv and ABX Branch Free 6 MO-64 YRS Influenza Virus 2021-04-09 Completed [facility] Vaccine [facility], 00:00:00 [place] [facility] Preserv and ABX Branch Free 6 MO-64 YRS Influenza Virus 2021-04-09 Completed [facility] Vaccine [facility], 00:00:00 [place] [facility] Preserv and ABX Branch Free 6 MO-64 YRS Influenza Virus 2021-04-09 Completed [facility] Vaccine [facility], 00:00:00 [place] [facility] Preserv and ABX Branch Free 6 MO-64 YRS Influenza Virus 2021-04-09 Completed [facility] Vaccine [facility], 00:00:00 [place] [facility] Preserv and ABX Branch Free 6 MO-64 YRS Influenza Virus 2021-04-09 Completed [facility] Vaccine [facility], 00:00:00 [place] [facility] Preserv and ABX Branch Free 6 MO-64 YRS Influenza Virus 2021-04-09 Completed [facility] Vaccine [facility], 00:00:00 [place] [facility] Preserv and ABX Branch Free 6 MO-64 YRS Influenza Virus 2021-04-09 Completed [facility] Vaccine [facility], 00:00:00 [place] [facility] Preserv and ABX Branch Free 6 MO-64 YRS Influenza Virus 2021-04-09 Completed [facility] Vaccine [facility], 00:00:00 [place] [facility] Preserv and ABX Branch Free 6 MO-64 YRS Influenza Virus 2021-04-09 Completed [facility] Vaccine [facility], 00:00:00 [place] [facility] Preserv and ABX Branch Free 6 MO-64 YRS Influenza Virus 2021-04-09 Completed [facility] Vaccine [facility], 00:00:00 [place] [facility] Preserv and ABX Branch Free 6 MO-64 YRS Influenza Virus 2021-04-09 Completed [facility] Vaccine [facility], 00:00:00 [place] [facility] Preserv and ABX Branch Free 6 MO-64 YRS Influenza Virus 2021-04-09 Completed [facility], 00:[facility]:00 [place] [facility] ABX [facility] Free 6 MO-64 YRS Influenza Virus 2021-04-09 Completed [facility], 00:00:00 [place] [facility] Free 6 MO-64 YRS Influenza Virus 2021-04-09 Completed [facility], 00:00:00 [place] [facility] ABX [facility] Free 6 MO-64 YRS Influenza Virus 2021-04-09 Completed [facility], 00:00:00 [place] [facility] ABX [facility] Free 6 MO-64 YRS Influenza Virus 2021-04-09 Completed [facility], 00:00:00 [place] [facility] ABX [facility] Free 6 MO-64 YRS Influenza Virus 2021-04-09 Completed [facility], 00:00:00 [place] [facility] ABX [facility] Free 6 MO-64 YRS Influenza Virus 2021-04-09 Completed [facility], 00:00:00 [place] [facility] ABX [facility] Free 6 MO-64 YRS Influenza Virus 2021-04-09 Completed [facility], 00:00:00 [place] [facility] ABX [facility] Free 6 MO-64 YRS Influenza Virus 2021-04-09 Completed [facility], 00:00:00 [place] [facility] ABX [facility] Free 6 MO-64 YRS Influenza Virus 2021-04-09 Completed [facility], 00:00:00 [place] [facility] ABX [facility] Free 6 MO-64 YRS Influenza Virus 2021-04-09 Completed [facility], 00:00:00 [place] [facility] ABX [facility] Free 6 MO-64 YRS Influenza Virus 2021-04-09 Completed [facility], 00:00:00 [place] [facility] ABX [facility] Free 6 MO-64 YRS Influenza Virus 2021-04-09 Completed [facility], 00:00:00 [place] [facility] Pres[facility] ABX [facility] Free 6 MO-64 YRS Influenza Virus 2021-04-09 Completed [facility], 00:00:00 [place] [facility] Pres[facility] ABX [facility] Free 6 MO-64 YRS Influenza Virus 2021-04-09 Completed [facility], 00:00:00 [place] [facility] Pres[facility] ABX [facility] Free 6 MO-64 YRS Influenza Virus 2021-04-09 Completed [facility], 00:00:00 [place] [facility] Pres[facility] ABX [facility] Free 6 MO-64 YRS Influenza Virus 2021-04-09 Completed [facility], 00:00:00 [place] [facility] Pres[facility] ABX [facility] Free 6 MO-64 YRS Influenza Virus 2021-04-09 Completed [facility], 00:00:00 [place] [facility] Pres[facility] ABX [facility] Free 6 MO-64 YRS Influenza Virus 2021-04-09 Completed [facility], 00:00:00 [place] [facility] Pres[facility] ABX [facility] Free 6 MO-64 YRS Influenza Virus 2021-04-09 Completed [facility], 00:00:00 [place] [facility] ABX [facility] Free 6 MO-64 YRS Influenza Virus 2021-04-09 Completed [facility], 00:00:00 [place] [facility] Pres[facility] ABX [facility] Free 6 MO-64 YRS Influenza Virus 2021-04-09 Completed [facility], 00:00:00 [place] [facility] Pres[facility] ABX [facility] Free 6 MO-64 YRS Influenza Virus 2021-04-09 Completed [facility], 00:00:00 [place] [facility] Pres[facility] ABX [facility] Free 6 MO-64 YRS Influenza Virus 2021-04-09 Completed [facility], 00:00:00 [place] [facility] ABX [facility] Free 6 MO-64 YRS Influenza Virus 2021-04-09 Completed [facility], 00:00:00 [place] [facility] Pres[facility] ABX [facility] Free 6 MO-64 YRS Influenza Virus 2021-04-09 Completed [facility], 00:00:00 [place] [facility] ABX [facility] Free 6 MO-64 YRS Influenza Virus 2021-04-09 Completed [facility], 00:00:00 [place] [facility] Pres[facility] ABX [facility] Free 6 MO-64 YRS Influenza Virus 2021-04-09 Completed [facility], 00:00:00 [place] [facility] Pres[facility] ABX [facility] Free 6 MO-64 YRS Influenza Virus 2021-04-09 Completed [facility], 00:00:00 [place] [facility] Pres[facility] ABX [facility] Free 6 MO-64 YRS Influenza Virus 2021-04-09 Completed [facility], 00:00:00 [place] [facility] Pres[facility] ABX [facility] Free 6 MO-64 YRS Influenza Virus 2021-04-09 Completed [facility], 00:00:00 [place] [facility] Pres[facility] ABX [facility] Free 6 MO-64 YRS Influenza Virus 2021-04-09 Completed [facility], 00:00:00 [place] [facility] Pres[facility] ABX [facility] Free 6 MO-64 YRS Influenza Virus 2021-04-09 Completed [facility], 00:00:00 [place] [facility] Pres[facility] ABX [facility] Free 6 MO-64 YRS Influenza Virus 2021-04-09 Completed [facility], 00:00:00 [place] [facility] Pres[facility] ABX [facility] Free 6 MO-64 YRS Influenza Virus 2021-04-09 Completed [facility], 00:00:00 [place] [facility] Pres[facility] ABX [facility] Free 6 MO-64 YRS Influenza Virus 2021-04-09 Completed [facility], 00:00:00 [place] [facility] Pres[facility] ABX [facility] Free 6 MO-64 YRS Influenza Virus 2021-04-09 Completed [facility], 00:00:00 [place] [facility] Pres[facility] ABX [facility] Free 6 MO-64 YRS Influenza Virus 2021-04-09 Completed [facility], 00:00:00 [place] [facility] Pres[facility] ABX [facility] Free 6 MO-64 YRS Influenza Virus 2021-04-09 Completed [facility], 00:00:00 [place] [facility] Pres[facility] ABX [facility] Free 6 MO-64 YRS SARS-COV-2 COVID-19 2021-01-05 Completed [facility] VACCINE 00:00:00 [place] [facility] SARS-COV-2 COVID-19 2021-01-05 Completed [facility] 12+ YRS 00:00:00 [place] [facility] V[facility] SARS-COV-2 COVID-19 2021-01-05 Completed [facility] 12+ YRS 00:00:00 [place] [facility] SARS-COV-2 COVID-19 2021-01-05 Completed [facility]ERNA 12+ YRS 00:00:00 [place] [facility] SARS-COV-2 COVID-19 2021-01-05 Completed [facility]ERNA 12+ YRS 00:00:00 [place] [facility] SARS-COV-2 COVID-19 2021-01-05 Completed [facility]NA 12+ YRS 00:00:00 [place] [facility] V[facility] SARS-COV-2 COVID-19 2021-01-05 Completed [facility]ERNA 12+ YRS 00:00:00 [place] [facility] SARS-COV-2 COVID-19 2021-01-05 Completed [facility]ERNA 12+ YRS 00:00:00 [place] [facility] SARS-COV-2 COVID-19 2021-01-05 Completed [facility]ER[facility] 12+ YRS 00:00:00 [place] [facility] VACCINE [facility] SARS-COV-2 COVID-19 2021-01-05 Completed [facility]ERNA 12+ YRS 00:00:00 [place] [facility] V[facility] SARS-COV-2 COVID-19 2021-01-05 Completed [facility]ERNA 12+ YRS 00:00:00 [place] [facility] SARS-COV-2 COVID-19 2021-01-05 Completed [facility]ERNA 12+ YRS 00:00:00 [place] [facility] SARS-COV-2 COVID-19 2021-01-05 Completed [facility]ERNA 12+ YRS 00:00:00 [place] [facility] VACCINE [facility] SARS-COV-2 COVID-19 2021-01-05 Completed [facility] MODERNA 12+ YRS 00:00:00 [place] [facility] SARS-COV-2 COVID-19 2021-01-05 Completed [facility] MODERNA 12+ YRS 00:00:00 [place] [facility] VACCINE [facility] SARS-COV-2 COVID-19 2021-01-05 Completed [facility] MODERNA 12+ YRS 00:00:00 [place] [facility] SARS-COV-2 COVID-19 2021-01-05 Completed [facility]ERNA 12+ YRS 00:00:00 [place] [facility] SARS-COV-2 COVID-19 2021-01-05 Completed [facility] MODERNA 12+ YRS 00:00:00 [place] [facility] SARS-COV-2 COVID-19 2021-01-05 Completed [facility] MODERNA 12+ YRS 00:00:00 [place] [facility] VACCINE [facility] SARS-COV-2 COVID-19 2021-01-05 Completed [facility] MODERNA 12+ YRS 00:00:00 [place] [facility] SARS-COV-2 COVID-19 2021-01-05 Completed [facility]ERNA 12+ YRS 00:00:00 [place] [facility] V[facility] SARS-COV-2 COVID-19 2021-01-05 Completed [facility] MODERNA 12+ YRS 00:00:00 [place] [facility] V[facility] SARS-COV-2 COVID-19 2021-01-05 Completed [facility] MODERNA 12+ YRS 00:00:00 [place] [facility] SARS-COV-2 COVID-19 2021-01-05 Completed [facility] MODERNA 12+ YRS 00:00:00 [place] [facility]INE [facility] SARS-COV-2 COVID-19 2021-01-05 Completed [facility]ERNA 12+ YRS 00:00:00 [place] [facility] VACCINE [facility] SARS-COV-2 COVID-19 2021-01-05 Completed [facility] MODERNA 12+ YRS 00:00:00 [place] [facility]INE [facility] SARS-COV-2 COVID-19 2021-01-05 Completed [facility] MODERNA 12+ YRS 00:00:00 [place] [facility] SARS-COV-2 COVID-19 2021-01-05 Completed [facility] MODERNA 12+ YRS 00:00:00 [place] [facility] VACCINE [facility] SARS-COV-2 COVID-19 2021-01-05 Completed [facility] MODERNA 12+ YRS 00:00:00 [place] [facility]INE [facility] SARS-COV-2 COVID-19 2021-01-05 Completed [facility] MODERNA 12+ YRS 00:00:00 [place] [facility] VACCINE [facility] SARS-COV-2 COVID-19 2021-01-05 Completed [facility] MODERNA 12+ YRS 00:00:00 [place] [facility] VACCINE [facility] SARS-COV-2 COVID-19 2021-01-05 Completed [facility] MODERNA 12+ YRS 00:00:00 [place] [facility] VACCINE [facility] SARS-COV-2 COVID-19 2021-01-05 Completed [facility] MODERNA 12+ YRS 00:00:00 [place] [facility] VACCINE [facility] SARS-COV-2 COVID-19 2021-01-05 Completed [facility] MODERNA 12+ YRS 00:00:00 [place] [facility] VACCINE [facility] SARS-COV-2 COVID-19 2021-01-05 Completed [facility] MODERNA 12+ YRS 00:00:00 [place] [facility] VACCINE [facility] SARS-COV-2 COVID-19 2021-01-05 Completed [facility] MODERNA 12+ YRS 00:00:00 [place] [facility] VACCINE [facility] SARS-COV-2 COVID-19 2021-01-05 Completed [facility] MODERNA 12+ YRS 00:00:00 [place] [facility] VACCINE [facility] SARS-COV-2 COVID-19 2021-01-05 Completed [facility] MODERNA 12+ YRS 00:00:00 [place] [facility] VACCINE [facility] SARS-COV-2 COVID-19 2021-01-05 Completed [facility] MODERNA 12+ YRS 00:00:00 [place] [facility] VACCINE [facility] SARS-COV-2 COVID-19 2021-01-05 Completed [facility] MODERNA 12+ YRS 00:00:00 [place] [facility] VACCINE [facility] SARS-COV-2 COVID-19 2021-01-05 Completed [facility] MODERNA 12+ YRS 00:00:00 [place] [facility] VACCINE [facility] SARS-COV-2 COVID-19 2021-01-05 Completed [facility] MODERNA 12+ YRS 00:00:00 [place] [facility] VACCINE [facility] SARS-COV-2 COVID-19 2021-01-05 Completed [facility] MODERNA 12+ YRS 00:00:00 [place] [facility] VACCINE [facility] SARS-COV-2 COVID-19 2021-01-05 Completed [facility] MODERNA 12+ YRS 00:00:00 [place] [facility] VACCINE [facility] SARS-COV-2 COVID-19 2021-01-05 Completed [facility] MODERNA 12+ YRS 00:00:00 [place] [facility] VACCINE [facility] SARS-COV-2 COVID-19 2021-01-05 Completed [facility] MODERNA 12+ YRS 00:00:00 [place] [facility] VACCINE [facility] SARS-COV-2 COVID-19 2021-01-05 Completed [facility] MODERNA 12+ YRS 00:00:00 [place] [facility] VACCINE [facility] SARS-COV-2 COVID-19 2021-01-05 Completed [facility] MODERNA 12+ YRS 00:00:00 [place] [facility] VACCINE [facility] SARS-COV-2 COVID-19 2021-01-05 Completed [facility] MODERNA 12+ YRS 00:00:00 [place] [facility] VACCINE [facility] SARS-COV-2 COVID-19 2021-01-05 Completed [facility] MODERNA 12+ YRS 00:00:00 [place] [facility] V[facility]INE [facility] SARS-COV-2 COVID-19 2021-01-05 Completed [facility] MODERNA 12+ YRS 00:00:00 [place] [facility] VACCINE [facility] SARS-COV-2 COVID-19 2021-01-05 Completed [facility] MODERNA 12+ YRS 00:00:00 [place] [facility] V[facility]INE [facility] SARS-COV-2 COVID-19 2021-01-05 Completed [facility] MODERNA 12+ YRS 00:00:00 [place] [facility] VACCINE [facility] SARS-COV-2 COVID-19 2021-01-05 Completed [facility] MODERNA 12+ YRS 00:00:00 [place] [facility] VACCINE [facility] SARS-COV-2 COVID-19 2021-01-05 Completed [facility] MODERNA 12+ YRS 00:00:00 [place] [facility] VACCINE [facility] SARS-COV-2 COVID-19 2021-01-05 Completed [facility] MODERNA 12+ YRS 00:00:00 [place] [facility] VACCINE [facility] SARS-COV-2 COVID-19 2021-01-05 Completed [facility] MODERNA 12+ YRS 00:00:00 [place] [facility] VACCINE [facility] SARS-COV-2 COVID-19 2021-01-05 Completed [facility] MODERNA 12+ YRS 00:00:00 [place] [facility] V[facility]INE [facility] SARS-COV-2 COVID-19 2021-01-05 Completed [facility] MODERNA 12+ YRS 00:00:00 [place] [facility] V[facility]INE [facility] SARS-COV-2 COVID-19 2021-01-05 Completed [facility] MODERNA 12+ YRS 00:00:00 [place] [facility] SARS-COV-2 COVID-19 2021-01-05 Completed [facility] MODERNA 12+ YRS 00:00:00 [place] [facility] V[facility]INE [facility] SARS-COV-2 COVID-19 2021-01-05 Completed [facility] MODERNA 12+ YRS 00:00:00 [place] [facility]INE [facility] SARS-COV-2 COVID-19 2021-01-05 Completed [facility] MODERNA 12+ YRS 00:00:00 [place] [facility] V[facility]INE [facility] SARS-COV-2 COVID-19 2021-01-05 Completed [facility] MODERNA 12+ YRS 00:00:00 [facility] ica VACCINE Branch SARS-COV-2 COVID-19 2021-01-04 Completed [facility] of VACCINE - (MODERNA) 00:00:00 [facility] SARS-COV-2 COVID-19 2021-01-04 Completed [facility] of VACCINE - (MODERNA) 00:00:00 [facility] SARS-COV-2 COVID-19 2021-01-04 Completed [facility] of VACCINE - (MODERNA) 00:00:00 [facility] SARS-COV-2 COVID-19 2021-01-04 Completed [facility] of VACCINE - (MODERNA) 00:00:00 [facility] SARS-COV-2 COVID-19 2021-01-04 Completed [facility] of VACCINE - (MODERNA) 00:00:00 [facility] SARS-COV-2 COVID-19 2021-01-04 Completed [facility] VACCINE - (MODERNA) 00:00:00 [facility] Moderna COVID-19 Moderna COVID-19 2021-01-04 Completed Vaccine Vaccine 00:00:00 SARS-COV-2 COVID-19 2020-08-16 Completed [facility]ERNA VACCINE 00:00:00 [facility] ical Branch SARS-COV-2 COVID-19 2020-08-16 Completed [facility] of MODERNA 12+ YRS 00:00:00 [facility] ical VACCINE Branch SARS-COV-2 COVID-19 2020-08-16 Completed [facility] of MODERNA 12+ YRS 00:00:00 [facility] ical VACCINE Branch SARS-COV-2 COVID-19 2020-08-16 Completed [facility] of MODERNA 12+ YRS 00:00:00 [facility] ical VACCINE Branch SARS-COV-2 COVID-19 2020-08-16 Completed [facility] of MODERNA 12+ YRS 00:00:00 [facility] ical VACCINE Branch SARS-COV-2 COVID-19 2020-08-16 Completed [facility] of MODERNA 12+ YRS 00:00:00 [facility] ical VACCINE Branch SARS-COV-2 COVID-19 2020-08-16 Completed [facility] of MODERNA 12+ YRS 00:00:00 [place] [facility] SARS-COV-2 COVID-19 2020-08-16 Completed [facility] of MODERNA 12+ YRS 00:00:00 [place] [facility] VACCINE [facility] SARS-COV-2 COVID-19 2020-08-16 Completed [facility] of MODERNA 12+ YRS 00:00:00 [place] [facility] VACCINE [facility] SARS-COV-2 COVID-19 2020-08-16 Completed [facility] of MODERNA 12+ YRS 00:00:00 [place] [facility] VACCINE [facility] SARS-COV-2 COVID-19 2020-08-16 Completed [facility] of MODERNA 12+ YRS 00:00:00 [place] [facility] VACCINE [facility] SARS-COV-2 COVID-19 2020-08-16 Completed [facility] of MODERNA 12+ YRS 00:00:00 [place] [facility] VACCINE [facility] SARS-COV-2 COVID-19 2020-08-16 Completed [facility] of MODERNA 12+ YRS 00:00:00 [place] [facility] VACCINE [facility] SARS-COV-2 COVID-19 2020-08-16 Completed [facility] of MODERNA 12+ YRS 00:00:00 [place] [facility] VACCINE [facility] SARS-COV-2 COVID-19 2020-08-16 Completed [facility] of MODERNA 12+ YRS 00:00:00 [place] [facility] VACCINE [facility] SARS-COV-2 COVID-19 2020-08-16 Completed [facility] of MODERNA 12+ YRS 00:00:00 [place] [facility] VACCINE [facility] SARS-COV-2 COVID-19 2020-08-16 Completed [facility] MODERNA 12+ YRS 00:00:00 [place] [facility] VACCINE [facility] SARS-COV-2 COVID-19 2020-08-16 Completed [facility] of MODERNA 12+ YRS 00:00:00 [place] [facility] VACCINE [facility] SARS-COV-2 COVID-19 2020-08-16 Completed [facility] of MODERNA 12+ YRS 00:00:00 [place] [facility] VACCINE [facility] SARS-COV-2 COVID-19 2020-08-16 Completed [facility] of MODERNA 12+ YRS 00:00:00 [place] [facility] VACCINE [facility] SARS-COV-2 COVID-19 2020-08-16 Completed [facility] of MODERNA 12+ YRS 00:00:00 [place] [facility] VACCINE [facility] SARS-COV-2 COVID-19 2020-08-16 Completed [facility] of MODERNA 12+ YRS 00:00:00 [place] [facility] VACCINE [facility] SARS-COV-2 COVID-19 2020-08-16 Completed [facility] of MODERNA 12+ YRS 00:00:00 [place] [facility] VACCINE [facility] SARS-COV-2 COVID-19 2020-08-16 Completed [facility] of MODERNA 12+ YRS 00:00:00 [place] [facility] VACCINE [facility] SARS-COV-2 COVID-19 2020-08-16 Completed [facility] of MODERNA 12+ YRS 00:00:00 [place] [facility] VACCINE [facility] SARS-COV-2 COVID-19 2020-08-16 Completed [facility] of MODERNA 12+ YRS 00:00:00 [place] [facility] VACCINE [facility] SARS-COV-2 COVID-19 2020-08-16 Completed [facility] of MODERNA 12+ YRS 00:00:00 [place] [facility] VACCINE [facility] SARS-COV-2 COVID-19 2020-08-16 Completed [facility] of MODERNA 12+ YRS 00:00:00 [place] [facility] VACCINE [facility] SARS-COV-2 COVID-19 2020-08-16 Completed [facility] of MODERNA 12+ YRS 00:00:00 [place] [facility] VACCINE [facility] SARS-COV-2 COVID-19 2020-08-16 Completed [facility] of MODERNA 12+ YRS 00:00:00 [place] [facility] VACCINE [facility] SARS-COV-2 COVID-19 2020-08-16 Completed [facility] of MODERNA 12+ YRS 00:00:00 [place] [facility] VACCINE [facility] SARS-COV-2 COVID-19 2020-08-16 Completed [facility] of MODERNA 12+ YRS 00:00:00 [place] [facility] VACCINE [facility] SARS-COV-2 COVID-19 2020-08-16 Completed [facility] of MODERNA 12+ YRS 00:00:00 [place] [facility] VACCINE [facility] SARS-COV-2 COVID-19 2020-08-16 Completed [facility] of MODERNA 12+ YRS 00:00:00 [place] [facility] VACCINE [facility] SARS-COV-2 COVID-19 2020-08-16 Completed [facility] of MODERNA 12+ YRS 00:00:00 [place] [facility] VACCINE [facility] SARS-COV-2 COVID-19 2020-08-16 Completed [facility] of MODERNA 12+ YRS 00:00:00 [place] [facility] VACCINE [facility] SARS-COV-2 COVID-19 2020-08-16 Completed [facility] of MODERNA 12+ YRS 00:00:00 [place] [facility] VACCINE [facility] SARS-COV-2 COVID-19 2020-08-16 Completed [facility] of MODERNA 12+ YRS 00:00:00 [place] [facility] VACCINE [facility] SARS-COV-2 COVID-19 2020-08-16 Completed [facility] of MODERNA 12+ YRS 00:00:00 [place] [facility] VACCINE [facility] SARS-COV-2 COVID-19 2020-08-16 Completed [facility] of MODERNA 12+ YRS 00:00:00 [place] [facility] VACCINE [facility] SARS-COV-2 COVID-19 2020-08-16 Completed [facility] of MODERNA 12+ YRS 00:00:00 [place] [facility] VACCINE [facility] SARS-COV-2 COVID-19 2020-08-16 Completed [facility] of MODERNA 12+ YRS 00:00:00 [place] [facility] VACCINE [facility] SARS-COV-2 COVID-19 2020-08-16 Completed [facility] of MODERNA 12+ YRS 00:00:00 [place] [facility] VACCINE [facility] SARS-COV-2 COVID-19 2020-08-16 Completed [facility] of MODERNA 12+ YRS 00:00:00 [place] [facility] VACCINE [facility] SARS-COV-2 COVID-19 2020-08-16 Completed [facility] of MODERNA 12+ YRS 00:00:00 [place] [facility] VACCINE [facility] SARS-COV-2 COVID-19 2020-08-16 Completed [facility] of MODERNA 12+ YRS 00:00:00 [place] [facility] VACCINE [facility] SARS-COV-2 COVID-19 2020-08-16 Completed [facility] of MODERNA 12+ YRS 00:00:00 [place] [facility] VACCINE [facility] SARS-COV-2 COVID-19 2020-08-16 Completed [facility] of MODERNA 12+ YRS 00:00:00 [place] [facility] VACCINE [facility] SARS-COV-2 COVID-19 2020-08-16 Completed [facility] of MODERNA 12+ YRS 00:00:00 [place] [facility] VACCINE [facility] SARS-COV-2 COVID-19 2020-08-16 Completed [facility] of MODERNA 12+ YRS 00:00:00 [place] [facility] VACCINE [facility] SARS-COV-2 COVID-19 2020-08-16 Completed [facility] of MODERNA 12+ YRS 00:00:00 [place] [facility] VACCINE [facility] SARS-COV-2 COVID-19 2020-08-16 Completed [facility] of MODERNA 12+ YRS 00:00:00 [place] [facility] VACCINE [facility] SARS-COV-2 COVID-19 2020-08-16 Completed [facility] of MODERNA 12+ YRS 00:00:00 [place] [facility] VACCINE [facility] SARS-COV-2 COVID-19 2020-08-16 Completed [facility] of MODERNA 12+ YRS 00:00:00 [place] [facility] VACCINE [facility] SARS-COV-2 COVID-19 2020-08-16 Completed [facility] of MODERNA 12+ YRS 00:00:00 [place] [facility] VACCINE [facility] SARS-COV-2 COVID-19 2020-08-16 Completed [facility] of MODERNA 12+ YRS 00:00:00 [place] [facility] VACCINE [facility] SARS-COV-2 COVID-19 2020-08-16 Completed [facility] of MODERNA 12+ YRS 00:00:00 [place] [facility] VACCINE [facility] SARS-COV-2 COVID-19 2020-08-16 Completed [facility] of MODERNA 12+ YRS 00:00:00 [place] [facility] VACCINE [facility] SARS-COV-2 COVID-19 2020-08-16 Completed [facility]ity of MODERNA 12+ YRS 00:00:00 [place] [facility] VACCINE [facility] SARS-COV-2 COVID-19 2020-08-16 Completed [facility] of MODERNA 12+ YRS 00:00:00 [place] [facility] VACCINE [facility] SARS-COV-2 COVID-19 2020-08-16 Completed [facility] of MODERNA 12+ YRS 00:00:00 [place] [facility] VACCINE [facility] SARS-COV-2 COVID-19 2020-08-16 Completed [facility] of MODERNA 12+ YRS 00:00:00 [place] [facility] VACCINE [facility] SARS-COV-2 COVID-19 2020-08-16 Completed [facility] of MODERNA 12+ YRS 00:00:00 [place] [facility] VACCINE [facility] SARS-COV-2 COVID-19 2020-08-16 Completed [facility] of MODERNA 12+ YRS 00:00:00 [place] [facility]INE [facility] Moderna COVID-19 Moderna COVID-19 2020-08-16 Completed Vaccine Vaccine 00:00:00 SARS-COV-2 COVID-19 2020-07-12 Completed [facility] MODERNA VACCINE 00:00:00 [place] [facility] SARS-COV-2 COVID-19 2020-07-12 Completed [facility] of MODERNA 12+ YRS 00:00:00 [place] [facility] VACCINE [facility] SARS-COV-2 COVID-19 2020-07-12 Completed [facility] of MODERNA 12+ YRS 00:00:00 [place] [facility] VACCINE [facility] SARS-COV-2 COVID-19 2020-07-12 Completed [facility] of MODERNA 12+ YRS 00:00:00 [place] [facility] VACCINE [facility] SARS-COV-2 COVID-19 2020-07-12 Completed [facility] of MODERNA 12+ YRS 00:00:00 [place] [facility] VACCINE [facility] SARS-COV-2 COVID-19 2020-07-12 Completed [facility] of MODERNA 12+ YRS 00:00:00 [place] [facility] VACCINE [facility] SARS-COV-2 COVID-19 2020-07-12 Completed [facility] of MODERNA 12+ YRS 00:00:00 [place] [facility] VACCINE [facility] SARS-COV-2 COVID-19 2020-07-12 Completed [facility] of MODERNA 12+ YRS 00:00:00 [place] [facility] VACCINE [facility] SARS-COV-2 COVID-19 2020-07-12 Completed [facility] of MODERNA 12+ YRS 00:00:00 [place] [facility] VACCINE [facility] SARS-COV-2 COVID-19 2020-07-12 Completed [facility] of MODERNA 12+ YRS 00:00:00 [place] [facility] VACCINE [facility] SARS-COV-2 COVID-19 2020-07-12 Completed [facility] of MODERNA 12+ YRS 00:00:00 [place] [facility] VACCINE [facility] SARS-COV-2 COVID-19 2020-07-12 Completed [facility] of MODERNA 12+ YRS 00:00:00 [place] [facility] VACCINE [facility] SARS-COV-2 COVID-19 2020-07-12 Completed [facility]ity of MODERNA 12+ YRS 00:00:00 [place] [facility] VACCINE [facility] SARS-COV-2 COVID-19 2020-07-12 Completed [facility] of MODERNA 12+ YRS 00:00:00 [place] [facility] VACCINE [facility] SARS-COV-2 COVID-19 2020-07-12 Completed [facility] of MODERNA 12+ YRS 00:00:00 [place] [facility] VACCINE [facility] SARS-COV-2 COVID-19 2020-07-12 Completed [facility] of MODERNA 12+ YRS 00:00:00 [place] [facility] VACCINE [facility] SARS-COV-2 COVID-19 2020-07-12 Completed [facility] rsity of MODERNA 12+ YRS 00:00:00 [place] [facility] VACCINE [facility] SARS-COV-2 COVID-19 2020-07-12 Completed [facility]ity of MODERNA 12+ YRS 00:00:00 [place] [facility] VACCINE [facility] SARS-COV-2 COVID-19 2020-07-12 Completed [facility] rsity of MODERNA 12+ YRS 00:00:00 [place] [facility] VACCINE [facility] SARS-COV-2 COVID-19 2020-07-12 Completed [facility] rsity of MODERNA 12+ YRS 00:00:00 [place] [facility] VACCINE [facility] SARS-COV-2 COVID-19 2020-07-12 Completed [facility] rsity of MODERNA 12+ YRS 00:00:00 [place] [facility] VACCINE [facility] SARS-COV-2 COVID-19 2020-07-12 Completed [facility] rsity of MODERNA 12+ YRS 00:00:00 [place] [facility] VACCINE [facility] SARS-COV-2 COVID-19 2020-07-12 Completed [facility] 12+ YRS 00:00:00 [place] [facility]ACC[facility] SARS-COV-2 COVID-19 2020-07-12 Completed [facility] 12+ YRS 00:00:00 [place] [facility]ACC[facility] SARS-COV-2 COVID-19 2020-07-12 Completed [facility] 12+ YRS 00:00:00 [place] [facility]ACC[facility] SARS-COV-2 COVID-19 2020-07-12 Completed [facility] 12+ YRS 00:00:00 [place] [facility]ACC[facility] SARS-COV-2 COVID-19 2020-07-12 Completed [facility] 12+ YRS 00:00:00 [place] [facility] SARS-COV-2 COVID-19 2020-07-12 Completed [facility] 12+ YRS 00:00:00 [place] [facility] SARS-COV-2 COVID-19 2020-07-12 Completed [facility] 12+ YRS 00:00:00 [place] [facility]ACC[facility] SARS-COV-2 COVID-19 2020-07-12 Completed [facility] 12+ YRS 00:00:00 [place] [facility]ACC[facility] SARS-COV-2 COVID-19 2020-07-12 Completed [facility] 12+ YRS 00:00:00 [place] [facility] SARS-COV-2 COVID-19 2020-07-12 Completed [facility] 12+ YRS 00:00:00 [place] [facility]ACC[facility] SARS-COV-2 COVID-19 2020-07-12 Completed [facility] 12+ YRS 00:00:00 [facility] SARS-COV-2 COVID-19 2020-07-12 Completed [facility] 12+ YRS 00:00:00 [facility] SARS-COV-2 COVID-19 2020-07-12 Completed [facility] 12+ YRS 00:00:00 [facility] SARS-COV-2 COVID-19 2020-07-12 Completed [facility] 12+ YRS 00:00:00 [facility] SARS-COV-2 COVID-19 2020-07-12 Completed [facility] 12+ YRS 00:00:00 [facility] SARS-COV-2 COVID-19 2020-07-12 Completed [facility] 12+ YRS 00:00:00 [facility] SARS-COV-2 COVID-19 2020-07-12 Completed [facility] 12+ YRS 00:00:00 [facility] SARS-COV-2 COVID-19 2020-07-12 Completed [facility] 12+ YRS 00:00:00 [facility] SARS-COV-2 COVID-19 2020-07-12 Completed [facility] 12+ YRS 00:00:00 [facility] SARS-COV-2 COVID-19 2020-07-12 Completed [facility] 12+ YRS 00:00:00 [facility] SARS-COV-2 COVID-19 2020-07-12 Completed [facility] 12+ YRS 00:00:00 [facility] SARS-COV-2 COVID-19 2020-07-12 Completed [facility] 12+ YRS 00:00:00 [facility] SARS-COV-2 COVID-19 2020-07-12 Completed [facility] 12+ YRS 00:00:00 [facility] SARS-COV-2 COVID-19 2020-07-12 Completed [facility] 12+ YRS 00:00:00 [facility] SARS-COV-2 COVID-19 2020-07-12 Completed [facility] 12+ YRS 00:00:00 [facility] SARS-COV-2 COVID-19 2020-07-12 Completed [facility] 12+ YRS 00:00:00 [facility] SARS-COV-2 COVID-19 2020-07-12 Completed [facility] 12+ YRS 00:00:00 [facility] SARS-COV-2 COVID-19 2020-07-12 Completed [facility] 12+ YRS 00:00:00 [facility] SARS-COV-2 COVID-19 2020-07-12 Completed [facility] 12+ YRS 00:00:00 [facility] SARS-COV-2 COVID-19 2020-07-12 Completed [facility] 12+ YRS 00:00:00 [facility] SARS-COV-2 COVID-19 2020-07-12 Completed [facility] 12+ YRS 00:00:00 [facility] SARS-COV-2 COVID-19 2020-07-12 Completed [facility] 12+ YRS 00:00:00 [facility] SARS-COV-2 COVID-19 2020-07-12 Completed [facility] 12+ YRS 00:00:00 [facility] SARS-COV-2 COVID-19 2020-07-12 Completed [facility] 12+ YRS 00:00:00 [facility] SARS-COV-2 COVID-19 2020-07-12 Completed [facility] 12+ YRS 00:00:00 [facility] SARS-COV-2 COVID-19 2020-07-12 Completed [facility] 12+ YRS 00:00:00 [facility] SARS-COV-2 COVID-19 2020-07-12 Completed [facility] 12+ YRS 00:00:00 [facility] SARS-COV-2 COVID-19 2020-07-12 Completed [facility] 12+ YRS 00:00:00 [facility] SARS-COV-2 COVID-19 2020-07-12 Completed [facility] 12+ YRS 00:00:00 [facility] SARS-COV-2 COVID-19 2020-07-12 Completed [facility] 12+ YRS 00:00:00 [facility] SARS-COV-2 COVID-19 2020-07-12 Completed [facility] 12+ YRS 00:00:00 [facility] SARS-COV-2 COVID-19 2020-07-12 Completed [facility] 12+ YRS 00:00:00 [facility] Moderna COVID-19 Moderna COVID-19 2020-07-12 Completed Vaccine Vaccine 00:00:00 [facility] Vaccine 2020-06-26 Completed [facility] Recombinant 00:00:00 [facility] Zoster Vaccine 2020-06-26 Completed [facility] Recombinant 00:00:00 [facility] Zoster Vaccine 2020-06-26 Completed [facility] Recombinant 00:00:00 [facility] Zoster Vaccine 2020-06-26 Completed [facility] Recombinant 00:00:00 [facility] Zoster Vaccine 2020-06-26 Completed [facility] Recombinant 00:00:00 [facility] Zoster Vaccine 2020-06-26 Completed [facility] Recombinant 00:00:00 [facility] Zoster Vaccine 2020-06-26 Completed [facility] Recombinant 00:00:00 [facility] Zoster Vaccine 2020-06-26 Completed [facility] Recombinant 00:00:00 [facility] Zoster Vaccine 2020-06-26 Completed [facility] Recombinant 00:00:00 [facility] Zoster Vaccine 2020-06-26 Completed [facility] Recombinant 00:00:00 [facility] Zoster Vaccine 2020-06-26 Completed [facility] Recombinant 00:00:00 [facility] Zoster Vaccine 2020-06-26 Completed [facility] Recombinant 00:00:00 [facility] Zoster Vaccine 2020-06-26 Completed [facility] Recombinant 00:00:00 [facility] Zoster Vaccine 2020-06-26 Completed [facility] Recombinant 00:00:00 [facility] Zoster Vaccine 2020-06-26 Completed [facility] Recombinant 00:00:00 [facility] Zoster Vaccine 2020-06-26 Completed [facility] Recombinant 00:00:00 [facility] Zoster Vaccine 2020-06-26 Completed [facility] Recombinant 00:00:00 [facility] Zoster Vaccine 2020-06-26 Completed [facility] Recombinant 00:00:00 [facility] Zoster Vaccine 2020-06-26 Completed [facility] Recombinant 00:00:00 [facility] Zoster Vaccine 2020-06-26 Completed [facility] Recombinant 00:00:00 [facility] Zoster Vaccine 2020-06-26 Completed [facility] Recombinant 00:00:00 [facility] Zoster Vaccine 2020-06-26 Completed [facility] Recombinant 00:00:00 [facility] Zoster Vaccine 2020-06-26 Completed [facility] Recombinant 00:00:00 [facility] Zoster Vaccine 2020-06-26 Completed [facility] Recombinant 00:00:00 [facility] Zoster Vaccine 2020-06-26 Completed [facility] Recombinant 00:00:00 [facility] Zoster Vaccine 2020-06-26 Completed [facility] Recombinant 00:00:00 [facility] Zoster Vaccine 2020-06-26 Completed [facility] Recombinant 00:00:00 [facility] Zoster Vaccine 2020-06-26 Completed [facility] Recombinant 00:00:00 [facility] Zoster Vaccine 2020-06-26 Completed [facility] Recombinant 00:00:00 [facility] Zoster Vaccine 2020-06-26 Completed [facility] Recombinant 00:00:00 [facility] Zoster Vaccine 2020-06-26 Completed [facility] Recombinant 00:00:00 [facility] Zoster Vaccine 2020-06-26 Completed [facility] Recombinant 00:00:00 [facility] Zoster Vaccine 2020-06-26 Completed [facility] Recombinant 00:00:00 [facility] Zoster Vaccine 2020-06-26 Completed [facility] Recombinant 00:00:00 [facility] Zoster Vaccine 2020-06-26 Completed [facility] Recombinant 00:00:00 [facility] Zoster Vaccine 2020-06-26 Completed [facility] Recombinant 00:00:00 [facility] Zoster Vaccine 2020-06-26 Completed [facility] Recombinant 00:00:00 [facility] Zoster Vaccine 2020-06-26 Completed [facility] Recombinant 00:00:00 [facility] Zoster Vaccine 2020-06-26 Completed [facility] Recombinant 00:00:00 [facility] Zoster Vaccine 2020-06-26 Completed [facility] Recombinant 00:00:00 [facility] Zoster Vaccine 2020-06-26 Completed [facility] Recombinant 00:00:00 [facility] Zoster Vaccine 2020-06-26 Completed [facility] Recombinant 00:00:00 [facility] Zoster Vaccine 2020-06-26 Completed [facility] Recombinant 00:00:00 [facility] Zoster Vaccine 2020-06-26 Completed [facility] Recombinant 00:00:00 [facility] Zoster Vaccine 2020-06-26 Completed [facility] Recombinant 00:00:00 [facility] Zoster Vaccine 2020-06-26 Completed [facility] Recombinant 00:00:00 [facility] Zoster Vaccine 2020-06-26 Completed [facility] Recombinant 00:00:00 [facility] Zoster Vaccine 2020-06-26 Completed [facility] Recombinant 00:00:00 [facility] Zoster Vaccine 2020-06-26 Completed [facility] Recombinant 00:00:00 [facility] Zoster Vaccine 2020-06-26 Completed [facility] Recombinant 00:00:00 [facility] Zoster Vaccine 2020-06-26 Completed [facility] Recombinant 00:00:00 [facility] Zoster Vaccine 2020-06-26 Completed [facility] Recombinant 00:00:00 [facility] Zoster Vaccine 2020-06-26 Completed [facility] Recombinant 00:00:00 [facility] Zoster Vaccine 2020-06-26 Completed [facility] Recombinant 00:00:00 [facility] Zoster Vaccine 2020-06-26 Completed [facility] Recombinant 00:00:00 [facility] Zoster Vaccine 2020-06-26 Completed [facility] Recombinant 00:00:00 [facility] Zoster Vaccine 2020-06-26 Completed [facility] Recombinant 00:00:00 [facility] Zoster Vaccine 2020-06-26 Completed [facility] Recombinant 00:00:00 [facility] Zoster Vaccine 2020-06-26 Completed [facility] Recombinant 00:00:00 [facility] Zoster Vaccine 2020-06-26 Completed [facility] Recombinant 00:00:00 [facility] Zoster Vaccine 2020-06-26 Completed [facility] Recombinant 00:00:00 [facility] Zoster Vaccine 2020-06-26 Completed [facility] Recombinant 00:00:00 [facility] Zoster Vaccine 2020-06-26 Completed [facility] Recombinant 00:00:00 [facility] Zoster Vaccine 2020-06-26 Completed [facility] Recombinant 00:00:00 [facility] Zoster Vaccine 2020-05-23 Completed [facility] Recombinant 00:00:00 [facility] Zoster Vaccine 2020-05-23 Completed [facility] Recombinant 00:00:00 [facility] Zoster Vaccine 2020-05-23 Completed [facility] Recombinant 00:00:00 [facility] Zoster Vaccine 2020-05-23 Completed [facility] Recombinant 00:00:00 [facility] Zoster Vaccine 2020-05-23 Completed [facility] Recombinant 00:00:00 [facility] Zoster Vaccine 2020-05-23 Completed [facility] Recombinant 00:00:00 [facility] Zoster Vaccine 2020-05-23 Completed [facility] Recombinant 00:00:00 [facility] Zoster Vaccine 2020-05-23 Completed [facility] Recombinant 00:00:00 [facility] Zoster Vaccine 2020-05-23 Completed [facility] Recombinant 00:00:00 [facility] Zoster Vaccine 2020-05-23 Completed [facility] Recombinant 00:00:00 [facility] Zoster Vaccine 2020-05-23 Completed [facility] Recombinant 00:00:00 [facility] Zoster Vaccine 2020-05-23 Completed [facility] Recombinant 00:00:00 [facility] Zoster Vaccine 2020-05-23 Completed [facility] Recombinant 00:00:00 [facility] Zoster Vaccine 2020-05-23 Completed [facility] Recombinant 00:00:00 [facility] Zoster Vaccine 2020-05-23 Completed [facility] Recombinant 00:00:00 [facility] Zoster Vaccine 2020-05-23 Completed [facility] Recombinant 00:00:00 [facility] Zoster Vaccine 2020-05-23 Completed [facility] Recombinant 00:00:00 [facility] Zoster Vaccine 2020-05-23 Completed [facility] Recombinant 00:00:00 [facility] Zoster Vaccine 2020-05-23 Completed [facility] Recombinant 00:00:00 [facility] Zoster Vaccine 2020-05-23 Completed [facility] Recombinant 00:00:00 [facility] Zoster Vaccine 2020-05-23 Completed [facility] Recombinant 00:00:00 [facility] Zoster Vaccine 2020-05-23 Completed [facility] Recombinant 00:00:00 [facility] Zoster Vaccine 2020-05-23 Completed [facility] Recombinant 00:00:00 [facility] Zoster Vaccine 2020-05-23 Completed [facility] Recombinant 00:00:00 [facility] Zoster Vaccine 2020-05-23 Completed [facility] Recombinant 00:00:00 [facility] Zoster Vaccine 2020-05-23 Completed [facility] Recombinant 00:00:00 [facility] Zoster Vaccine 2020-05-23 Completed [facility] Recombinant 00:00:00 [facility] Zoster Vaccine 2020-05-23 Completed [facility] Recombinant 00:00:00 [facility] Zoster Vaccine 2020-05-23 Completed [facility] Recombinant 00:00:00 [facility] Zoster Vaccine 2020-05-23 Completed [facility] Recombinant 00:00:00 [facility] Zoster Vaccine 2020-05-23 Completed [facility] Recombinant 00:00:00 [facility] Zoster Vaccine 2020-05-23 Completed [facility] Recombinant 00:00:00 [facility] Zoster Vaccine 2020-05-23 Completed [facility] Recombinant 00:00:00 [facility] Zoster Vaccine 2020-05-23 Completed [facility] Recombinant 00:00:00 [facility] Zoster Vaccine 2020-05-23 Completed [facility] Recombinant 00:00:00 [facility] Zoster Vaccine 2020-05-23 Completed [facility] Recombinant 00:00:00 [facility] Zoster Vaccine 2020-05-23 Completed [facility] Recombinant 00:00:00 [facility] Zoster Vaccine 2020-05-23 Completed [facility] Recombinant 00:00:00 [facility] Zoster Vaccine 2020-05-23 Completed [facility] Recombinant 00:00:00 [facility] Zoster Vaccine 2020-05-23 Completed [facility] Recombinant 00:00:00 [facility] Zoster Vaccine 2020-05-23 Completed [facility] Recombinant 00:00:00 [facility] Zoster Vaccine 2020-05-23 Completed [facility] Recombinant 00:00:00 [facility] Zoster Vaccine 2020-05-23 Completed [facility] Recombinant 00:00:00 [facility] Zoster Vaccine 2020-05-23 Completed [facility] Recombinant 00:00:00 [facility] Zoster Vaccine 2020-05-23 Completed [facility] Recombinant 00:00:00 [facility] Zoster Vaccine 2020-05-23 Completed [facility] Recombinant 00:00:00 [facility] Zoster Vaccine 2020-05-23 Completed [facility] Recombinant 00:00:00 [facility] Zoster Vaccine 2020-05-23 Completed [facility] Recombinant 00:00:00 [facility] Zoster Vaccine 2020-05-23 Completed [facility] Recombinant 00:00:00 [facility] Zoster Vaccine 2020-05-23 Completed [facility] Recombinant 00:00:00 [facility] Zoster Vaccine 2020-05-23 Completed [facility] Recombinant 00:00:00 [facility] Zoster Vaccine 2020-05-23 Completed [facility] Recombinant 00:00:00 [facility] Zoster Vaccine 2020-05-23 Completed [facility] Recombinant 00:00:00 [facility] Zoster Vaccine 2020-05-23 Completed [facility] Recombinant 00:00:00 [facility] Zoster Vaccine 2020-05-23 Completed [facility] Recombinant 00:00:00 [facility] Zoster Vaccine 2020-05-23 Completed [facility] Recombinant 00:00:00 [facility] Zoster Vaccine 2020-05-23 Completed [facility] Recombinant 00:00:00 [facility] Zoster Vaccine 2020-05-23 Completed [facility] Recombinant 00:00:00 [facility] Zoster Vaccine 2020-05-23 Completed [facility] Recombinant 00:00:00 [facility] Zoster Vaccine 2020-05-23 Completed [facility] Recombinant 00:00:00 [facility] Zoster Vaccine 2020-05-23 Completed [facility] Recombinant 00:00:00 [facility] Zoster Vaccine 2020-05-23 Completed [facility] Recombinant 00:00:00 [facility] Zoster Vaccine 2020-05-23 Completed [facility] Recombinant 00:00:00 [facility] Zoster Vaccine 2020-05-23 Completed [facility] Recombinant 00:00:00 [facility] Influenza Virus 2019-05-12 Completed [facility] Vaccine Quad .5 mL 00:00:00 [facility] Influenza Virus 2019-05-12 Completed [facility] Vaccine [facility] .5 mL 00:00:00 [facility] Influenza Virus 2019-05-12 Completed [facility] Vaccine Quad .5 mL 00:00:00 [facility] Influenza Virus 2019-05-12 Completed [facility] Vaccine Quad .5 mL 00:00:00 [facility] Influenza Virus 2019-05-12 Completed [facility] Vaccine Quad .5 mL 00:00:00 [facility] Influenza Virus 2019-05-12 Completed [facility] Vaccine Quad .5 mL 00:00:00 [facility] Influenza Virus 2019-05-12 Completed [facility] Vaccine Quad .5 mL 00:00:00 [facility] Influenza Virus 2019-05-12 Completed [facility] Vaccine Quad .5 mL 00:00:00 [facility] Influenza Virus 2019-05-12 Completed [facility] Vaccine Quad .5 mL 00:00:00 [facility] Influenza Virus 2019-05-12 Completed [facility] Vaccine Quad .5 mL 00:00:00 [facility] Influenza Virus 2019-05-12 Completed [facility] Vaccine Quad .5 mL 00:00:00 [facility] Influenza Virus 2019-05-12 Completed [facility] Vaccine Quad .5 mL 00:00:00 [facility] Influenza Virus 2019-05-12 Completed [facility] Vaccine Quad .5 mL 00:00:00 [facility] Influenza Virus 2019-05-12 Completed [facility] Vaccine Quad .5 mL 00:00:00 [facility] Influenza Virus 2019-05-12 Completed [facility] Vaccine Quad .5 mL 00:00:00 [facility] Influenza Virus 2019-05-12 Completed [facility] Vaccine Quad .5 mL 00:00:00 [facility] Influenza Virus 2019-05-12 Completed [facility] Vaccine Quad .5 mL 00:00:00 [facility] Influenza Virus 2019-05-12 Completed [facility] Vaccine Quad .5 mL 00:00:00 [facility] Influenza Virus 2019-05-12 Completed [facility] Vaccine Quad .5 mL 00:00:00 [facility] Influenza Virus 2019-05-12 Completed [facility] Vaccine Quad .5 mL 00:00:00 [facility] Influenza Virus 2019-05-12 Completed [facility] Vaccine Quad .5 mL 00:00:00 [facility] Influenza Virus 2019-05-12 Completed [facility] Vaccine [facility] .5 mL 00:00:00 [facility] Influenza Virus 2019-05-12 Completed [facility] Vaccine Quad .5 mL 00:00:00 [facility] Influenza Virus 2019-05-12 Completed [facility] Vaccine Quad .5 mL 00:00:00 [facility] Influenza Virus 2019-05-12 Completed [facility] Vaccine Quad .5 mL 00:00:00 [facility] Influenza Virus 2019-05-12 Completed [facility] Vaccine Quad .5 mL 00:00:00 [facility] Influenza Virus 2019-05-12 Completed [facility] Vaccine Quad .5 mL 00:00:00 [facility] Influenza Virus 2019-05-12 Completed [facility] Vaccine [facility] .5 mL 00:00:00 [facility] Influenza Virus 2019-05-12 Completed [facility] Vaccine Quad .5 mL 00:00:00 [facility] Influenza Virus 2019-05-12 Completed [facility] Vaccine Quad .5 mL 00:00:00 [facility] Influenza Virus 2019-05-12 Completed [facility] Vaccine Quad .5 mL 00:00:00 [facility] Influenza Virus 2019-05-12 Completed [facility] Vaccine Quad .5 mL 00:00:00 [facility] Influenza Virus 2019-05-12 Completed [facility] Vaccine Quad .5 mL 00:00:00 [facility] Influenza Virus 2019-05-12 Completed [facility] Vaccine Quad .5 mL 00:00:00 [facility] Influenza Virus 2019-05-12 Completed [facility] Vaccine Quad .5 mL 00:00:00 [facility] Influenza Virus 2019-05-12 Completed [facility] Vaccine Quad .5 mL 00:00:00 [facility] Influenza Virus 2019-05-12 Completed [facility] Vaccine Quad .5 mL 00:00:00 [facility] Influenza Virus 2019-05-12 Completed [facility] Vaccine Quad .5 mL 00:00:00 [facility] Influenza Virus 2019-05-12 Completed [facility] Vaccine Quad .5 mL 00:00:00 [facility] Influenza Virus 2019-05-12 Completed [facility] Vaccine Quad .5 mL 00:00:00 [facility] Influenza Virus 2019-05-12 Completed [facility] Vaccine Quad .5 mL 00:00:00 [facility] Influenza Virus 2019-05-12 Completed [facility] Vaccine Quad .5 mL 00:00:00 [facility] Influenza Virus 2019-05-12 Completed [facility] Vaccine Quad .5 mL 00:00:00 [facility] Influenza Virus 2019-05-12 Completed [facility] Vaccine Quad .5 mL 00:00:00 [facility] Influenza Virus 2019-05-12 Completed [facility] Vaccine Quad .5 mL 00:00:00 [facility] Influenza Virus 2019-05-12 Completed [facility] Vaccine Quad .5 mL 00:00:00 [facility] Influenza Virus 2019-05-12 Completed [facility] Vaccine Quad .5 mL 00:00:00 [facility] Influenza Virus 2019-05-12 Completed [facility] Vaccine Quad .5 mL 00:00:00 [facility] Influenza Virus 2019-05-12 Completed [facility] Vaccine Quad .5 mL 00:00:00 [facility] Influenza Virus 2019-05-12 Completed [facility] Vaccine Quad .5 mL 00:00:00 [facility] Influenza Virus 2019-05-12 Completed [facility] Vaccine Quad .5 mL 00:00:00 [facility] Influenza Virus 2019-05-12 Completed [facility] Vaccine Quad .5 mL 00:00:00 [facility] Influenza Virus 2019-05-12 Completed [facility] Vaccine Quad .5 mL 00:00:00 [facility] Influenza Virus 2019-05-12 Completed [facility] Vaccine Quad .5 mL 00:00:00 [facility] Influenza Virus 2019-05-12 Completed [facility] Vaccine Quad .5 mL 00:00:00 [facility] Influenza Virus 2019-05-12 Completed [facility] Vaccine Quad .5 mL 00:00:00 [facility] Influenza Virus 2019-05-12 Completed [facility] Vaccine Quad .5 mL 00:00:00 [facility] Influenza Virus 2019-05-12 Completed [facility] Vaccine Quad .5 mL 00:00:00 [facility] Influenza Virus 2019-05-12 Completed [facility] Vaccine Quad .5 mL 00:00:00 [facility] Influenza Virus 2019-05-12 Completed [facility] Vaccine Quad .5 mL 00:00:00 [facility] Influenza Virus 2019-05-12 Completed [facility] Vaccine Quad .5 mL 00:00:00 [facility] Influenza Virus 2019-05-12 Completed [facility] Vaccine Quad .5 mL 00:00:00 [facility] Influenza Virus 2019-05-12 Completed [facility] Vaccine Quad .5 mL 00:00:00 [facility] Influenza Virus 2019-05-12 Completed [facility] Vaccine Quad .5 mL 00:00:00 [facility] TDAP 2018-10-21 Completed [facility] 00:00:00 [facility] TDAP 2018-10-21 Completed [facility] of 00:00:00 [facility] TDAP 2018-10-21 Completed [facility] 00:00:00 [facility] TDAP 2018-10-21 Completed [facility] 00:00:00 [facility] TDAP 2018-10-21 Completed [facility] 00:00:00 [facility] TDAP 2018-10-21 Completed [facility] 00:00:00 [facility] TDAP 2018-10-21 Completed [facility] 00:00:00 [facility] TDAP 2018-10-21 Completed [facility] 00:00:00 [facility] TDAP 2018-10-21 Completed [facility] 00:00:00 [facility] TDAP 2018-10-21 Completed [facility] 00:00:00 [facility] TDAP 2018-10-21 Completed [facility] 00:00:00 [facility] TDAP 2018-10-21 Completed [facility] 00:00:00 [facility] TDAP 2018-10-21 Completed [facility] 00:00:00 [facility] TDAP 2018-10-21 Completed [facility] 00:00:00 [facility] TDAP 2018-10-21 Completed [facility] 00[facility]00:00 [facility] TDAP 2018-10-21 Completed [facility] 00:00:00 [facility] TDAP 2018-10-21 Completed [facility] 00:00:00 [facility] TDAP 2018-10-21 Completed [facility] 00:[facility]:00 [facility] [facility] 2018-10-21 Completed [facility] 00:[facility]:00 [facility] TDAP 2018-10-21 Completed [facility] 00:[facility]:00 [facility] TDAP 2018-10-21 Completed [facility] 00:00:00 [facility] TDAP 2018-10-21 Completed [facility] 00:00:00 [facility] TDAP 2018-10-21 Completed [facility] 00:00:00 [facility] TDAP 2018-10-21 Completed [facility] 00:00:00 [facility] TDAP 2018-10-21 Completed [facility] 00[facility]00:00 [facility] TDAP 2018-10-21 Completed [facility] 00[facility]00:00 [facility] TDAP 2018-10-21 Completed [facility] 00:00:00 [facility] TDAP 2018-10-21 Completed [facility] 00:00:00 [facility] TDAP 2018-10-21 Completed [facility] 00[facility]00:00 [facility] TDAP 2018-10-21 Completed [facility] 00[facility]00:00 [facility] TDAP 2018-10-21 Completed [facility] 00:00:00 [facility] TDAP 2018-10-21 Completed [facility] 00[facility]00:00 [facility] TDAP 2018-10-21 Completed [facility] 00[facility]00:00 [facility] TDAP 2018-10-21 Completed [facility] 00:00:00 [facility] TDAP 2018-10-21 Completed [facility] 00:00:00 [facility] TDAP 2018-10-21 Completed [facility] 00:00:00 [facility] TDAP 2018-10-21 Completed [facility] 00:00:00 [facility] TDAP 2018-10-21 Completed [facility] 00:00:00 [facility] TDAP 2018-10-21 Completed [facility] 00:00:00 [facility] TDAP 2018-10-21 Completed [facility] 00:00:00 [facility] TDAP 2018-10-21 Completed [facility] 00:00:00 [facility] TDAP 2018-10-21 Completed [facility] 00[facility]00:00 [facility] TDAP 2018-10-21 Completed [facility] 00:00:00 [facility] TDAP 2018-10-21 Completed [facility] 00[facility]00:00 [facility] TDAP 2018-10-21 Completed [facility] 00:00:00 [facility] TDAP 2018-10-21 Completed [facility] 00:00:00 [facility] TDAP 2018-10-21 Completed [facility] 00:00:00 [facility] TDAP 2018-10-21 Completed [facility] 00:00:00 [facility] TDAP 2018-10-21 Completed [facility] 00:00:00 [facility] TDAP 2018-10-21 Completed [facility] 00:00:00 [facility] TDAP 2018-10-21 Completed [facility] 00:00:00 [facility] TDAP 2018-10-21 Completed [facility] 00:00:00 [facility] TDAP 2018-10-21 Completed [facility] 00:00:00 [facility] TDAP 2018-10-21 Completed [facility] 00:00:00 [facility] TDAP 2018-10-21 Completed [facility] 00:00:00 [facility] TDAP 2018-10-21 Completed [facility] 00:00:00 [facility] TDAP 2018-10-21 Completed [facility] 00:00:00 [facility] TDAP 2018-10-21 Completed [facility] 00:00:00 [facility] TDAP 2018-10-21 Completed [facility] 00:00:00 [facility] TDAP 2018-10-21 Completed [facility] 00:00:00 [facility] TDAP 2018-10-21 Completed [facility] 00:00:00 [facility] TDAP 2018-10-21 Completed [facility] 00:00:00 [facility] TDAP 2018-10-21 Completed [facility] 00:00:00 [facility] TDAP 2018-10-21 Completed [facility] 00:00:00 [facility] Influenza Virus 2018-05-15 Completed [facility]it y of Vaccine Quad .5 mL 00:00:00 [facility] Influenza Virus 2018-05-15 Completed [facility] Vaccine Quad .5 mL 00:00:00 [facility] Influenza Virus 2018-05-15 Completed [facility] Vaccine Quad .5 mL 00:00:00 [facility] Influenza Virus 2018-05-15 Completed [facility] Vaccine Quad .5 mL 00:00:00 [facility] Influenza Virus 2018-05-15 Completed [facility] Vaccine Quad .5 mL 00:00:00 [facility] Influenza Virus 2018-05-15 Completed [facility] Vaccine Quad .5 mL 00:00:00 [facility] Influenza Virus 2018-05-15 Completed [facility]ine Quad .5 mL 00:00:00 [facility] Influenza Virus 2018-05-15 Completed [facility]ine Quad .5 mL 00:00:00 [facility] Influenza Virus 2018-05-15 Completed [facility]ine Quad .5 mL 00:00:00 [facility] Influenza Virus 2018-05-15 Completed [facility] Vaccine Quad .5 mL 00:00:00 [facility] Influenza Virus 2018-05-15 Completed [facility] Vaccine Quad .5 mL 00:00:00 [facility] Influenza Virus 2018-05-15 Completed [facility] Vaccine Quad .5 mL 00:00:00 [facility] Influenza Virus 2018-05-15 Completed [facility] Vaccine Quad .5 mL 00:00:00 [facility] Influenza Virus 2018-05-15 Completed [facility]ine Quad .5 mL 00:00:00 [facility] Influenza Virus 2018-05-15 Completed [facility] Vaccine Quad .5 mL 00:00:00 [facility] Influenza Virus 2018-05-15 Completed [facility]ine Quad .5 mL 00:00:00 [facility] Influenza Virus 2018-05-15 Completed [facility] Vaccine Quad .5 mL 00:00:00 [facility] Influenza Virus 2018-05-15 Completed [facility]ine Quad .5 mL 00:00:00 [facility] Influenza Virus 2018-05-15 Completed [facility] Quad .5 mL 00:00:00 [facility] Influenza Virus 2018-05-15 Completed [facility]ine Quad .5 mL 00:00:00 [facility] Influenza Virus 2018-05-15 Completed [facility] Vaccine Quad .5 mL 00:00:00 [facility] Influenza Virus 2018-05-15 Completed [facility] Vaccine Quad .5 mL 00:00:00 [facility] Influenza Virus 2018-05-15 Completed [facility] Quad .5 mL 00:00:00 [facility] Influenza Virus 2018-05-15 Completed [facility] Quad .5 mL 00:00:00 [facility] Influenza Virus 2018-05-15 Completed [facility]ine Quad .5 mL 00:00:00 [facility] Influenza Virus 2018-05-15 Completed [facility] Quad .5 mL 00:00:00 [facility] Influenza Virus 2018-05-15 Completed [facility] Quad .5 mL 00:00:00 [facility] Influenza Virus 2018-05-15 Completed [facility]ine Quad .5 mL 00:00:00 [facility] Influenza Virus 2018-05-15 Completed [facility] .5 mL 00:00:00 [facility] Influenza Virus 2018-05-15 Completed [facility] Quad .5 mL 00:00:00 [facility] Influenza Virus 2018-05-15 Completed [facility] .5 mL 00:00:00 [facility] Influenza Virus 2018-05-15 Completed [facility] Quad .5 mL 00:00:00 [facility] Influenza Virus 2018-05-15 Completed [facility] Vaccine Quad .5 mL 00:00:00 [facility] Influenza Virus 2018-05-15 Completed [facility]ine Quad .5 mL 00:00:00 [facility] Influenza Virus 2018-05-15 Completed [facility] Vaccine Quad .5 mL 00:00:00 [facility] Influenza Virus 2018-05-15 Completed [facility] Vaccine Quad .5 mL 00:00:00 [facility] Influenza Virus 2018-05-15 Completed [facility] Vaccine Quad .5 mL 00:00:00 [facility] Influenza Virus 2018-05-15 Completed [facility] Vaccine Quad .5 mL 00:00:00 [facility] Influenza Virus 2018-05-15 Completed [facility] Vaccine Quad .5 mL 00:00:00 [facility] Influenza Virus 2018-05-15 Completed [facility] Vaccine Quad .5 mL 00:00:00 [facility] Influenza Virus 2018-05-15 Completed [facility] Vaccine Quad .5 mL 00:00:00 [facility] Influenza Virus 2018-05-15 Completed [facility] Vaccine Quad .5 mL 00:00:00 [facility] Influenza Virus 2018-05-15 Completed [facility] Vaccine Quad .5 mL 00:00:00 [facility] Influenza Virus 2018-05-15 Completed [facility] Vaccine Quad .5 mL 00:00:00 [facility] Influenza Virus 2018-05-15 Completed [facility] Vaccine Quad .5 mL 00:00:00 [facility] Influenza Virus 2018-05-15 Completed [facility] .5 mL 00:00:00 [facility] Influenza Virus 2018-05-15 Completed [facility] Quad .5 mL 00:00:00 [facility] Influenza Virus 2018-05-15 Completed [facility] Quad .5 mL 00:00:00 [facility] Influenza Virus 2018-05-15 Completed [facility] Vaccine Quad .5 mL 00:00:00 [facility] Influenza Virus 2018-05-15 Completed [facility] Vaccine Quad .5 mL 00:00:00 [facility] Influenza Virus 2018-05-15 Completed [facility] Vaccine Quad .5 mL 00:00:00 [facility] Influenza Virus 2018-05-15 Completed [facility] Vaccine Quad .5 mL 00:00:00 [facility] Influenza Virus 2018-05-15 Completed [facility] Vaccine Quad .5 mL 00:00:00 [facility] Influenza Virus 2018-05-15 Completed [facility] Vaccine Quad .5 mL 00:00:00 [facility] Influenza Virus 2018-05-15 Completed [facility] Vaccine Quad .5 mL 00:00:00 [facility] Influenza Virus 2018-05-15 Completed [facility] Vaccine Quad .5 mL 00:00:00 [facility] Influenza Virus 2018-05-15 Completed [facility] Vaccine Quad .5 mL 00:00:00 [facility] Influenza Virus 2018-05-15 Completed [facility] Vaccine Quad .5 mL 00:00:00 [facility] Influenza Virus 2018-05-15 Completed [facility] Vaccine Quad .5 mL 00:00:00 [facility] Influenza Virus 2018-05-15 Completed [facility] Vaccine Quad .5 mL 00:00:00 [facility] Influenza Virus 2018-05-15 Completed [facility] of Vaccine Quad .5 mL 00:00:00 [facility] Influenza Virus 2018-05-15 Completed [facility] Vaccine Quad .5 mL 00:00:00 [facility] Influenza Virus 2018-05-15 Completed [facility] Vaccine Quad .5 mL 00:00:00 [facility] Influenza Virus 2018-05-15 Completed [facility] Vaccine Quad .5 mL 00:00:00 [facility] Influenza Virus 2017-02-25 Completed [facility] of Vaccine Quad IM 3+ 00:00:00 [facility] Influenza Virus 2017-02-25 Completed [facility] y of Vaccine Quad IM 3+ 00:00:00 [facility] Influenza Virus 2017-02-25 Completed [facility] y of Vaccine Quad IM 3+ 00:00:00 [facility] Influenza Virus 2017-02-25 Completed [facility] y of Vaccine Quad IM 3+ 00:00: [facility] Influenza Virus 2017-02-25 Completed [facility] y of Vaccine Quad IM 3+ 00:00:00 [facility] Influenza Virus 2017-02-25 Completed [facility] y of Vaccine Quad IM 3+ 00:00:00 [facility] Influenza Virus 2017-02-25 Completed [facility] y of Vaccine Quad IM 3+ 00:00:00 [facility] Influenza Virus 2017-02-25 Completed [facility] y of Vaccine Quad IM 3+ 00:00:00 [facility] Influenza Virus 2017-02-25 Completed [facility] y of Vaccine Quad IM 3+ 00:00:00 [facility] Influenza Virus 2017-02-25 Completed [facility] y of Vaccine Quad IM 3+ 00:00:00 [facility] Influenza Virus 2017-02-25 Completed [facility] y of Vaccine Quad IM 3+ 00:00:00 [facility] Influenza Virus 2017-02-25 Completed [facility] y of Vaccine Quad IM 3+ 00:00:00 [facility] Influenza Virus 2017-02-25 Completed [facility] y of Vaccine Quad IM 3+ 00:00:00 [facility] Influenza Virus 2017-02-25 Completed [facility] y of Vaccine Quad IM 3+ 00:00:00 [facility] Influenza Virus 2017-02-25 Completed [facility] y of Vaccine Quad IM 3+ 00:00:00 [facility] Influenza Virus 2017-02-25 Completed [facility] y of Vaccine Quad IM 3+ 00:00:00 [facility] Influenza Virus 2017-02-25 Completed [facility] y of Vaccine Quad IM 3+ 00:00:00 [facility] Influenza Virus 2017-02-25 Completed [facility] y of Vaccine Quad IM 3+ 00:00:00 [facility] Influenza Virus 2017-02-25 Completed [facility] y of Vaccine Quad IM 3+ 00:00:00 [facility] Influenza Virus 2017-02-25 Completed [facility] y of Vaccine Quad IM 3+ 00:00:00 [facility] Influenza Virus 2017-02-25 Completed [facility] y of Vaccine Quad IM 3+ 00:00:00 [facility] Influenza Virus 2017-02-25 Completed [facility] y of Vaccine Quad IM 3+ 00:00:00 [facility] Influenza Virus 2017-02-25 Completed [facility] y of Vaccine Quad IM 3+ 00:00:00 [facility] Influenza Virus 2017-02-25 Completed [facility] y of Vaccine Quad IM 3+ 00:00:00 [facility] Influenza Virus 2017-02-25 Completed [facility] y of Vaccine Quad IM 3+ 00:00:00 [facility] Influenza Virus 2017-02-25 Completed [facility] y of Vaccine Quad IM 3+ 00:00:00 [facility] Influenza Virus 2017-02-25 Completed [facility] y of Vaccine Quad IM 3+ 00:00:00 [facility] Influenza Virus 2017-02-25 Completed [facility] y of Vaccine Quad IM 3+ 00:00:00 [facility] Influenza Virus 2017-02-25 Completed [facility] y of Vaccine Quad IM 3+ 00:00:00 [facility] Influenza Virus 2017-02-25 Completed [facility] y of Vaccine Quad IM 3+ 00:00:00 [facility] Influenza Virus 2017-02-25 Completed [facility] y of Vaccine Quad IM 3+ 00:00:00 [facility] Influenza Virus 2017-02-25 Completed [facility] y of Vaccine Quad IM 3+ 00:00:00 [facility] Influenza Virus 2017-02-25 Completed [facility] y of Vaccine Quad IM 3+ 00:00:00 [facility] Influenza Virus 2017-02-25 Completed [facility] y of Vaccine Quad IM 3+ 00:00:00 [facility] Influenza Virus 2017-02-25 Completed [facility] y of Vaccine Quad IM 3+ 00:00:00 [facility] Influenza Virus 2017-02-25 Completed [facility] y of Vaccine Quad IM 3+ 00:00:00 [facility] Influenza Virus 2017-02-25 Completed [facility] y of Vaccine Quad IM 3+ 00:00:00 [facility] Influenza Virus 2017-02-25 Completed [facility] y of Vaccine Quad IM 3+ 00:00:00 [facility] Influenza Virus 2017-02-25 Completed [facility] of Vaccine Quad IM 3+ 00:00:00 [facility] Influenza Virus 2017-02-25 Completed [facility] y of Vaccine Quad IM 3+ 00:00:00 [facility] Influenza Virus 2017-02-25 Completed [facility] y of Vaccine Quad IM 3+ 00:00:00 [facility] Influenza Virus 2017-02-25 Completed [facility] y of Vaccine Quad IM 3+ 00:00:00 [facility] Influenza Virus 2017-02-25 Completed [facility] y of Vaccine Quad IM 3+ 00:00:00 [facility] Influenza Virus 2017-02-25 Completed [facility] y of Vaccine Quad IM 3+ 00:00:00 [facility] Influenza Virus 2017-02-25 Completed [facility] y of Vaccine Quad IM 3+ 00:00:00 [facility] Influenza Virus 2017-02-25 Completed [facility] y of Vaccine Quad IM 3+ 00:00:00 [facility] Influenza Virus 2017-02-25 Completed [facility] y of Vaccine Quad IM 3+ 00:00:00 [facility] Influenza Virus 2017-02-25 Completed [facility] y of Vaccine Quad IM 3+ 00:00:00 [facility] Influenza Virus 2017-02-25 Completed [facility] y of Vaccine Quad IM 3+ 00:00:00 [facility] Influenza Virus 2017-02-25 Completed [facility] y of Vaccine Quad IM 3+ 00:00:00 [facility] Influenza Virus 2017-02-25 Completed [facility] y of Vaccine Quad IM 3+ 00:00:00 [facility] Influenza Virus 2017-02-25 Completed [facility] y of Vaccine Quad IM 3+ 00:00:00 [facility] Influenza Virus 2017-02-25 Completed [facility] y of Vaccine Quad IM 3+ 00:00:00 [facility] Influenza Virus 2017-02-25 Completed [facility] y of Vaccine Quad IM 3+ 00:00:00 [facility] Influenza Virus 2017-02-25 Completed [facility] y of Vaccine Quad IM 3+ 00:00:00 [facility] Influenza Virus 2017-02-25 Completed [facility] y of Vaccine Quad IM 3+ 00:00:00 [facility] Influenza Virus 2017-02-25 Completed [facility] y of Vaccine Quad IM 3+ 00:00:00 [facility] Influenza Virus 2017-02-25 Completed [facility] y of Vaccine Quad IM 3+ 00:00:00 [facility] Influenza Virus 2017-02-25 Completed [facility] y of Vaccine Quad IM 3+ 00:00:00 [facility] Influenza Virus 2017-02-25 Completed [facility] of Vaccine Quad IM 3+ 00:00:00 [facility] Influenza Virus 2017-02-25 Completed [facility] y of Vaccine Quad IM 3+ 00:00:00 [facility] Influenza Virus 2017-02-25 Completed [facility] y of Vaccine Quad IM 3+ 00:00:00 [facility] Influenza Virus 2017-02-25 Completed [facility] y of Vaccine Quad IM 3+ 00:00:00 [facility] Influenza Virus 2017-02-25 Completed [facility] y of Vaccine Quad IM 3+ 00:00:00 [facility] Pneumococcal 2013-03-24 Completed [facility] o f Polysaccharide, 00:00:00 [facility] PPSV23 (PNEUMOVAX) Branch Influenza Virus 2013-03-24 Completed [facility]it y of Vaccine (3+ yrs) 00:00:00 [facility] Pneumococcal 2013-03-24 Completed [facility] o f Polysaccharide, 00:00:00 [facility] PPSV23 (PNEUMOVAX) Branch Influenza Virus 2013-03-24 Completed [facility] y of Vaccine (3+ yrs) 00:00:00 [facility] Pneumococcal 2013-03-24 Completed [facility] o f Polysaccharide, 00:00:00 [facility] PPSV23 (PNEUMOVAX) Branch Influenza Virus 2013-03-24 Completed [facility] y of Vaccine (3+ yrs) 00:00:00 [facility] Pneumococcal 2013-03-24 Completed [facility] o f Polysaccharide, 00:00:00 [facility] PPSV23 (PNEUMOVAX) Branch Influenza Virus 2013-03-24 Completed [facility] y of Vaccine (3+ yrs) 00:00:00 [facility] Pneumococcal 2013-03-24 Completed [facility] o f Polysaccharide, 00:00:00 [facility] PPSV23 (PNEUMOVAX) Branch Influenza Virus 2013-03-24 Completed [facility] y of Vaccine (3+ yrs) 00:00:00 [facility] Pneumococcal 2013-03-24 Completed [facility] o f Polysaccharide, 00:00:00 [facility] PPSV23 (PNEUMOVAX) Branch Influenza Virus 2013-03-24 Completed [facility] y of Vaccine (3+ yrs) 00:00:00 [facility] Pneumococcal 2013-03-24 Completed [facility] o f Polysaccharide, 00:00:00 [facility] PPSV23 (PNEUMOVAX) Branch Influenza Virus 2013-03-24 Completed [facility] y of Vaccine (3+ yrs) 00:00:00 [facility] Branch Pneumococcal 2013-03-24 Completed [facility] o f Polysaccharide, 00:00:00 [facility] PPSV23 (PNEUMOVAX) Branch Influenza Virus 2013-03-24 Completed [facility] (3+ yrs) 00:00[facility]24 Com[facility] o f Polysaccharide, 00:00:00 [facility] PPSV23 (PNEUMOVAX) Branch Influenza Virus 2013-03-24 Completed [facility] y of Vaccine (3+ yrs) 00:00:00 [facility] Pneumococcal 2013-03-24 Completed [facility] o f Polysaccharide, 00:00:00 [facility] PPSV23 (PNEUMOVAX) Branch Influenza Virus 2013-03-24 Completed [facility] y of Vaccine (3+ yrs) 00:00:00 [facility] Pneumococcal 2013-03-24 Completed [facility] o f Polysaccharide, 00:00:00 [facility] PPSV23 (PNEUMOVAX) Branch Influenza Virus 2013-03-24 Completed [facility] y of Vaccine (3+ yrs) 00:00:00 [facility] Pneumococcal 2013-03-24 Completed [facility] o f Polysaccharide, 00:00:00 [facility] PPSV23 (PNEUMOVAX) Branch Influenza Virus 2013-03-24 Completed [facility] y of Vaccine (3+ yrs) 00:00:00 [facility] Pneumococcal 2013-03-24 Completed [facility] o f Polysaccharide, 00:00:00 [facility] PPSV23 (PNEUMOVAX) Branch Influenza Virus 2013-03-24 Completed [facility] of Vaccine (3+ yrs) 00:00:00 [facility] Pneumococcal 2013-03-24 Completed [facility] o f Polysaccharide, 00:00:00 [facility] PPSV23 (PNEUMOVAX) Branch Influenza Virus 2013-03-24 Completed [facility] y of Vaccine (3+ yrs) 00:00:00 [facility] Pneumococcal 2013-03-24 Completed [facility] o f Polysaccharide, 00:00:00 [facility] PPSV23 (PNEUMOVAX) Branch Influenza Virus 2013-03-24 Completed [facility] of Vaccine (3+ yrs) 00:00:00 [facility] Pneumococcal 2013-03-24 Completed [facility] o f Polysaccharide, 00:00:00 [facility] PPSV23 (PNEUMOVAX) Branch Influenza Virus 2013-03-24 Completed [facility] of Vaccine (3+ yrs) 00:00:00 [facility] Pneumococcal 2013-03-24 Completed [facility] o f Polysaccharide, 00:00:00 [facility] PPSV23 (PNEUMOVAX) Branch Influenza Virus 2013-03-24 Completed [facility] Vaccine (3+ yrs) 00:00[facility] 2013-[facility]24 Completed [facility] o f Polysaccharide, 00:00:00 [facility] PPSV23 (PNEUMOVAX) Branch Influenza Virus 2013-03-24 Completed [facility] of Vaccine (3+ yrs) 00:00:00 [facility] Pneumococcal 2013-03-24 Completed [facility] o f Polysaccharide, 00:00:00 [facility] PPSV23 (PNEUMOVAX) Branch Influenza Virus 2013-03-24 Completed [facility] of Vaccine (3+ yrs) 00:00:00 [facility] Pneumococcal 2013-03-24 Completed [facility] o f Polysaccharide, 00:00:00 [facility] PPSV23 (PNEUMOVAX) Branch Influenza Virus 2013-03-24 Completed [facility] of Vaccine (3+ yrs) 00:00:00 [facility] Pneumococcal 2013-03-24 Completed [facility] o f Polysaccharide, 00:00:00 [facility] PPSV23 (PNEUMOVAX) Branch Influenza Virus 2013-03-24 Completed [facility] of Vaccine (3+ yrs) 00:00:00 [facility] Pneumococcal 2013-03-24 Completed [facility] o f Polysaccharide, 00:00:00 [facility] PPSV23 (PNEUMOVAX) Branch Influenza Virus 2013-03-24 Completed [facility] of Vaccine (3+ yrs) 00:00:00 [facility] Pneumococcal 2013-03-24 Completed [facility] o f Polysaccharide, 00:00:00 [facility] PPSV23 (PNEUMOVAX) Branch Influenza Virus 2013-03-24 Completed [facility] of Vaccine (3+ yrs) 00:00:00 [facility] Pneumococcal 2013-03-24 Completed [facility] o f Polysaccharide, 00:00:00 [facility] PPSV23 (PNEUMOVAX) Branch Influenza Virus 2013-03-24 Completed [facility] of Vaccine (3+ yrs) 00:00:00 [facility] Pneumococcal 2013-03-24 Completed [facility] o f Polysaccharide, 00:00:00 [facility] PPSV23 (PNEUMOVAX) Branch Influenza Virus 2013-03-24 Completed [facility] of Vaccine (3+ yrs) 00:00:00 [facility] Pneumococcal 2013-03-24 Completed [facility] o f Polysaccharide, 00:00:00 [facility] PPSV23 (PNEUMOVAX) Branch Influenza Virus 2013-03-24 Completed [facility] of Vaccine (3+ yrs) 00:00:00 [facility] Pneumococcal 2013-03-24 Completed [facility] o f Polysaccharide, 00:00:00 [facility] PPSV23 (PNEUMOVAX) Branch Influenza Virus 2013-03-24 Completed [facility] of Vaccine (3+ yrs) 00:00:00 [facility] Pneumococcal 2013-03-24 Completed [facility] Polysaccharide, 00:00:00 [facility] PPSV23 (PNEUMOVAX) Branch Influenza Virus 2013-03-24 Completed Universit y of Vaccine (3+ yrs) 00:00:00 [facility] Pneumococcal 2013-03-24 Completed [facility] o f Polysaccharide, 00:00:00 [facility] PPSV23 (PNEUMOVAX) Branch Influenza Virus 2013-03-24 Completed Universit y of Vaccine (3+ yrs) 00:00:00 [facility] Pneumococcal 2013-03-24 Completed [facility] o f Polysaccharide, 00:00:00 [facility] PPSV23 (PNEUMOVAX) Branch Influenza Virus 2013-03-24 Completed Universit y of Vaccine (3+ yrs) 00:00:00 [facility] Pneumococcal 2013-03-24 Completed [facility] o f Polysaccharide, 00:00:00 [facility] PPSV23 (PNEUMOVAX) Branch Influenza Virus 2013-03-24 Completed [facility]it y of Vaccine (3+ yrs) 00:00:00 [facility] Pneumococcal 2013-03-24 Completed [facility] o f Polysaccharide, 00:00:00 [facility] PPSV23 (PNEUMOVAX) Branch Influenza Virus 2013-03-24 Completed Universit y of Vaccine (3+ yrs) 00:00:00 [facility] Pneumococcal 2013-03-24 Completed [facility] o f Polysaccharide, 00:00:00 [place] [facility] PPSV23 (PNEUMOVAX) Branch Influenza Virus 2013-03-24 Completed [facility] Vaccine (3+ yrs) 00:00[facility]00 [facility] 2013-03-24 Completed [facility] o f Polysaccharide, 00:00:00 [place] [facility] PPSV23 (PNEUMOVAX) Branch Influenza Virus 2013-03-24 Completed Universit y of Vaccine (3+ yrs) 00:00:00 [facility] Pneumococcal 2013-03-24 Completed [facility] o f Polysaccharide, 00:00:00 [place] [facility] PPSV23 (PNEUMOVAX) Branch Influenza Virus 2013-03-24 Completed Universit y of Vaccine (3+ yrs) 00:00:00 [facility] Pneumococcal 2013-03-24 Completed [facility] o f Polysaccharide, 00:00:00 [facility] PPSV23 (PNEUMOVAX) Branch Influenza Virus 2013-03-24 Completed Universit y of Vaccine (3+ yrs) 00:00:00 [facility] Pneumococcal 2013-03-24 Completed University o f Polysaccharide, 00:00:00 [facility] ical PPSV23 (PNEUMOVAX) Branch Influenza Virus 2013-03-24 Completed Universit y of Vaccine (3+ yrs) 00:00:00 [facility] Pneumococcal 2013-03-24 Completed [facility] o f Polysaccharide, 00:00:00 [place] [facility] PPSV23 (PNEUMOVAX) Branch Influenza Virus 2013-03-24 Completed [facility]it y of Vaccine (3+ yrs) 00:00:00 [facility] Pneumococcal 2013-03-24 Completed [facility] o f Polysaccharide, 00:00:00 [place] [facility] PPSV23 (PNEUMOVAX) Branch Influenza Virus 2013-03-24 Completed [facility]it y of Vaccine (3+ yrs) 00:00:00 [facility] Pneumococcal 2013-03-24 Completed [facility] o f Polysaccharide, 00:00:00 [place] [facility] PPSV23 (PNEUMOVAX) Branch Influenza Virus 2013-03-24 Completed [facility]it y of Vaccine (3+ yrs) 00:00:00 [facility] Pneumococcal 2013-03-24 Completed [facility] o f Polysaccharide, 00:00:00 [place] [facility] PPSV23 (PNEUMOVAX) Branch Influenza Virus 2013-03-24 Completed [facility]it y of Vaccine (3+ yrs) 00:00:00 [facility] Pneumococcal 2013-03-24 Completed [facility] o f Polysaccharide, 00:00:00 [place] [facility] PPSV23 (PNEUMOVAX) Branch Influenza Virus 2013-03-24 Completed [facility]it y of Vaccine (3+ yrs) 00:00:00 [facility] Pneumococcal 2013-03-24 Completed [facility] o f Polysaccharide, 00:00:00 [place] [facility] PPSV23 (PNEUMOVAX) Branch Influenza Virus 2013-03-24 Completed [facility]it y of Vaccine (3+ yrs) 00:00:00 [facility] Pneumococcal 2013-03-24 Completed [facility] o f Polysaccharide, 00:00:00 [place] [facility] PPSV23 (PNEUMOVAX) Branch Influenza Virus 2013-03-24 Completed [facility]it y of Vaccine (3+ yrs) 00:00:00 [facility] Pneumococcal 2013-03-24 Completed [facility] o f Polysaccharide, 00:00:00 [place] [facility] PPSV23 (PNEUMOVAX) Branch Influenza Virus 2013-03-24 Completed [facility]it y of Vaccine (3+ yrs) 00:00:00 [facility] Pneumococcal 2013-03-24 Completed [facility] o f Polysaccharide, 00:00:00 [place] [facility] PPSV23 (PNEUMOVAX) Branch Influenza Virus 2013-03-24 Completed [facility]it y of Vaccine (3+ yrs) 00:00:00 [facility] Pneumococcal 2013-03-24 Completed [facility] o f Polysaccharide, 00:00:00 [place] [facility] PPSV23 (PNEUMOVAX) Branch Influenza Virus 2013-03-24 Completed [facility]it y of Vaccine (3+ yrs) 00:00:00 [facility] Pneumococcal 2013-03-24 Completed [facility] o f Polysaccharide, 00:00:00 [place] [facility] PPSV23 (PNEUMOVAX) Branch Influenza Virus 2013-03-24 Completed [facility]it y of Vaccine (3+ yrs) 00:00:00 [facility] Pneumococcal 2013-03-24 Completed [facility] o f Polysaccharide, 00:00:00 [place] [facility] PPSV23 (PNEUMOVAX) Branch Influenza Virus 2013-03-24 Completed [facility]it y of Vaccine (3+ yrs) 00:00:00 [facility] Pneumococcal 2013-03-24 Completed [facility] o f Polysaccharide, 00:00:00 [place] [facility] PPSV23 (PNEUMOVAX) Branch Influenza Virus 2013-03-24 Completed [facility] of Vaccine (3+ yrs) 00:00:00 [facility] Pneumococcal 2013-03-24 Completed [facility] o f Polysaccharide, 00:00:00 [place] [facility] PPSV23 (PNEUMOVAX) Branch Influenza Virus 2013-03-24 Completed Universit y of Vaccine (3+ yrs) 00:00:00 [facility] Pneumococcal 2013-03-24 Completed [facility] o f Polysaccharide, 00:00:00 [place] [facility] PPSV23 (PNEUMOVAX) Branch Influenza Virus 2013-03-24 Completed [facility]it y of Vaccine (3+ yrs) 00:00:00 [facility] Pneumococcal 2013-03-24 Completed [facility] o f Polysaccharide, 00:00:00 [place] [facility] PPSV23 (PNEUMOVAX) Branch Influenza Virus 2013-03-24 Completed [facility]it [facility] of Vaccine (3+ yrs) 00:00:00 [facility] Pneumococcal 2013-03-24 Completed [facility] o f Polysaccharide, 00:00:00 [place] [facility] PPSV23 (PNEUMOVAX) Branch Influenza Virus 2013-03-24 Completed [facility]it y of Vaccine (3+ yrs) 00:00:00 [facility] Pneumococcal 2013-03-24 Completed [facility] o f Polysaccharide, 00:00:00 [place] [facility] PPSV23 (PNEUMOVAX) Branch Influenza Virus 2013-03-24 Completed [facility]it y of Vaccine (3+ yrs) 00:00:00 [facility] Pneumococcal 2013-03-24 Completed [facility] o f Polysaccharide, 00:00:00 [place] [facility] PPSV23 (PNEUMOVAX) Branch Influenza Virus 2013-03-24 Completed [facility]it y of Vaccine (3+ yrs) 00:00:00 [facility] Pneumococcal 2013-03-24 Completed [facility] o f Polysaccharide, 00:00:00 [place] [facility] PPSV23 (PNEUMOVAX) Branch Influenza Virus 2013-03-24 Completed [facility]it y of Vaccine (3+ yrs) 00:00:00 [facility] Pneumococcal 2013-03-24 Completed [facility] o f Polysaccharide, 00:00:00 [place] [facility] PPSV23 (PNEUMOVAX) Branch Influenza Virus 2013-03-24 Completed [facility]it y of Vaccine (3+ yrs) 00:00:00 [facility] Pneumococcal 2013-03-24 Completed [facility] o f Polysaccharide, 00:00:00 [place] [facility] PPSV23 (PNEUMOVAX) Branch Influenza Virus 2013-03-24 Completed Universit y of Vaccine (3+ yrs) 00:00:00 [facility] Pneumococcal 2013-03-24 Completed [facility] o f Polysaccharide, 00:00:00 [place] [facility] PPSV23 (PNEUMOVAX) Branch Influenza Virus 2013-03-24 Completed Universit y of Vaccine (3+ yrs) 00:00:00 [facility] Branch Pneumococcal 2013-03-24 Completed [facility] o f Polysaccharide, 00:00:00 [place] [facility] PPSV23 (PNEUMOVAX) Branch Influenza Virus 2013-03-24 Completed Universit y of Vaccine (3+ yrs) 00:00:00 [facility] Pneumococcal 2013-03-24 Completed [facility] o f Polysaccharide, 00:00:00 [place] [facility] PPSV23 (PNEUMOVAX) Branch Influenza Virus 2013-03-24 Completed Universit y of Vaccine (3+ yrs) 00:00:00 [facility] Branch Pneumococcal 2013-03-24 Completed [facility] o f Polysaccharide, 00:00:00 [place] [facility] PPSV23 (PNEUMOVAX) Branch Influenza Virus 2013-03-24 Completed Universit y of Vaccine (3+ yrs) 00:00:00 [facility] Branch Pneumococcal 2013-03-24 Completed [facility] o f Polysaccharide, 00:00:00 [place] [facility] PPSV23 (PNEUMOVAX) Branch Influenza Virus 2013-03-24 Completed Universit y of Vaccine (3+ yrs) 00:00:00 [facility] Vital Signs Vital Name Observation Time Observation Value Comments Source Systolic blood 2022-12-24 15:32:00 136 mm[Hg] Univer sity of pressure [facility] Diastolic blood 2022-12-24 15:32:00 74 mm[Hg] Unive rsity of pressure [facility] Heart rate 2022-12-24 15:32:00 72 /min [facility] Body temperature 2022-12-24 15:32:00 36.17 Izabella [facility] [place] [facility] 2022-12-24 15:32:00 18 /min [facility] Body height 2022-12-24 15:32:00 167.6 cm [facility] Body weight 2022-12-24 15:32:00 68.992 kg [facility] BMI 2022-12-24 15:32:00 24.55 kg/m2 [facility] Oxygen saturation in 2022-12-24 15:32:00 100 /min [facility] of Arterial blood by [facility] Pulse oximetry Branch Systolic blood 2022-12-17 17:10:00 136 mm[Hg] Univer sity of pressure [facility] Diastolic blood 2022-12-17 17:10:00 79 mm[Hg] Unive rsity of pressure [facility] Heart rate 2022-12-17 17:10:00 97 /min [facility] Body temperature 2022-12-17 17:10:00 36.39 Izabella [facility] ers[facility] Body height 2022-12-17 17:10:00 170.2 cm [facility] Body weight 2022-12-17 17:10:00 69.99 kg [facility] BMI 2022-12-17 17:10:00 24.17 kg/m2 [facility] Oxygen saturation in 2022-12-17 17:10:00 97 /min [facility] Arterial blood by [facility] Pulse oximetry Branch Body temperature 2022-11-19 14:21:00 36.28 Izabella [facility] Body weight 2022-11-19 14:21:00 70.308 kg [facility] BMI 2022-11-19 14:21:00 25.02 kg/m2 [facility] Systolic blood 2022-11-01 19:54:00 138 mm[Hg] Univer sity of pressure [facility] Diastolic blood 2022-11-01 19:54:00 77 mm[Hg] Unive rsity of pressure [facility] Heart rate 2022-11-01 19:54:00 97 /min [facility] Body temperature 2022-11-01 19:54:00 36.5 Izabella [facility] Respiratory rate 2022-11-01 19:54:00 18 /min Univ ersity [facility] Oxygen saturation in 2022-11-01 19:54:00 98 /min [facility] Arterial blood by [facility] Pulse oximetry Branch Systolic blood 2022-10-09 20:45:00 139 mm[Hg] Univer sity of pressure [facility] Diastolic blood 2022-10-09 20:45:00 79 mm[Hg] Unive rsity of pressure [facility] Heart rate 2022-10-09 20:45:00 92 /min [facility] Body temperature 2022-10-09 20:45:00 36.67 Izabella [facility] Respiratory rate 2022-10-09 20:45:00 18 /min Univ ersity [facility] Body weight 2022-10-09 20:45:00 68.493 kg [facility] BMI 2022-10-09 20:45:00 24.37 kg/m2 [facility] Oxygen saturation in 2022-10-09 20:45:00 98 /min [facility] of Arterial blood by [facility] Pulse oximetry Branch Systolic blood 2022-10-02 18:33:00 142 mm[Hg] Univer sity of pressure [facility] Diastolic blood 2022-10-02 18:33:00 74 mm[Hg] Unive rsity of pressure [facility] Heart rate 2022-10-02 18:33:00 88 /min [facility] Body temperature 2022-10-02 18:33:00 36.67 Izabella [facility] Respiratory rate 2022-10-02 18:33:00 18 /min [facility] ers[facility] Body weight 2022-10-02 18:33:00 68.493 kg [facility] BMI 2022-10-02 18:33:00 24.37 kg/m2 [facility] Oxygen saturation in 2022-10-02 18:33:00 98 /min [facility] Arterial blood by [facility] Pulse oximetry Branch Systolic blood 2022-09-25 19:47:00 152 mm[Hg] Univer sity of pressure [facility] Diastolic blood 2022-09-25 19:47:00 80 mm[Hg] Unive rsity of pressure [facility] Heart rate 2022-09-25 19:45:00 82 /min [facility] Body temperature 2022-09-25 19:45:00 36.94 Izabella [facility] Respiratory rate 2022-09-25 19:45:00 18 /min Univ ersity [facility] Body weight 2022-09-25 19:45:00 68.629 kg [facility] BMI 2022-09-25 19:45:00 24.42 kg/m2 [facility] Oxygen saturation in 2022-09-25 19:45:00 99 /min [facility] of Arterial blood by [facility] zita Pulse oximetry Branch Systolic blood 2022-09-20 19:30:00 154 mm[Hg] Univer sity of pressure [facility] Diastolic blood 2022-09-20 19:30:00 82 mm[Hg] Unive rsity of pressure [facility] Heart rate 2022-09-20 19:29:00 98 /min [facility] Body temperature 2022-09-20 19:29:00 36.78 Izabella [facility] Respiratory rate 2022-09-20 19:29:00 18 /min Univ ersity [facility] Body height 2022-09-20 19:29:00 167.6 cm [facility] Body weight 2022-09-20 19:29:00 68.901 kg [facility] BMI 2022-09-20 19:29:00 24.52 kg/m2 [facility] Oxygen saturation in 2022-09-20 19:29:00 99 /min [facility] Arterial blood by [facility] Pulse oximetry Branch Body temperature 2022-09-17 18:13:00 36.5 Izabella [facility] Body weight 2022-09-17 18:13:00 68.811 kg [facility] BMI 2022-09-17 18:13:00 24.49 kg/m2 [facility] Systolic blood 2022-09-10 20:10:00 150 mm[Hg] Univer sity of pressure [facility] Diastolic blood 2022-09-10 20:10:00 85 mm[Hg] Unive rsity of pressure [facility] Heart rate 2022-09-10 20:10:00 92 /min [facility] Body temperature 2022-09-10 20:10:00 36.78 Izabella [facility] Respiratory rate 2022-09-10 20:10:00 15 /min Univ ersity [facility] Body weight 2022-09-10 20:10:00 71.215 kg [facility] BMI 2022-09-10 20:10:00 25.34 kg/m2 [facility] Oxygen saturation in 2022-09-10 20:10:00 96 /min [facility] of Arterial blood by [place] [employer] zita Pulse oximetry Branch Systolic blood 2022-09-10 18:10:00 138 mm[Hg] Univer sity of pressure [facility] Diastolic blood 2022-09-10 18:10:00 81 mm[Hg] Unive rsity of pressure [facility] Heart rate 2022-09-10 18:10:00 87 /min [facility] Body temperature 2022-09-10 18:10:00 36.33 Izabella [facility] Respiratory rate 2022-09-10 18:10:00 16 /min Univ ersity [facility] Body height 2022-09-10 18:10:00 167.6 cm [facility] Body weight 2022-09-10 18:10:00 71.215 kg [facility] BMI 2022-09-10 18:10:00 25.34 kg/m2 [facility] Systolic blood 2022-09-06 18:18:00 134 mm[Hg] Univer sity of pressure [facility] Diastolic blood 2022-09-06 18:18:00 91 mm[Hg] Unive rsity of pressure [facility] Heart rate 2022-09-06 18:18:00 111 /min [facility] Body temperature 2022-09-06 18:18:00 36.17 Izabella [facility] Oxygen saturation in 2022-09-06 18:18:00 100 /min [facility] Arterial blood by [facility] Pulse oximetry Branch Respiratory rate 2022-09-06 08:41:00 18 /min Univ ersity [facility] Body height 2022-09-05 01:25:00 172.7 cm [facility] Body weight 2022-09-05 01:25:00 104.327 kg [facility] BMI 2022-09-05 01:25:00 34.97 kg/m2 [facility] Systolic blood 2022-06-28 21:31:00 161 mm[Hg] Univer sity of pressure [facility] Diastolic blood 2022-06-28 21:31:00 94 mm[Hg] Unive rsity of pressure [facility] Heart rate 2022-06-28 21:23:00 90 /min [facility] Respiratory rate 2022-06-28 21:23:00 16 /min Univ ersity of [facility] Body height 2022-06-28 21:23:00 167.6 cm [facility] [place] [facility] [place] Body weight 2022-06-28 21:23:00 71.986 kg [facility] BMI 2022-06-28 21:23:00 25.61 kg/m2 Universi ty of [facility] Oxygen saturation in 2022-06-28 21:23:00 99 /min [place] of Arterial blood by [facility] Pulse oximetry Branch Body temperature 2022-06-13 21:02:00 36.39 Izabella Univ ersity of [facility] Body height 2022-06-13 21:02:00 167.6 cm [facility] Body weight 2022-06-13 21:02:00 72.576 kg [facility] BMI 2022-06-13 21:02:00 25.82 kg/m2 [facility] Systolic blood 2022-06-13 00:19:00 182 mm[Hg] Univer sity of pressure [facility] Diastolic blood 2022-06-13 00:19:00 104 mm[Hg] Unive rsity of pressure [facility] Heart rate 2022-06-13 00:19:00 103 /min Universi ty of [facility] Body temperature 2022-06-13 00:19:00 36.78 Izabella Univ ersity of [facility] Respiratory rate 2022-06-13 00:19:00 18 /min Univ [facility] [place] Body weight 2022-06-13 00:19:00 72.576 kg [facility] [place] BMI 2022-06-13 00:19:00 25.82 kg/m2 [facility] Oxygen saturation in 2022-06-13 00:19:00 99 /min [facility] of Arterial blood by [place] [employer] [facility] Pulse oximetry Branch Systolic blood 2022-06-07 17:42:00 150 mm[Hg] Univer sity of pressure [facility] Diastolic blood 2022-06-07 17:42:00 93 mm[Hg] Unive rsity of pressure [facility] Heart rate 2022-06-07 17:42:00 88 /min [facility] Body temperature 2022-06-07 17:42:00 36.56 Izabella [facility] Respiratory rate 2022-06-07 17:42:00 16 /min Univ ers[facility] Body height 2022-06-07 17:42:00 167.6 cm [facility] Body weight 2022-06-07 17:42:00 72.576 kg [facility] BMI 2022-06-07 17:42:00 25.82 kg/m2 [facility] Oxygen saturation in 2022-06-07 17:42:00 97 /min [facility] of Arterial blood by [facility] Pulse oximetry Branch Body temperature 2022-04-23 16:16:00 36.17 Iz[place] [facility] Body weight 2022-04-23 16:16:00 69.854 kg [facility] BMI 2022-04-23 16:16:00 24.86 kg/m2 [facility] Systolic blood 2022-04-08 19:11:00 121 mm[Hg] Univer sity of pressure [facility] Diastolic blood 2022-04-08 19:11:00 79 mm[Hg] Unive rsity of pressure [facility] Heart rate 2022-04-08 19:08:00 81 /min [facility] Body temperature 2022-04-08 19:08:00 36.67 Iz[place] [facility] Body height 2022-04-08 19:08:00 167.6 cm [facility] Body weight 2022-04-08 19:08:00 75.751 kg [facility] BMI 2022-04-08 19:08:00 26.95 kg/m2 [facility] Oxygen saturation in 2022-04-08 19:08:00 99 /min [facility] of Arterial blood by [facility] Pulse oximetry Branch Systolic blood 2022-04-01 22:36:00 158 mm[Hg] Univer sity of pressure [facility] Diastolic blood 2022-04-01 22:36:00 94 mm[Hg] Unive rsity of pressure [facility] Heart rate 2022-04-01 22:36:00 72 /min [facility] Body temperature 2022-04-01 22:36:00 37.56 Izabella [facility] Respiratory rate 2022-04-01 22:36:00 16 /min Univ ersity [facility] Oxygen saturation in 2022-04-01 22:36:00 93 /min [facility] of Arterial blood by [facility] Pulse oximetry Branch Body height 2022-03-31 23:55:00 167.6 cm [facility] Body weight 2022-03-31 23:55:00 70.5 kg [facility] BMI 2022-03-31 23:55:00 25.09 kg/m2 [facility] Systolic blood 2022-03-30 11:51:00 127 mm[Hg] Univer sity of pressure [facility] Diastolic blood 2022-03-30 11:51:00 72 mm[Hg] Unive rsity of pressure [facility] Heart rate 2022-03-30 11:51:00 79 /min [facility] Body temperature 2022-03-30 11:51:00 36 Iz[place] [facility] Respiratory rate 2022-03-30 11:51:00 14 /min Univ ersity [facility] Oxygen saturation in 2022-03-30 11:51:00 96 /min [facility] of Arterial blood by [facility] Pulse oximetry Branch Body weight 2022-03-30 09:41:00 72.576 kg [facility] BMI 2022-03-30 09:41:00 25.82 kg/m2 [facility] Systolic blood 2022-03-07 20:00:00 173 mm[Hg] Univer sity of pressure [facility] Diastolic blood 2022-03-07 20:00:00 90 mm[Hg] Unive rsity of pressure [facility] Heart rate 2022-03-07 20:00:00 83 /min [facility] Respiratory rate 2022-03-07 20:00:00 16 /min Univ ers[facility] Oxygen saturation in 2022-03-07 20:00:00 97 /min [facility] of Arterial blood by [facility] Pulse oximetry Branch Body temperature 2022-03-07 19:22:00 36.39 Izabella [facility] Body weight 2022-03-07 19:22:00 73.483 kg [facility] BMI 2022-03-07 19:22:00 26.15 kg/m2 [facility] Systolic blood 2021-12-28 18:04:00 114 mm[Hg] Univer sity of pressure [facility] Diastolic blood 2021-12-28 18:04:00 69 mm[Hg] Unive rsity of pressure [facility] Heart rate 2021-12-28 18:04:00 81 /min [facility] Body temperature 2021-12-28 18:04:00 36.67 Izabella [facility] Respiratory rate 2021-12-28 18:04:00 18 /min [facility] [place] ersity of [facility] Body height 2021-12-28 18:04:00 167.6 cm [facility] Body weight 2021-12-28 18:04:00 68.72 kg [facility] BMI 2021-12-28 18:04:00 24.45 kg/m2 [facility] Oxygen saturation in 2021-12-28 18:04:00 100 /min [facility] Arterial blood by [facility] Pulse oximetry Branch Procedures Procedure Date / Time Performing Clinician Source Performed XR PELVIS 3+ VW 2022-11-19 13:52:24 Eben Padilla [facility] CONSENT TO CONTACT FOR 2022-10-09 20:21:48 Doctor Unassigned, Un [facility] VOLUNTARY RESEARCH [facility] XR PELVIS 3+ VW 2022-09-17 18:10:01 Eben Padilla [facility] CONSENT/REFUSAL FOR 2022-09-10 20:07:42 Doctor Unassigned, [facility] DIAGNOSIS AND TREATMENT [facility] PHOSPHORUS 2022-09-06 08:24:00 Gabriela [facility] MAGNESIUM 2022-09-06 08:24:00 Gabriela [facility] BASIC METABOLIC PANEL 2022-09-06 08:24:00 Gabriela [facility] (NA, K, CL, CO2, GLUCOSE, Medica l Branch BUN, CREATININE, CA) CBC WITH DIFF 2022-09-06 08:24:00 Gabriela [facility] XR PELVIS <3 VW 2022-09-05 21:21:34 [facility] 2022-09-05 14:45:00 [place] [facility] N[facility] XR HUMERUS 2 VW LEFT 2022-09-05 14:45:00 Munguia de [facility], [facility] ([place], [place]) Nir XR WRIST <3 VW LEFT 2022-09-05 14:45:00 Munguia de [facility] Nir PHOSPHORUS 2022-09-05 08:24:00 Gabriela [facility] MAGNESIUM 2022-09-05 08:24:00 Gabriela [facility] BASIC METABOLIC PANEL 2022-09-05 08:24:00 Samanta Ochoa [facility] (NA, K, CL, CO2, GLUCOSE, Medica l Branch BUN, CREATININE, CA) ETHANOL 2022-09-05 08:24:00 Gabriela [facility] CBC WITH DIFF 2022-09-05 08:24:[address] [facility] CT HEAD WO CONTRAST 2022-09-05 08:15:35 Gabriela [facility] ABORH CONFIRMATION (LAB 2022-09-05 07:05:00 Lara Valdes [facility] URINE DRUG (IMMUNOASSAY) 2022-09-05 06:38:00 GabrielaSamanta Michaela [facility] SCREEN XR PELVIS 3+ VW 2022-09-05 06:02:00 Duyen Waldron o f [facility] XR ELBOW <3 VW RIGHT 2022-09-05 02:14:56 Martinez Sun [facility] XR HAND <3 VW RIGHT 2022-09-05 02:14:56 Martinez Sun [facility] XR KNEE <3 VW BILATERAL 2022-09-05 02:14:56 Martinez Sun [facility] XR SHOULDER <2 VW RIGHT 2022-09-05 02:14:56 Martinez Sun [facility] CT MAXILLOFACIAL/MANDIBLE 2022-09-05 01:48:00 Martinez Sun [facility] CONTRAST [facility] CT TRAUMA HEAD WO 2022-09-05 01:48:00 Martinez Sun [facility] CONTRAST [facility] CT TRAUMA THORAX W 2022-09-05 01:48:00 Martinez Sun [facility] CT TRAUMA CERVICAL SPINE 2022-09-05 01:48:00 Martinez Sun [facility] CONTRAST [facility] CT TRAUMA THORACIC SPINE 2022-09-05 01:48:00 Martinez Sun [facility] CONTRAST [facility] CT TRAUMA ABDOMEN PELVIS 2022-09-05 01:48:00 Martinez Sun [facility] CONTRAST [facility] CT TRAUMA LUMBAR SPINE WO 2022-09-05 01:48:00 Martinez Sun [facility] CONTRAST [facility] BASIC METABOLIC PANEL 2022-09-05 01:32:00 Lara Valdes [facility] (NA, K, CL, CO2, GLUCOSE, Medica l Branch BUN, CREATININE, CA) CBC WITHOUT DIFF 2022-09-05 01:32:00 Lara Valdes [facility] PROTHROMBIN TIME / INR 2022-09-05 01:32:00 Lara Valdes [facility] ACTIVATED PARTIAL 2022-09-05 01:32:00 Lara Valdes [facility] THRMPLAS [facility] HB ABO GROUPING 2022-09-05 01:32:00 Keisha [facility] o f [facility] EXTRA TUBE LT. GREEN 2022-09-05 01:32:00 Roberto Johnson [facility] CONSENT/REFUSAL FOR 2022-06-12 23:54:29 Doctor Unassigned, [facility] DIAGNOSIS AND TREATMENT [facility] XR FOOT 3+ VW LEFT 2022-06-07 18:17:44 Annabella Saab [facility] BASIC METABOLIC PANEL 2022-04-01 11:08:00 Abdelrahman Vyas [facility] (NA, K, CL, CO2, GLUCOSE, Medica l Branch BUN, CREATININE, CA) CBC WITH DIFF 2022-04-01 11:08:00 Abdelrahman Vyas [facility] CT CHEST PULMONARY 2022-03-31 19:49:49 Pamela Cohen [facility] ANGIOGRAM [facility] ACUTE CARE ARTERIAL BLOOD 2022-03-31 18:28:00 Kyara Cohen [facility] GAS [facility] D-DIMER 2022-03-31 18:26:00 Pamela Cohen [facility] GALV ONLY - INFLUENZA A B 2022-03-31 18:08:00 Kyara Cohen [facility] RSV PCR [facility] COVID-19 (ID NOW RAPID 2022-03-31 18:08:00 [facility] LAB ONLY COVID 2022-03-31 18:08:00 Pamela Cohen [facility] INTERPRETATION [facility] LIPASE 2022-03-31 17:49:00 Pamela Cohen [facility] HEPATIC FUNCTION PANEL 2022-03-31 17:49:00 Pamela Cohen [facility] ([id number]) (ALB,T.PRO,BILI [facility] T,BU/BC,ALT,AST,ALK PHOS) BASIC METABOLIC PANEL 2022-03-31 17:49:00 Pamela Cohen [facility] (NA, K, CL, CO2, GLUCOSE, G Medica l Branch BUN, CREATININE, CA) CBC WITH DIFF 2022-03-31 17:49:00 Pamela Cohen [facility] N-TERMINAL PRO-BNP 2022-03-31 17:49:00 Abdelrahman Vyas [facility] EKG-12 LEAD 2022-03-31 17:13:58 Pamela Cohen [facility] EKG-12 LEAD 2022-03-30 12:04:06 Stephanie Moay [facility] COMP. METABOLIC PANEL 2022-03-30 10:53:00 Stephanie Moya [facility] ([id number]) [facility] CBC WITH DIFF 2022-03-30 10:44:00 Stephanie Moya [facility] XR CHEST 1 VW 2022-03-30 10:19:00 Stephanie Moya [facility] CONSENT/REFUSAL FOR 2022-03-30 09:41:33 Doctor Unasssanna, [facility] DIAGNOSIS [facility] XR HAND 3+ VW RIGHT 2022-03-07 20:19:00 Stephanie Moya [facility] CONSENT/REFUSAL FOR 2022-03-07 19:25:00 Doctor Unasssanna, [facility] DIAGNOSIS AND TREATMENT [facility] Plan of Care Planned Activity Planned Date Details Comments Source Future Scheduled 2021-11-07 COVID-19 Vaccination [facility] [place] Test 06:14:20 (#1) [code = VANNESA GUPTA [facility] (#1)] Center Future Scheduled 2021-11-07 COVID-19 Vaccination [facility] [place] Test 06:14:20 (#1) [code = MAYRAID-19 [facility] Vaccination (#1)] Center Future Scheduled 2021-11-07 COVID-19 Vaccination [facility] [place] Test 06:14:20 (#1) [code = MAYRAID-19 [facility] Vaccination (#1)] Center Future Scheduled 2021-11-07 COVID-19 Vaccination [facility] [place] Test 06:14:20 (#1) [code = MAYRAID-19 [facility] Vaccination (#1)] Center Future Scheduled 2021-11-07 COVID-19 Vaccination [facility] [place] Test 06:14:20 (#1) [code = COVID-19 MD [facility] Vaccination (#1)] Center Future Scheduled 2021-11-07 COVID-19 Vaccination [facility] [place] Test 06:14:20 (#1) [code = COVID-19 MD [facility] Vaccination (#1)] Center Future Scheduled 2021-11-07 COVID-19 Vaccination [facility] [place] Test 06:14:20 (#1) [code = COVID-19 MD [facility] Vaccination (#1)] Center Encounters Start End Encounter Admission Attending Care Care Encounter Source Date/Time Date/Time Type Type Clinicians Facility Department ID 2021-03-06 Emergency [facility] [id number] Univers 03:50:36 ity of [facility] 2021-03-05 Emergency [facility] [id number] Univers 09:28:23 ity of [facility] 2021-03-04 Emergency [facility] [id number] Univers 16:28:25 ity of [facility] 2021-03-02 Emergency [facility] [id number] Univers 08:18:07 ity of [facility] 2021-03-02 Emergency [facility] [id number] Univers 01:08:51 ity of [facility] 2020-04-04 Inpatient HCAMN KALPES[facility] [id number] [facility] 17:41:00 11 [facility] 2023-01-03 2023-01-03 Outpatient [facility] [id number] Bruno 11:31:22 11:31:22 [id number] F Jean-Claude 2022-12-25 2022-12-25 Case ALYSSA Elaine 1.2.840.114 [id number] Univers 00:00:00 00:00:00 Management Eva VALLADARES 350.1.13.10 [id number] [address] Branch 2022-12-25 2022-12-25 Telephone ALYSSA Elaine 1.2.123.558 [id number] Univers 00:00:00 00:00:00 Eva VALLADARES 350.1.13.10 [place] [id number] [facility] zita [address] 2022-12-24 2022-12-24 Outpatient R VARGHESE [facility] [id number] Univers 10:10:00 11:02:43 SHOLA ity [facility] 2022-12-24 2022-12-24 Office Lara Manning [facility] 1.2.840.114 [id number] Univers 10:10:00 11:02:43 Visit Shola Kwong PRIMARY 350.1.13.10 [place] [id number] [place] mildred [address] [place] [address] 2022-12-23 2022-12-23 Outpatient R JOEL [facility] [id number] Univers 09:00:00 09:00:00 RANDA ity [facility] 2022-12-17 2022-12-17 Outpatient R DEBORAH NELSON [facility] [id number] Univers 12:30:00 12:57:47 ity [facility] 2022-12-17 2022-12-17 Office Deborah Nelson [facility] 1.2.840.114 [id number] Univers 12:30:00 12:57:47 Visit SPECIALTY 350.1.13.10 [place] AT [id number] [place]s mitcheltorsten RESENDEZ [address] [place] [address] 2022-11-29 2022-11-29 Emergency EM Garcia, [facility] [id number] [facility] 16:00:00 18:08:00 Zaina 79 [facility] 2022-11-19 2022-11-19 [facility] [id number] Univers 08:38:02 23:59:00 EBEN ity [facility] 2022-11-19 2022-11-19 [facility] 1.2.492.416 [id number] Univers 08:38:02 23:59:00 Encounter Eben A PRIMARY 350.1.13.10 [place] [id number] [place] dical [address] 2022-11-19 2022-11-19 Office [facility] 1.2.840.114 [id number] Univers 08:30:00 09:26:29 Visit Eben Singletary PRIMARY 350.1.13.10 it y of [place] 4.2.7.2.686 [place] [id number] [place] dical [address] 2022-11-01 2022-11-01 [facility] 1.2.840.114 [id number] Univers 15:20:00 15:40:00 Visit Wes SPECIALTY 350.1.13.10 ity of [place] [id number] [facility] [address] 2022-11-01 2022-11-01 Outpatient R [facility] [id number] Univers 15:20:00 15:20:00 WES ity of [facility] 2022-10-09 2022-10-09 [facility] 1.2.840.114 [id number] Univers 16:20:00 16:40:00 Visit Wes SPECIALTY 350.1.13.10 ity of [place] [id number] [facility] [address] 2022-10-09 2022-10-09 Outpatient R [facility] [id number] Univers 16:20:00 16:20:00 WES ity of [facility] 2022-10-09 2022-10-09 Orders Doctor NIESHA 1.2.840.114 [id number] Univers 00:00:00 00:00:00 Only Unassigned, BLAIR 350.1.13.10 ity of [place] [facility] 4.2.7.2.686 Miguel as [id number] [facility] 009 Branch 2022-10-02 2022-10-02 [facility] 1.2.840.114 [id number] Univers 13:40:00 14:00:00 Visit Wes SPECIALTY 350.1.13.10 ity of [place] [id number] [facility] [address] 2022-10-02 2022-10-02 Outpatient [facility] [id number] Univers 13:40:00 13:40:00 WES [facility] 2022-09-30 2022-09-30 Emergency EM Godfrey, HC[facility] [id number] [facility] 19:44:00 23:39:00 Ginna Copeland [facility] 2022-09-25 2022-09-25 [facility] 1.2.840.114 [id number] Univers 14:00:00 14:40:00 Visit Wes SPECIALTY 350.1.13.10 [place] [id number] [address] 2022-09-25 2022-09-25 Outpatient R [facility] [id number] Univers 14:00:00 14:00:00 WES [facility] 2022-09-20 2022-09-20 Outpatient R TRACY WILLSON [facility] [id number] Univers 14:30:00 15:19:37 TRACY WILLSON [facility] 2022-09-20 2022-09-20 Office Ivy Pinto [facility] 1.2.840. 114 [id number] Univers 14:30:00 15:19:37 Visit Tracy Willson PRIMARY 350.1.13.10 [place] [id number] [place] dical [address] 2022-09-17 2022-09-17 [facility] 1.2.577.685 [id number] Univers 12:50:40 23:59:00 Encounter Eben A PRIMARY 350.1.13.10 it[place] [id number] [place] dical [address] [place] 2022-09-17 2022-09-17 Outpatient R NESSA [facility] [id number] Univers 13:15:00 13:24:26 EBEN [facility] 2022-09-17 2022-09-17 Office [facility] 1.2.840.114 [id number] Univers 13:15:00 13:24:26 Visit Eben A PRIMARY 350.1.13.10 it [place] [id number] [place]s mildred [address] 2022-09-12 2022-09-12 Outpatient Gustabo SOLITARIO [facility] [id number] Univers 14:50:00 14:50:00 LYNDSEY [facility] 2022-09-10 2022-09-11 Emergency EM Jackie, [facility] [id number] [facility] 22:26:00 00:52:00 Lisa 66 [facility] 2022-09-10 2022-09-10 Emergency Cacace, TRAUMA 1.2.187.710 [id number] Univers 15:14:00 15:42:00 [facility] 350.1.13.10 i [place] [id number] [facility] 014 Branch 2022-09-10 2022-09-10 Outpatient Gustabo VIDAL [facility] [id number] Univers 13:15:00 13:25:20 MELISSA [facility] 2022-09-10 2022-09-10 Outpatient Gustabo VIDAL [facility] ERT [id number] Univers 13:15:00 13:25:20 MELISSA [facility] 2022-09-10 2022-09-10 Office Service/[place], Surgery C [facility] 1.2.840.114 [id number] Univers 13:15:00 13:25:20 Visit Melissa Vidal [facility] 350.1.13.10 ity of CLINICS [place] [id number] [facility] 203 [address] 2022-09-10 2022-09-10 Outpatient Gustabo COLON [facility] [id number] Univers 10:00:00 10:00:00 venita HERNANDEZ [facility] 2022-09-10 2022-09-10 Telephone Blair [facility] 1.2.840.114 [id number] Univers 00:00:00 00:00:00 Ivy PRIMARY 350.1.13.10 it [place] [id number] [place] dical 044 Branch 2022-09-09 2022-09-09 Transition ALYSSA Lester 1.2.840.114 [id number] Univers 00:00:00 00:00:00 of Care Rickie MATTHEWY 350.1.13.10 ity of [place]2.[place] [id number] [facility] 403 Branch 2022-09-04 2022-09-06 Inpatient T LARA VALDES [facility] STR [id number] Univers 20:24:00 16:10:00 ity of [facility] 2022-09-04 2022-09-06 Hospital Kevtaylorwicho Roberto MALIN 1.2.840. 114 [id number] Univers 20:24:00 16:10:00 Encounter Lara Valdes 350.1.13.10 ity of HOSPITAL 4.2.7.2.686 Miguel as [id number] [facility] 097 Branch 2022-08-30 2022-08-30 Emergency EM Suzanne, HCAMN [facility] [id number] [facility] 01:21:00 03:43:[address] [place] [address] 2022-07-12 2022-07-12 Outpatient Gustabo MATTHEWS [facility] [id number] Univers 14:30:00 14:30:00 SHAILESH ity of [facility] 2022-07-01 2022-07-01 Pre Visit NIESHA Choi 1.2.984.141 [id number] Univers 00:00:00 00:00:00 Outreach Meghan PINTO 350.1.13.10 ity of HOSPITAL 4.2.7.2.686 Miguel as [id number] [facility] 082 Branch 2022-06-28 2022-06-28 Office Ivy Pinto [facility] 1.2.840. 114 [id number] Univers 15:30:00 15:50:00 Visit Tracy Willson 350.1.13.10 it[place] [id number] [place] dical 044 Branch 2022-06-28 2022-06-28 Outpatient TRACY PIMENTEL [facility] [id number] Univers 15:30:00 15:30:00 TRACY WILLSON ity of [facility] 2022-06-20 2022-06-20 [facility] 1.2.840.114 [id number] Univers 00:00:00 00:00:00 Ivy PRIMARY 350.1.13.10 it [place] [id number] [place] dical 044 Branch 2022-06-13 2022-06-13 Outpatient [facility] [id number] Univers 14:50:00 15:31:19 GEN ity [facility] 2022-06-13 2022-06-13 Office [facility] 1.2.840.114 [id number] Univers 14:50:00 15:31:19 Visit Gen PRIMARY 350.1.13.10 it [place] [id number] Ks dical 198 [address] 2022-06-12 2022-06-12 Emergency X AMADOR, [facility] ERT [id number] Univers 18:20:00 19:06:00 BILL ity [facility] 2022-06-12 2022-06-12 Emergency Amador, TRAUMA 1.2.840.114 [id number] Univers 18:20:00 19:06:00 Bill B CENTER 350.1.13.10 [place] [id number] [facility] 014 Branch 2022-06-07 2022-06-07 [facility] 1.2.840.114 [id number] Univers 12:08:02 23:59:00 [facility] 350.1.13.10 [place] of [place].2.[place] [facility] [id number] [facility] PRIMARY & 808 [address] SPECIALTY CARE 2022-06-07 2022-06-07 Outpatient R [facility] [id number] Univers 11:30:00 13:07:06 KENLESLIEQUA ity [facility] 2022-06-07 2022-06-07 Urgent Annabella Saab [facility] 1.2. 840.114 [id number] Univers 11:30:00 13:07:06 Care Unknown, Attending HEALTH 350.1.13.10 ity [facility] 4.2.7.2.686 [facility] [id number] [facility] PRIMARY & [address] SPECIALTY CARE 2022-06-07 2022-06-07 Telephone Kaiser [facility] 1.2.840.114 [id number] Univers 00:00:00 00:00:00 Annabella Dennis HEALTH 350.1.13.10 ity [facility] 4.2.7.2.686 [facility] [id number] [facility] PRIMARY & [address] SPECIALTY CARE 2022-05-23 2022-05-23 Outpatient R JOEL [facility] [id number] Univers 00:00:00 00:00:00 [facility] 2022-04-23 2022-04-23 Outpatient R NESSA [facility] [id number] Univers 10:30:00 10:40:53 EBEN [facility] 2022-04-23 2022-04-23 [facility] 1.2.840.114 [id number] Univers 10:30:00 10:40:53 Visit Eben A PRIMARY 350.1.13.10 it [place] [id number] [place] dical [address] 2022-04-18 2022-04-18 [facility]phone [facility] 1.2.840.114 [id number] Univers 00:00:00 00:00:00 Ivy PRIMARY 350.1.13.10 it y of [place] [id number] [place] dical [address] 2022-04-15 2022-04-15 Outpatient R JOEL [facility] [id number] Univers 07:30:00 07:30:00 [facility] 2022-04-11 2022-04-11 Pre Visit NIESHA Choi 1.2.557.052 [id number] Univers 00:00:00 00:00:00 Outreach Meghan Solis BLAIR 350.1.13.10 ity of [facility] 4.2.7.2.686 Miguel as [id number] [facility] 082 Branch 2022-04-08 2022-04-08 Outpatient R JOEL [facility] [id number] Univers 13:00:00 14:56:21 RANDA itivy [facility] 2022-04-08 2022-04-08 Office Ivy Pinto [facility] 1.2.840. 114 [id number] Univers 13:00:00 14:56:21 Visit Randa Maldonado PRIMARY 350.1.13.10 it[place] [id number] Ks dical [facility] Branch 2022-04-08 2022-04-08 Telephone ALYSSA Elaine 1.2.531.116 [id number] Univers 00:00:00 00:00:00 Eva VALLADARES 350.1.13.10 it [place] [id number] [facility] 086 [address] 2022-04-03 2022-04-03 Transition ALYSSA Rivera 1.2.840.114 [id number] Univers 00:00:00 00:00:00 of Care Carrol VALLADARES 350.1.13.10 i ty of [place] [id number] [facility] 403 [address] 2022-03-31 2022-04-01 [facility] [id number] Univers 11:04:00 17:10:[address] [facility] 2022-03-31 2022-04-01 Emergency Pamela Cohen 1 .2.840.114 [id number] Univers 11:04:00 17:10:00 Clara Pelaez 350.1.13.10 ity of [facility] 4.2.7.2.686 [place] [id number] [facility] 096 [address] 2022-03-31 2022-03-31 Nurse NIESHA Wyatt 1.2.840.114 [id number] Univers 00:00:00 00:00:00 Triage Ruth Ann DEJESUSY 350.1.13.10 ity of HOSPITAL 4.2.7.2.686 Miguel as [id number] [facility] [address] 2022-03-30 2022-03-30 Emergency [facility] E[facility] [id number] Univers 03:42:00 06:30:00 STEPHANIE ity [facility] 2022-03-30 2022-03-30 Emergency Moya, TRAUMA 1.2.452.362 [id number] Univers 03:42:00 06:30:00 [facility] 350.1.13.10 [place] [id number] [address] 2022-03-26 2022-03-26 [facility]phone [facility] 1.2.840.114 [id number] Univers 00:00:00 00:00:00 Ivy PRIMARY 350.1.13.10 it y [place] [id number] Ks dic[address] 2022-03-07 2022-03-07 Emergency [facility] ERT [id number] Univers 14:27:00 16:47:00 [facility] 2022-03-07 2022-03-07 Emergency Moya, TRAUMA 1.2.871.511 [id number] Univers 14:27:00 16:47:00 [facility] 350.1.13.10 [place] [id number] [address] 2022-02-05 2022-02-05 Emergency EM Jackie, ZOILAMN KALPESH [id number] [facility] 17:39:00 18:59:00 Lisa 04 Mainl an [facility] 2021-12-28 2021-12-28 Office Ivy Pinto [facility] 1.2.840. 114 [id number] Univers 13:00:00 13:37:58 Visit Alexa Saab PRIMARY 350.1.13.1 0 ity of [place] [id number] [address] 2021-12-28 2021-12-28 Outpatient Gustabo [facility] [id number] Univers 13:00:00 13:37:58 ALEXA nathan [facility] 2021-12-28 2021-12-28 Outpatient Gustabo [facility] [id number] Univers 13:00:00 13:00:00 ALEXA nathan [facility] 2021-12-19 2021-12-19 Emergency X ROBERTO JOHNSON [facility] ERT [id number] Univers 07:05:00 12:42:00 ROBERTO JOHNSON [facility] 2021-12-19 2021-12-19 Emergency Dalmedo, TRAUMA 1.2.840.114 [id number] Univers 07:05:00 12:42:00 [facility] 350.1.13.10 it [place] [id number] [address] 2021-10-30 2021-10-30 [facility] 1.2.840.114 [id number] Univers 00:00:00 00:00:00 Solange FAMILY 350.1.13.10 ity of MEDICINE 4.2.7.2.686 Miguel as CLINIC - [id number] [address] 2021-10-27 2021-10-27 [facility] 1.2.840.114 [id number] Univers 00:00:00 00:00:00 Solange FAMILY 350.1.13.10 ity of MEDICINE 4.2.7.2.686 Miguel as CLINIC - [id number] [address] 2021-10-26 2021-10-26 Outpatient Gustabo [facility] [id number] Univers 13:20:00 14:13:43 ALEXA nathan [facility] 2021-10-26 2021-10-26 Office Ivy Pinto [facility] 1.2.840. 114 [id number] Univers 13:20:00 14:13:43 Visit Alexa Saab 350.1.13.1 0 ity of C[place] [id number] [place]s dical [address] 2021-10-17 2021-10-17 Outpatient R BENOIT [facility] [id number] Univers 07:45:00 13:29:01 SOLANGE ity [facility] 2021-10-17 2021-10-17 Buckle Stringer Pcp-Lab [facility] 1.2.840.114 [id number] Univers 07:45:00 13:29:01 Visit Solange Laboy PRIMARY 350.1.13. 10 [place] [id number] [place] [address] [place] 2021-10-16 2021-10-16 Buckle Stringer Pcp-Lab [facility] 1.2.840.114 [id number] Univers 16:15:00 16:15:00 Visit John Iqbal PRIMARY 350.1.13.10 [place] [id number] [place] [address] [place] 2021-10-16 2021-10-16 Outpatient R RASHEED [facility] [id number] Univers 16:15:00 14:58:19 JOHN ity [facility] 2021-10-11 2021-10-11 [facility], [facility] 1.2.840.114 [id number] Univers 15:04:21 23:59:00 Encounter Solange [facility] 350.1.13.10 [id number] [place] [id number] [place] 2021-10-11 2021-10-11 [facility], [facility] 1.2.840.114 [id number] Univers 15:04:09 23:59:00 Encounter Solange Y HE[facility] 350.1.13.10 [place] [id number] [address] 2021-10-11 2021-10-11 [facility], [facility] 1.2.840.114 [id number] Univers 10:28:21 11:35:00 Encounter Solange [facility] 350.1.13.10 [place] [id number] [facility] [address] [place] 2021-10-11 2021-10-11 Outpatient Gustabo LABOY [facility] [id number] Univers 00:00:00 11:35:00 SOLANGE [facility] 2021-10-11 2021-10-11 [facility] 1.2.840.114 [id number] Univers 00:00:00 00:00:00 Solange FAMILY 350.1.13.10 ity of MEDICINE 4.2.7.2.686 Miguel as CLINIC - [id number] [address] 2021-10-09 2021-10-09 Outpatient GCCOVIDV GCCOVIDV [id number] GCCOVID 00:00:00 00:00:00 V 2021-10-08 2021-10-08 Outpatient [facility] [id number] Univers 13:00:00 13:50:39 [facility] 2021-10-08 2021-10-08 [facility] 1.2.840.114 [id number] Univers 13:00:00 13:50:39 Visit Solange PRIMARY 350.1.13.10 [place] [id number] [address] 2021-09-17 2021-09-17 [facility] 1.2.840.114 [id number] Univers 00:00:00 00:00:00 Shailesh FAMILY 350.1.13.10 it y of MEDICINE 4.2.7.2.686 Miguel as CLINIC - [id number] [address] 2021-09-12 2021-09-12 [facility] 1.2.312.667 [id number] Univers 00:00:00 00:00:00 Ivy PRIMARY 350.1.13.10 [place] [id number] [facility] [address] 2021-09-11 2021-09-11 Orders Doctor SCHERER 1.2.840.114 [id number] Univers 00:00:00 00:00:00 Only Unassigned, BLAIR 350.1.13.10 ity of [place] [facility] 4.2.7.2.686 Miguel as [id number] [facility] [address] 2021-08-21 2021-08-21 [facility] 1.2.081.302 [id number] Univers 00:00:00 00:00:00 Ivy PRIMARY 350.1.13.10 it [place] [id number] Ks dicin [address] 2021-08-18 2021-08-18 Refill [facility] 1.2.840.114 [id number] Univers 00:00:00 00:00:00 Shailesh FAMILY 350.1.13.10 it y of MEDICINE 4.2.7.2.686 Miguel as CLINIC - [id number] [address] 2021-08-05 2021-08-05 Emergency [facility] ERT [id number] Univers 16:31:00 22:30:00 NIESHA ity of [facility] 2021-08-05 2021-08-05 Emergency [facility], TRAUMA 1.2.840.114 [id number] Univers 16:31:00 22:30:00 [facility] 350.1.13.10 [place] [id number] [facility] [address] 2021-07-30 2021-07-30 [facility] 1.2.746.590 [id number] Univers 00:00:00 00:00:00 Ivy PRIMARY 350.1.13.10 it [place] [id number] [place] dical [address] 2021-07-19 2021-07-19 Refkarley Cunningham [facility] 1.2.840.114 [id number] Univers 00:00:00 00:00:00 Jayy E PRIMARY 350.1.13.10 i ty of CARE [place] [id number] [place] dical [address] 2021-06-21 2021-06-21 Regina Hood [facility] 1.2.645.724 [id number] Univers 00:00:00 00:00:00 PRIMARY 350.1.13.10 it [place] [id number] [facility] [address] 2021-05-24 2021-05-24 Outpatient Gustabo ESTRADA [facility] [id number] Univers 15:30:00 15:30:00 RIN ity [facility] 2021-05-24 2021-05-24 Outpatient R SEAN [facility] [id number] Univers 15:30:00 15:30:00 RIN ity [facility] 2021-05-24 2021-05-24 Outpatient Gustabo ESTRADA [facility] [id number] Univers 15:30:00 15:30:00 RIN ity [facility] 2021-05-24 2021-05-24 Outpatient Gustabo ESTRADA [facility] [id number] Univers 15:30:00 15:30:00 [facility] 2021-05-23 2021-05-23 Buckle Stringer Pcp-Lab [facility] 1.2.840.114 [id number] Univers 10:30:00 10:45:00 Visit Phani Cardoso PRIMARY 350.1.13.10 [place] [id number] [address] 2021-05-23 2021-05-23 Outpatient Gustabo CARDOSO [facility] [id number] Univers 10:30:00 10:30:00 PHANI ity [facility] 2021-05-23 2021-05-23 Outpatient R WALKER [facility] [id number] Univers 10:30:00 10:30:00 PHANI ity [facility] 2021-05-22 2021-05-22 Outpatient Gustabo ESTRADA [facility] [id number] Univers 11:15:00 11:15:00 RIN ity [facility] 2021-05-22 2021-05-22 Outpatient Gustabo ESTRADA [facility] [id number] Univers 11:15:00 11:15:00 RIN ity [facility] 2021-05-22 2021-05-22 Outpatient R [facility]AN [facility] [id number] Univers 11:15:00 11:15:00 RIN ity [facility] 2021-05-17 2021-05-17 Telephone Sean [facility] 1.2.840.114 [id number] Univers 00:00:00 00:00:00 Rin MULTISPEC 350.1.13.10 it[place] of IAL[place] [id number] [facility] AND [address] [facility] 2021-05-14 2021-05-14 Outpatient R JOSELUIS [facility] [id number] Univers 13:00:00 17:02:58 [facility] 2021-05-14 2021-05-14 Office Ivy Cardoso [facility] 1.2.840.1 [id number] Univers 13:00:00 17:02:58 Visit Tristian Hoover [facility] 350.1.13.10 ity of CARE 4.2.7.2.686 [facility] [id number] [address] 2021-05-14 2021-05-14 Outpatient R JOSELUIS [facility] [id number] Univers 13:00:00 17:02:58 [facility] 2021-05-14 2021-05-14 Outpatient R JOSELUIS [facility] [id number] Univers 13:00:00 17:02:58 [facility] 2021-05-14 2021-05-14 Outpatient R [facility] [id number] Univers 13:00:00 13:00:00 ity [facility] 2021-05-14 2021-05-14 Outpatient R [facility] [id number] Univers 13:00:00 13:00:00 ity [facility] 2021-05-14 2021-05-14 Outpatient R [facility] [id number] Univers 13:00:00 13:00:00 ity [facility] 2021-05-03 2021-05-03 Refill Regina Vega [facility] 1.2.187.631 [id number] Univers 00:00:00 00:00:00 PRIMARY 350.1.13.10 it [place] of C[place] [id number] [place] dical [address] 2021-04-30 2021-04-30 Regina Hood [facility] 1.2.847.182 [id number] Univers 00:00:00 00:00:00 PRIMARY 350.1.13.10 it y of C[place].2.[place] [id number] [facility] [address] 2021-04-25 2021-04-25 Outpatient R DEBORAH NELSON [facility] [id number] Univers 13:30:00 23:59:00 ity of [facility] 2021-04-25 2021-04-25 [facility] 1.2.840.114 [id number] Univers 13:30:00 23:59:00 Encounter HEALTH 350.1.13.10 ity of [place] [id number] [facility] [address] ([facility] 2021-04-25 2021-04-25 Outpatient R DEBORAH NELSON [facility] [id number] Univers 13:30:00 23:59:00 ity of [facility] 2021-04-24 2021-04-24 Orders Doctor NIESHA 1.2.840.114 [id number] Univers 00:00:00 00:00:00 Only Unassigned, BLAIR 350.1.13.10 ity of [place] [facility] 4.2.7.2.686 Miguel as [id number] [place] [address] [address] 2021-04-19 2021-04-19 Outpatient R DEBORAH NELSON [facility] [id number] Univers 14:00:00 14:46:56 ity of [facility] 2021-04-19 2021-04-19 Office [facility] 1.2.840.114 [id number] Univers 14:00:00 14:46:56 Visit SPECIALTY 350.1.13.10 it[place] AT [id number] Me mildred RESENDEZ [address] [place] 2021-04-19 2021-04-19 Outpatient R DEBORAH NELSON [facility] [id number] Univers 14:00:00 14:46:56 ity of [facility] 2021-04-19 2021-04-19 Outpatient R DEBORAH NELSON [facility] [id number] Univers 14:00:00 14:46:56 ity of [facility] 2021-04-19 2021-04-19 Outpatient R DEBORAH NELSON [facility] [id number] Univers 14:00:00 14:00:00 ity [facility] 2021-04-18 2021-04-18 Office [facility] 1.2.078.640 [id number] Univers 09:30:00 10:20:15 Visit Rin RODRIGUEZ 350.1.13.[address] [facility] 4.2.7.2.686 [facility] [id number] [address] DIABETES CLINIC 2021-04-18 2021-04-18 Outpatient Gustabo ESTRADA [facility] [id number] Univers 09:30:00 10:20:15 RIN ity [facility] 2021-04-18 2021-04-18 Outpatient Gustabo ESTRADA [facility] [id number] Univers 09:30:00 09:30:00 RIN ity [facility] 2021-04-18 2021-04-18 Outpatient Gustabo ESTRADA [facility] [id number] Univers 09:30:00 09:30:00 RIN ity [facility] 2021-04-18 2021-04-18 Outpatient Gustabo ESTRADA [facility] [id number] Univers 09:30:00 09:30:00 RIN ity [facility] 2021-04-18 2021-04-18 Outpatient Gustabo ESTRADA [facility] [id number] Univers 09:30:00 09:30:00 RIN ity [facility] 2021-04-18 2021-04-18 Outpatient Gustabo ESTRADA [facility] [id number] Univers 09:30:00 09:30:00 RIN ity [facility] 2021-04-18 2021-04-18 Telephone Deborah Nelson [facility] 1.2.840.114 [id number] Univers 00:00:00 00:00:00 SPECIALTY 350.1.13.10 it[place].2.[place] [id number] Ks mildred VICTORIvy [address] [facility] 2021-04-16 2021-04-16 Buckle Stringer Pcp-Lab [facility] 1.2.840.114 [id number] Univers 16:44:49 16:59:49 Visit Rin Estrada PRIMARY 350.1.13.10 it[place] of C[place]2.[place] [id number] [place] dical [address] 2021-04-16 2021-04-16 Outpatient R SEAN [facility] [id number] Univers 16:45:00 16:45:00 RIN ity [facility] 2021-04-16 2021-04-16 Outpatient Gustabo ESTRADA [facility] [id number] Univers 16:45:00 16:45:00 RIN ity [facility] 2021-04-16 2021-04-16 Outpatient R [facility]AN [facility] [id number] Univers 13:00:00 13:00:00 RIN ity [facility] 2021-04-16 2021-04-16 Outpatient R SEAN [facility] [id number] Univers 13:00:00 13:00:00 RIN ity [facility] 2021-04-16 2021-04-16 Outpatient Gustabo ESTRADA [facility] [id number] Univers 13:00:00 13:00:00 RIN ity [facility] 2021-04-16 2021-04-16 Outpatient R SEAN [facility] [id number] Univers 13:00:00 13:00:00 RIN ity [facility] 2021-04-16 2021-04-16 Outpatient R [facility]AN [facility] [id number] Univers 13:00:00 13:00:00 RIN ity [facility] 2021-04-10 2021-04-10 [facility]phone [facility] 1.2.840.114 [id number] Univers 00:00:00 00:00:00 Rin MULTISPEC 350.1.13.10 ity of IAL[place].2.[place] [id number] [facility] AND [address] DIABETES CLINIC 2021-04-09 2021-04-09 Outpatient R JOSELUIS [facility] [id number] Univers 16:00:00 17:04:07 TRISTIAN ity [facility] 2021-04-09 2021-04-09 Outpatient R JOSELUIS [facility] [id number] Univers 16:00:00 17:04:07 [facility] 2021-04-09 2021-04-09 Office Regina Vega [facility] 1.2.760.731 [id number] Univers 15:36:37 17:04:07 Visit Melissaluis Tristian PRIMARY 350.1.13.10 it[place] of C[place] [id number] [place] dicin [address] 2021-04-09 2021-04-09 Outpatient R [facility] [id number] Univers 15:30:00 15:30:00 ity [facility] 2021-03-28 2021-03-28 Office Ivy Cardoso [facility] 1.2.840.1 [id number] Univers 15:14:17 15:34:17 Visit Joel Randa PRIMARY 350.1.13.10 ity of C[place].2.[place] [id number] [place] dicin [address] 2021-03-28 2021-03-28 [facility] [id number] Univers 15:10:00 15:10:00 RANDA ity [facility] 2021-03-28 2021-03-28 Outpatient R [facility] [id number] Univers 15:10:00 15:10:00 ity [facility] 2021-03-28 2021-03-28 [facility]phone [facility] 1.2.840.114 [id number] Univers 00:00:00 00:00:00 Rin MULTISPEC 350.1.13.10 ity of I[place].2.[place].2.[place] [id number] [facility] AND [address] DIABETES CLINIC 2021-03-23 2021-03-23 Outpatient R OBI [facility] [id number] Univers 10:23:38 23:59:00 LEILA ity [facility] 2021-03-23 2021-03-23 [facility] 1.2.506.724 [id number] Univers 10:23:38 23:59:00 [facility] 350.1.13.10 ity [facility] 4.2.7.2.686 [facility] [id number] [address] OFFICE BUILDING 2021-03-23 2021-03-23 Outpatient Gustabo CROCKER [facility] [id number] Univers 10:23:38 23:59:00 LEILA ity [facility] 2021-03-23 2021-03-23 Outpatient Gustabo CROCKER [facility] [id number] Univers 10:23:38 23:59:00 LEILA ity [facility] 2021-03-23 2021-03-23 Outpatient R OBI [facility] [id number] Univers 10:23:38 23:59:00 LEILA ity [facility] 2021-03-23 2021-03-23 Outpatient Gustabo CROCKER [facility] [id number] Univers 10:23:38 23:59:00 LEILA ity [facility] 2021-03-23 2021-03-23 Outpatient Gustabo CROCKER [facility] [id number] Univers 13:30:00 13:30:00 LEILA ity [facility] 2021-03-21 2021-03-21 Outpatient Gustabo ESTRADA [facility] [id number] Univers 10:00:00 11:07:46 RIN ity [facility] 2021-03-21 2021-03-21 Outpatient R SEAN [facility] [id number] Univers 10:00:00 11:07:46 RIN ity [facility] 2021-03-21 2021-03-21 Outpatient Gustabo ESTRADA [facility] [id number] Univers 10:00:00 11:07:46 RIN ity [facility] 2021-03-21 2021-03-21 Outpatient R SEAN [facility] [id number] Univers 10:00:00 11:07:46 RIN ity [facility] 2021-03-21 2021-03-21 Outpatient Gustabo ESTRADA [facility] [id number] Univers 10:00:00 11:07:46 RIN ity [facility] 2021-03-21 2021-03-21 Outpatient Gustabo ESTRADA [facility] [id number] Univers 10:00:00 11:07:46 RIN ity [facility] 2021-03-21 2021-03-21 Office Sean [facility] 1.2.036.753 [id number] Univers 09:27:44 11:07:46 Visit Rin MULTISPEC 350.1.13.10 it[place] [id number] [address] DIABETES CLINIC 2021-03-19 2021-03-19 Buckle Stringer Pcp-Lab [facility] 1.2.840.114 [id number] Univers 13:39:08 13:54:08 Visit Rin Estrada PRIMARY 350.1.13.10 ity of C[place].2.[place].2.[place] [id number] [address] 2021-03-19 2021-03-19 Outpatient Gustabo ESTRADA [facility] [id number] Univers 13:30:00 13:30:00 RIN ity [facility] 2021-03-19 2021-03-19 Outpatient Gustabo ESTRADA [facility] [id number] Univers 13:30:00 13:30:00 RIN ity [facility] 2021-03-19 2021-03-19 Outpatient Gustabo ESTRADA [facility] [id number] Univers 13:30:00 13:30:00 RIN ity [facility] 2021-03-19 2021-03-19 Outpatient Gustabo ESTRADA [facility] [id number] Univers 13:30:00 13:30:00 RIN ity [facility] 2021-03-19 2021-03-19 Outpatient Gustabo ESTRADA [facility] [id number] Univers 13:30:00 13:30:00 RIN [facility] 2021-03-13 2021-03-13 Telephone Walker [facility] 1.2.840.114 [id number] Univers 00:00:00 00:00:00 Ivy SERNA 350.1.13.10 it y of C[place] [id number] [address] 2021-03-06 2021-03-06 Outpatient [facility] [id number] Univers 12:51:20 23:59:00 ALEXA nathan [facility] 2021-03-06 2021-03-06 Hospital [facility] 1.2.840.114 [id number] Univers 12:51:20 23:59:00 Encounter Alexa Chase [facility] 350.1.13.10 ity of CLINICS 4.2.7.2.[place] [id number] [facility] [address] 2021-03-06 2021-03-06 Outpatient R [facility] [id number] Univers 12:51:20 23:59:00 ALEXA nathan [facility] 2021-03-06 2021-03-06 Telephone MARCOS Estrada 1.2.840.114 [id number] Univers 00:00:00 00:00:[address] [facility] 350.1.13.10 i ty of CLINICS 4.2.7.2.[place] [id number] [facility] [address] 2021-03-03 2021-03-03 Telephone Luis [facility] 1.2.435.077 [id number] Univers 00:00:00 00:00:00 Agustina FAMILY 350.1.13.10 it y of MEDICINE 4.2.7.2.686 Miguel as CLINIC - [id number] [address] 2021-02-28 2021-02-28 Outpatient R LUIS [facility] [id number] Univers 13:56:58 23:59:00 AGUSTINA ity [facility] 2021-02-28 2021-02-28 Hospital MARCOS Smith 1.2.840.114 [id number] Univers 13:56:58 23:59:00 Encounter Agustina Chase [facility] 350.1.13.10 ity of CLINICS 4.2.7.2.[place] [id number] [facility] [address] 2021-02-28 2021-02-28 Outpatient R LUIS [facility] [id number] Univers 13:56:58 23:59:00 AGUSTINA ity [facility] 2021-02-21 2021-02-21 Orders Doctor NIESHA 1.2.840.114 [id number] Univers 00:00:00 00:00:00 Only Unassigned, BLAIR 350.1.13.10 ity of [place] [facility] 4.2.7.2.686 Miguel as [id number] [facility] [address] 2021-02-20 2021-02-20 Office Luis [facility] 1.2.840.114 [id number] Univers 13:38:15 14:08:15 Visit Agustina [facility] 350.1.13.10 it y of MEDICINE 4.2.7.2.686 Miguel as CLINIC - [id number] [address] 2021-02-20 2021-02-20 Outpatient R LUIS [facility] [id number] Univers 14:00:00 14:00:00 AGUSTINA [facility] 2021-02-20 2021-02-20 Outpatient R LUIS [facility] [id number] Univers 14:00:00 14:00:00 AGUSTINA [facility] 2021-02-14 2021-02-14 Outpatient R CASSIE [facility] [id number] Univers 16:00:00 17:17:25 SHAILESH ity [facility] 2021-02-14 2021-02-14 Office Ivy Cardoso [facility] 1.2.840.1 [id number] Univers 15:58:51 17:17:25 Visit Shailesh Matthews [facility] 350.1.13.10 ity of CARE [place]2.[place].2.[place] [id number] [place] dical [address] 2021-02-14 2021-02-14 Outpatient R CASSIE [facility] [id number] Univers 16:00:00 16:00:00 SHAILESH [facility] 2021-02-05 2021-02-05 Emergency X GRIFFIN [facility] ERT [id number] Univers 17:51:00 23:43:00 [facility] 2021-02-05 2021-02-05 Emergency Moya, TRAUMA 1.2.953.768 [id number] Univers 17:51:00 23:43:00 Stephanie CENTER 350.1.13.10 it[place].2.[place] [id number] [facility] [address] 2021-02-05 2021-02-05 Outpatient R DOMINIC [facility] ERT [id number] Univers 16:30:00 17:38:16 [facility] 2021-02-05 2021-02-05 Outpatient R DOMINIC [facility] ERT [id number] Univers 16:30:00 17:38:16 [facility] 2021-02-05 2021-02-05 Outpatient Gustabo ALFARO [facility] [id number] Univers 16:30:00 17:38:16 [facility] 2021-02-05 2021-02-05 Nurse Nurse, Gal Adult Urgent [facility] 1. 2.840.114 [id number] Univers 16:00:17 16:15:17 Visit Unknown, [place] 350.1.13.10 ity of Pediatric 4.2.7.2.686 [facility] [id number] [facility] [address] 2021-02-05 2021-02-05 Outpatient R RYLEE [facility] [id number] Univers 16:00:00 16:00:00 [facility] 2021-02-05 2021-02-05 Telephone [facility] 1.2.840.114 [id number] Univers 00:00:00 00:00:00 Sonam PRIMARY 350.1.13.10 it y [place] C[place]2.[place] [id number] Ks dical [address] 2021-02-02 2021-02-02 Outpatient R JOSELUIS [facility] [id number] Univers 14:00:00 14:00:00 TRISTIAN ity [facility] 2021-02-02 2021-02-02 Outpatient R KAMPRATH, [facility] [id number] Univers 14:00:00 14:00:00 [facility] 2021-02-02 2021-02-02 Outpatient R KAMPRATH, [facility] [id number] Univers 14:00:00 14:00:00 [facility] 2021-02-02 2021-02-02 Outpatient R KAMPRATH, [facility] [id number] Univers 14:00:00 14:00:00 [facility] 2021-02-02 2021-02-02 Outpatient R KAMPRATH, [facility] [id number] Univers 14:00:00 14:00:00 [facility] 2021-02-01 2021-02-01 Outpatient R [facility] [id number] Univers 11:00:00 11:00:00 , JING [facility] 2021-02-01 2021-02-01 Outpatient R [facility] [id number] Univers 11:00:00 11:00:00 , JING [facility] 2021-02-01 2021-02-01 Outpatient R [facility] [id number] Univers 11:00:00 11:00:00 , JING [facility] 2021-02-01 2021-02-01 Outpatient R [facility] [id number] Univers 11:00:00 11:00:00 [facility] 2021-01-29 2021-01-30 Emergency X MORRICAL, [facility] ERT [id number] Univers 21:07:00 03:24:00 [facility] 2021-01-29 2021-01-30 Emergency X MORRICAL, [facility] ERT [id number] Univers 21:07:00 03:24:00 [facility] 2021-01-29 2021-01-30 Emergency Morrical, [place] 1.2.840.114 [id number] Univers 21:07:00 03:24:00 [facility] 350.1.13.10 it[place] [id number] [facility] [address] 2021-01-29 2021-01-30 Emergency X MORRICAL, [facility] ERT [id number] Univers 21:07:00 03:24:00 BRUNO ity [facility] 2021-01-29 2021-01-30 Emergency X MORRICAL, [facility] ERT [id number] Univers 21:07:00 03:24:00 [facility]O [facility] 2021-01-18 2021-01-18 Emergency Ibikunle, TRAUMA 1.2.840.114 [id number] Univers 14:27:00 16:01:00 [facility] 350.1.13.10 [place] [id number] [address] 2021-01-18 2021-01-18 Emergency X IBIKUNLE, [facility] ERT [id number] Univers 14:27:00 16:01:00 [facility] 2021-01-04 2021-01-04 Outpatient GCCOVIDV GCCOVIDV [id number] GCCOVID 00:00:00 00:00:00 V 2021-01-03 2021-01-03 [facility] 1.2.840.114 [id number] Univers 00:00:00 00:00:00 Andria PRIMARY 350.1.13.10 it y of C[place].2.[place] [id number] Ks dical [facility] Branch 2020-11-21 2020-11-21 Emergency X AKINKYNDE, [facility] ERT [id number] Univers 13:43:00 15:47:00 OLUGBENGA ity [facility] 2020-11-21 2020-11-21 Emergency X AKINKYNDE, [facility] ERT [id number] Univers 13:43:00 15:47:00 OLUGBENGA ity [facility] 2020-11-21 2020-11-21 Emergency X AKINWANDE, [facility] ERT [id number] Univers 13:43:00 15:47:00 OLUGBENGA ity [facility] 2020-11-21 2020-11-21 Emergency X PARTH, [facility] ERT [id number] Univers 13:43:00 15:47:00 PHIL [facility] 2020-09-05 2020-09-05 Outpatient R IBIDAPO-OBE [facility] [id number] Univers 14:00:00 14:00:00 , [facility] SATYA [facility] 2020-08-16 2020-08-16 Outpatient GCCOVIDV GCCOVIDV [id number] GCCOVID 00:00:00 00:00:00 V 2020-07-12 2020-07-12 Outpatient GCCOVIDV GCCOVIDV [id number] GCCOVID 00:00:00 00:00:00 V 2020-06-26 2020-06-26 Outpatient Gustabo GALVEZ [facility] [id number] Univers 16:00:00 17:32:40 SHIREEN [facility] 2020-06-26 2020-06-26 Outpatient Gustabo GALVEZ [facility] [id number] Univers 16:00:00 17:32:40 SHIREEN [facility] 2020-06-26 2020-06-26 Outpatient Gustabo MCKEE [facility] [id number] Univers 09:00:00 09:00:00 ATTENDING [facility] 2020-05-27 2020-05-27 Outpatient Gustabo SAAB [facility] [id number] Univers 10:20:00 10:20:00 [facility] 2020-05-27 2020-05-27 Outpatient Gustabo SAAB [facility] [id number] Univers 00:00:00 00:00:00 [facility] 2020-05-27 2020-05-27 Outpatient Gustabo SAAB [facility] [id number] Univers 00:00:00 00:00:00 [facility] 2020-05-26 2020-05-26 Outpatient Gustabo SANDOVAL [facility] [id number] Univers 08:30:00 08:30:00 venita MARROQUIN [facility] 2020-05-23 2020-05-23 Outpatient R [facility] [id number] Univers 09:30:00 09:30:00 ALEXA [facility] 2020-05-16 2020-05-16 Emergency X JACQUES [facility] ERT [id number] Univers 10:29:00 13:59:00 BERENICE [facility] 2020-04-24 2020-04-24 Outpatient R VALENTE QUARLES [facility] [id number] Univers 11:00:00 11:00:00 [facility] 2020-04-04 2020-04-04 Outpatient PRAVEEN Callahan RADI [id number] [facility] 09:30:00 09:30:[address] 2020-03-20 2020-03-20 Orders Doctor NIESHA 1.2.840.114 [id number] 00:00:00 00:00:00 Only Unassigned, BLAIR 350.1.13.10 [place] [facility] 4.2.7.2.686 [id number] 009 2020-03-07 2020-03-07 [facility] 1.2.840.114 [id number] 00:00:00 00:00:00 Francoise PRIMARY 350.1.13.10 CARE 4.2.7.2.686 CATRACHITA [id number] 2020-02-01 2020-02-01 Outpatient TARAN Kendall Zee [id number] [facility] 14:41:00 14:41:00 [facility] 2019-12-22 2019-12-22 Orders Doctor NIESHA 1.2.840.114 [id number] 00:00:00 00:00:00 Only Unassigned, BLAIR 350.1.13.10 [place] [facility] 4.2.7.2.686 [id number] [id number] 2019-12-02 2019-12-02 [facility] [id number] Univers 13:00:00 13:00:00 MILDRED [facility] 2019-12-02 2019-12-02 [facility] [id number] [id number] 00:00:00 00:00:00 Management Mildred PRIMARY 350.1.13.10 CARE 4.2.7.2.686 PAVILLION [id number] 2019-11-25 2019-11-25 Emergency Carlos, TRAUMA 1.2.988.335 [id number] 02:05:58 03:08:00 [facility] 350.1.13.10 4.2.7.2.686 [id number] 2019-11-16 2019-11-16 Orders Doctor SCHERER 1.2.840.114 [id number] 00:00:00 00:00:00 Only Unassigned, BLAIR 350.1.13.10 [place] [facility] 4.2.7.2.686 [id number] 009 2019-11-03 2019-11-03 Orders Doctor SCHERER 1.2.840.114 [id number] 00:00:00 00:00:00 Only Unassigned, BLAIR 350.1.13.10 [place] [facility] 4.2.7.2.686 [id number] [id number] 2019-10-26 2019-10-26 Outpatient R IBIDAPO-OBE [facility] [id number] Univers 10:30:00 10:30:00 , ity of [facility] 2019-10-19 2019-10-19 [facility] 1.2.840.114 [id number] 08:43:22 09:54:25 Visit Francoise PRIMARY 350.1.13.10 CARE 4.2.7.2.686 PAVILLION [id number] 2019-10-19 2019-10-19 Outpatient R IBIDAPO-OBE [facility] [id number] Univers 09:20:00 09:20:00 , ity of [facility] 2019-10-19 2019-10-19 Emergency X BANIPAL [facility] ERT [id number] Univers 02:52:56 08:20:00 MORRICAL, ity of [facility] 2019-10-19 2019-10-19 Outpatient R ROSALIA PACKER, [facility] [id number] Univers 08:00:00 08:00:00 MELISSA ity [facility] 2019-08-13 2019-08-13 Outpatient R OMAR, [facility] [id number] Univers 11:00:00 11:00:00 MICKEY [facility] 2019-04-12 2019-04-12 Outpatient Gustabo SANDOVAL [facility] [id number] Univers 09:00:00 09:00:00 venita MARROQUIN [facility] 2019-04-12 2019-04-12 Outpatient Gustabo SANDOVAL [facility] [id number] Univers 09:00:00 09:00:00 venita MARROQUIN [facility] 2019-03-16 2019-03-16 Outpatient Gustabo AQUINO [facility] [id number] Univers 13:50:00 14:54:29 VIDA [facility] 2019-02-02 2019-02-02 Outpatient Gustabo AQUINO [facility] [id number] Univers 13:40:00 15:16:03 VIDA [facility] 2018-09-18 2018-09-18 Emergency X VASUT, [facility] ERT [id number] Univers 15:35:54 18:36:00 GLYNN [facility] Results Test Description Test Time Test Comments Results Result Comments Source CONSENT TO CONTACT FOR VOLUNTARY RESEARCH 2022-10-09 20:21:4 8 Test Item Value Reference Range Interpretation Comme nts Consent To Contact For Voluntary Research (test code = 4947) Yes [facility] S[facility] [id number] 21:05:00 Test Item Value Reference Interpretation Comments Range URN COCAINE (test NEGATIVE NEGATIVE Cocaine cu t-off code = COCAURN) concentratio n: 300 ng/mL URN CANNABINOIDS POSITIVE NEGATIVE A UNCONFIRMED INITIAL (test code = SCREENING ONLY; SUGGEST CANNABURN) ADDITIONALCONFI RMATORY TESTING.Cannabi noids cut-off concent ration: 50 ng/mL URN AMPHETAMINE NEGATIVE NEGATIVE Amphetamine cut-off (test code = concentration: 1000 ng/mL AMPHETURN) URN BARBITURATE NEGATIVE NEGATIVE Barbiturate cut-off (test code = concentration: 200 ng/mL BARBITURN) URN BENZODIAZEPINE NEGATIVE NEGATIVE Benzodiaz epine cut-off (test code = concentration: 200 ng/mL BENZOURN) URN OPIATES (test NEGATIVE NEGATIVE Opiates cu t-off code = OPIATURN) concentrati on: 2000 ng/mL URN PHENCYCLIDINE NEGATIVE NEGATIVE Phencyclid ine(PCP) cut-off (PCP) (test code = concentra tion: 25 ng/ml PHENCURN) URN METHADONE (test NEGATIVE NEGATIVE Methadon e cut-off code = METHAURN) concentrati on: 300 ng/mL WHAT DRUGS HAVE BEEN TAKEN? unknownPROTHROMBIN [id number] 21:02:00 Test Item Value Reference Range Interpretation Comments PROTHROMBIN TIME 11.6 SECONDS 9.9-12.8 N PATIENT (test code = PTP) INTERNATIONAL NORMAL 1.0 0.89-1.14 N THE INR IS TO BE USED RATIO (test code = ONLY FOR MONITORING INR) ORAL ANTICOAGULANTTH ERAPY. THE FOLLOWING A RE SUGGESTED RANGE S FROM THEBANNER MD ANDERSON CANCER CENTERAN LEGE OF CHEST PHYSICIANS:KENNETH CATION INR VALUEPROPHY LAXIS OF VENOUS THROM BOSIS (ORTHOPEDIC GREER ROBERTO) 2.0 - 3.0PROPHY LAXIS OF VENOUS THROM BOSIS (OTHER THAN HIG H-RISK SURGERY) 2.0 - 3.0TREATMENT OF DEEP VEIN THROMBOSIS OR PULMONARY EMBOL ISM 2.0 - 3.0PREVENTION OF SYSTEMIC EMBOLI SM TISSUE HEART VA LVES 2.0 - 3.0 ACUTE MYOCARDIAL INFA RCTION (TO PREVENT SYS TEMIC EMBOLISM) 2.0 - 3.0 ACUTE MYOCARDIA L INFARCTION (TO PREVENT RECURRENT INFAR CT) 2.5 - 3.0 VALVULAR HEART DISEASE 2.0 - 3 .0 ATRIAL FIBRILAT ION 2.0 - 3.0BILEAFLET MECHANICAL VALV E IN AORTIC POSITION 2.0 - 3.0MECHANICAL PROSTHETIC VALV ES (HIGH RISK) 2.5 - 3.5PRESENCE OF LUPUS ANTICOAGULANT O R ANTIPHOSPHOLIPI D ANTIBODIES 2.5 - 3.5 NO BLUE TOP RECEIVED E.LAB.KT 09/30/222039.THROMBOPLASTIN TIME PARTIAL 2022-09-30 21:02:00 Test Item Value Reference Range Interpretation Comments THROMBOPLASTIN TIME 32.50 SECONDS 25.86-36.07 N [place] d Lab PARTIAL (test code = Therape utic Range - PTT) APTT of 55.8-85 .4 secondscorrelat es with plasma heparin concentration o f 0.2-0.4 u/mL NO BLUE TOP RECEIVED E.LAB.KT 09/30/222039.- XR CHEST 1 [id number] 21:02:00 [facility] : 1960 Sex: F FAX: Ginna Willett MD [place]: St: REG Name: GONZALEZ CARDOSO [facility] : 1960 Age/S: 62/F [address] [facility] Unit #: [id number] Loc: E.ERS2 [place], [place]: [place] [id number] Acct: [id number] Dis Date: Status: REG ER PHONE #: [phone] Exam Date: 09/30/2022 2100 FAX #: [phone] Reason: HTN EXAMS: CPT CODE: [id number] XR CHEST 1 V 77459 AP Portable Chest Location Code M12 HISTORY: HTN FINDINGS: There are no infiltrates. There are no pleural effusions. There is no pneumothorax. Cardiac silhouette and mediastinum appear within normal limits. IMPRESSION: No active pulmonary findings. at 2102 Reported and signed by: Brennan Ly M.D. CC: Ginna Donahue MD Technologist: BENITO FITZPATRICK Trnscrd Date/Time/By: 09/30/2022 (2101) : By: [email or web address] PAGE 1 Signed Report FAX: Ginna Escalera MD [place]: St: REG Name: GONZALEZ CARDOSO [facility] : 1960 Age/S: 62/F [address] [facility] Unit #: [id number] Loc: [address] [place]: [place] [id number] Acct: [id number] Dis Date: Status: REG ER PHONE #: [phone] Exam Date: 09/30/2022 2100 FAX #: [phone] Reason: HTN EXAMS: CPT CODE: [id number] XRCHEST 1 V 02628 (Continued) Orig Print D/T: S: 09/30/2022 (2104) PAGE 2 Signed ReportCOMPREHENSIVE METABOLIC [id number] 21:00:00 Test Item Value Reference Range Interpretation Comments SODIUM (test code = 136 mmol/l 134.0-147.0 N NA) POTASSIUM (test code 5.4 mmol/L 3.6-5.2 H IS SAMP LE HEMOLYSED? = K) YES, 1+ HEMOLYS IS CHLORIDE (test code 101 mmol/l 98.0-107.0 N = CL) CARBON DIOXIDE (test 27.7 mmol/l 21.0-33.0 N code = CO2) ANION GAP (test code 12.7 0-20 N = GAP) GLUCOSE (test code = 91 mg/dl 70.0-110.0 N GLU) BLOOD UREA NITROGEN 6 mg/dl 7.0-18.0 L (test code = BUN) GLOMERULAR 56 mL/min The Glomerular FILTRATION RATE Filtration R ate is a (test code = GFR) calculated parameterbased on serum Creatinin e, patient age and sex. GFR valuesless than 60 mL/min/1.73 squ are meters are kenneth cative ofChronic Kidne y Disease. Values less than 15 mL/min/1.73squa re meters indicate Kidney failure. The calculation for GFR is based on the CK D-EPI (2020) calculat ion. This formulais race indifferent and is the recommended for markie for GFRby the N ational Kidney Foundati on for Adults.The GFR will not calculate i f the sex is unknown or if thepatient's ag e is <18 years. CREATININE (test 1.13 mg/dL 0.60-1.30 N code = CREAT) TOTAL PROTEIN (test 7.6 GM/DL 6.0-8.1 N code = PROT) ALBUMIN (test code = 3.6 gm/dL 3.2-4.7 N ALB) CALCIUM (test code = 9.2 mg/dl 8.0-10.5 N CA) BILIRUBIN TOTAL 0.4 mg/dl 0.0-1.0 N (test code = BILT) SGOT/AST (test code 36 Units/L 15-37 N = AST) SGPT/ALT (test code 25 Units/L 12.0-78.0 N = ALT) ALKALINE PHOSPHATASE 102 Units/L 50.0-136.0 N TOTAL (test code = ALKP) ESTIMATED CREAT 50 mL/min >30 CLEARANCE (test code = ECRCL) [id number] 21:00:00 Test Item Value Reference Range Interpretation Comments LIPASE (test code = LIP) 65 Units/L 65.0-230.0 N B-TYPE NATRIURETIC [id number] 21:00:00 Test Item Value Reference Range Interpretation Comments B-TYPE NATRIURETIC PEPTIDE (test 31 PG/ML 5-100 N code = BNP) CARDIAC ENZYMES [id number] 21:00:00 Test Item Value Reference Range Interpretation Comments CREATINE KINASE (CK) 294 Units/L 21-215 H (test code = CK) TROP-I HIGH 39 ng/L 0.0-51 N CAUTION: Units of the SENSITIVITY (test current TR OPI-HS test code = TROPIHS) methodology( ng/L) differ from the prior test methodolog y (ng/mL) by afac tor of 1000. ------- ------- -----99 th Percentile: Females: 0.0-51 .4 ng/L Males: 0.0-76.2 ng/LThese resul ts were obtained using Dimension EXL TnIHreagent. Re sults from different methodologies s hould not becompared to one another as quantitative re sults may vary bymeth od. [id number] 21:00:00 Test Item Value Reference Range Interpretation Comments ALCOHOL (test code 0.00 gm/dL 0.00-0.00 N ETHYL ALC OHOL VALUES - = ALC) INTERPRETATION: 0.050 GM/DL - NOT INT OXICATED 0.100 GM/DL - INTOXICATED 0.3 50-0.450 GM/DL - SEVEREL Y INTOXICATED 0.5 50 GM/DL- FATAL INTOXICAT ION CBC W/AUTO [id number] 20:43:00 Test Item Value Reference Range Interpretation Comments WHITE BLOOD CELL (test code = 12.0 K/mm3 4.5-11.0 H WBC) RED BLOOD CELL (test code = 3.86 M/mm3 3.80-5.20 N RBC) HEMOGLOBIN (test code = HGB) 11.9 gm/dL 12.0-16.0 L HEMATOCRIT (test code = HCT) 35.4 % 36.0-48.0 L MEAN CELL VOLUME (test code = 91.7 UM3 82.0-99.0 N MCV) MEAN CELL HGB (test code = MCH) 30.8 UUG 25.5-32.5 N MEAN CELL HGB CONCETRATION 33.6 gm/dL 29.0-35.5 N (test code = MCHC) RED CELL DISTRIBUTION WIDTH 13.2 % 11.5-15.0 N (test code = RDW) RED CELL DISTRIBUTION WIDTH SD 43.8 fL 34.8-50.2 N (test code = RDW-SD) PLATELET COUNT (test code = 321 K/mm3 150-400 N PLT) MEAN PLATELET VOLUME (test code 9.4 fl 7.4-10.4 N = MPV) NEUTROPHIL % (test code = NT%) 74.6 % 49.0-76.0 N IMMATURE GRANULOCYTE % (test 0.3 % 0.0-0.4 N code = IG%) LYMPHOCYTE % (test code = LY%) 17.7 % 23.0-38.0 L MONOCYTE % (test code = MO%) 6.5 % 1.0-10.0 N EOSINOPHIL % (test code = EO%) 0.3 % 1.0-5.0 L BASOPHIL % (test code = BA%) 0.6 % 0.0-1.0 N NUCLEATED RBC % (test code = 0.0 % 0.0-0.1 N NRBC%) NEUTROPHIL # (test code = NT#) 8.9 K/mm3 2.4-6.3 H IMMATURE GRANULOCYTE # (test 0.03 x10 3/uL 0.00-0.07 N code = IG#) LYMPHOCYTE # (test code = LY#) 2.1 K/mm3 1.2-4.0 N MONOCYTE # (test code = MO#) 0.8 K/mm3 0.0-0.6 H EOSINOPHIL # (test code = EO#) 0.0 K/MM3 0.0-0.7 N BASOPHIL # (test code = BA#) 0.1 K/mm3 0.0-0.2 N NUCLEATED RBC # (test code = 0.00 X10 3uL 0.00-0.01 N NRBC#) BASIC METABOLIC PANEL (NA, K, CL, CO2, GLUCOSE, BUN, CREATININE, CA)2022-09-06 08:53:28 Test Item Value Reference Range Interpretation Comments NA (test code = 138 mmol/L 135-145 2884925809) K (test code = 3.7 mmol/L 3.5-5.0 3190143081) CL (test code = 104 mmol/L 98-108 0669176629) CO2 TOTAL (test code = 26 mmol/L 23-31 2723348930) AGAP (test code = 8 2-16 5069283219) BUN (test code = 15 mg/dL 7-23 3069258986) GLUCOSE (test code = 133 mg/dL 70-110 H 5776765774) CREATININE (test code = 0.93 mg/dL 0.50-1.04 4108300392) CALCIUM (test code = 8.9 mg/dL 8.6-10.6 3693955109) eGFR (test code = 63.8 mL/min/1.73m2 3980781802) JUDITH (test code = JUDITH) Association of Glomerular Filtration Rate (GFR) and Staging of Kidney Disease* + --+ --+ ------+| GFR (mL/min/1.73 m2) ?| With Kidney Damage ?| ?Without Kidney Damage+ --------+ --------+ +| ?>90 ?| ?Stage one ?| ? Normal ?+ ---+ ---+ -------+| ?60-89 ?| ?Stage two ?| ? Decreased GFR ? + --+ --+ ------+| ?30-59 ?| ?Stage three ?| ? Stage three ? + --+ --+ ------+| ?15-29 ?| ?Stage four ? | ? Stage four ?+ ---+ ---+ -------+| ?<15 (or dialysis) ? ?| ?Stage five ? | ? Stage five ?+ ---+ ---+ -------+ *Each stage assumes the associated GFR level has been in effect for at least three months. ?Stages 1 to 5, with or without kidney disease, indicate chronic kidney disease. Notes: Determination of stages one and two (with eGFR >59mL/min/1.73 m2) requires estimation of kidney damage for at least three months as defined by structural or functional abnormalities of the kidney, manifested by either:Pathological abnormalities or Markers of kidney damage (including abnormalities in the composition of the blood or urine or abnormalities in imaging tests). Lab Interpretation Abnormal (test code = 25838-3) [facility] 08:53:28 Test Item Value Reference Range Interpretation Comments MAGNESIUM (test code = 1373664498) 2.2 mg/dL 1.7-2.4 Lab Interpretation (test code = Normal 88344-6) [facility]2023-[facility]-05 08:53:28 Test Item Value Reference Range Interpretation Comments PHOSPHORUS (test code = 9305022138) 3.2 mg/dL 2.5-5.0 Lab Interpretation (test code = Normal 09756-4) [facility] WITH [id number] 08:42:29 Test Item Value Reference Range Interpretation Comments WBC (test code = 8.59 See_Comment [Automated 6690-2) message] The sy stem which generated this result transmitted reference range : 4.30 - 11.10 10*3/?L. The reference range was not used to interpret this result as normal/abnormal . RBC (test code = 3.76 See_Comment L [Automated 789-8) message] The sy stem which generated this result transmitted reference range : 3.93 - 5.25 10*6/?L. The reference range was not used to interpret this result as normal/abnormal . HGB (test code = 11.9 g/dL 11.6-15.0 718-7) HCT (test code = 34.4 % 35.7-45.2 L 4544-3) MCV (test code = 91.5 fL 80.6-95.5 787-2) MCH (test code = 31.6 pg 25.9-32.8 785-6) MCHC (test code = 34.6 g/dL 31.6-35.1 786-4) RDW-SD (test code = 45.1 fL 39.0-49.9 87982-7) RDW-CV (test code = 13.4 % 12.0-15.5 788-0) PLT (test code = 258 See_Comment [Automated 777-3) message] The sy stem which generated this result transmitted reference range : 166 - 358 10*3/ ?L. The reference r sridevi was not used to interpret this result as normal/abnormal . MPV (test code = 9.2 fL 9.5-12.9 L 19220-0) NRBC/100 WBC (test 0.0 See_Comment [Automat ed code = 9184402603) message] The system which generated this result transmitted reference range : 0.0 - 10.0 /100 WBCs. The refer ence range was not u sed to interpret th is result as normal/abnormal . NRBC x10^3 (test code See_Comment [Auto mated = 2447431323) message] The s ystem which generated this result transmitted reference range : 10*3/?L. The reference range was not used to interpret this result as normal/abnormal . GRAN MAT (NEUT) % 68.1 % (test code = 770-8) IMM GRAN % (test code 0.30 % = 4581210384) LYMPH % (test code = 23.9 % 736-9) MONO % (test code = 6.4 % 5905-5) EOS % (test code = 0.8 % 713-8) BASO % (test code = 0.5 % 706-2) GRAN MAT x10^3(ANC) 5.85 10*3/uL 1.88-7.09 (test code = 2014703432) IMM GRAN x10^3 (test 0.03 10*3/uL 0.00-0.06 code = 2569645574) LYMPH x10^3 (test code 2.05 10*3/uL 1.32-3.29 = 731-0) MONO x10^3 (test code 0.55 10*3/uL 0.33-0.92 = 742-7) EOS x10^3 (test code = 0.07 10*3/uL 0.03-0.39 711-2) BASO x10^3 (test code 0.04 10*3/uL 0.01-0.07 = 704-7) Lab Interpretation Abnormal (test code = 29513-2) [facility] 09:07:28 Test Item Value Reference Range Interpretation Comments ALCOHOL (test code = 113 mg/dL 9382752240) JUDITH (test code = Toxic Greater than or JUDITH) equal to 80 mg/dL. NOTE: Whole blood values are approximately 10% to 15% lower than serum and plasma. [facility] METABOLIC PAN[facility] (NA, K, CL, CO2, GLUCOSE, BUN, CREATININE, CA)2022-09-05 08:45:29 Test Item Value Reference Range Interpretation Comments NA (test code = 142 mmol/L 135-145 0408949637) K (test code = 4.0 mmol/L 3.5-5.0 3913753686) CL (test code = 111 mmol/L 98-108 H 0379175539) CO2 TOTAL (test code = 20 mmol/L 23-31 L 5393422953) AGAP (test code = 11 2-16 2954776122) BUN (test code = 8 mg/dL 7-23 6371970084) GLUCOSE (test code = 105 mg/dL 70-110 0762699201) CREATININE (test code = 0.87 mg/dL 0.50-1.04 8835785969) CALCIUM (test code = 8.3 mg/dL 8.6-10.6 L 9820094756) eGFR (test code = 68.9 mL/min/1.73m2 5090409452) JUDITH (test code = JUDITH) Association of Glomerular Filtration Rate (GFR) and Staging of Kidney Disease* + --+ --+ ------+| GFR (mL/min/1.73 m2) ?| With Kidney Damage ?| ?Without Kidney Damage+ --------+ --------+ +| ?>90 ?| ?Stage one ?| ? Normal ?+ ---+ ---+ -------+| ?60-89 ?| ?Stage two ?| ? Decreased GFR ? + --+ --+ ------+| ?30-59 ?| ?Stage three ?| ? Stage three ? + --+ --+ ------+| ?15-29 ?| ?Stage four ? | ? Stage four ?+ ---+ ---+ -------+| ?<15 (or dialysis) ? ?| ?Stage five ? | ? Stage five ?+ ---+ ---+ -------+ *Each stage assumes the associated GFR level has been in effect for at least three months. ?Stages 1 to 5, with or without kidney disease, indicate chronic kidney disease. Notes: Determination of stages one and two (with eGFR >59mL/min/1.73 m2) requires estimation of kidney damage for at least three months as defined by structural or functional abnormalities of the kidney, manifested by either:Pathological abnormalities or Markers of kidney damage (including abnormalities in the composition of the blood or urine or abnormalities in imaging tests). Lab Interpretation Abnormal (test code = 66795-5) [facility] 08:45:29 Test Item Value Reference Range Interpretation Comments MAGNESIUM (test code = 3947098257) 2.0 mg/dL 1.7-2.4 Lab Interpretation (test code = Normal 28810-3) [facility]2023-[facility]-04 08:45:29 Test Item Value Reference Range Interpretation Comments PHOSPHORUS (test code = 9490966872) 3.6 mg/dL 2.5-5.0 Lab Interpretation (test code = Normal 87546-6) [facility] WITH [id number] 08:35:07 Test Item Value Reference Range Interpretation Comments WBC (test code = 10.86 See_Comment [Automated 6690-2) message] The sy stem which generated this result transmitted reference range : 4.30 - 11.10 10*3/?L. The reference range was not used to interpret this result as normal/abnormal . RBC (test code = 3.69 See_Comment L [Automated 789-8) message] The sy stem which generated this result transmitted reference range : 3.93 - 5.25 10*6/?L. The reference range was not used to interpret this result as normal/abnormal . HGB (test code = 11.8 g/dL 11.6-15.0 718-7) HCT (test code = 33.9 % 35.7-45.2 L 4544-3) MCV (test code = 91.9 fL 80.6-95.5 787-2) MCH (test code = 32.0 pg 25.9-32.8 785-6) MCHC (test code = 34.8 g/dL 31.6-35.1 786-4) RDW-SD (test code = 45.1 fL 39.0-49.9 09379-8) RDW-CV (test code = 13.4 % 12.0-15.5 788-0) PLT (test code = 256 See_Comment [Automated 777-3) message] The sy stem which generated this result transmitted reference range : 166 - 358 10*3/ ?L. The reference r sridevi was not used to interpret this result as normal/abnormal . MPV (test code = 9.2 fL 9.5-12.9 L 21305-9) NRBC/100 WBC (test 0.0 See_Comment [Automat ed code = 5535069672) message] The system which generated this result transmitted reference range : 0.0 - 10.0 /100 WBCs. The refer ence range was not u sed to interpret th is result as normal/abnormal . NRBC x10^3 (test code See_Comment [Auto mated = 4824362389) message] The s [employer] which generated this result transmitted reference range : 10*3/?L. The reference range was not used to interpret this result as normal/abnormal . GRAN MAT (NEUT) % 78.0 % (test code = 770-8) IMM GRAN % (test code 0.40 % = 6122279847) LYMPH % (test code = 15.3 % 736-9) MONO % (test code = 5.9 % 5905-5) EOS % (test code = 0.1 % 713-8) BASO % (test code = 0.3 % 706-2) GRAN MAT x10^3(ANC) 8.48 10*3/uL 1.88-7.09 H (test code = 3817989677) IMM GRAN x10^3 (test 0.04 10*3/uL 0.00-0.06 code = 8298420531) LYMPH x10^3 (test code 1.66 10*3/uL 1.32-3.29 = 731-0) MONO x10^3 (test code 0.64 10*3/uL 0.33-0.92 = 742-7) EOS x10^3 (test code = 0.03-0.39 L 711-2) BASO x10^3 (test code 0.03 10*3/uL 0.01-0.07 = 704-7) Lab Interpretation Abnormal (test code = 45440-9) [facility] Conf[facility] (Lab Only)2022-09-05 07:13:00 Test Item Value Reference Range Interpretation Comments ABO & RH (test code = 20) A Positive [facility] W/AUTO [id number] 03:09:00 Test Item Value Reference Range Interpretation Comments WHITE BLOOD CELL (test code = 8.4 K/mm3 4.5-11.0 N WBC) RED BLOOD CELL (test code = 4.35 M/mm3 3.80-5.20 N RBC) HEMOGLOBIN (test code = HGB) 13.9 gm/dL 12.0-16.0 N HEMATOCRIT (test code = HCT) 40.3 % 36.0-48.0 N MEAN CELL VOLUME (test code = 92.6 UM3 82.0-99.0 N MCV) MEAN CELL HGB (test code = MCH) 32.0 UUG 25.5-32.5 N MEAN CELL HGB CONCETRATION 34.5 gm/dL 29.0-35.5 N (test code = MCHC) RED CELL DISTRIBUTION WIDTH 13.2 % 11.5-15.0 N (test code = RDW) RED CELL DISTRIBUTION WIDTH SD 45.2 fL 34.8-50.2 N (test code = RDW-SD) PLATELET COUNT (test code = 293 K/mm3 150-400 N PLT) MEAN PLATELET VOLUME (test code 9.7 fl 7.4-10.4 N = MPV) NEUTROPHIL % (test code = NT%) 56.7 % 49.0-76.0 N IMMATURE GRANULOCYTE % (test 0.4 % 0.0-0.4 N code = IG%) LYMPHOCYTE % (test code = LY%) 33.6 % 23.0-38.0 N MONOCYTE % (test code = MO%) 7.4 % 1.0-10.0 N EOSINOPHIL % (test code = EO%) 1.4 % 1.0-5.0 N BASOPHIL % (test code = BA%) 0.5 % 0.0-1.0 N NUCLEATED RBC % (test code = 0.0 % 0.0-0.1 N NRBC%) NEUTROPHIL # (test code = NT#) 4.7 K/mm3 2.4-6.3 N IMMATURE GRANULOCYTE # (test 0.03 x10 3/uL 0.00-0.07 N code = IG#) LYMPHOCYTE # (test code = LY#) 2.8 K/mm3 1.2-4.0 N MONOCYTE # (test code = MO#) 0.6 K/mm3 0.0-0.6 N EOSINOPHIL # (test code = EO#) 0.1 K/MM3 0.0-0.7 N BASOPHIL # (test code = BA#) 0.0 K/mm3 0.0-0.2 N NUCLEATED RBC # (test code = 0.00 X10 3uL 0.00-0.01 N NRBC#) BASIC METABOLIC [id number] 03:03:00 Test Item Value Reference Range Interpretation Comments SODIUM (test code = 137 mmol/l 134.0-147.0 N NA) POTASSIUM (test 3.9 mmol/L 3.6-5.2 N code = K) CHLORIDE (test code 102 mmol/l 98.0-107.0 N = CL) CARBON DIOXIDE 27.5 mmol/l 21.0-33.0 N (test code = CO2) ANION GAP (test 11.4 0-20 N code = GAP) GLUCOSE (test code 95 mg/dl 70.0-110.0 N = GLU) BLOOD UREA NITROGEN 22 mg/dl 7.0-18.0 H (test code = BUN) GLOMERULAR 41 mL/min The Glomerular FILTRATION RATE Filtration R ate is a (test code = GFR) calculated parameterbased on serum Creatinine, pat ient age and sex. GFR va luesless than 60 mL/min/ 1.73 square meters a re indicative ofCh ronic Kidney Disease. Values less than 15 mL/min/1.73squa re meters indicate Kidney failure. The calculation for GFR is based on the CK D-EPI (2020) calculat ion. This formulais race indifferent and is the recommended for markie for GFRby the [facility] for Adults.The GFR will not calculate if th e sex is unknown or if thepatient's ag e is <18 years. CREATININE (test 1.46 mg/dL 0.60-1.30 H code = CREAT) ESTIMATED CREAT 38 mL/min >30 CLEARANCE (test code = ECRCL) CALCIUM (test code 9.4 mg/dl 8.0-10.5 N = CA) HEPATIC FUNCTION PANEL [id number] 03:03:00 Test Item Value Reference Range Interpretation Comments TOTAL PROTEIN (test code = PROT) 8.0 GM/DL 6.0-8.1 N ALBUMIN (test code = ALB) 3.6 gm/dL 3.2-4.7 N BILIRUBIN TOTAL (test code = BILT) 0.3 mg/dl 0.0-1.0 N BILIRUBIN DIRECT (test code = <0.1 mg/dl 0.0-0.3 N BILD) SGOT/AST (test code = AST) 27 Units/L 15-37 N SGPT/ALT (test code = ALT) 25 Units/L 12.0-78.0 N ALKALINE PHOSPHATASE TOTAL (test 92 Units/L 50.0-136.0 N code = ALKP) [id number] 03:03:00 Test Item Value Reference Range Interpretation Comments LIPASE (test code = LIP) 105 Units/L 65.0-230.0 N URINALYSIS [id number] 03:02:00 Test Item Value Reference Range Interpretation Comments UA COLOR (test code = YELLOW COLU) UA APPEARANCE (test code CLEAR = APPU) UA GLUCOSE DIPSTICK (test NORMAL mg/dl NORMAL code = DGLUU) UA BILIRUBIN DIPSTICK NEGATIVE mg/dL NEGATIVE (test code = BILU) UA KETONE DIPSTICK (test NEGATIVE mg/dl NEGATIVE code = KETU) UA SPECIFIC GRAVITY (test 1.015 1.000-1.030 code = SGU) UA BLOOD DIPSTICK (test 50 Elias/micL Elias/micL NEGATIVE A code = JARED) UA PH DIPSTICK (test code 5.0 5.0-9.0 = JEANETTE) UA PROTEIN DIPSTICK (test 15 mg/dl mg/dl NEGATIVE A code = PROU) UA UROBILINIOGEN DIPSTICK NORMAL mg/dl NORMAL (test code = URO) UA NITRITE DIPSTICK (test NEGATIVE NEGATIVE code = SUHAIL) UA LEUKOCYTE ESTERASE 25 Leslye/micL Leslye/micL NEGATIVE A DIPSTICK (test code = LEUU) UA RBC (test code = RBCU) 3-5 RBC/HPF 0-3 UA EPITHELIAL CELLS (test 2-5 EPI/HPF 0-3 A code = EPIU) UA BACTERIA (test code = FEW NONE BACU) UA WBC NO REFLEX (test 0-3 WBC/HPF 0-3 code = WBCUCL) - CT ABD PELVIS W/O [id number] 02:55:00 [facility] : 1960 Sex: F FAX: Sabiha roso,Lion D M [place]: St: REG Name: GONZALEZ CARDOSO [facility] : 1960 Age/S: 62/F [address] [facility] Unit: [id number] Loc: [address] Phys: [place] [address] Acct: [id number] Date: Status: REG ER PHONE #: [phone] Exam Date: 08/30/20221 FAX #: [phone] Reason: pain EXAMS: CPT CODE: [id number] CT ABD PELVIS W/O CONT 10687 EXAM: - CT ABD PELVIS W/O CONT LOCATION: H101 CLINICAL HISTORY/INDICATION: pain COMPARISON: CT April 04, 2020. TECHNIQUE: Axial CT images of the abdomen and pelvis were obtained from the diaphragm to the lesser trochanter without IV contrast administration. Coronal and sagittal reformations were reconstructed from the axial data set. Th is examination was performed according to our departmental dose optimization program, which includesautomated exposure control, adjustment of the mA and/or kV according to patient size, and/or use ofiterative reconstruction technique. FINDINGS: STATEMENT: Unless otherwise specified, incidental findings do not require dedicated imaging follow-up. Absence of IV contrast decreases sensitivity for detection of focal lesions and vascular pathology. LOWER THORAX: Mild scarring in the bilateral lower lobes. Mild coronary artery calcification. LIVER: No focal hepatic lesions or intrahepatic biliary dilatation. GALLBLADDER/BILIARY SYSTEM: Normal CT appearance of the gallbladder. No common duct dilatation. PANCREAS: Unremarkable. SPLEEN: No splenomegaly or focal lesions. ADRENALS: No adrenal nodules. KIDNEYS/URETERS: A few 1 mm calculi in the midpole of the right kidney. 1 mm calculus in the midpole of the left kidney. No renal calculus, hydronephrosis or perinephric inflammation. VESSELS: There is limited evaluation of the vasculature due to lack of IV contrast. No AAA. Mild aortic atherosclerotic calcification. LYMPH NODES: No lymphadenopathy. PAGE 1 Signed Report (CONTINUED) FAX: Jin Palacios [place]: St: REG -- Name: GONZALEZ CARDOSO [facility] : 1960 Age/S: 62/F [address] [facility] Unit: [id number] Loc: [address] [place]: [place] [address] Acct: [id number] Dis Date: Status: REG ER PHONE #: [phone] Exam Date: 08/30/2022240 FAX #: [phone] Reason: pain EXAMS: CPT CODE: [id number] CT ABD PELVIS W/O CONT 03126 (Continued) PERITONEUM / RETROPERITONEUM: No free air or fluid. GI TRACT: Small bowel and colon are not dilated. No bowel wall thickening. Appendix is normal. Stomach is unremarkable. GENITOURINARY ORGANS: Hysterectomy. PELVIC FREE FLUID/FLUID COLLECTION: None. URINARY BLADDER: Unremarkable. EXTERNAL SOFT TISSUE: No abnormalities. BONES: Regional osseous structures are intact. Postoperative of posterior decompression at L4-L5 and L5-S1 and posteriorfusion from L4 to S1. Grade 1 anterolisthesis at L4-L5. No acute fracture. IMPRESSION: 1. No acute findings demonstrated in the abdomen and pelvis. 2. Mild bilateral nephrolithiasis. ElectronicallySigned by Nabeel River on 08/30/2022 at 0255 Reported and signed by: Nabeel River CC: Lion Palacios MD Technologist: Ivy Craig Trnscrd Dt/Tm: 08/30/2022 (025) Angel.[email or web address] Orig Print D/T: S: 08/30/2022 (4089 PAGE 2 Signed ReportBasic Metabolic Panel (NA, K, CL, CO2, GLUCOSE, BUN, CREATININE, CA)2022-04-01 12:01:12 Test Item Value Reference Range Interpretation Comments NA (test code = 138 mmol/L 135-145 8672091281) K (test code = 3.4 mmol/L 3.5-5.0 L 6162094516) CL (test code = 107 mmol/L 98-108 2941917138) CO2 TOTAL (test code = 24 mmol/L 23-31 6458909331) AGAP (test code = 2-16 4148417796) BUN (test code = 14 mg/dL 7-23 4005732941) GLUCOSE (test code = 172 mg/dL 70-110 H 7290459741) CREATININE (test code = 1.01 mg/dL 0.50-1.04 9821493770) CALCIUM (test code = 8.7 mg/dL 8.6-10.6 5576468444) eGFR (test code = mL/min/1.73m2 2989785278) JUDITH (test code = JUDITH) Association of Glomerular Filtration Rate (GFR) and Staging of Kidney Disease* + --+ --+ ------+| GFR (mL/min/1.73 m2) ?| With Kidney Damage ?| ?Without Kidney Damage+ --------+ --------+ +| ?>90 ?| ?Stage one ?| ? Normal ?+ ---+ ---+ -------+| ?60-89 ?| ?Stage two ?| ? Decreased GFR ? + --+ --+ ------+| ?30-59 ?| ?Stage three ?| ? Stage three ? + --+ --+ ------+| ?15-29 ?| ?Stage four ? | ? Stage four ?+ ---+ ---+ -------+| ?<15 (or dialysis) ? ?| ?Stage five ? | ? Stage five ?+ ---+ ---+ -------+ *Each stage assumes the associated GFR level has been in effect for at least three months. ?Stages 1 to 5, with or without kidney disease, indicate chronic kidney disease. Notes: Determination of stages one and two (with eGFR >59mL/min/1.73 m2) requires estimation of kidney damage for at least three months as defined by structural or functional abnormalities of the kidney, manifested by either:Pathological abnormalities or Markers of kidney damage (including abnormalities in the composition of the blood or urine or abnormalities in imaging tests). Lab Interpretation Abnormal (test code = 64960-6) [facility] with [id number] 11:31:10 Test Item Value Reference Range Interpretation Comments WBC (test code = See_Comment H [Automated 6690-2) message] The system which generated this result transmit martin reference range : 4.30 - 11.10 10*3/?L. The reference range was not used to interpret this result as normal/abnormal . RBC (test code = See_Comment [Automated 789-8) message] The system which generated this result transmit martin reference range : 3.93 - 5.25 10*6/?L. The reference range was not used to interpret this result as normal/abnormal . HGB (test code = 13.2 g/dL 11.6-15.0 718-7) HCT (test code = 36.3 % 35.7-45.2 4544-3) MCV (test code = 91.9 fL 80.6-95.5 787-2) MCH (test code = 33.4 pg 25.9-32.8 H 785-6) MCHC (test code = 36.4 g/dL 31.6-35.1 H 786-4) RDW-SD (test code = 49.1 fL 39.0-49.9 44343-4) RDW-CV (test code = 14.7 % 12.0-15.5 788-0) PLT (test code = See_Comment [Automated 777-3) message] The system which generated this result transmit martin reference range : 166 - 358 10*3/ ?L. The reference range was not u sed to interpret th is result as normal/abnormal . MPV (test code = 9.9 fL 9.5-12.9 90420-7) NRBC/100 WBC (test See_Comment [Automat ed code = 6395192645) message] The system which generated this result transmit martin reference range : 0.0 - 10.0 /100 WBCs. The reference range was not used to interpret this result as normal/abnormal . NRBC x10^3 (test code See_Comment [Auto mated = 6297307462) message] The system which generated this result transmit martin reference range : 10*3/?L. The reference range was not used to interpret this result as normal/abnormal . GRAN MAT (NEUT) % 91.0 % (test code = 770-8) IMM GRAN % (test code 0.80 % = 1617371619) LYMPH % (test code = 4.7 % 736-9) MONO % (test code = 3.4 % 5905-5) EOS % (test code = 0.0 % 713-8) BASO % (test code = 0.1 % 706-2) GRAN MAT x10^3(ANC) 14.08 10*3/uL 1.88-7.09 H (test code = 8096463809) IMM GRAN x10^3 (test 0.13 10*3/uL 0.00-0.06 H code = 8438130207) LYMPH x10^3 (test code 0.72 10*3/uL 1.32-3.29 L = 731-0) MONO x10^3 (test code 0.52 10*3/uL 0.33-0.92 = 742-7) EOS x10^3 (test code = 0.03-0.39 L 711-2) BASO x10^3 (test code 0.01-0.07 = 704-7) Lab Interpretation Abnormal (test code = 42224-7) [facility] [id number] 00:35:19 Test Item Value Reference Range Interpretation Comments NT-proBNP (test code 693 pg/mL See_Comment H [Autom ated = 3082143095) message] The system which generated this result transmitted reference range : <=125. The reference range was not used to interpret this result as normal/abnormal . JUDITH (test code = JUDITH) Biotin has been reported to cause a negative bias, interpret results relative to patient's use of biotin. Lab Interpretation Abnormal (test code = 59637-7) [facility][id number] 18:54:04 Test Item Value Reference Interpretation Comments Range D-DIMER (test code = See_Comment H [Autom ated 8194481564) message] The system which generated this result transmitted reference range : <0.50 ?g/mL (FEU). The reference range was not used to interpret this result as normal/abnormal . JUDITH (test code = This test may be JUDITH) used in conjunction with a clinical pretest probability (PTP) assessment model to exclude venous thromboembolism (VTE) in patients suspected of deep venous thrombosis (DVT) and pulmonary embolism (PE) A D-Dimer value less than 0.50 ?g/ml (FEU) has a negative predicative value of 96 to 100% (95% CI)and 97 to 100% (95% CI) as an aid in the diagnosis of deep vein thrombosis (DVT) and pulmonary embolism when there is low or moderate pretest probability of PE or DVT. D-Dimer values are expressed in initial fibrinogen equivalent units (FEU)" The assay results should be used with other information, including the clinical context, in forming a diagnosis. Lab Interpretation Abnormal (test code = 65555-1) [facility] Arterial Blood Gas.2022-03-31 18:29:32 Test Item Value Reference Range Interpretation Comments PH (test code = 2) 7.35-7.45 PCO2 (test code = See_Comment L [Automate d message] 9035658805) The system [employer] generated this result transmitted ref erence range: 35 - 45 mmHg. The reference r sridevi was not used to interpret this result as normal/abnor mal. PO2 (test code = See_Comment L [Automated message] 9972485433) The system [employer] generated this result transmitted ref erence range: 80 - 100 mmHg. The reference r sridevi was not used to interpret this result as normal/abnor mal. HCO3 (test code = See_Comment L [Automate d message] 5946996269) The system [employer] generated this result transmitted ref erence range: 22 - 26 mEq/L. The reference r sridevi was not used to interpret this result as normal/abnor mal. BE (test code = See_Comment L [Automated message] 9404780569) The system [employer] generated this result transmitted ref erence range: -3.0 - 3 .0 mEq/L. The refe rence range was not u sed to interpret this result as normal/abnor mal. Lab Interpretation (test Abnormal code = 93977-6) [facility] WITH [id number] 18:29:06 Test Item Value Reference Range Interpretation Comments WBC (test code = See_Comment H [Automated 6690-2) message] The system which generated this result transmit martin reference range : 4.30 - 11.10 10*3/?L. The reference range was not used to interpret this result as normal/abnormal . RBC (test code = See_Comment L [Automated 789-8) message] The system which generated this result transmit martin reference range : 3.93 - 5.25 10*6/?L. The reference range was not used to interpret this result as normal/abnormal . HGB (test code = 12.8 g/dL 11.6-15.0 718-7) HCT (test code = 36.0 % 35.7-45.2 4544-3) MCV (test code = 92.3 fL 80.6-95.5 787-2) MCH (test code = 32.8 pg 25.9-32.8 785-6) MCHC (test code = 35.6 g/dL 31.6-35.1 H 786-4) RDW-SD (test code = 48.2 fL 39.0-49.9 05149-2) RDW-CV (test code = 14.3 % 12.0-15.5 788-0) PLT (test code = See_Comment [Automated 777-3) message] The system which generated this result transmit martin reference range : 166 - 358 10*3/ ?L. The reference range was not u sed to interpret th is result as normal/abnormal . MPV (test code = 10.2 fL 9.5-12.9 80021-7) NRBC/100 WBC (test See_Comment [Automat ed code = 4942858845) message] The system which generated this result transmit martin reference range : 0.0 - 10.0 /100 WBCs. The reference range was not used to interpret this result as normal/abnormal . NRBC x10^3 (test code See_Comment [Auto mated = 9536097610) message] The system which generated this result transmit martin reference range : 10*3/?L. The reference range was not used to interpret this result as normal/abnormal . GRAN MAT (NEUT) % 90.0 % (test code = 770-8) IMM GRAN % (test code 0.80 % = 4320139632) LYMPH % (test code = 7.4 % 736-9) MONO % (test code = 1.7 % 5905-5) EOS % (test code = 0.0 % 713-8) BASO % (test code = 0.1 % 706-2) GRAN MAT x10^3(ANC) 13.47 10*3/uL 1.88-7.09 H (test code = 4322070781) IMM GRAN x10^3 (test 0.12 10*3/uL 0.00-0.06 H code = 9700757744) LYMPH x10^3 (test code 1.11 10*3/uL 1.32-3.29 L = 731-0) MONO x10^3 (test code 0.25 10*3/uL 0.33-0.92 L = 742-7) EOS x10^3 (test code = 0.03-0.39 L 711-2) BASO x10^3 (test code 0.01-0.07 = 704-7) BANDS (test code = Increased A 6430960138) Lab Interpretation Abnormal (test code = 99982-3) [facility] METABOLIC PANEL (NA, K, CL, CO2, GLUCOSE, BUN, CREATININE, CA)2022-03-31 18:07:23 Test Item Value Reference Range Interpretation Comments NA (test code = 132 mmol/L 135-145 L 0325524824) K (test code = 3.6 mmol/L 3.5-5.0 6039826142) CL (test code = 103 mmol/L 98-108 3149553348) CO2 TOTAL (test code = 20 mmol/L 23-31 L 1885670369) AGAP (test code = 2-16 0407641476) BUN (test code = 13 mg/dL 7-23 6050068573) GLUCOSE (test code = 144 mg/dL 70-110 H 8943559601) CREATININE (test code = 1.06 mg/dL 0.50-1.04 H 8933937090) CALCIUM (test code = 8.0 mg/dL 8.6-10.6 L 3718049971) eGFR (test code = mL/min/1.73m2 4873297429) JUDITH (test code = JUDITH) Association of Glomerular Filtration Rate (GFR) and Staging of Kidney Disease* + --+ --+ ------+| GFR (mL/min/1.73 m2) ?| With Kidney Damage ?| ?Without Kidney Damage+ --------+ --------+ +| ?>90 ?| ?Stage one ?| ? Normal ?+ ---+ ---+ -------+| ?60-89 ?| ?Stage two ?| ? Decreased GFR ? + --+ --+ ------+| ?30-59 ?| ?Stage three ?| ? Stage three ? + --+ --+ ------+| ?15-29 ?| ?Stage four ? | ? Stage four ?+ ---+ ---+ -------+| ?<15 (or dialysis) ? ?| ?Stage five ? | ? Stage five ?+ ---+ ---+ -------+ *Each stage assumes the associated GFR level has been in effect for at least three months. ?Stages 1 to 5, with or without kidney disease, indicate chronic kidney disease. Notes: Determination of stages one and two (with eGFR >59mL/min/1.73 m2) requires estimation of kidney damage for at least three months as defined by structural or functional abnormalities of the kidney, manifested by either:Pathological abnormalities or Markers of kidney damage (including abnormalities in the composition of the blood or urine or abnormalities in imaging tests). Lab Interpretation Abnormal (test code = 42547-8) [facility] (37666) (ALB,T.PRO,BILI T,BU/BC,ALT,AST,ALK PHOS)2022-03-31 18:07:23 Test Item Value Reference Range Interpretation Comments TOTAL BILI (test code = 3970527090) 0.5 mg/dL 0.1-1.1 BILI UNCON (test code = 0707898477) 0.4 mg/dL 0.1-1.1 BILI CONJ (test code = 4859407392) 0.0 mg/dL 0.0-0.3 T PROTEIN (test code = 1799670008) 6.0 g/dL 6.3-8.2 L ALBUMIN (test code = 2978452326) 3.2 g/dL 3.5-5.0 L ALK PHOS (test code = 2929342841) 70 U/L 34-122 ALTv (test code = 1742-6) 21 U/L 5-35 AST(SGOT) (test code = 1839383370) 46 U/L 13-40 H Lab Interpretation (test code = Abnormal 59364-6) [facility]2022-[facility] 18:07:23 Test Item Value Reference Range Interpretation Comments LIPASE (test code = 7312233085) 36 U/L 0-220 Lab Interpretation (test code = Normal 16117-9) [facility] MET[facility]OLIC PAN[facility] (11300)2022-03-30 11:13:21 Test Item Value Reference Range Interpretation Comments NA (test code = 129 mmol/L 135-145 L 6514935327) K (test code = 3.4 mmol/L 3.5-5.0 L 4176280598) CL (test code = 102 mmol/L 98-108 3191538308) CO2 TOTAL (test code = 19 mmol/L 23-31 L 7993837060) AGAP (test code = 2-16 9864123882) BUN (test code = 12 mg/dL 7-23 8319204093) GLUCOSE (test code = 114 mg/dL 70-110 H 0306435165) CREATININE (test code = 1.11 mg/dL 0.50-1.04 H 7238881142) TOTAL BILI (test code = 0.7 mg/dL 0.1-1.0 5973354894) CALCIUM (test code = 8.0 mg/dL 8.6-10.6 L 4661697649) T PROTEIN (test code = 6.0 g/dL 6.3-8.2 L 2603266810) ALBUMIN (test code = 3.6 g/dL 3.5-5.0 8960868322) ALK PHOS (test code = 54 U/L 34-122 0234248257) ALTv (test code = 21 U/L 5-35 1742-6) AST(SGOT) (test code = 30 U/L 13-40 9403215752) eGFR (test code = mL/min/1.73m2 2474521979) JUDITH (test code = JUDITH) Association of Glomerular Filtration Rate (GFR) and Staging of Kidney Disease* + --+ --+ ------+| GFR (mL/min/1.73 m2) ?| With Kidney Damage ?| ?Without Kidney Damage+ --------+ --------+ +| ?>90 ?| ?Stage one ?| ? Normal ?+ ---+ ---+ -------+| ?60-89 ?| ?Stage two ?| ? Decreased GFR ? + --+ --+ ------+| ?30-59 ?| ?Stage three ?| ? Stage three ? + --+ --+ ------+| ?15-29 ?| ?Stage four ? | ? Stage four ?+ ---+ ---+ -------+| ?<15 (or dialysis) ? ?| ?Stage five ? | ? Stage five ?+ ---+ ---+ -------+ *Each stage assumes the associated GFR level has been in effect for at least three months. ?Stages 1 to 5, with or without kidney disease, indicate chronic kidney disease. Notes: Determination of stages one and two (with eGFR >59mL/min/1.73 m2) requires estimation of kidney damage for at least three months as defined by structural or functional abnormalities of the kidney, manifested by either:Pathological abnormalities or Markers of kidney damage (including abnormalities in the composition of the blood or urine or abnormalities in imaging tests). Lab Interpretation Abnormal (test code = 22949-7) [facility] WITH [id number] 10:51:38 Test Item Value Reference Range Interpretation Comments WBC (test code = See_Comment H [Automated 0090-2) message] The sy stem which generated this result transmitted reference range : 4.30 - 11.10 10*3/?L. The reference range was not used to interpret this result as normal/abnormal . RBC (test code = See_Comment L [Automated 789-8) message] The sy stem which generated this result transmitted reference range : 3.93 - 5.25 10*6/?L. The reference range was not used to interpret this result as normal/abnormal . HGB (test code = 13.0 g/dL 11.6-15.0 718-7) HCT (test code = 35.8 % 35.7-45.2 4544-3) MCV (test code = 92.0 fL 80.6-95.5 787-2) MCH (test code = 33.4 pg 25.9-32.8 H 785-6) MCHC (test code = 36.3 g/dL 31.6-35.1 H 786-4) RDW-SD (test code = 46.9 fL 39.0-49.9 31222-3) RDW-CV (test code = 13.9 % 12.0-15.5 788-0) PLT (test code = See_Comment L [Automated 777-3) message] The sy stem which generated this result transmitted reference range : 166 - 358 10*3/ ?L. The reference r sridevi was not used to interpret this result as normal/abnormal . MPV (test code = 9.9 fL 9.5-12.9 42721-0) NRBC/100 WBC (test See_Comment [Automat ed code = 7942577643) message] The system which generated this result transmitted reference range : 0.0 - 10.0 /100 WBCs. The refer ence range was not u sed to interpret th is result as normal/abnormal . NRBC x10^3 (test code See_Comment [Auto mated = 6150816656) message] The s ystem which generated this result transmitted reference range : 10*3/?L. The reference range was not used to interpret this result as normal/abnormal . GRAN MAT (NEUT) % 74.6 % (test code = 770-8) IMM GRAN % (test code 0.50 % = 0362992496) LYMPH % (test code = 16.2 % 736-9) MONO % (test code = 6.2 % 5905-5) EOS % (test code = 2.1 % 713-8) BASO % (test code = 0.4 % 706-2) GRAN MAT x10^3(ANC) 9.70 10*3/uL 1.88-7.09 H (test code = 9929953168) IMM GRAN x10^3 (test 0.06 10*3/uL 0.00-0.06 code = 3193635075) LYMPH x10^3 (test code 2.10 10*3/uL 1.32-3.29 = 731-0) MONO x10^3 (test code 0.80 10*3/uL 0.33-0.92 = 742-7) EOS x10^3 (test code = 0.27 10*3/uL 0.03-0.39 711-2) BASO x10^3 (test code 0.05 10*3/uL 0.01-0.07 = 704-7) Lab Interpretation Abnormal (test code = 37645-7) [facility]- XR HAND 3 + V [id number] 18:15:00 [facility] : 1960 Sex: F FAX: Contreras Gloria [place]: St: REG Name: WALKERGONZALEZ [facility] : 1960 Age/S: 61/F [address] [facility] Unit #: [id number] Loc: E.[place], [place] Phys: Contreras Gloria APRP [address] Acct: [id number] Dis Date: Status: REG ER PHONE #: [phone] Exam Date: 02/05/2022 180 FAX #: [phone] Reason: RIGHT THUMB INJURY EXAMS: CPT CODE: [id number] XR HAND 3 + V RT [address]5723 LOCATION: EXAM: - XR HAND 3 + V RT HISTORY: RIGHT THUMB INJURY COMPARISON: None FINDINGS: No acute fracture or dislocation. Mild joint space narrowing. Mild subluxation at the first and fifth metacarpophalangeal joint. No aggressive osseous lesions. No soft tissue abnormality. IMPRESSION: Mild degenerative changes. No acute osseous abnormality. at 1815 Reported and signed by: William Aguirre M.D. CC: Contreras Gloria Technologist: IVY Vick Date/Time/By: 02/05/2022 (1814) : By: [email or web address] PAGE 1 Signed Report FAX: Contreras Gloria [place]: St: REG -- Name: GONZALEZ CARDOSO [facility] : 1960 Age/S: 61/F [address] [facility] Unit #: [id number] Loc: E.[place], [place] Phys: Contreras Gloria [address] Acct: [id number] Dis Date: Status: REG ER PHONE #: [phone] Exam Date: 02/05/2022 1805 FAX #: [phone] Reason: RIGHT THUMB INJURY EXAMS: CPT CODE: [id number] XR HAND 3 + V RT 63114 (Continued) Orig Print D/T: S: 02/05/2022 (1818) PAGE 2 Signed Report- CT ABD PELVIS W/[id number] 19:42:[facility] : 1960 Sex: F FAX: Caroline Holland [phone] [place]: St: REG Name: GONZALEZ CARDOSO [facility] : 1960 Age/S: 59/F [address] [facility] [employer] Unit: [id number] Loc: [address] Phys: Caroline Holland [employer] [address] Acct: [id number] Dis Date: Status: REG ER PHONE #: [phone] Exam Date: 04/04/20201911 FAX #: [phone] Reason: RLQ pain EXAMS: CPT CODE: [id number] CT ABD PELVIS W/CONT 65415 EXAM: - CT ABD PELVIS W/CONT LOCATION: H61 CLINICAL HISTORY/INDICATION: RLQ pain COMPARISON: Abdomen pelvis CT 04/22/2015. TECHNIQUE: Axial CT images of the abdomen and pelvis were obtained from the diaphragm to the lesser trochanter with IV contrast administration. Coronal and sagittal reformations were reconstructed fromthe axial data set. Postcontrast images were acquired in the portal venous phase This examination was performed according to our departmental dose optimization program, which includes automated exposure control, adjustment of the mA and/or kV according to patient size, and/or use of iterative reconstru ction technique. FINDINGS: LOWER THORAX: Mild scarring within the bilateral posterior lower lobes issimilar. LIVER: No focal hepatic lesions or intrahepatic biliary dilatation. GALLBLADDER/BILIARY SYSTEM: Normal CT appearance of the gallbladder. No common duct dilatation. PANCREAS: Unremarkable. SPLEEN: No splenomegaly or focal lesions. ADRENALS: No adrenal nodules. KIDNEYS/URETERS: There is limited evaluation of the inferior pole of the bilateral kidneys due to significant streak artifact from barium in the bowel. Superior pole the kidneys appears normal. VESSELS: The proximal aorta is unremarkable. There is limited evaluation of the mid to distal aorta and distal fracture due to streak artifact from colonic barium LYMPH NODES: Limited evaluation for adenopathy. PERITONEUM / RETROPERITONEUM: Limited evaluation for free fluid, fluid PAGE 1 Signed Report (CONTINUED) FAX: Caroline Holland [phone] [place]: St: REG ---- Name: GONZALEZ CARDOSO [facility] : 1960 Age/S: 59/F [address] [facility] Unit[facility][id number] Loc: [address] Phys: Caroline Holland PACKING AND WRAPPING SUPERVISOR [id number] Acct: [id number] Dis Date: Status: REG ER PHONE #: [phone] Exam Date: 04/04/20201911 FAX #: [phone] Reason: RLQ pain EXAMS: CPT CODE: [id number] CT ABD PELVIS W/CONT 64309 (Continued) collection or retroperitoneal fluid. GI TRACT: Stomach is unremarkable. There is limited evaluation of the small bowel and colon dueto to significant streak artifact from colonic barium. The appendix cannot be evaluate . GENITOURINARY ORGANS: Postsurgical changes of hysterectomy. PELVIC FREE FLUID/FLUID COLLECTION: None. URINARY BLADDER: Unremarkable. EXTERNAL SOFT TISSUE: No abnormalities. BONES: There are postsurgical change of posterior decompression and fusion from L4 to S1. Fusion hardware appear intact. No acute fractures. IMPRESSION: 1. Very limited examination due to significant streak artifact related to retained colonic barium from recent esophagram. The bowel and appendix cannot be evaluated on this study. at 1942 Reported and signed by: Nabeel River CC: Caroline Holland NP Technologist: MARIAMA Vick Dt/Tm: 04/04/2020 (1941) [id number] Orig Print D/T: S: 04/04/2020 (1946 PAGE 2 Signed ReportDRUGS OF ABUSE SCREEN [id number] 18:57:00 Test Item Value Reference Range Interpretation Comments URN COCAINE (test code NEGATIVE NEGATIVE Cocai ne cut-off = COCAURN) concentration: 300 ng/mL URN CANNABINOIDS (test NEGATIVE NEGATIVE Canna binoids cut-off code = CANNABURN) concentrat ion: 50 ng/mL URN AMPHETAMINE (test NEGATIVE NEGATIVE Amphet amine cut-off code = AMPHETURN) concentrat ion: 1000 ng/mL URN BARBITURATE (test NEGATIVE NEGATIVE Barbit urate cut-off code = BARBITURN) concentrat ion: 200 ng/mL URN BENZODIAZEPINE NEGATIVE NEGATIVE Benzodiaz epine cut-off (test code = BENZOURN) rob ntration: 200 ng/mL URN OPIATES (test code NEGATIVE NEGATIVE Opiat es cut-off = OPIATURN) concentration: 200 ng/mL URN PHENCYCLIDINE (PCP) NEGATIVE NEGATIVE Phen cyclidine(PCP) (test code = PHENCURN) cut-o ff concentration: 25 ng/ml URN METHADONE (test NEGATIVE NEGATIVE code = METHAURN) Specimen comments: Clean CatchURINALYSIS [id number] 18:55:00 Test Item Value Reference Range Interpretation Comments UA COLOR (test code = COLORLESS COLU) UA APPEARANCE (test code CLEAR = APPU) UA GLUCOSE DIPSTICK (test NORMAL mg/dl NORMAL code = DGLUU) UA BILIRUBIN DIPSTICK NEGATIVE mg/dL NEGATIVE (test code = BILU) UA KETONE DIPSTICK (test NEGATIVE mg/dl NEGATIVE code = KETU) UA SPECIFIC GRAVITY (test 1.010 1.000-1.030 code = SGU) UA BLOOD DIPSTICK (test 25 Elias/micL Elias/micL NEGATIVE A code = JARED) UA PH DIPSTICK (test code 6.5 5.0-9.0 = JEANETTE) UA PROTEIN DIPSTICK (test NEGATIVE mg/dl NEGATIVE code = PROU) UA UROBILINIOGEN DIPSTICK NORMAL mg/dl NORMAL (test code = URO) UA NITRITE DIPSTICK (test NEGATIVE NEGATIVE code = SUHAIL) UA LEUKOCYTE ESTERASE NEGATIVE Elslye/micL NEGATIVE DIPSTICK (test code = LEUU) UA WBC (test code = WBCU) 0-3 WBC/HPF NONE UA RBC (test code = RBCU) 0-2 RBC/HPF 0-3 UA EPITHELIAL CELLS (test 0-3 EPI/HPF 0-3 code = EPIU) UA BACTERIA (test code = FEW NONE BACU) UA RENAL CELLS (test code FEW = ROSEANNE) Specimen comments: Clean CatchUR HCG [id number] 18:55:00 Test Item Value Reference Range Interpretation Comments UR HCG QUAL (test code = HCGQLU) NEGATIVE NEGATIVE Specimen comments: Clean CatchURINALYSIS [id number] 18:43:00 Test Item Value Reference Range Interpretation Comments UA COLOR (test code = COLORLESS COLU) UA APPEARANCE (test code CLEAR = APPU) UA GLUCOSE DIPSTICK (test NORMAL mg/dl NORMAL code = DGLUU) UA BILIRUBIN DIPSTICK NEGATIVE mg/dL NEGATIVE (test code = BILU) UA KETONE DIPSTICK (test NEGATIVE mg/dl NEGATIVE code = KETU) UA SPECIFIC GRAVITY (test 1.010 1.000-1.030 code = SGU) UA BLOOD DIPSTICK (test 25 Elias/micL Elias/micL NEGATIVE A code = JARED) UA PH DIPSTICK (test code 6.5 5.0-9.0 = JEANETTE) UA PROTEIN DIPSTICK (test NEGATIVE mg/dl NEGATIVE code = PROU) UA UROBILINIOGEN DIPSTICK NORMAL mg/dl NORMAL (test code = URO) UA NITRITE DIPSTICK (test NEGATIVE NEGATIVE code = SUHAIL) UA LEUKOCYTE ESTERASE NEGATIVE Leslye/micL NEGATIVE DIPSTICK (test code = LEUU) UA WBC (test code = WBCU) WBC/HPF NONE UA RBC (test code = RBCU) RBC/HPF 0-3 UA EPITHELIAL CELLS (test EPI/HPF 0-3 code = EPIU) UA BACTERIA (test code = NONE BACU) Specimen comments: Clean CatchUR HCG [id number] 18:43:00 Test Item Value Reference Range Interpretation Comments UR HCG QUAL (test code = HCGQLU) NEGATIVE Specimen comments: Clean CatchURINALYSIS [id number] 18:43:00 Test Item Value Reference Range Interpretation Comments UA COLOR (test code = COLORLESS COLU) UA APPEARANCE (test code CLEAR = APPU) UA GLUCOSE DIPSTICK (test NORMAL mg/dl NORMAL code = DGLUU) UA BILIRUBIN DIPSTICK NEGATIVE mg/dL NEGATIVE (test code = BILU) UA KETONE DIPSTICK (test NEGATIVE mg/dl NEGATIVE code = KETU) UA SPECIFIC GRAVITY (test 1.010 1.000-1.030 code = SGU) UA BLOOD DIPSTICK (test 25 Elias/micL Elias/micL NEGATIVE A code = JARED) UA PH DIPSTICK (test code 6.5 5.0-9.0 = JEANETTE) UA PROTEIN DIPSTICK (test NEGATIVE mg/dl NEGATIVE code = PROU) UA UROBILINIOGEN DIPSTICK NORMAL mg/dl NORMAL (test code = URO) UA NITRITE DIPSTICK (test NEGATIVE NEGATIVE code = SUHAIL) UA LEUKOCYTE ESTERASE NEGATIVE Leslye/micL NEGATIVE DIPSTICK (test code = LEUU) UA WBC (test code = WBCU) WBC/HPF NONE UA RBC (test code = RBCU) RBC/HPF 0-3 UA EPITHELIAL CELLS (test EPI/HPF 0-3 code = EPIU) UA BACTERIA (test code = NONE BACU) Specimen comments: Clean CatchUR HCG [id number] 18:43:00 Test Item Value Reference Range Interpretation Comments UR HCG QUAL (test code = HCGQLU) NEGATIVE NEGATIVE Specimen comments: Clean CatchBASIC METABOLIC [id number] 18:35:00 Test Item Value Reference Range Interpretation Comments SODIUM (test code = NA) 138 mmol/l 134.0-147.0 N POTASSIUM (test code = K) 3.3 mmol/L 3.6-5.2 L CHLORIDE (test code = CL) 103 mmol/l 98.0-107.0 N CARBON DIOXIDE (test code = CO2) 27.3 mmol/l 21.0-33.0 N ANION GAP (test code = GAP) 11.0 0-20 N GLUCOSE (test code = GLU) 93 mg/dl 70.0-110.0 N BLOOD UREA NITROGEN (test code = 15 mg/dl 7.0-18.0 N BUN) CREATININE (test code = CREAT) 1.03 mg/dL 0.60-1.30 N GFR NON BLACK (test code = 59 mL/min 90-95 L GFRNONBLACK) GFR BLACK (test code = GFRBLACK) 71 mL/min 109-115 L CALCIUM (test code = CA) 8.6 mg/dl 8.0-10.5 N HEPATIC FUNCTION PANEL [id number] 18:35:00 Test Item Value Reference Range Interpretation Comments TOTAL PROTEIN (test code = PROT) 8.1 GM/DL 6.0-8.1 N ALBUMIN (test code = ALB) 3.9 gm/dL 3.2-4.7 N BILIRUBIN TOTAL (test code = BILT) 0.1 mg/dl 0.0-1.0 N BILIRUBIN DIRECT (test code = 0.1 mg/dl 0.0-0.3 N BILD) SGOT/AST (test code = AST) 19 Units/L 15-37 N SGPT/ALT (test code = ALT) 19 Units/L 12.0-78.0 N ALKALINE PHOSPHATASE TOTAL (test 85 Units/L 50.0-136.0 N code = ALKP) [id number] 18:35:00 Test Item Value Reference Range Interpretation Comments LIPASE (test code = LIP) 91 Units/L 65.0-230.0 N CBC W/AUTO [id number] 18:21:00 Test Item Value Reference Range Interpretation Comments WHITE BLOOD CELL (test code = 8.6 K/mm3 4.5-11.0 N WBC) RED BLOOD CELL (test code = 4.36 M/mm3 3.80-5.20 N RBC) HEMOGLOBIN (test code = HGB) 13.9 gm/dL 12.0-16.0 N HEMATOCRIT (test code = HCT) 40.4 % 36.0-48.0 N MEAN CELL VOLUME (test code = 92.7 UM3 82.0-99.0 N MCV) MEAN CELL HGB (test code = MCH) 31.9 UUG 25.5-32.5 N MEAN CELL HGB CONCETRATION 34.4 gm/dL 29.0-35.5 N (test code = MCHC) RED CELL DISTRIBUTION WIDTH 13.0 % 11.5-15.0 N (test code = RDW) RED CELL DISTRIBUTION WIDTH SD 44.3 fL 34.8-50.2 N (test code = RDW-SD) PLATELET COUNT (test code = 261 K/mm3 150-400 N PLT) MEAN PLATELET VOLUME (test code 9.9 fl 7.4-10.4 N = MPV) NEUTROPHIL % (test code = NT%) 56.6 % 49.0-76.0 N IMMATURE GRANULOCYTE % (test 0.3 % 0.0-0.4 N code = IG%) LYMPHOCYTE % (test code = LY%) 34.5 % 23.0-38.0 N MONOCYTE % (test code = MO%) 6.7 % 1.0-10.0 N EOSINOPHIL % (test code = EO%) 1.3 % 1.0-5.0 N BASOPHIL % (test code = BA%) 0.6 % 0.0-1.0 N NUCLEATED RBC % (test code = 0.0 % 0.0-0.1 N NRBC%) NEUTROPHIL # (test code = NT#) 4.9 K/mm3 2.4-6.3 N IMMATURE GRANULOCYTE # (test 0.03 x10 3/uL 0.00-0.07 N code = IG#) LYMPHOCYTE # (test code = LY#) 3.0 K/mm3 1.2-4.0 N MONOCYTE # (test code = MO#) 0.6 K/mm3 0.0-0.6 N EOSINOPHIL # (test code = EO#) 0.1 K/MM3 0.0-0.7 N BASOPHIL # (test code = BA#) 0.1 K/mm3 0.0-0.2 N NUCLEATED RBC # (test code = 0.00 X10 3uL 0.00-0.01 N NRBC#) - XR [id number] 10:25:00 [facility] : 1960 Sex: F FAX: Navarro Koroma MD [phone] [place]: St: REG Name: GONZALEZ CARDOSO : 1960 Age/S: 59/F [address] [place] [address] Unit #: [id number] Loc: [place] [address] Phys: Navarro Callahan MD Acct: [id number] Dis Date: Status: REG CLI PHONE #: [phone] Exam Date: 04/04/2020 1012 FAX #: [phone] Reason: 787.20, R13.10 , DYSPHAGIA, 530.81, K59.00, MACHO EXAMS: CPT CODE: [id number] XR ESOPHAGUS 44020 PROCEDURE: Esophagogram INDICATION: 787.20, R13.10 , DYSPHAGIA, 530.81, K59.00, GERD.; . COMPARISON: There are no previous relevant studies available for correlation. TECHNIQUE: Double contrast survey of the esophagus was carried out utilizing barium contrast material and effervescent crystals by mouth. FLUOROSCOPY TIME: 1.2 minutes REFERENCE AIR KERMA : 13.09 mGy FINDINGS: Pharyngoesophagram demonstrates no abnormality of the swallowing mechanism. Normal distensibility of the pharynx and proximal esophagus. Esophagus is normal in course and caliber without persistent intraluminal filling defect or mucosal abnormality. Peristalsis progresses normally to the stomach. IMPRESSION: Normal esophagogram.SL: [id number] at 1025 Reported and signed by: Edward Ron M.D. CC: Navarro Callahan MD Technologist: Zamzam Morales RT(R) Trnchiquis Date/Time/By: 04/04/2020 (5426) : By: Mario Alberto Hahn Print D/T: S: 04/04/2020 (4730) PAGE 1 Signed ReportURINALYSIS [id number] 20:29:00 Test Item Value Reference Range Interpretation Comments UA COLOR (test code = LT YELLOW COLU) UA APPEARANCE (test code CLDY = APPU) UA GLUCOSE DIPSTICK (test NORMAL mg/dl NORMAL code = DGLUU) UA BILIRUBIN DIPSTICK NEGATIVE mg/dL NEGATIVE (test code = BILU) UA KETONE DIPSTICK (test NEGATIVE mg/dl NEGATIVE code = KETU) UA SPECIFIC GRAVITY (test 1.005 1.000-1.030 code = SGU) UA BLOOD DIPSTICK (test 10 Elias/micL Elias/micL NEGATIVE A code = JARED) UA PH DIPSTICK (test code 6.5 5.0-9.0 = JEANETTE) UA PROTEIN DIPSTICK (test NEGATIVE mg/dl NEGATIVE code = PROU) UA UROBILINIOGEN DIPSTICK NORMAL mg/dl NORMAL (test code = URO) UA NITRITE DIPSTICK (test NEGATIVE NEGATIVE code = SUHAIL) UA LEUKOCYTE ESTERASE 25 Leslye/micL Leslye/micL NEGATIVE A DIPSTICK (test code = LEUU) UA WBC (test code = WBCU) 4-9 WBC/HPF NONE A UA RBC (test code = RBCU) 0-2 RBC/HPF 0-3 UA EPITHELIAL CELLS (test 0-3 EPI/HPF 0-3 code = EPIU) UA BACTERIA (test code = TNTC NONE A BACU) UA YEAST (test code = MANY NEGATIVE YEASTU) URINALYSIS [id number] 20:26:00 Test Item Value Reference Range Interpretation Comments UA COLOR (test code = COLU) UA APPEARANCE (test code = APPU) UA GLUCOSE DIPSTICK (test NORMAL mg/dl NORMAL code = DGLUU) UA BILIRUBIN DIPSTICK NEGATIVE mg/dL NEGATIVE (test code = BILU) UA KETONE DIPSTICK (test NEGATIVE mg/dl NEGATIVE code = KETU) UA SPECIFIC GRAVITY (test 1.005 1.000-1.030 code = SGU) UA BLOOD DIPSTICK (test 10 Elias/micL Elias/micL NEGATIVE A code = JARED) UA PH DIPSTICK (test code 6.5 5.0-9.0 = JEANETTE) UA PROTEIN DIPSTICK (test NEGATIVE mg/dl NEGATIVE code = PROU) UA UROBILINIOGEN DIPSTICK NORMAL mg/dl NORMAL (test code = URO) UA NITRITE DIPSTICK (test NEGATIVE NEGATIVE code = SUHAIL) UA LEUKOCYTE ESTERASE 25 Leslye/micL Leslye/micL NEGATIVE A DIPSTICK (test code = LEUU) UA WBC (test code = WBCU) WBC/HPF NONE UA RBC (test code = RBCU) RBC/HPF 0-3 UA EPITHELIAL CELLS (test EPI/HPF 0-3 code = EPIU) UA BACTERIA (test code = NONE BACU) - XR C-SPINE 2-3 [id number] 14:05:00 FAX: Carrington Stevenson [phone] [place]: St: REG FAX: Rebecca Walters MD [phone] ----- Name: GONZALEZ CARDOSO [facility] : 1960 Age/S: 58/F [address] [facility] Unit #: [id number] [place]: [place] Phys: Carrington Mathews PACKING AND WRAPPING SUPERVISOR [id number] Acct: [id number] Dis Date: Status: REG ER PHONE #: [phone] Exam Date: 07/30/2018 1315 FAX #: [phone] Reason: pain EXAMS: CPT CODE: [id number] XRC-SPINE 2-3 VIEWS 79632 Site ID: [id number] Cervical spine 3 views INDICATION: Neck and right shoulder pain COMPARISON: CT cervical spine December 30, 2015 FINDINGS: Normal cervical lordosis. No fracture or pre vertebral soft tissue swelling. Considerable diffuse uncovertebral and mild facet arthropathy are redemonstrated, as is moderate disc height loss and endplate spondylosis at C6-C7 greater than C5-C6. IMPRESSION: Considerable diffuse uncovertebral and mild facet arthropathy are redemonstrated, as is mo derate disc height loss and endplate spondylosis at C6-C7 greater than C5-C6. at 1405 Reported and signed by: Hemal Funez M.D. CC: Carrington Mathews PACKING AND WRAPPING SUPERVISOR; Rebecca Walters MD Technologist: WALLY FINCH Trnscrd Date/Time/By: 07/30/2018 (8981) : By: [email or web address] PAGE 1 Signed Report FAX: Carrington Stevenson [phone] [place]: St: REG FAX: Rebecca Walters MD [phone] Name: GONZALEZ CARDOSO [facility] : 1960 Age/S: 58/F [address] [facility] Unit #: [id number] Loc: [place] Phys: Carrington Mathews PACKING AND WRAPPING SUPERVISOR [id number] Acct: [id number] Dis Date: Status: REG ER PHONE #: [phone] Exam Date: 07/30/2018 1315 FAX #: [phone] Reason: pain EXAMS: CPT CODE: [id number] XR C-SPINE 2-3 VIEWS 32732 (Continued) Orig Print D/T: S: 07/30/2018 (7478) PAGE 2 Signed Report Notes Date/Time Note Provider Source 2022-12-25 11:11:26-00:00 Formatting of this note is d ifferent from the original. [facility] 12/25/22 Community Wellness and Outre ach team contacted patient to assist in completing Health Maintenance topics that are overdue. Gonzalez Walker [id number] Attempt Number: 1st attempt Health Maintenance topics addressed: Health Maintenance Due Topic Date Due Medicare Wellness Visit Never done Colorectal Cancer Screening 09/11/2020 Breast Cancer Screening (MAMMOGRAM) 03/06/2022 Call outcome: Attempted to g et in contact with patient regarding overdue health maintenance. Phone call went straight to [facility] for patient to return phone call. Electronically signed by Eva Elaine MA at 0 12/25/2022 11:12 AM [facility] 2022-11-29 17:49:00-00:00 [facility] ([facility] EMERGENCY PROVIDER REPORT REPORT#:[id number] REPORT STATUS: Signed DATE:11/29/22 TIME: 1748 PATIENT: GONZALEZ CARDOSO UNIT #: [id number] ROOM/BED: AGE: 62 SEX: F PCP PHYS: Lesley Holland POWER CHISEL OPERATOR-LICENSED NUCLEAR OPERATOR -C SERVICE AUTHOR: Parviz Acosta APRNNP * ALL edits or amendments must be made on the [employer]computer document * Parviz Acosta 11/29/221748: HPI-Eye Problem Free Text HPI Notes Free Text HPI Notes pt states she can feel her mis contact in her r eye x 2 days. Pt admits she has been rubbing and trying to get the contact out w no avail . she denies loss or change in vision. General Confirmed Patient Yes Patient Type Existing patient Initial Greet Date/Time 11/29/22 1630 Assumed Care at Time 1640 Presentation Chief Complaint Eye R affected, Foreign body sen sation, Pain Hx Obtained From Patient Onset Occurred Days ago Risk-Eye Problem Risk Stratification )( Eye Injury - Adult Risk factors reviewed Review of Systems ROS Statements All systems rev neg except as marked. Past Medical History - Adult Stated Complaint CONTACT STUCK IN RIGHT EYE Allergies Coded Allergies: Sulfa (Sulfonamide Antibiotics) (Mild, ITCHING R CORY 11/13/15) tramadol (Mild, SHORTNESS OF BREATH 05/04/14) Home Medications Active Scripts HYDROcodone/APAP (HYDROcodone/APAP 5/325) 2 TAB PO Q6H PRN PRN pain HYDROcodone/APAP (HYDROcodone/APAP 5/325) 2 TAB PO Q6H PRN PRN pain #15 TABS Prov: 08/30/22 CEPHALEXIN (KEFLEX) 500 MG PO TID 7 Days #21 CAPS Prov: 09/11/22 BACITRACIN (BACITRACIN 500 UNITS/GM TOPICAL) 1 A PPLIC TOPICAL BID BACITRACIN (BACITRACIN 500 UNITS/GM TOPICAL) 1 APPLIC TOPICAL BID #15 GM Prov: 09/11/22 Reported Medications amLODIPine (NORVASC) 5 MG PO DAILY ENALAPRIL (VASOTEC) 10 MG PO BID Physical Exam Vital Signs Vital Signs First Documented: Result Date Time Pulse Ox 99 11/29 1601 B/P 104/59 11/29 1601 B/P Mean 74 11/29 1601 O2 Delivery Room air 11/29 1601 Temp 37.2 11/29 1601 Pulse 82 11/29 1601 Resp 19 11/29 1601 Last Documented: Result Date Time Pulse Ox 99 11/29 1601 B/P 104/59 11/29 1601 B/P Mean 74 11/29 1601 O2 Delivery Room air 11/29 1601 Temp 37.2 11/29 1601 Pulse 82 11/29 1601 Resp 19 11/29 1601 Review of Vital Signs Reviewed Focused PE General/Const General/Const Awake, Alert Distress/Hydration Distress mild. MS Head Head Atraumatic, Normocephalic Eyes Text/Dict Notes r eye exam completed and occ ular movement nml, redness to sclera, tetracine to r eye 2 gtts, flurascene to r eye and almeida lamp l ight reveals 2 mm corneal abrasion to r eye at 9 ocloc k w no fb and no contact lense noted. Nurse in rm to assist Cornea/Ant Chamber Abrasion R, Fluorescein uptake R. Ears/Nose/Throat Ears/Nose/Throat Atraumatic, Airway patent, Muc ous membranes moist, Pharynx NL Skin Skin Atraumatic, Color NL, No rash, War m, Dry, Intact, Turgor NL, No swelling Neurologic Neurologic Oriented X3, Speech NL Procedures Foreign Body Removal - Eye Start Time 1750 Time Spent (minutes) 10 Procedure Performed by ED PACKING AND WRAPPING SUPERVISOR Consent/Setup/Site Prep Verified correct patient , Informed consent provided, Consent from patient, Hand hygiene observed, Sta nd sterile technique Eye/Location/# FB Eye R Anesthesia/Equipment/Procedure Tetracaine, Eye l id(s) everted Number of Attempts 2 Post-Procedure/Complications No complications, Tolerated procedure well, Patient stable, no fb noted , corneal abrasion noted Re-Evaluation MDM Re-Evaluation/Progress Re-Evaluation/Progress Time of Re-Eval 1755 Re-Eval Status Improved ED Course Medication(s) Ordered Medication(s) Ordered: Diagnostic Agents Sig/Kristen Start time Last Medication Dose Route Stop Time Status Admin Fluorescein Sodium See Dose X1ED STA 11/29 1730 DC 11/29 Insts (1) RIGHT EYE 11/29 1731 1737 Eye, Ear, Nose And Throat (Een Sig/Kristen Start time Last Medication Dose Route Stop Time Status Admin Tetracaine HCl 1 DROP X1ED STA 11/29 172 DC RIGHT EYE 11/29 1728 1737 Dose Instructions: (1)Fluorescein Sodium: 1 STRIP TO EACH EYE Differential Diagnosis )( Differential Diagnosis Corneal abrasion Patient Discharge Departure Vital Signs/Condition Vital Signs First Documented: Result Date Time Pulse Ox 99 11/29 1601 B/P 104/59 11/29 1601 B/P Mean 74 11/29 1601 O2 Delivery Room air 11/29 1601 Temp 37.2 11/29 1601 Pulse 82 11/29 1601 Resp 19 11/29 1601 Last Documented: Result Date Time Pulse Ox 99 11/29 1601 B/P 104/59 11/29 1601 B/P Mean 74 11/29 1601 O2 Delivery Room air 11/29 1601 Temp 37.2 11/29 1601 Pulse 82 11/29 1601 Resp 11/29 1601 All vital signs available at the time of this en try have been reviewed. Condition Stable Clinical Impression Clinical Impression Primary Impression: Corneal abrasion Disposition Decision Discharge )( Discharged to Home Yes )( Time 1802 )( Date 11/29/22 Discharge/Care Plan Counseled Regarding Diagnosis, Prescriptions, Ne ed for admission, Need for follow-up, When to return to ED (Auto) Prescriptions Current Visit Scripts OFLOXACIN (OFLOXACIN 0.3% OPHTH SOLN) 1 DROP RIG HT EYE ASDIR OFLOXACIN (OFLOXACIN 0.3% OPHTH SOLN) 1 DROP RI GHT EYE ASDIR #5 ML Instill 1 drop in affected eye every two to fou r hours, then on days 3-7, one drop four times daily. Patient Instructions ED Corneal Abrasion Discharge Note I have spoken with the patie nt and/or caregivers. I have explained the patient's condition, diagnoses and melissa atment plan based on the information available to me at this time. I have answered the patient's and/ or caregiver's questions and addressed any concerns. The patient and/or careg enzo have as good an understanding of the patient 's diagnosis, condition and treatment plan as can be expected at this point. The vital signs have bee n stable. The patient's condition is stable and appr opriate for discharge from the emergency department. The patient will pursue further outpatient evalu ation with the primary care physician or other designated or consulting phys ician as outlined in the discharge instructions. The patient and/or caregivers are agreeable to this plan of care and follow-up instructions have been exp lained in detail. The patient and/or caregivers have received these instructio ns in written format and have expressed an understanding of the discharge inst ructions. The patient and/or caregivers are aware that any significant change in condition or worsening of symptoms should prompt an immediate return to [facility] or the closest emergency department or a call to 911. Zaina Garcia 11/30/22 0815: HPI-Eye Problem Free Text HPI Notes Free Text HPI Notes I have reviewed the PA/PACKING AND WRAPPING SUPERVISOR's note and plan of car e. I was available for consultation as needed at al l times during the patient's visit in the emergency department. I agree with the clinical impression , plan and disposition. Patient Discharge Departure Discharge/Care Plan Referrals Resource Referral: [facility] y Address: [facility] [place] [address] at 1820 Electronically Signed by Zaina Garcia MD on 0 11/30/22 at 0815 RPT #:[id number] END OF REPORT 2022-09-30 22:19:00-00:00 [facility] ([facility]) EMERGENCY PROVIDER REPORT REPORT#:[id number] REPORT STATUS: Signed DATE:09/30/22 TIME: 2218 PATIENT: GONZALEZ CARDOSO UNIT #: [id number] ROOM/BED: AGE: 62 SEX: F PCP PHYS: No Primary or Family P hysician SERVICE AUTHOR: Ginna Donahue MD * ALL edits or amendments must be made on the [employer]computer document * HPI-General Illness General Confirmed Patient Yes Initial Greet Date/Time 09/30/221943 Presentation Chief Complaint HTN Free Text HPI Notes Free Text HPI Notes 62-year-old -Micron[place] female with PMH of HTN presents with complaint of elevated blood pressure. Patient has bee n grieving the loss of a family member and states that her blood pr essure has been elevated while she has been crying. She denies any headache, chest pain, day[place] rtness of breath, nausea, vomiting, or diarrhea. Review of Systems Free Text ROS Notes Free Text ROS Notes Constitutional: Denies fever, denies chills, den ies generalized weakness ENT: Denies nasal congestion, denies sore throat Respiratory: Denies cough, denies dyspnea on exe rtion, denies shortness of breath, denies wheezing Cardiovascular: Denies chest pain, denie s DENNISON, denies edema, denies orthopnea, denies palpitations, denies syncope ABD: Denies abdominal pain, nausea, vomiting, or diarrhea. Musculoskeletal: Denies back pain, denies extrem ity pain, denies extremity swelling, denies joint pain, denies joint swelli ng, denies neck pain Skin: Denies laceration, denies rash, denies abr asion, denies abscess, denies erythema Neurologic: Denies headache, denies focal weakness, denies dizziness, denies LOC , denies altered mental status, denies s lurred speech, denies lightheadedness, denies syncope Past Medical History - Adult Stated Complaint HIGH BLOOD PRESSURE Allergies Coded Allergies: Sulfa (Sulfonamide Antibiotics) (Mild, ITCHING R CORY 11/13/15) tramadol (Mild, SHORTNESS OF BREATH 05/04/14) Home Medications Active Scripts HYDROcodone/APAP (HYDROcodone/APAP 5/325) 2 TAB PO Q6H PRN PRN pain HYDROcodone/APAP (HYDROcodone/APAP 5/325) 2 TAB PO Q6H PRN PRN pain #15 TABS Prov: 08/30/22 CEPHALEXIN (KEFLEX) 500 MG PO TID 7 Days #21 CAPS Prov: 09/11/22 BACITRACIN (BACITRACIN 500 UNITS/GM TOPICAL) 1 A PPLIC TOPICAL BID BACITRACIN (BACITRACIN 500 UNITS/GM TOPICAL) 1 APPLIC TOPICAL BID #15 GM Prov: 09/11/22 Reported Medications amLODIPine (NORVASC) 5 MG PO DAILY ENALAPRIL (VASOTEC) 10 MG PO BID Discontinued Reported Medications ASPIRIN EC (ECOTRIN) 81 MG PO DAILY Past Medical History: Reports: Coronary artery disease, Hypertension. Denies: Cancer, Diabetes mellitus, GERD/gastritis, Thyroid disorder, Tapia sfusion history. Additional Medical History chronic back pain Past Surgical History: Reports: Spine surgery (back surgery 10 days ago ). Smoking status for patients 13 years old or olde r: Current every day smoker Other Social History Local resident Physical Exam Vital Signs Vital Signs First Documented: Result Date Time Pulse Ox 100 09/30 1946 B/P 179/90 09/30 1946 B/P Mean 119 09/30 1946 O2 Delivery Room air 09/30 1946 Temp 36.8 09/30 1946 Pulse 91 09/30 1946 Resp 18 09/30 1946 Last Documented: Result Date Time Pulse Ox 98 09/30 2300 B/P 141/69 09/30 2300 Temp 36.7 09/30 2300 Pulse 86 09/30 2300 Resp 09/30 B/P Mean 105 09/30 2152 O2 Delivery Room air 09/30 2152 Review of Vital Signs Reviewed Free Text PE Notes Free Text PE Notes GEN: Well-appearing/NAD, awake, alert, not toxic appearing, cooperative Head: Atraumatic/normocephalic Eyes: PERRLA, conjunctiva clear, EOMI, no nystag mus ENT: Atraumatic, airway patent, mucous membranes moist, pharynx normal Neck: Supple, no meningismus, full range of hannah on, no adenopathy, no midline vertebral tenderness, no tracheal deviation RESP: No respiratory distres s, atraumatic, no rales, no rhonchi, no wheezing, no retractions CV: Heart rate normal, regular rhythm, no gallop , no murmurs, no rubs ABD: Atraumatic, soft, nontender, no guarding, n o rebound, no distention EXT: No gross abnormalities Skin: Atraumatic, color normal, no rash, warm, dry, turgor normal, no swelling Neuro: Oriented x3, speech n ormal, no motor deficits, no sensory deficits, CN II - XII grossly intact Psych: Normal thought content Interpretation Diagnostics Lab Results Interpretation Results Laboratory Tests 09/30/222030: [Embedded Image Not Available] Laboratory Tests: 09/30 Chemistry Sodium (134.0 - 147.0 mmol/l) 136 Potassium (3.6 - 5.2 mmol/L) 5.4 H Chloride (98.0 - 107.0 mmol/l) 101 Carbon Dioxide (21.0 - 33.0 mmol/l) 27.7 Anion Gap (0 - 20) 12.7 BUN (7.0 - 18.0 mg/dl) 6 L Creatinine (0.60 - 1.30 mg/dL) 1.13 Estimated Creat Clear (>30 mL/min) 50 Glomerular Filtr Rate (mL/min) 56 Glucose (70.0 - 110.0 mg/dl) 91 Calcium (8.0 - 10.5 mg/dl) 9.2 Total Bilirubin (0.0 - 1.0 mg/dl) 0.4 AST (15 - 37 Units/L) 36 ALT (12.0 - 78.0 Units/L) 25 Total Alk Phosphatase (50.0 - 136.0 Units/L) 10 2 Total Creatine Kinase (21 - 215 Units/L) 294 H Troponin I High Sens (0.0 - 51 ng/L) 39 B-Natriuretic Peptide (5 - 100 PG/ML) 31 Total Protein (6.0 - 8.1 GM/DL) 7.6 Albumin (3.2 - 4.7 gm/dL) 3.6 Lipase (65.0 - 230.0 Units/L) 65 Coagulation INR (0.89 - 1.14) 1.0 PTT (Donal) (25.86 - 36.07 SECONDS) 32.50 PT Patient/Control Mix (9.9 - 12.8 SECONDS) 11. 6 Hematology WBC (4.5 - 11.0 K/mm3) 12.0 H RBC (3.80 - 5.20 M/mm3) 3.86 Hgb (12.0 - 16.0 gm/dL) 11.9 L Hct (36.0 - 48.0 %) 35.4 L MCV (82.0 - 99.0 UM3) 91.7 MCH (25.5 - 32.5 UUG) 30.8 MCHC (29.0 - 35.5 gm/dL) 33.6 RDW (11.5 - 15.0 %) 13.2 Plt Count (150 - 400 K/mm3) 321 MPV (7.4 - 10.4 fl) 9.4 Neut % (Auto) (49.0 - 76.0 %) 74.6 Lymph % (Auto) (23.0 - 38.0 %) 17.7 L Pender % (Auto) (1.0 - 10.0 %) 6.5 Eos % (Auto) (1.0 - 5.0 %) 0.3 L Baso % (Auto) (0.0 - 1.0 %) 0.6 Neut # (Auto) (2.4 - 6.3 K/mm3) 8.9 H Lymph # (Auto) (1.2 - 4.0 K/mm3) 2.1 Pender # (Auto) (0.0 - 0.6 K/mm3) 0.8 H Eos # (Auto) (0.0 - 0.7 K/MM3) 0.0 Baso # (Auto) (0.0 - 0.2 K/mm3) 0.1 Absolute Nucleated RBC (0.00 - 0.01 X10 3uL) 0. 00 Immature Gran % (0.0 - 0.4 %) 0.3 Nucleated RBC % (0.0 - 0.1 %) 0.0 Immature Gran # (0.00 - 0.07 x10 3/uL) 0.03 Toxicology Urine Opiates Screen (NEGATIVE) NEGATIVE Urine Methadone Screen (NEGATIVE) NEGATIVE Urine Barbiturates (NEGATIVE) NEGATIVE Ur Phencyclidine Scrn (NEGATIVE) NEGATIVE Ur Amphetamines Screen (NEGATIVE) NEGATIVE U Benzodiazepines Scrn (NEGATIVE) NEGATIVE Urine Cocaine Screen (NEGATIVE) NEGATIVE Urine Cannabinoids (NEGATIVE) POSITIVE H Ethyl Alcohol (0.00 - 0.00 gm/dL) 0.00 Recent Impressions: RADIOLOGY - XR CHEST 1 V 09/30 2099 Report Impression - Status: SIGNED Entered: 09/30/20222104 IMPRESSION: No active pulmonary findings. Impression By: aMrio - Criss Goodrich Lab Imaging Statement Laboratory radiographic studies reviewed and con sidered in the medical decision-making. Point of Care Testing Pulse Oximetry Pulse Ox % 100 On: Room air Interpretation Interpreted by me, Pulse oximetr y normal Time 2226 ECG #1 Interpretation Text/Dict Note EKG done on 09/30/2022 at 195 6 interpreted by me. Normal sinus with rate 92 bpm, normal QRS, nonspecific ST changes, no STEMI Re-Evaluation MDM Re-Evaluation/Progress #1 Text/Dict Note Discussed test results with patient. Adv ised patient to follow-up with PCP and advised patient return to ED if condition worsen s. Patient has remained medically stable during the ER visit. Time of Re-Eval 2320 Re-Eval Status Improved ED Course Medication(s) Ordered Medication(s) Ordered: Central Nervous System Agents Sig/Kristen Start time Last Medication Dose Route Stop Time Status Admin Ketorolac 30 MG X1ED STA 10/01 2203 DC 09/30 Tromethamine IV 09/30 Differential Diagnosis Differential Diagnosis Acute coronary syndrome, htn Ruled Out Sepsis This is not sepsis. MDM-Complexity Severity/Chronicity Evaluation Moderate, acute MDM-History/Test Information Independent Hx From/Why Patient's Patient Discharge Departure Vital Signs/Condition Vital Signs First Documented: Result Date Time Pulse Ox 100 09/30 1946 B/P 179/90 09/30 1946 B/P Mean 119 09/30 1946 O2 Delivery Room air 09/30 1946 Temp 36.8 09/30 1946 Pulse 91 09/30 1946 Resp 18 09/30 1946 Last Documented: Result Date Time Pulse Ox 98 09/30 2300 B/P 141/69 09/30 2300 Temp 36.7 09/30 2300 Pulse 86 09/30 2300 Resp 18 09/30 2300 B/P Mean 105 09/30 2152 O2 Delivery Room air 09/30 2152 All vital signs available at the time of this en try have been reviewed. Condition Stable Clinical Impression Clinical Impression Primary Impression: Hypertension Secondary Impressions: Stress and adjustment gabriela ction Disposition Decision Discharge )( Discharged to Home Yes )( Time 2321 )( Date 09/30/22 Discharge/Care Plan Patient Instructions ED Hypertension, Establishe d Departure Forms [facility] PCP LIST Discharge Note I have spoken with the patie nt and/or caregivers. I have explained the patient's condition, diagnoses and melissa atment plan based on the information available to me at this time. I have answered the patient's and/ or caregiver's questions and addressed any concerns. The patient and/or careg enzo have as good an understanding of the patient 's diagnosis, condition and treatment plan as can be expected at this point. The vital signs have bee n stable. The patient's condition is stable and appr opriate for discharge from the emergency department. The patient will pursue further outpatient evalu ation with the primary care physician or other designated or consulting phys rashida as outlined in the discharge instructions. The patient and/or caregivers are agreeable to this plan of care and follow-up instructions have been exp lained in detail. The patient and/or caregivers have received these instructio ns in written format and have expressed an understanding of the discharge inst ructions. The patient and/or caregivers are aware that any significant change in condition or worsening of symptoms should prompt an immediate return to [facility] or the closest emergency department or a call to 1. Electronically Signed by Ginna Donahue MD on at 2322 RPT #:[id number] END OF REPORT 2022-09-10 22:52:00-00:00 [facility] ([facility]) EMERGENCY PROVIDER REPORT REPORT#:[id number] REPORT STATUS: Signed DATE:09/10/22 TIME: 2251 PATIENT: GONZALEZ CARDOSO UNIT #: [id number] ROOM/BED: AGE: 62 SEX: F PCP PHYS: Undefined Provider SERVICE AUTHOR: Lisa Mejia * ALL edits or amendments must be made on the [employer]/computer document * HPI-Head Prob/Injury Free Text HPI Notes Free Text HPI Notes 62-year-old female presents for evaluation of sc alp wound appears to have reopened. Patient recently underwent major head trauma and with admitted at [facility] trauma center in the ICU. Patient had stapl es placed on a scalp laceration. Patient had isis removed today at outside facility. When patient went home she took a shower and noticed that wound was bleeding so she presented to the emergency room. General Confirmed Patient Yes Initial Greet Date/Time 09/10/222231 Presentation Chief Complaint Laceration Review of Systems Free Text ROS Notes Free Text ROS Notes Review of systems -Constitutional: No fever, chills, fatigue -EENT: No runny nose, sore throat -Cardiovascular: No chest pain, palpitations, sy ncope -Respiratory: No shortness of breath, cough, whe ezing -GI: No abdominal pain, nausea, vomiting, diarrh ea -Musculoskeletal: No joint pain, muscle pain, ba ck pain Past Medical History - Adult Stated Complaint SCALP STITCHES REMOVED,BUT WOUN D STILL B Allergies Coded Allergies: Sulfa (Sulfonamide Antibiotics) (Mild, ITCHING R CORY 11/13/15) tramadol (Mild, SHORTNESS OF BREATH 05/04/14) Home Medications Active Scripts HYDROcodone/APAP (HYDROcodone/APAP 5/325) 2 TAB PO Q6H PRN PRN pain HYDROcodone/APAP (HYDROcodone/APAP 5/325) 2 TAB PO Q6H PRN PRN pain #15 TABS Prov: 08/30/22 Reported Medications amLODIPine (NORVASC) 5 MG PO DAILY ASPIRIN EC (ECOTRIN) 81 MG PO DAILY Pt reports no significant: Family history Past Medical History: Reports: Coronary artery disease, Hypertension. Denies: Cancer, Diabetes mellitus, GERD/gastritis, Thyroid disorder, Tapia sfusion history. Additional Medical History chronic back pain Past Surgical History: Reports: Spine surgery (back surgery 10 days ago ). Smoking status for patients 13 years old or olde r: Never Smoker Other Social History Local resident Physical Exam Vital Signs Vital Signs First Documented: Result Date Time Pulse Ox 100 09/11 2227 B/P 154/74 09/10 222 B/P Mean 100 09/11 2227 O2 Delivery Room air 09/11 2227 Temp 37.1 09/11 2227 Pulse 113 09/11 2227 Resp 17 09/11 2227 Last Documented: Result Date Time Pulse Ox 100 09/10 2228 B/P 154/74 09/10 2228 B/P Mean 100 09/11 2227 O2 Delivery Room air 09/11 2227 Temp 37.1 09/11 2227 Pulse 113 09/11 2227 Resp 17 09/11 2227 Review of Vital Signs Reviewed Free Text PE Notes Free Text PE Notes Physical exam -General: Awake, alert, well appearing, no acute distress -EENT: PERRLA, EOMI -Neck: Supple, full range of motion, no meningis mus -Respiratory: No respiratory distress, clear to auscultation bilaterally, no wheezing or rhonchi -Cardiovascular: Heart rate normal, regular rhyt hm, normal heart sounds -Abdomen: Soft, nontender, nondistended, no rebo und or guarding -Skin: 8 cm gaping wound to posterior scalp with gaping with deep gaping of the middle portion. No active bleeding on my evaluat ion Interpretation Diagnostics Point of Care Testing Pulse Oximetry Pulse Ox % 100 On: Room air Interpretation Interpreted by me, Pulse oximetr y normal Time 2228 Procedures Laceration Management #1 Start Time 0015 Time Spent (minutes) 20 Procedure Performed by ED physician )( Location of Wound POSTERIOR SCALP Wound Length (cm) 8 Local Anesthesia Lidocaine 1%, 5 mL )( Debridement None Irrigation Copious Repair Skin Prolene Suture Size - Skin 3-0 # Sutures - Skin 4 Closure Layers 1 Suture Technique Simple Post-Procedure/Complications Antibiotic oint jordan lied, Dressing applied, No complications, Condition improved, Tolerated pro cedure well, Patient stable Re-Evaluation MDM Free Text MDM Notes Free Text MDM Notes Wound has reopened, currently gaping . Due to du ration of move wound will loosely approximate and start patient on antibio tics and follow-up with sales support specialist. Re-Evaluation/Progress #1 Text/Dict Note Wound approximated, patient given extens tere wound care instructions as well as follow-up with physician specialist. Sh e will be started on antibiotic due to depth of wound and duration of wound. They are comfortable with plan, follow-up instructions and return precautions provided. ED Course Medication(s) Ordered Medication(s) Ordered: Local Anesthetics (Parenteral) Sig/Kristen Start time Last Medication Dose Route Stop Time Status Admin Lidocaine HCl 10 ML ONCE ONE 09/10 2244 DC 05/0 9 INJ 09/10 2245 2314 Skin And Mucous Membrane Agent Sig/Kristen Start time Last Medication Dose Route Stop Time Status Admin Bacitracin Zinc 1 APPLIC X1ED STA 09/11 004 DC TOPICAL 09/11 0041 Patient Discharge Departure Vital Signs/Condition Vital Signs First Documented: Result Date Time Pulse Ox 100 09/11 2227 B/P 154/74 09/11 2227 B/P Mean 100 09/11 2227 O2 Delivery Room air 09/11 2227 Temp 37.1 09/11 2227 Pulse 113 09/11 2227 Resp 17 09/11 2227 Last Documented: Result Date Time Pulse Ox 100 09/11 2227 B/P 154/74 09/11 2227 B/P Mean 100 09/11 2227 O2 Delivery Room air 09/11 2227 Temp 37.1 09/11 2227 Pulse 113 09/11 2227 Resp 17 09/11 2227 All vital signs available at the time of this en try have been reviewed. Clinical Impression Clinical Impression Primary Impression: Scalp wound Disposition Decision Discharge )( Discharged to Home Yes )( Time 004 )( Date 09/11/22 Discharge/Care Plan (Auto) Prescriptions Current Visit Scripts CEPHALEXIN (KEFLEX) 500 MG PO TID 7 Days #21 CAPS Patient Instructions ED Scalp Laceration Sutr St ap Additional Instructions Take antibiotics as prescribed, keep wound dry a nd clean, keep wound dressed. Follow-up with wound special ist, if you develop worsening symptoms such as fever , drainage, other concerning symptoms, return to the ER. Referrals Provider Group: PRIMARY CARE Follow-Up: 2-3 Days Discharge Note I have spoken with the patie nt and/or caregivers. I have explained the patient's condition, diagnoses and melissa atment plan based on the information available to me at this time. I have answered the patient's and/ or caregiver's questions and addressed any concerns. The patient and/or careg enzo have as good an understanding of the patient 's diagnosis, condition and treatment plan as can be expected at this point. The vital signs have bee n stable. The patient's condition is stable and appr opriate for discharge from the emergency department. The patient will pursue further outpatient evalu ation with the primary care physician or other designated or consulting phys ician as outlined in the discharge instructions. The patient and/or caregivers are agreeable to this plan of care and follow-up instructions have been exp lained in detail. The patient and/or caregivers have received these instructio ns in written format and have expressed an understanding of the discharge inst ructions. The patient and/or caregivers are aware that any significant change in condition or worsening of symptoms should prompt an immediate return to [facility] or the closest emergency department or a call to 911. at 0043 RPT #:[id number] END OF REPORT 2022-08-30 03:29:00-00:00 [facility] ([facility]) EMERGENCY PROVIDER REPORT REPORT#:[id number] REPORT STATUS: Signed DATE:08/30/22 TIME: 328 PATIENT: GONZALEZ CARDOSO UNIT #: [id number] ROOM/BED: AGE: 62 SEX: F PCP PHYS: No Primary or Family Ph ysician SERVICE AUTHOR: Lion Palacios * ALL edits or amendments must be made on the [employer]computer document * HPI-Back Pain 40 and Over General Initial Greet Date/Time 08/30/22 0150 Presentation Chief Complaint Pain, flank R Sudden in Onset? Yes Free Text HPI Notes Free Text HPI Notes 62-year-old female presents saying that earlier just prior to arrival she started getting severe pain at the right side of her back middle area just below her ribs. She says she did not do anything that would have caused this. She says she never had this happen before. She does describe having a history of lumbar back pain and surgeries with hard faye but has not had any problems with that for years. She denies any recent trauma inj ury fall any sort. She denies any abdominal pain, nausea v omiting fever chills, diarrhea or urinary symptoms. Review of Systems Focused Review of Systems Constitutional Denies: Chills, Fever. Respiratory Denies: Cough, non-productive, Shortness of isaiah th. Cardiovascular Denies: Chest pain. GI Denies: Abdominal pain, Nausea, Vomiting. Female Denies: Dysuria, Hematuria. Musculoskeletal Reports: Back pain. Past Medical History - Adult Stated Complaint RIGHT SIDED FLANK PAIN Allergies Coded Allergies: Sulfa (Sulfonamide Antibiotics) (Mild, ITCHING R CORY 11/13/15) tramadol (Mild, SHORTNESS OF BREATH 05/04/14) Home Medications Discontinued Scripts NITROFURANTOIN/NITROFURAN MAC (MACROBID) 100 MG PO BID 10 Days #20 CAPS Prov: 04/04/20 DC: 08/30/22 0141 Patient stopped taking NAPROXEN (NAPROSYN) 500 MG PO BID PRN PRN PAIN NAPROXEN (NAPROSYN) 500 MG PO BID PRN PRN PAIN #15 TABS Prov: 02/05/22 DC: 08/30/22 0141 Patient stopped taking Reported Medications amLODIPine (NORVASC) 5 MG PO DAILY ASPIRIN EC (ECOTRIN) 81 MG PO DAILY Discontinued Reported Medications ENALAPRIL (VASOTEC) 10 MG PO DAILY CALCIUM CARBONATE/VIT D3 (CALTRATE-600 + D 600 M G/800 UNITS) 1 TAB PO TID Past Medical History: Reports: Coronary artery disease, Hypertension. Denies: Cancer, Diabetes mellitus, GERD/gastritis, Thyroid disorder, Tapia sfusion history. Additional Medical History chronic back pain Past Surgical History: Reports: Spine surgery (back surgery 10 days ago ). Smoking status for patients 13 years old or olde r: Current every day smoker Packs per day: 0.4 Pack years: 0 Other Social History Local resident Physical Exam Vital Signs Vital Signs First Documented: Result Date Time Pulse Ox 99 08/30 0122 B/P 119/77 08/30 0122 B/P Mean 91 08/30 012 O2 Delivery Room air 08/30 012 Temp 36.7 08/30 012 Pulse 77 08/30 012 Resp 18 08/30 012 Last Documented: Result Date Time Pulse Ox 99 08/30 0122 B/P 119/77 08/30 0122 B/P Mean 91 08/30 012 O2 Delivery Room air 08/30 012 Temp 36.7 08/30 121 Pulse 77 08/30 012 Resp 08/30 012 Review of Vital Signs Reviewed, Vital signs norm al Focused PE General/Const General/Const Awake, Alert Resp/Chest Respiratory/Chest Atraumatic, Breath sounds NL, Breath sounds = bilat, No respiratory distress Cardiovascular Cardiovascular Heart rate NL, Regular rhythm, H eart sounds NL Abdomen/GI Abdomen/GI Soft, Non-tender, No guarding, No re bound MS Back Back No midline vertebral tend Flank/Spine/Paraspinal Flank tender R. Negative: Flank tender L, Eryth sarah present, Swelling present. MS Lower Extrem Lower Ext/Pelvis/MS Full range of motion, Non-t leona, Neurologic intact Skin Skin Warm, Dry Neurologic Neurologic Oriented X3, Speech NL, No m otor deficits, No sensory deficits, CN II - XII intact, Reflexes equal bilat Interpretation Diagnostics Lab Results Interpretation Results Laboratory Tests 08/30/22236: [Embedded Image Not Available] Laboratory Tests: 08/30 0135 Chemistry Sodium (134.0 - 147.0 mmol/l) 137 Potassium (3.6 - 5.2 mmol/L) 3.9 Chloride (98.0 - 107.0 mmol/l) 102 Carbon Dioxide (21.0 - 33.0 mmol/l) 27.5 Anion Gap (0 - 20) 11.4 BUN (7.0 - 18.0 mg/dl) 22 H Creatinine (0.60 - 1.30 mg/dL) 1.46 H Estimated Creat Clear (>30 mL/min) 38 Glomerular Filtr Rate (mL/min) 41 Glucose (70.0 - 110.0 mg/dl) 95 Calcium (8.0 - 10.5 mg/dl) 9.4 Total Bilirubin (0.0 - 1.0 mg/dl) 0.3 Direct Bilirubin (0.0 - 0.3 mg/dl) <0.1 AST (15 - 37 Units/L) 27 ALT (12.0 - 78.0 Units/L) 25 Total Alk Phosphatase (50.0 - 136.0 Units/L) 92 Total Protein (6.0 - 8.1 GM/DL) 8.0 Albumin (3.2 - 4.7 gm/dL) 3.6 Lipase (65.0 - 230.0 Units/L) 105 Hematology WBC (4.5 - 11.0 K/mm3) 8.4 RBC (3.80 - 5.20 M/mm3) 4.35 Hgb (12.0 - 16.0 gm/dL) 13.9 Hct (36.0 - 48.0 %) 40.3 MCV (82.0 - 99.0 UM3) 92.6 MCH (25.5 - 32.5 UUG) 32.0 MCHC (29.0 - 35.5 gm/dL) 34.5 RDW (11.5 - 15.0 %) 13.2 Plt Count (150 - 400 K/mm3) 293 MPV (7.4 - 10.4 fl) 9.7 Neut % (Auto) (49.0 - 76.0 %) 56.7 Lymph % (Auto) (23.0 - 38.0 %) 33.6 Pender % (Auto) (1.0 - 10.0 %) 7.4 Eos % (Auto) (1.0 - 5.0 %) 1.4 Baso % (Auto) (0.0 - 1.0 %) 0.5 Neut # (Auto) (2.4 - 6.3 K/mm3) 4.7 Lymph # (Auto) (1.2 - 4.0 K/mm3) 2.8 Pender # (Auto) (0.0 - 0.6 K/mm3) 0.6 Eos # (Auto) (0.0 - 0.7 K/MM3) 0.1 Baso # (Auto) (0.0 - 0.2 K/mm3) 0.0 Absolute Nucleated RBC (0.00 - 0.01 X10 3uL) 0. 00 Immature Gran % (0.0 - 0.4 %) 0.4 Nucleated RBC % (0.0 - 0.1 %) 0.0 Immature Gran # (0.00 - 0.07 x10 3/uL) 0.03 Urines Urine Color YELLOW Urine Appearance CLEAR Urine pH (5.0 - 9.0) 5.0 Ur Specific [place] (1.000 - 1.030) 1.015 Urine Protein (NEGATIVE mg/dl) 15 mg/dl H Urine Glucose (UA) (NORMAL mg/dl) NORMAL Urine Ketones (NEGATIVE mg/dl) NEGATIVE Urine Blood (NEGATIVE Elias/micL) 50 Elias/micL H Urine Nitrite (NEGATIVE) NEGATIVE Urine Bilirubin (NEGATIVE mg/dL) NEGATIVE Urine Urobilinogen (NORMAL mg/dl) NORMAL Ur Leukocyte Esterase (NEGATIVE Leslye/micL) 25 Le u/micL H Urine RBC (0 - 3 RBC/HPF) 3-5 Urine WBC (0 - 3 WBC/HPF) 0-3 Ur Epithelial Cells (0 - 3 EPI/HPF) 2-5 H Urine Bacteria (NONE) FEW Recent Impressions: CAT SCAN - CT ABD PELVIS W/O CONT 08/30 0241 Report Impression - Status: SIGNED Entered: 08/30/2022 0259 IMPRESSION: 1. No acute findings demonstrated in the abdomen and pelvis. 2. Mild bilateral nephrolithiasis. Impression By: [email or web address] - [place] Re-Evaluation MDM Free Text MDM Notes Free Text MDM Notes After initial evaluation of patient I discussed with her that I did not think that her back pain had to do with her prior lumbar history and that I thought it would be best to get a CAT s can with labs and urine and she agreed. I also gave her morphine and Zofran and it did seem to help significantly. Once her studies came back I did go back and there discussed with her and her the results. I discussed the jaylene nts anything obvious on her CAT scan to explain her pain but we went through all the things on the C T that were seen that were normal. We also discussed that there are some stones in her kidneys so she was aware of it. We next discussed her blood work an d she remembers her doctor telling her that her creatin ine was little elevated. I discussed that there was some protein and blood in he r urine but that there is not a UTI and likely this has to do with her kidneys and her elevated crea tinine. At this point I discussed that this probably musculoskel etal and advised that I would send her home on some pain medication and that she would need to follow-up with her doctor as if she kept having ongoing pain that c ould be a lower thoracic radiculopathy that is happening. At this point she has improved she is able to sit up pretty comfortably in the bed and ambulate in the emergency room without problems so we will discharg e her home. I do not have any social concerns about her being able to follow-up as she does have a [facility] doctor. I did electronically prescribe hyd rocodone 09/04/2024 I dispensed 15 of them for her to take she can take 2 every 6 hours as needed for pain. ED Course Medication(s) Ordered Medication(s) Ordered: Central Nervous System Agents Sig/Kristen Start time Last Medication Dose Route Stop Time Status Admin Morphine Sulfate 2 MG X1ED STA 08/305 DC 0 08/30 IV 08/31 215 0242 Gastrointestinal Drugs Sig/Kristen Start time Last Medication Dose Route Stop Time Status Admin Ondansetron HCl 4 MG X1ED STA 08/30 0216 DC IV 08/30 0217 0242 Patient Discharge Departure Vital Signs/Condition Vital Signs First Documented: Result Date Time Pulse Ox 99 08/30 0122 B/P 119/77 08/30 012 B/P Mean 91 08/30 012 O2 Delivery Room air 08/30 012 Temp 36.7 08/30 012 Pulse 77 08/30 012 Resp 18 08/30 012 Last Documented: Result Date Time Pulse Ox 99 08/30 0122 B/P 119/77 08/30 012 B/P Mean 91 08/30 012 O2 Delivery Room air 08/30 012 Temp 36.7 08/30 012 Pulse 77 08/30 012 Resp 18 08/30 012 All vital signs available at the time of this en try have been reviewed. Condition Improved Clinical Impression Clinical Impression Primary Impression: Back pain Disposition Decision Discharge )( Discharged to Home Yes )( Time 0330 )( Date 08/30/22 Discharge/Care Plan (Auto) Prescriptions Current Visit Scripts HYDROcodone/APAP (HYDROcodone/APAP 5/325) 2 TAB PO Q6H PRN PRN pain HYDROcodone/APAP (HYDROcodone/APAP 5/325) 2 TAB PO Q6H PRN PRN pain #15 TABS Patient Instructions ED Back and Neck Pain, Gene ral Discharge Note I have spoken with the patie nt and/or caregivers. I have explained the patient's condition, diagnoses and melissa atment plan based on the information available to me at this time. I have answered the patient's and/ or caregiver's questions and addressed any concerns. The patient and/or careg enzo have as good an understanding of the patient 's diagnosis, condition and treatment plan as can be expected at this point. The vital signs have bee n stable. The patient's condition is stable and appr opriate for discharge from the emergency department. The patient will pursue further outpatient evalu ation with the primary care physician or other designated or consulting phys ician as outlined in the discharge instructions. The patient and/or caregivers are agreeable to this plan of care and follow-up instructions have been exp lained in detail. The patient and/or caregivers have received these instructio ns in written format and have expressed an understanding of the discharge inst ructions. The patient and/or caregivers are aware that any significant change in condition or worsening of symptoms should prompt an immediate return to [facility] or the closest emergency department or a call to 911. at 0346 RPT #:[id number] END OF REPORT 2022-02-05 18:40:00-00:00 [facility] ([facility]) EMERGENCY PROVIDER REPORT REPORT#:[id number] REPORT STATUS: Signed DATE:02/05/22 TIME: 1839 PATIENT: GONZALEZ CARDOSO UNIT #: [id number] ROOM/BED: AGE: 61 SEX: F PCP PHYS: No Primary or Family Ph ysician SERVICE AUTHOR: Contreras Gloria P * ALL edits or amendments must be made on the el ectronic/computer document * Contreras Gloria 02/05/22 1840: HPI-Hand Prob/Inj General Confirmed Patient Yes Initial Greet Date/Time 02/05/221740 Assumed Care at Time 1740 Date 02/05/22 Presentation Chief Complaint Hand injury R Hx Obtained From Patient Onset Occurred Days ago Context Recent Healthcare No recent doctor visit, No rec ent hospitalization Free Text HPI Notes Free Text HPI Notes 61-year-old female history including HTN , states that she has been having pain and swelling in her right thumb for the last 3 d ays, not involving snuffbox tenderness, states she does not know why it hurts, denies trauma, questionable on if she had injured carrying or doing somethin g she does not normally do patient labs stating "yeah let us just say I saul t it doing something I should not of done" no deformity no martin, patient retains full strength, range of motion limited due to edema and pain, no discoloration and reports no alteration in sensation. Patient states she has her bl ood pressure medications at home, just has not taken them today, states she has a physician to follow-up with, denies headaches, visual disturbances, chest pain, shor tness of breath or any focal deficits. Review of Systems ROS Statements All systems rev neg except as marked. Free Text ROS Notes Free Text ROS Notes - Constitutional: Denies any fever - Head: Denies any trauma, or pain - Eyes: Denies any eye pain, photophobia, or vis ual disturbances - Ears, nose, mouth, throat: Denies any ear pain , nasal congestion, or sore throat - Cardiovascular: Denies any chest pain or disco mfort - Respiratory: Denies any pleuritic chest pain, hpljsmibb-nb-vrejlx, or cough - GI: Denies any nausea, vomiting, diarrhea, or abdominal pain - : Denies any dysuria, increased frequencey, incontinence or retention - Musculoskeletal/Skin: Reports pain and swelling x3 days to right thum b - Neurologic: Denies any unilateral weakness, pa resthesias, or paralysis - Psychiatric: Denies any suicidal ideation, or A/V hallucinations Past Medical History - Adult Stated Complaint CANT BEND MY RIGHT THUMB Allergies Coded Allergies: Sulfa (Sulfonamide Antibiotics) (Mild, ITCHING R CORY 11/13/15) tramadol (Mild, SHORTNESS OF BREATH 05/04/14) Home Medications Active Scripts NITROFURANTOIN/NITROFURAN MAC (MACROBID) 100 MG PO BID 10 Days #20 CAPS Prov: 04/04/20 Reported Medications ENALAPRIL (VASOTEC) 10 MG PO DAILY amLODIPine (NORVASC) 5 MG PO DAILY ASPIRIN EC (ECOTRIN) 81 MG PO DAILY CALCIUM CARBONATE/VIT D3 (CALTRATE-600 + D 600 M G/800 UNITS) 1 TAB PO TID Review of Nursing Notes Triage notes reviewed Past Medical History: Reports: Coronary artery disease, Hypertension. Denies: Cancer, Diabetes mellitus, GERD/gastritis, Thyroid disorder, Tapia sfusion history. Additional Medical History chronic back pain Past Surgical History: Reports: Spine surgery (back surgery 10 days ago ). Smoking status for patients 13 years old or olde r: Current every day smoker Other Social History Local resident Ambulatory Status Independent Physical Exam Vital Signs Vital Signs First Documented: Result Date Time Pulse Ox 98 02/05 1739 B/P 171/100 02/05 1739 B/P Mean 123 02/05 1739 O2 Delivery Room air 02/05 1739 Temp 36.8 02/05 173 Pulse 94 02/05 1739 Resp 16 02/05 1739 Last Documented: Result Date Time Pulse Ox 98 02/05 1739 B/P 171/100 02/05 1739 B/P Mean 123 02/05 1739 O2 Delivery Room air 02/05 173 Temp 36.8 02/05 173 Pulse 94 02/05 1739 Resp 16 02/05 1739 Review of Vital Signs Reviewed Free Text PE Notes Free Text PE Notes -General: Awake, alert, no acute distress, nonto xic appearing -Head: Atraumatic, normocephalic -ENT: Airway patent -Respiratory: No respiratory distress, clear to auscultation bilaterally -Cardiovascular: Regular rate and sinus rhythm, no delayed cap refill -Musculoskeletal: Neck: Midline trachea, no C-spine tenderness, n o swelling, Full ROM Back : normal inspection, No step offs or defor mities, no T-L spine tenderness Chest: No chest wall tenderness, deformity or c repitus Pelvis: Stable Extremities: moving all extremities well, equal strength globally Nonfluctuant, nonerythemic edema noted to first knuckle right thumb, cap refill less than 2 distal to injury, no snuffbox tenderness, no deformities noted no discoloration, no alteration in sensati on, limited range of motion -Skin: Warm, Dry, intact -Neurologic: Spontaneously awake and alert, no s lur to speech, no sensory or motor deficits noted Interpretation Diagnostics Lab Results Interpretation Considerations Independ review imaging, Reviewed prior records Results Recent Impressions: RADIOLOGY - XR HAND 3 + V RT 02/05 1805 Report Impression - Status: SIGNED Entered: 02/05/20221818 IMPRESSION: Mild degenerative changes. No acute osseous abnormality. Impression By: Milagros Aguirre M.D. Imaging Statement Radiographic studies reviewed and considered in the medical decision-making. Point of Care Testing Pulse Oximetry Pulse Ox % 98 On: Room air Interpretation Interpreted by me, Pulse oximetr y normal Time 1741 Procedures Splint Applic - Fx Mgmt #1 Start Time 1846 Time Spent (minutes) 10 Procedure Performed by ED PACKING AND WRAPPING SUPERVISOR Precise Anatomic Location RIGHT THUMB Custom Immobilization Ortho glass Post-Procedure/Complications Cap refill normal, Post splint vascular nl, Post splint neuro nl, Condition improved, Tolerated p rocedure well, Patient stable Re-Evaluation MDM Free Text MDM Notes Free Text MDM Notes Patient arrives with pain and swelling to her ri ght thumb due to questionable nature. Testing rule out dif ferentials include but not limited to thumb sprain, thumb fracture, thumb dislocation Additional Text Imaging shows no obvious evidence for bony abnor malities, patient given instructions on pain control, follow-up, and whe n to return to ED. Re-Evaluation/Progress Re-Evaluation/Progress Text/Dict Note The patient reports that their symptoms have improved. I have reviewed the lab work and imaging, and then discussed wit h patient the results, diagnosis, plan of care, instructions, to follow-up with primary care in 2 to 3 days, and when to return to ED. Time of Re-Eval 1850 Plan Post Re-Eval Plan discharge Compartment Syndrome There are no signs or sympto ms of compartment syndrome in the injured extremity at the time of this examination. Any pain the pa tient has is in proportion to the injury, the peripheral circulation is intact , capillary refill is not delayed, and there is no numbness, tingling or p aresthesia. Tissue Perfusion Reassessment Patient tissue perfusion reassessment completed. ED Course Medication(s) Ordered Medication(s) Ordered: Central Nervous System Agents Sig/Kristen Start time Last Medication Dose Route Stop Time Status Admin Ibuprofen 800 MG X1ED STA 02/05 175 DC 02/05 PO 02/05 175 175 Patient Discharge Departure Vital Signs/Condition Vital Signs First Documented: Result Date Time Pulse Ox 98 02/05 1739 B/P 171/100 02/05 1739 B/P Mean 123 02/05 173 O2 Delivery Room air 02/05 1739 Temp 36.8 02/05 1739 Pulse 94 02/05 1739 Resp 16 02/05 1739 Last Documented: Result Date Time Pulse Ox 98 02/05 1739 B/P 171/100 02/05 1739 B/P Mean 123 02/05 1739 O2 Delivery Room air 02/05 1739 Temp 36.8 02/05 1739 Pulse 94 02/05 1739 Resp 16 02/05 1739 All vital signs available at the time of this en try have been reviewed. Condition Stable, Improved Clinical Impression Clinical Impression Primary Impression: Thumb pain Secondary Impressions: Hypertension, Thumb sprai n Disposition Decision Discharge )( Discharged to Home Yes )( Time 184 )( Date 02/05/22 Discharge/Care Plan Counseled Regarding Diagnosis, Imaging studies, Need for follow-up, When to return to ED (Auto) Prescriptions Current Visit Scripts NAPROXEN (NAPROSYN) 500 MG PO BID PRN PRN PAIN NAPROXEN (NAPROSYN) 500 MG PO BID PRN PRN PAIN #15 TABS Patient Instructions ED Finger Sprain, ED RICE Additional Instructions The examination and treatment that you have rece ived has been on an emergency basis only and is not intend ed as an effort to provide complete medical care. It is impossible to recognize and treat all elements of an illness or injury in a single ER visit. -Your lab work, and imaging, reveal no obvious c oncern for further emergent testing today. -Please review the information provided, and as we discussed: -X-ray shows no obvious evidence for fracture or dislocation at this time -May utilize RICE technique, and lnee-taz-igewvsi medications such as ibuprofen, Tylenol for pain control. - Follow-up with primary care in 2 days -Follow up with your family physician in 2 to 3 days. -If you have received a prescription, please columba l it, and follow the instructions carefully. -You may follow-up on [email or web address] f or complete copy of today's testing. -Return to the ED with any worsening, or worriso me, symptoms. -Thank you for allowing me to help you today. Departure Forms [facility] PCP LIST Discharge Note I have spoken with the patie nt and/or caregivers. I have explained the patient's condition, diagnoses and melissa atment plan based on the information available to me at this time. I have answered the patient's and/ or caregiver's questions and addressed any concerns. The patient and/or careg enzo have as good an understanding of the patient 's diagnosis, condition and treatment plan as can be expected at this point. The vital signs have bee n stable. The patient's condition is stable and appr opriate for discharge from the emergency department. The patient will pursue further outpatient evalu ation with the primary care physician or other designated or consulting phys ician as outlined in the discharge instructions. The patient and/or caregivers are agreeable to this plan of care and follow-up instructions have been exp lained in detail. The patient and/or caregivers have received these instructio ns in written format and have expressed an understanding of the discharge inst ructions. The patient and/or caregivers are aware that any significant change in condition or worsening of symptoms should prompt an immediate return to [facility] or the closest emergency department or a call to 911. Extremity Inj Discharge Note The patient is discharged home with supportive c are, a plan for pain control, and follow-up instructions t hat detail what to expect over the next 48 hours and what symptoms should prompt immediate re turn to the ED, including the symptoms of compartment syndrome. Fol low-up instructions have been explained in detail to the patient, and the instructions have been prov ided in written format. The patient is comfortable with the plan of care and has expressed an understanding of the discharge instruction s. The patient is aware that any significant change in condition or worsening of symptoms should pro mpt an immediate call to the primary or designated physician. If that is not successful the patient should call or return to this or the closest emergency department or call 911. Quality Measures BP F/U for HTN F/u with PCP/other doc Smoking Cessation Screened, tobacco user, Tobacc o cess intervention Lisa Mejia 02/18/22 0610: Patient Discharge Departure Discharge/Care Plan Referrals Provider Referral: Erica Chaparro MD Follow-Up: As Needed Address: [address] [place] [id number] Provider Group: PRIMARY CARE Follow-Up: 2-3 Days Supervising Physician Note MidLv Saw Pt Alone I have reviewed the PA/PACKING AND WRAPPING SUPERVISOR's note and plan of car nayeli. I was available for consultation as needed at al l times during the patient's visit in the emergency department. I agree with the clinical impression , plan and disposition. at 1600 at 0610 RPT #:[id number] END OF REPORT 2020-04-04 18:22:00-00:00 [facility] ([facility]) EMERGENCY PROVIDER REPORT REPORT#:[id number] REPORT STATUS: Signed DATE:04/04/20 TIME: 1821 PATIENT: GONZALEZ CARDOSO UNIT #: [id number] ROOM/BED: AGE: 59 SEX: F PCP PHYS: No Primary or Family Ph ysician SERVICE AUTHOR: Caroline Holland NP * ALL edits or amendments must be made on the [employer]computer document * HPI-Abd Pain M 40 and Over General Confirmed Patient Yes Initial Greet Date/Time 04/04/20 1748 PCP [facility] Presentation Chief Complaint Abdominal pain Hx Obtained From Patient Sudden in Onset? Yes Onset Occurred Hours ago (2) Location RUQ, RLQ Quality Pleuritic Severity: Onset Moderate Severity: Current Moderate Associated with Denies: Back pain, Chills, Constipation, Diarrhe a, Dysuria, Fever, Nausea, Vomiting. Context Recent Healthcare Recent doctor visit Free Text HPI Notes Free Text HPI Notes 59-year-old female presents ambulatory t o the emergency room with complaint of right-sided lower abdominal pain onset 2 hours prior to arrival. Describes pain is constant and sharp denies fever, vomi ting, diarrhea, dysuria. Last BM today stating that it was normal. Past medical history includes hypertension. Risk-Abd Pain M 40 and Over )( Abdominal Aortic Aneurysm Hypertension Review of Systems ROS Statements All systems rev neg except as marked. Focused Review of Systems Constitutional Denies: Chills, Fever. Respiratory Denies: Cough, non-productive, Pleuritic pain. Cardiovascular Denies: Chest pain, Palpitations. GI Reports: Abdominal pain. Denies: Constipation, D iarrhea, Nausea, Vomiting. Past Medical History - Adult Stated Complaint RT LOWER ABDOMINAL PAIN FOR TWO HOURS Allergies Coded Allergies: Sulfa (Sulfonamide Antibiotics) (Mild, ITCHING R CORY 11/13/15) tramadol (Mild, SHORTNESS OF BREATH 05/04/14) Home Medications Reported Medications ENALAPRIL (VASOTEC) 10 MG PO DAILY amLODIPine (NORVASC) 5 MG PO DAILY ASPIRIN EC (ECOTRIN) 81 MG PO DAILY CALCIUM CARBONATE/VIT D3 (CALTRATE-600 + D 600 M G/800 UNITS) 1 TAB PO TID Calculated suicide risk level: No risk Review of Nursing Notes Rev avail, and agree, Re v avail, and disagree, Not reviewed nurse notes, Unavailable at this time, Triage notes reviewed, Rapid assess notes rev Past Medical History: Reports: Coronary artery disease, Hypertension. Denies: Cancer, Diabetes mellitus, GERD/gastritis, Thyroid disorder, Tapia sfusion history. Additional Medical History chronic back pain Past Surgical History: Reports: Spine surgery (back surgery 10 days ago ). Smoking status for patients 13 years old or olde r: Current every day smoker Other Social History Local resident Physical Exam Vital Signs Vital Signs First Documented: Result Date Time Pulse Ox 97 04/04 1742 B/P 170/79 04/04 1742 B/P Mean 109 04/04 1742 O2 Delivery Room air 04/04 1742 Temp 36.9 04/04 1742 Pulse 82 04/04 1742 Resp 20 04/04 1742 Last Documented: Result Date Time Pulse Ox 98 04/04 1921 B/P 172/89 04/04 1921 B/P Mean 116 04/04 1921 Temp 36.6 04/04 1921 Pulse 66 04/04 1921 Resp 20 04/04 1921 O2 Delivery Room air 04/04 1742 Review of Vital Signs Reviewed Focused PE General/Const General/Const Awake, Alert, No acute di stress, Well appearing, Well developed , Well hydrated, Well nourished, Cooperative, No t toxic appearing MS Head Head Normocephalic Eyes Eyes PERRL, EOMI Ears/Nose/Throat Ears/Nose/Throat Airway patent, Mucous membrane s moist, Pharynx NL Resp/Chest Respiratory/Chest Breath sounds NL, Breath soun ds = bilat, No respiratory distress Cardiovascular Cardiovascular Heart rate NL, Regular r hythm, Heart sounds NL, Cap refill not delayed, Peripheral circulation NL Abdomen/GI Abdomen/GI Soft, Non-tender, No guarding, No re bound, BS normoactive, No distention MS Back Back No CVA tenderness Skin Skin Color NL, No rash, Warm, Dry, Intact, Turg or NL, No swelling Neurologic Neurologic Oriented X3, Speech NL, No m otor deficits, No sensory deficits, CN II - XII intact, Reflexes equal bilat Interpretation Diagnostics Lab Results Interpretation Results Laboratory Tests 04/04/201810: [Embedded Image Not Available] Laboratory Tests: 04/04 Chemistry Sodium (134.0 - 147.0 mmol/l) 138 Potassium (3.6 - 5.2 mmol/L) 3.3 L Chloride (98.0 - 107.0 mmol/l) 103 Carbon Dioxide (21.0 - 33.0 mmol/l) 27.3 Anion Gap (0 - 20) 11.0 BUN (7.0 - 18.0 mg/dl) 15 Creatinine (0.60 - 1.30 mg/dL) 1.03 Est GFR ( Amer) (109 - 115 mL/min) 71 L Est GFR (Non-Af Amer) (90 - 95 mL/min) 59 L Glucose (70.0 - 110.0 mg/dl) 93 Calcium (8.0 - 10.5 mg/dl) 8.6 Total Bilirubin (0.0 - 1.0 mg/dl) 0.1 Direct Bilirubin (0.0 - 0.3 mg/dl) 0.1 AST (15 - 37 Units/L) 19 ALT (12.0 - 78.0 Units/L) 19 Total Alk Phosphatase (50.0 - 136.0 Units/L) 8 5 Total Protein (6.0 - 8.1 GM/DL) 8.1 Albumin (3.2 - 4.7 gm/dL) 3.9 Lipase (65.0 - 230.0 Units/L) 91 Hematology WBC (4.5 - 11.0 K/mm3) 8.6 RBC (3.80 - 5.20 M/mm3) 4.36 Hgb (12.0 - 16.0 gm/dL) 13.9 Hct (36.0 - 48.0 %) 40.4 MCV (82.0 - 99.0 UM3) 92.7 MCH (25.5 - 32.5 UUG) 31.9 MCHC (29.0 - 35.5 gm/dL) 34.4 RDW (11.5 - 15.0 %) 13.0 Plt Count (150 - 400 K/mm3) 261 MPV (7.4 - 10.4 fl) 9.9 Neut % (Auto) (49.0 - 76.0 %) 56.6 Lymph % (Auto) (23.0 - 38.0 %) 34.5 Pender % (Auto) (1.0 - 10.0 %) 6.7 Eos % (Auto) (1.0 - 5.0 %) 1.3 Baso % (Auto) (0.0 - 1.0 %) 0.6 Neut # (Auto) (2.4 - 6.3 K/mm3) 4.9 Lymph # (Auto) (1.2 - 4.0 K/mm3) 3.0 Pender # (Auto) (0.0 - 0.6 K/mm3) 0.6 Eos # (Auto) (0.0 - 0.7 K/MM3) 0.1 Baso # (Auto) (0.0 - 0.2 K/mm3) 0.1 Absolute Nucleated RBC (0.00 - 0.01 X10 3uL) 0. 00 Immature Gran % (0.0 - 0.4 %) 0.3 Nucleated RBC % (0.0 - 0.1 %) 0.0 Immature Gran # (0.00 - 0.07 x10 3/uL) 0.03 Toxicology Urine Opiates Screen (NEGATIVE) NEGATIVE Urine Methadone Screen (NEGATIVE) NEGATIVE Urine Barbiturates (NEGATIVE) NEGATIVE Ur Phencyclidine Scrn (NEGATIVE) NEGATIVE Ur Amphetamines Screen (NEGATIVE) NEGATIVE U Benzodiazepines Scrn (NEGATIVE) NEGATIVE Urine Cocaine Screen (NEGATIVE) NEGATIVE Urine Cannabinoids (NEGATIVE) NEGATIVE Urines Urine Color COLORLESS Urine Appearance CLEAR Urine pH (5.0 - 9.0) 6.5 Ur Specific [place] (1.000 - 1.030) 1.010 Urine Protein (NEGATIVE mg/dl) NEGATIVE Urine Glucose (UA) (NORMAL mg/dl) NORMAL Urine Ketones (NEGATIVE mg/dl) NEGATIVE Urine Blood (NEGATIVE Elias/micL) 25 Elias/micL H Urine Nitrite (NEGATIVE) NEGATIVE Urine Bilirubin (NEGATIVE mg/dL) NEGATIVE Urine Urobilinogen (NORMAL mg/dl) NORMAL Ur Leukocyte Esterase (NEGATIVE Leslye/micL) NEGAT TERE Urine RBC (0 - 3 RBC/HPF) 0-2 Urine WBC (NONE WBC/HPF) 0-3 Ur Epithelial Cells (0 - 3 EPI/HPF) 0-3 Ur Renal Epithelial Cell FEW Urine Bacteria (NONE) FEW Urine HCG, Qual (NEGATIVE) NEGATIVE Recent Impressions: CAT SCAN - CT ABD PELVIS W/CONT 04/04 1912 Report Impression - Status: SIGNED Entered: 04/04/20201945 IMPRESSION: 1. Very limited examination due to significant s treak artifact related to retained colonic barium from recent e sophagram. The bowel and appendix cannot be evaluated on this study. Impression [facility]: [facility] Imaging Statement Laboratory radiographic studies reviewed and con sidered in the medical decision-making. Point of Care Testing Urinalysis Interpretation Positive blood Pulse Oximetry Pulse Ox % 97 On: Room air Interpretation Interpreted by me, Pulse oximetr y normal Time 1748 ECG #1 Interpretation ECG Documented in MUSE Yes Date 04/04/20 Time 1804 Interpreted by and reviewed by me, ED physician NL ECG Interpretation Normal sinus rhyth m, No acute ischemic changes, No STEMI Rate 71 Lab Studies CBC Interpretation CBC NL BMP/CMP Interpretation BMP/CMP normal except, K+ low Drug Screen/Level Drug Screen Interpretation Urine drug screen ne g Radiography CT Abdomen/Pelvis Study type IV contrast Interpretation/Wet Read by Interpret - Radiolog ist Re-Evaluation MDM )( Re-Evaluation/Progress #1 )( Re-Eval Status stable Re-Eval Abdomen Soft, Non-tender, No guarding, N o rebound, BS normoactive Plan Post Re-Eval Plan discharge ED Course Medication(s) Ordered Medication(s) Ordered: Diagnostic Agents Sig/Kristen Start time Last Medication Dose Route Stop Time Status Admin Iopamidol 0 .STK-MED ONE 04/04 1855 DC 04/04 .[address] 191 Patient Discharge Departure Vital Signs/Condition Vital Signs First Documented: Result Date Time Pulse Ox 97 04/04 1742 B/P 170/79 04/04 1742 B/P Mean 109 04/04 1742 O2 Delivery Room air 04/04 1742 Temp 36.9 04/04 1742 Pulse 82 04/04 1742 Resp 20 04/04 1742 Last Documented: Result Date Time Pulse Ox 98 04/04 1921 B/P 172/89 04/04 1921 B/P Mean 116 04/04 1921 Temp 36.6 04/04 1921 Pulse 66 04/04 1921 Resp 20 04/04 1921 O2 Delivery Room air 04/04 1742 All vital signs available at the time of this en try have been reviewed. Condition Stable Clinical Impression Clinical Impression Primary Impression: UTI (urinary tract infection ) Secondary Impressions: Abdominal pain Disposition Decision Discharge )( Discharged to Home Yes )( Time 1951 )( Date 04/04/20 Discharge/Care Plan Counseled Regarding Diagnosis, Lab results, Pres criptions, Need for follow-up (Auto) Prescriptions Current Visit Scripts NITROFURANTOIN/NITROFURAN MAC (MACROBID) 100 MG PO BID 10 Days #20 CAPS Patient Instructions Abdominal Pain, ED Unknown Causes of Abdominal Pain Male, UTIs Female Additional Instructions return ER worsening pain Referrals PRIMARY CARE Discharge Note I have spoken with the patie nt and/or caregivers. I have explained the patient's condition, diagnoses and melissa atment plan based on the information available to me at this time. I have answered the patient's and/ or caregiver's questions and addressed any concerns. The patient and/or careg enzo have as good an understanding of the patient 's diagnosis, condition and treatment plan as can be expected at this point. The vital signs have bee n stable. The patient's condition is stable and appr opriate for discharge from the emergency department. The patient will pursue further outpatient evalu ation with the primary care physician or other designated or consulting phys ician as outlined in the discharge instructions. The patient and/or caregivers are agreeable to this plan of care and follow-up instructions have been exp lained in detail. The patient and/or caregivers have received these instructio ns in written format and have expressed an understanding of the discharge inst ructions. The patient and/or caregivers are aware that any significant change in condition or worsening of symptoms should prompt an immediate return to [facility] or the closest emergency department or a call to 911. Electronically Signed by Caroline Holland NP o n 04/04/20 at 1954 RPT #:[id number] END OF REPORT 2020-04-04 18:22:00-00:00 [facility] ([facility]) EMERGENCY PROVIDER REPORT REPORT#:[id number] REPORT STATUS: Signed DATE:04/04/20 TIME: 1821 PATIENT: GONZALEZ CARDOSO UNIT #: [id number] ROOM/BED: AGE: 59 SEX: F PCP PHYS: No Primary or Family Ph ysician SERVICE AUTHOR: Caroline Holland PACKING AND WRAPPING SUPERVISOR * ALL edits or amendments must be made on the [employer] document * Caroline Holland 04/04/201821: HPI-Abd Pain M 40 and Over General Confirmed Patient Yes PCP KIRK Dumont Presentation Chief Complaint Abdominal pain Hx Obtained From Patient Sudden in Onset? Yes Onset Occurred Hours ago (2) Location RUQ, RLQ Quality Pleuritic Severity: Onset Moderate Severity: Current Moderate Associated with Denies: Back pain, Chills, Constipation, Diarrhe a, Dysuria, Fever, Nausea, Vomiting. Context Recent Healthcare Recent doctor visit Free Text HPI Notes Free Text HPI Notes 59-year-old female presents ambulatory t o the emergency room with complaint of right-sided lower abdominal pain onset 2 hours prior to arrival. Describes pain is constant and sharp denies fever, vomi ting, diarrhea, dysuria. Last BM today stating that it was normal. Past medical history includes hypertension. Risk-Abd Pain M 40 and Over )( Abdominal Aortic Aneurysm Hypertension Review of Systems ROS Statements All systems rev neg except as marked. Focused Review of Systems Constitutional Denies: Chills, Fever. Respiratory Denies: Cough, non-productive, Pleuritic pain. Cardiovascular Denies: Chest pain, Palpitations. GI Reports: Abdominal pain. Denies: Constipation, D iarrhea, Nausea, Vomiting. Past Medical History - Adult Stated Complaint RT LOWER ABDOMINAL PAIN FOR TWO HOURS Allergies Coded Allergies: Sulfa (Sulfonamide Antibiotics) (Mild, ITCHING R CORY 11/13/15) tramadol (Mild, SHORTNESS OF BREATH 05/04/14) Home Medications Reported Medications ENALAPRIL (VASOTEC) 10 MG PO DAILY amLODIPine (NORVASC) 5 MG PO DAILY ASPIRIN EC (ECOTRIN) 81 MG PO DAILY CALCIUM CARBONATE/VIT D3 (CALTRATE-600 + D 600 M G/800 UNITS) 1 TAB PO TID Calculated suicide risk level: No risk Review of Nursing Notes Rev avail, and agree, Re v avail, and disagree, Not reviewed nurse notes, Unavailable at this time, Triage notes reviewed, Rapid assess notes rev Past Medical History: Reports: Coronary artery disease, Hypertension. Denies: Cancer, Diabetes mellitus, GERD/gastritis, Thyroid disorder, Tapia sfusion history. Additional Medical History chronic back pain Past Surgical History: Reports: Spine surgery (back surgery 10 days ago ). Smoking status for patients 13 years old or olde r: Current every day smoker Other Social History Local resident Physical Exam Vital Signs Vital Signs First Documented: Result Date Time Pulse Ox 97 04/04 1742 B/P 170/79 04/04 1742 B/P Mean 109 04/04 1742 O2 Delivery Room air 04/04 1742 Temp 36.9 04/04 1742 Pulse 82 04/04 1742 Resp 20 04/04 1742 Last Documented: Result Date Time Pulse Ox 98 04/04 2005 B/P 176/97 04/04 2005 B/P Mean 123 04/04 2005 O2 Delivery Room air 04/04 2005 Temp 36.6 04/04 2005 Pulse 73 04/04 2005 Resp 17 04/04 2005 Review of Vital Signs Reviewed Focused PE General/Const General/Const Awake, Alert, No acute di stress, Well appearing, Well developed , Well hydrated, Well nourished, Cooperative, No t toxic appearing MS Head Head Normocephalic Eyes Eyes PERRL, EOMI Ears/Nose/Throat Ears/Nose/Throat Airway patent, Mucous membrane s moist, Pharynx NL Resp/Chest Respiratory/Chest Breath sounds NL, Breath soun ds = bilat, No respiratory distress Cardiovascular Cardiovascular Heart rate NL, Regular r hythm, Heart sounds NL, Cap refill not delayed, Peripheral circulation NL Abdomen/GI Abdomen/GI Soft, Non-tender, No guarding, No re bound, BS normoactive, No distention MS Back Back No CVA tenderness Skin Skin Color NL, No rash, Warm, Dry, Intact, Turg or NL, No swelling Neurologic Neurologic Oriented X3, Speech NL, No m otor deficits, No sensory deficits, CN II - XII intact, Reflexes equal bilat Interpretation Diagnostics Lab Results Interpretation Results Laboratory Tests 04/04/201810: [Embedded Image Not Available] Laboratory Tests: 04/04 Chemistry Sodium (134.0 - 147.0 mmol/l) 138 Potassium (3.6 - 5.2 mmol/L) 3.3 L Chloride (98.0 - 107.0 mmol/l) 103 Carbon Dioxide (21.0 - 33.0 mmol/l) 27.3 Anion Gap (0 - 20) 11.0 BUN (7.0 - 18.0 mg/dl) 15 Creatinine (0.60 - 1.30 mg/dL) 1.03 Est GFR ( Amer) (109 - 115 mL/min) 71 L Est GFR (Non-Af Amer) (90 - 95 mL/min) 59 L Glucose (70.0 - 110.0 mg/dl) 93 Calcium (8.0 - 10.5 mg/dl) 8.6 Total Bilirubin (0.0 - 1.0 mg/dl) 0.1 Direct Bilirubin (0.0 - 0.3 mg/dl) 0.1 AST (15 - 37 Units/L) 19 ALT (12.0 - 78.0 Units/L) 19 Total Alk Phosphatase (50.0 - 136.0 Units/L) 85 Total Protein (6.0 - 8.1 GM/DL) 8.1 Albumin (3.2 - 4.7 gm/dL) 3.9 Lipase (65.0 - 230.0 Units/L) 91 Hematology WBC (4.5 - 11.0 K/mm3) 8.6 RBC (3.80 - 5.20 M/mm3) 4.36 Hgb (12.0 - 16.0 gm/dL) 13.9 Hct (36.0 - 48.0 %) 40.4 MCV (82.0 - 99.0 UM3) 92.7 MCH (25.5 - 32.5 UUG) 31.9 MCHC (29.0 - 35.5 gm/dL) 34.4 RDW (11.5 - 15.0 %) 13.0 Plt Count (150 - 400 K/mm3) 261 MPV (7.4 - 10.4 fl) 9.9 Neut % (Auto) (49.0 - 76.0 %) 56.6 Lymph % (Auto) (23.0 - 38.0 %) 34.5 Pender % (Auto) (1.0 - 10.0 %) 6.7 Eos % (Auto) (1.0 - 5.0 %) 1.3 Baso % (Auto) (0.0 - 1.0 %) 0.6 Neut # (Auto) (2.4 - 6.3 K/mm3) 4.9 Lymph # (Auto) (1.2 - 4.0 K/mm3) 3.0 Pender # (Auto) (0.0 - 0.6 K/mm3) 0.6 Eos # (Auto) (0.0 - 0.7 K/MM3) 0.1 Baso # (Auto) (0.0 - 0.2 K/mm3) 0.1 Absolute Nucleated RBC (0.00 - 0.01 X10 3uL) 0. 00 Immature Gran % (0.0 - 0.4 %) 0.3 Nucleated RBC % (0.0 - 0.1 %) 0.0 Immature Gran # (0.00 - 0.07 x10 3/uL) 0.03 Toxicology Urine Opiates Screen (NEGATIVE) NEGATIVE Urine Methadone Screen (NEGATIVE) NEGATIVE Urine Barbiturates (NEGATIVE) NEGATIVE Ur Phencyclidine Scrn (NEGATIVE) NEGATIVE Ur Amphetamines Screen (NEGATIVE) NEGATIVE U Benzodiazepines Scrn (NEGATIVE) NEGATIVE Urine Cocaine Screen (NEGATIVE) NEGATIVE Urine Cannabinoids (NEGATIVE) NEGATIVE Urines Urine Color COLORLESS Urine Appearance CLEAR Urine pH (5.0 - 9.0) 6.5 Ur Specific [place] (1.000 - 1.030) 1.010 Urine Protein (NEGATIVE mg/dl) NEGATIVE Urine Glucose (UA) (NORMAL mg/dl) NORMAL Urine Ketones (NEGATIVE mg/dl) NEGATIVE Urine Blood (NEGATIVE Elias/micL) 25 Elias/micL H Urine Nitrite (NEGATIVE) NEGATIVE Urine Bilirubin (NEGATIVE mg/dL) NEGATIVE Urine Urobilinogen (NORMAL mg/dl) NORMAL Ur Leukocyte Esterase (NEGATIVE Leslye/micL) NEGAT TERE Urine RBC (0 - 3 RBC/HPF) 0-2 Urine WBC (NONE WBC/HPF) 0-3 Ur Epithelial Cells (0 - 3 EPI/HPF) 0-3 Ur Renal Epithelial Cell FEW Urine Bacteria (NONE) FEW Urine HCG, Qual (NEGATIVE) NEGATIVE Recent Impressions: CAT SCAN - CT ABD PELVIS W/CONT 04/04 1912 Report Impression - Status: SIGNED Entered: 04/04/20201945 IMPRESSION: 1. Very limited examination due to significant s treak artifact related to retained colonic barium from recent e sophagram. The bowel and appendix cannot be evaluated on this study. Impression By: [facility] [place] Lab Imaging Statement Laboratory radiographic studies reviewed and con sidered in the medical decision-making. Point of Care Testing Urinalysis Interpretation Positive blood Pulse Oximetry Pulse Ox % 97 On: Room air Interpretation Interpreted by me, Pulse oximetr y normal Time 1748 ECG #1 Interpretation ECG Documented in MUSE Yes Date 04/04/20 Time 1804 Interpreted by and reviewed by me, ED physician NL ECG Interpretation Normal sinus rhyth m, No acute ischemic changes, No STEMI Rate 71 Lab Studies CBC Interpretation CBC NL BMP/CMP Interpretation BMP/CMP normal except, K+ low Drug Screen/Level Drug Screen Interpretation Urine drug screen ne g Radiography CT Abdomen/Pelvis Study type IV contrast Interpretation/Wet Read by Interpret - Radiolog ist Re-Evaluation MDM )( Re-Evaluation/Progress #1 )( Re-Eval Status stable Re-Eval Abdomen Soft, Non-tender, No guarding, N o rebound, BS normoactive Plan Post Re-Eval Plan discharge ED Course Medication(s) Ordered Medication(s) Ordered: Diagnostic Agents Sig/Kristen Start time Last Medication Dose Route Stop Time Status Admin Iopamidol 0 .STK-MED ONE 04/04 1855 DC 04/04 .ROUTE 191 Patient Discharge Departure Vital Signs/Condition Vital Signs First Documented: Result Date Time Pulse Ox 97 04/04 1742 B/P 170/79 04/04 1742 B/P Mean 109 04/04 1742 O2 Delivery Room air 04/04 1742 Temp 36.9 04/04 1742 Pulse 82 04/04 1742 Resp 20 04/04 1742 Last Documented: Result Date Time Pulse Ox 98 04/04 2005 B/P 176/97 04/04 2005 B/P Mean 123 04/04 2005 O2 Delivery Room air 04/04 2005 Temp 36.6 04/04 2005 Pulse 73 04/04 2005 Resp 17 04/04 2005 All vital signs available at the time of this en try have been reviewed. Condition Stable Clinical Impression Clinical Impression Primary Impression: UTI (urinary tract infection ) Secondary Impressions: Abdominal pain Disposition Decision Discharge )( Discharged to Home Yes )( Time 1951 )( Date 04/04/20 Discharge/Care Plan Counseled Regarding Diagnosis, Lab results, Pres criptions, Need for follow-up (Auto) Prescriptions Current Visit Scripts NITROFURANTOIN/NITROFURAN MAC (MACROBID) 100 MG PO BID 10 Days #20 CAPS Patient Instructions Abdominal Pain, ED Unknown Causes of Abdominal Pain Male, UTIs Female Additional Instructions return ER worsening pain Referrals PRIMARY CARE Discharge Note I have spoken with the patie nt and/or caregivers. I have explained the patient's condition, diagnoses and melissa atment plan based on the information available to me at this time. I have answered the patient's and/ or caregiver's questions and addressed any concerns. The patient and/or careg enzo have as good an understanding of the patient 's diagnosis, condition and treatment plan as can be expected at this point. The vital signs have bee n stable. The patient's condition is stable and appr opriate for discharge from the emergency department. The patient will pursue further outpatient evalu ation with the primary care physician or other designated or consulting phys tobian as outlined in the discharge instructions. The patient and/or caregivers are agreeable to this plan of care and follow-up instructions have been exp lained in detail. The patient and/or caregivers have received these instructio ns in written format and have expressed an understanding of the discharge inst ructions. The patient and/or caregivers are aware that any significant change in condition or worsening of symptoms should prompt an immediate return to [facility] or the closest emergency department or a call to 911. Ginna Donahue 04/05/20 1605: HPI-Abd Pain M 40 and Over General Initial Greet Date/Time 04/04/20 1748 Patient Discharge Departure Supervising Physician Note MidLv Saw Pt Alone I have reviewed the PA/PACKING AND WRAPPING SUPERVISOR's note and plan of car e. I was available for consultation as needed at al l times during the patient's visit in the emergency department. I agree with the clinical impression , plan and disposition. Electronically Signed by Caroline Holland NP o n 04/04/20 at 1954 Electronically Signed by Ginna Donahue MD on at 1605 RPT #:[id number] END OF REPORT 2019-03-09 20:09:00-00:00 [facility] ([facility]) EMERGENCY PROVIDER REPORT REPORT#:[id number] REPORT STATUS: Signed DATE:03/09/19 TIME: 2008 PATIENT: GONZALEZ CARDOSO UNIT #: [id number] ROOM/BED: AGE: 58 SEX: F PCP PHYS: No Primary or Family Ph ysician SERVICE DT: AUTHOR: Niesha Mauricio * ALL edits or amendments must be made on the [employer] document * HPI-Back Pain 40 and Over General Confirmed Patient Yes Initial Greet Date/Time 03/09/191947 Presentation Chief Complaint Pain, back, Pain, lumbar Hx Obtained From Patient Sudden in Onset? No Onset Occurred Weeks ago, Chronic Symptom Duration Since onset Location Spinal lumbar area, Paraspinal lumbar Quality Same as prior, Aching Radiation Does not radiate. Context Recent Healthcare No recent hospitalization, Recent doctor visit, Recent testing , Prior workup Similar Sx Previous Yes Free Text HPI Notes Free Text HPI Notes 58 yo F with a PMH of HTN, C hronic back pain presents to the ED for a CC of low back pain. reports similar s ymptoms for the past several weeks. pt has been seen at [facility] ED and by ortho Dr. Aquino. reports nee ding steriod injection by Dr. Aquino which is scheduled f or next week. denies any new falls trauma, no fever, no abd pain. Risk-Back Pain 40 and Over Risk Stratification )( Abdominal Aortic Aneurysm Risk factors review ed )( Thoracic Aortic Dissection Risk factors revie wed Review of Systems ROS Statements All systems rev neg except as marked. Focused Review of Systems Constitutional Denies: Chills, Fatigue, Fever, Lethargy, Malais e, Recent wt loss, Weakness - generalized. Respiratory Denies: Cough, non-productive, Cough, productive , Dyspnea on exertion, Hemoptysis, Parox nocturnal dyspnea, Pleuritic p ain, Shortness of breath, Wheezing. Cardiovascular Denies: Chest pain, Dyspnea on exertion, Edema, Orthopnea, Palpitations, Parox nocturnal dyspnea, Syncope. Musculoskeletal Reports: Back pain, Lumbar pain. Denies: Extremi ty pain, Extremity swelling, Joint pain, Joint swelling, Myalgia, Neck pain, Thoracic pain. Past Medical History - Adult Stated Complaint BACK PAIN Allergies Coded Allergies: Sulfa (Sulfonamide Antibiotics) (Mild, ITCHING R CORY 11/13/15) tramadol (Mild, SHORTNESS OF BREATH 05/04/14) Home Medications Reported Medications ENALAPRIL (VASOTEC) 10 MG PO DAILY amLODIPine (NORVASC) 5 MG PO DAILY ASPIRIN EC (ECOTRIN) 81 MG PO DAILY CALCIUM CARBONATE/VIT D3 (CALTRATE-600 + D 600 M G/800 UNITS) 1 TAB PO TID Review of Nursing Notes Rev avail, and agree Past Medical History: Reports: Coronary artery disease, Hypertension. Denies: Cancer, Diabetes mellitus, GERD/gastritis, Thyroid disorder, Tapia sfusion history. Additional Medical History chronic back pain Past Surgical History: Reports: Spine surgery (back surgery 10 days ago ). Smoking status for patients 13 years old or olde r: Current every day smoker Pack years (pk/d)*(yrs): 1 Date last smoked: still smoking Other Social History Local resident Physical Exam Vital Signs Vital Signs First Documented: Result Date Time Pulse Ox 100 03/09 1945 B/P 136/78 03/09 1945 B/P Mean 97 03/09 1945 O2 Delivery Room air 03/09 1945 Temp 36.9 03/09 1945 Pulse 80 03/09 1945 Resp 20 03/09 1945 Last Documented: Result Date Time Pulse Ox 100 03/09 1945 B/P 136/78 03/09 1945 B/P Mean 97 03/09 1945 O2 Delivery Room air 03/09 1945 Temp 36.9 03/09 1945 Pulse 80 03/09 1945 Resp 20 03/09 1945 Review of Vital Signs Reviewed Focused PE General/Const General/Const Awake, Alert Resp/Chest Respiratory/Chest Breath sounds NL, Breath soun ds = bilat, No respiratory distress, No rales, No rhonchi, No wheezing Cardiovascular Cardiovascular Heart rate NL, Regular rhythm, H eart sounds NL, No murmurs, Peripheral circulation NL Abdomen/GI Abdomen/GI Soft, Non-tender, No guarding, No re bound, No distention, No palpable mass, No pulsatile mass MS Back Back Atraumatic, Inspection NL, Full range of m otion, Painless range of motion, Non-tender, No midline vertebral tend, N o paraspinal tenderness, No muscle spasm, Straight leg raise neg, No CVA ten derness MS Lower Extrem Lower Ext/Pelvis/MS Inspection NL, No swelling, Non-tender, No erythema, No deformity, Neurologic intact, Vascular intact, N o edema Skin Skin Color NL, Warm, Dry, Turgor NL Neurologic Neurologic Oriented X3, Speech NL, No motor def icits, No sensory deficits, Reflexes equal bilat Interpretation Diagnostics Lab Results Interpretation Results Laboratory Tests: 03/09 2000 Urines Urine Color LT YELLOW Urine Appearance CLDY Urine pH (5.0 - 9.0) 6.5 Ur Specific [place] (1.000 - 1.030) 1.005 Urine Protein (NEGATIVE mg/dl) NEGATIVE Urine Glucose (UA) (NORMAL mg/dl) NORMAL Urine Ketones (NEGATIVE mg/dl) NEGATIVE Urine Blood (NEGATIVE Elias/micL) 10 Elias/micL H Urine Nitrite (NEGATIVE) NEGATIVE Urine Bilirubin (NEGATIVE mg/dL) NEGATIVE Urine Urobilinogen (NORMAL mg/dl) NORMAL Ur Leukocyte Esterase (NEGATIVE Leslye/micL) 25 Le u/micL H Urine RBC (0 - 3 RBC/HPF) 0-2 Urine WBC (NONE WBC/HPF) 4-9 H Ur Epithelial Cells (0 - 3 EPI/HPF) 0-3 Urine Bacteria (NONE) TNTC H Urine Yeast (NEGATIVE) MANY Microbiology: Date/Time Procedure - Status Source Growth 03/09 2000 Urine Culture - RECD URINE Point of Care Testing Pulse Oximetry Pulse Ox % 100 On: Room air Interpretation Interpreted by me, Pulse oximetr y normal Time 2011 Re-Evaluation MDM ED Course Medication(s) Ordered Medication(s) Ordered: Autonomic Drugs Sig/Kristen Start time Last Medication Dose Route Stop Time Status Admin Cyclobenzaprine HCl 10 MG X1ED STA 03/09 1959 DC 03/09 PO 03/09 Central Nervous System Agents Sig/Kristen Start time Last Medication Dose Route Stop Time Status Admin Ketorolac 10 MG X1ED STA 03/09 1959 DC 03/09 Tromethamine PO 03/09 Patient Discharge Departure Vital Signs/Condition Vital Signs First Documented: Result Date Time Pulse Ox 100 03/09 1945 B/P 136/78 03/09 1945 B/P Mean 97 03/09 1945 O2 Delivery Room air 03/09 1945 Temp 36.9 03/09 1945 Pulse 80 03/09 1945 Resp 20 03/09 1945 Last Documented: Result Date Time Pulse Ox 100 03/09 1945 B/P 136/78 03/09 1945 B/P Mean 97 03/09 1945 O2 Delivery Room air 03/09 1945 Temp 36.9 03/09 1945 Pulse 80 03/09 1945 Resp 20 03/09 1945 All vital signs available at the time of this en try have been reviewed. Condition Improved Clinical Impression Clinical Impression Primary Impression: Low back pain Secondary Impressions: UTI (urinary tract infect ion) Disposition Decision Discharge )( Discharged to Home Yes )( Time 2033 )( Date 03/09/19 Discharge/Care Plan Counseled Regarding Diagnosi s, Prescriptions, Need for follow-up, When to return to ED Prescriptions keflex, naprosyn, flexeril Prescriptions Reviewed Risks, Benefits, Alternat tere treatment at 2035 RPT #:[id number] END OF REPORT 2019-03-09 20:09:00-00:00 [facility] ([facility]) EMERGENCY PROVIDER REPORT REPORT#:[id number] REPORT STATUS: Signed DATE:03/09/19 TIME: 2008 PATIENT: GONZALEZ CARDOSO UNIT #: [id number] ROOM/BED: AGE: 58 SEX: F PCP PHYS: No Primary or Family Ph ysician SERVICE AUTHOR: Niesha Mauricio * ALL edits or amendments must be made on the [employer]/computer document * Niesha Mauricio 03/09/19 2009: HPI-Back Pain 40 and Over General Confirmed Patient Yes Presentation Chief Complaint Pain, back, Pain, lumbar Hx Obtained From Patient Sudden in Onset? No Onset Occurred Weeks ago, Chronic Symptom Duration Since onset Location Spinal lumbar area, Paraspinal lumbar Quality Same as prior, Aching Radiation Does not radiate. Context Recent Healthcare No recent hospitalization, Recent doctor visit, Recent testing , Prior workup Similar Sx Previous Yes Free Text HPI Notes Free Text HPI Notes 58 yo F with a PMH of HTN, C hronic back pain presents to the ED for a CC of low back pain. reports similar s ymptoms for the past several weeks. pt has been seen at [facility] ED and by ortho Dr. Aquino. reports nee ding steriod injection by Dr. Aquino which is scheduled f or next week. denies any new falls trauma, no fever, no abd pain. Risk-Back Pain 40 and Over Risk Stratification )( Abdominal Aortic Aneurysm Risk factors review ed )( Thoracic Aortic Dissection Risk factors revie wed Review of Systems ROS Statements All systems rev neg except as marked. Focused Review of Systems Constitutional Denies: Chills, Fatigue, Fever, Lethargy, Malais e, Recent wt loss, Weakness - generalized. Respiratory Denies: Cough, non-productive, Cough, productive , Dyspnea on exertion, Hemoptysis, Parox nocturnal dyspnea, Pleuritic p ain, Shortness of breath, Wheezing. Cardiovascular Denies: Chest pain, Dyspnea on exertion, Edema, Orthopnea, Palpitations, Parox nocturnal dyspnea, Syncope. Musculoskeletal Reports: Back pain, Lumbar pain. Denies: Extremi ty pain, Extremity swelling, Joint pain, Joint swelling, Myalgia, Neck pain, Thoracic pain. Past Medical History - Adult Stated Complaint BACK PAIN Allergies Coded Allergies: Sulfa (Sulfonamide Antibiotics) (Mild, ITCHING R CORY 11/13/15) tramadol (Mild, SHORTNESS OF BREATH 05/04/14) Home Medications Reported Medications ENALAPRIL (VASOTEC) 10 MG PO DAILY amLODIPine (NORVASC) 5 MG PO DAILY ASPIRIN EC (ECOTRIN) 81 MG PO DAILY CALCIUM CARBONATE/VIT D3 (CALTRATE-600 + D 600 M G/800 UNITS) 1 TAB PO TID Review of Nursing Notes Rev avail, and agree Past Medical History: Reports: Coronary artery disease, Hypertension. Denies: Cancer, Diabetes mellitus, GERD/gastritis, Thyroid disorder, Tapia sfusion history. Additional Medical History chronic back pain Past Surgical History: Reports: Spine surgery (back surgery 10 days ago ). Smoking status for patients 13 years old or olde r: Current every day smoker Pack years (pk/d)*(yrs): 1 Date last smoked: still smoking Other Social History Local resident Physical Exam Vital Signs Vital Signs First Documented: Result Date Time Pulse Ox 100 03/09 1945 B/P 136/78 03/09 1945 B/P Mean 97 03/09 1945 O2 Delivery Room air 03/09 1945 Temp 36.9 03/09 1945 Pulse 80 03/09 1945 Resp 20 03/09 1945 Last Documented: Result Date Time Pulse Ox 100 03/09 1945 B/P 136/78 03/09 1945 B/P Mean 97 03/09 1945 O2 Delivery Room air 03/09 1945 Temp 36.9 03/09 1945 Pulse 80 03/09 1945 Resp 20 03/09 1945 Review of Vital Signs Reviewed Focused PE General/Const General/Const Awake, Alert Resp/Chest Respiratory/Chest Breath sounds NL, Breath soun ds = bilat, No respiratory distress, No rales, No rhonchi, No wheezing Cardiovascular Cardiovascular Heart rate NL, Regular rhythm, H eart sounds NL, No murmurs, Peripheral circulation NL Abdomen/GI Abdomen/GI Soft, Non-tender, No guarding, No re bound, No distention, No palpable mass, No pulsatile mass MS Back Back Atraumatic, Inspection NL, Full range of m otion, Painless range of motion, Non-tender, No midline vertebral tend, N o paraspinal tenderness, No muscle spasm, Straight leg raise neg, No CVA ten derness MS Lower Extrem Lower Ext/Pelvis/MS Inspection NL, No swelling, Non-tender, No erythema, No deformity, Neurologic intact, Vascular intact, N o edema Skin Skin Color NL, Warm, Dry, Turgor NL Neurologic Neurologic Oriented X3, Speech NL, No motor def icits, No sensory deficits, Reflexes equal bilat Interpretation Diagnostics Lab Results Interpretation Results Laboratory Tests: 03/09 2000 Urines Urine Color LT YELLOW Urine Appearance CLDY Urine pH (5.0 - 9.0) 6.5 Ur Specific [place] (1.000 - 1.030) 1.005 Urine Protein (NEGATIVE mg/dl) NEGATIVE Urine Glucose (UA) (NORMAL mg/dl) NORMAL Urine Ketones (NEGATIVE mg/dl) NEGATIVE Urine Blood (NEGATIVE Elias/micL) 10 Elias/micL H Urine Nitrite (NEGATIVE) NEGATIVE Urine Bilirubin (NEGATIVE mg/dL) NEGATIVE Urine Urobilinogen (NORMAL mg/dl) NORMAL Ur Leukocyte Esterase (NEGATIVE Leslye/micL) 25 Le u/micL H Urine RBC (0 - 3 RBC/HPF) 0-2 Urine WBC (NONE WBC/HPF) 4-9 H Ur Epithelial Cells (0 - 3 EPI/HPF) 0-3 Urine Bacteria (NONE) TNTC H Urine Yeast (NEGATIVE) MANY Microbiology: Date/Time Procedure - Status Source Growth 03/09 2000 Urine Culture - RECD URINE Point of Care Testing Pulse Oximetry Pulse Ox % 100 On: Room air Interpretation Interpreted by me, Pulse oximetr y normal Time 2011 Re-Evaluation MDM ED Course Medication(s) Ordered Medication(s) Ordered: Autonomic Drugs Sig/Kristen Start time Last Medication Dose Route Stop Time Status Admin Cyclobenzaprine HCl 10 MG X1ED STA 03/09 1959 D C 03/09 PO 03/09 Central Nervous System Agents Sig/Kristen Start time Last Medication Dose Route Stop Time Status Admin Ketorolac 10 MG X1ED STA 03/09 1959 DC 03/09 Tromethamine PO 03/09 Patient Discharge Departure Vital Signs/Condition Vital Signs First Documented: Result Date Time Pulse Ox 100 03/09 1945 B/P 136/78 03/09 194 B/P Mean 97 03/09 1945 O2 Delivery Room air 03/09 1945 Temp 36.9 03/09 1945 Pulse 80 03/09 1945 Resp 20 03/09 1945 Last Documented: Result Date Time Pulse Ox 100 03/09 194 B/P 136/78 03/09 194 B/P Mean 97 03/09 1945 O2 Delivery Room air 03/09 1945 Temp 36.9 03/09 1945 Pulse 80 03/09 1945 Resp 20 03/09 1945 All vital signs available at the time of this en try have been reviewed. Condition Improved Clinical Impression Clinical Impression Primary Impression: Low back pain Secondary Impressions: UTI (urinary tract infect ion) Disposition Decision Discharge )( Discharged to Home Yes )( Time 2033 )( Date 03/09/19 Discharge/Care Plan Counseled Regarding Diagnosi s, Prescriptions, Need for follow-up, When to return to ED Prescriptions keflex, naprosyn, flexeril Prescriptions Reviewed Risks, Benefits, Alternat tere treatment Heriberto Garcia 03/10/19 0823: HPI-Back Pain 40 and Over General Initial Greet Date/Time 03/09/191947 Patient Discharge Departure Supervising Physician Note MidLv Saw Pt Alone I have reviewed the PA/PACKING AND WRAPPING SUPERVISOR's note and plan of david Esparza was available for consultation as needed at al l times during the patient's visit in the emergency department. I agree with the clinical impression , plan and disposition. at 2035 Electronically Signed by Heriberto Garcia MD on 10/21 at 0823 [facility] #:[id number] END OF REPORT 2018-07-30 13:58:00-00:00 [facility] ([facility]) EMERGENCY PROVIDER REPORT REPORT#:[id number] REPORT STATUS: Signed DATE:07/30/18 TIME: 1358 PATIENT: GONZALEZ CARDOSO UNIT #: [id number] ROOM/BED: AGE: 58 SEX: F PCP PHYS: No Primary or Family Ph ysician SERVICE AUTHOR: Carrington Mathews PACKING AND WRAPPING SUPERVISOR * ALL edits or amendments must be made on the [employer] document * HPI-Neck Pain General Confirmed Patient Yes Patient Type Existing patient Initial Greet Date/Time 07/30/18 1245 Assumed Care at Time 1245 Presentation Chief Complaint Neck pain Hx Obtained From Patient Sudden in Onset? Yes Onset Occurred One week ago Symptom Duration Since onset Progression since Onset Gradually worsening Free Text HPI Notes Free Text HPI Notes Pt is a 58 year old female w ho presents to the ED with a cc of left para spinal neck pain x 3-5 days. Report s she woke up with pain. Denies injury, falls, fever , stiff neck. Risk-Neck Pain Risk Stratification High Risk for Injury Risk factors reviewed, Risk factors N/A, No risk factors Review of Systems ROS Statements All systems rev neg except as marked. Focused Review of Systems Constitutional Denies: Chills, Fatigue, Fever, Lethargy, Malais e, Recent wt loss, Weakness - generalized. Eyes Denies: Eye pain R, Eye pain L, Photophobia, Red ness R, Redness L. Ears/Nose/Throat Denies: Earache R, Earache L, Nasal congestion, Nose bleeding, Sinus problem, Sore throat. Respiratory Denies: Cough, non-productive, Cough, productive , Dyspnea on exertion, Hemoptysis, Parox nocturnal dyspnea, Pleuritic p ain, Shortness of breath, Wheezing. Cardiovascular Denies: Chest pain, Dyspnea on exertion, Edema, Orthopnea, Palpitations, Parox nocturnal dyspnea, Syncope. GI Denies: Abdominal pain, Anorexia, Belching, Bloo dy/tarry stool, Constipation, Diarrhea, Dysphagia, Hematemesis, Hemato chezia, Mucousy stool, Melena, Nausea, Rectal pain, Vomiting. Musculoskeletal Reports: Neck pain. Denies: Back pain, Extremity pain, Extremity swelling, Joint pain, Joint swelling, Lumbar pain, Myalgia , Thoracic pain. Skin Denies: Abrasion, Abscess, Burn, Contusion, Diap horesis, Erythema, Itching, Jaundice, Laceration, Rash, Swelling, Ulceration . Neurologic Denies: Generalized weakness, Headache. Past Medical History - Adult Stated Complaint RIGHT SHOULDER PAIN Allergies Coded Allergies: Sulfa (Sulfonamide Antibiotics) (Mild, ITCHING R CORY 11/13/15) tramadol (Mild, SHORTNESS OF BREATH 05/04/14) Home Medications Reported Medications ENALAPRIL (VASOTEC) 10 MG PO DAILY amLODIPine (NORVASC) 5 MG PO DAILY ASPIRIN EC (ECOTRIN) 81 MG PO DAILY CALCIUM CARBONATE/VIT D3 (CALTRATE-600 + D 600 M G/800 UNITS) 1 TAB PO TID Review of Nursing Notes Rev avail, and agree Past Medical History: Reports: Coronary artery disease, Hypertension. Denies: Cancer, Diabetes mellitus, GERD/gastritis, Thyroid disorder, Tapia sfusion history. Additional Medical History chronic back pain Past Surgical History: Reports: Spine surgery (back surgery 10 days ago ). Smoking status for patients 13 years old or olde r: Current every day smoker Pack years (pk/d)*(yrs): 5 Date last smoked: still smoking Other Social History Local resident Physical Exam Vital Signs Vital Signs First Documented: Result Date Time Pulse Ox 100 07/30 1240 B/P 176/108 07/30 1240 B/P Mean 130 07/30 1240 O2 Delivery Room air 07/30 1240 Temp 36.6 07/30 1240 Pulse 99 07/30 1240 Resp 20 07/30 1240 Last Documented: Result Date Time Pulse Ox 100 07/30 1240 B/P 176/108 07/30 1240 B/P Mean 130 07/30 1240 O2 Delivery Room air 07/30 1240 Temp 36.6 07/30 1240 Pulse 99 07/30 1240 Resp 20 07/30 1240 Review of Vital Signs Reviewed, Vital signs norm al Focused PE General/Const General/Const Awake, Alert, No acute di stress, Well appearing, Well developed , Well hydrated, Well nourished, Cooperative MS Head Head Atraumatic, Normocephalic Eyes Eyes Atraumatic, PERRL Ears/Nose/Throat Ears/Nose/Throat Atraumatic, Airway patent, Muc ous membranes moist, Pharynx NL MS Neck Neck/Muscle Tenderness Paraspinal L, Submandibular L, Trapezius L. Resp/Chest Respiratory/Chest Atraumatic, Breath sounds NL, Breath sounds = bilat Cardiovascular Cardiovascular Heart rate NL, Regular rhythm, H eart sounds NL MS Back Back Atraumatic, Inspection NL, Full range of m otion MS Upper Extrem Upper Extremity/MS Atraumatic, Inspection NL, F ull range of motion, No swelling, Non-tender, No snuffbox tenderness, No erythema, No deformity, Neurologic intact, Vascular intact, No l igamentous injury, Tendon function NL, No compartment syndrome, No circumferential inju ry, No clubbing/cyanosis, No edema Skin Skin Atraumatic, Color NL, No rash, War m, Dry, Intact, Turgor NL, No swelling Neurologic Neurologic Oriented X3, Speech NL Interpretation Diagnostics Lab Results Interpretation Results Recent Impressions: RADIOLOGY - XR C-SPINE 2-3 VIEWS 07/30 1315 Report Impression - Status: SIGNED Entered: 07/30/2018 1408 IMPRESSION: Considerable diffuse uncovertebral and mild face t arthropathy are redemonstrated, as is moderate disc height loss and endplate spondylosis at C6-C7 greater than C5-C6. Impression By: [email or web address] - Hemalamaay Funez M.D. Imaging Statement Radiographic studies reviewed and considered in the medical decision-making. Re-Evaluation MDM Re-Evaluation/Progress Re-Evaluation/Progress Time of Re-Eval 1400 Re-Eval Status Improved Eval Following Treatment Pt. feels better ED Course Medication(s) Ordered Medication(s) Ordered: Autonomic Drugs Sig/Kristen Start time Last Medication Dose Route Stop Time Status Admin Cyclobenzaprine HCl 10 MG X1ED STA 07/30 1254 D C 07/30 PO 07/30 1255 1302 Central Nervous System Agents Sig/Kristen Start time Last Medication Dose Route Stop Time Status Admin Ketorolac 10 MG X1ED STA 07/30 1254 DC 07/30 Tromethamine PO 07/30 1255 1302 Patient Discharge Departure Vital Signs/Condition Vital Signs First Documented: Result Date Time Pulse Ox 100 07/30 1240 B/P 176/108 07/30 1240 B/P Mean 130 07/30 1240 O2 Delivery Room air 07/30 1240 Temp 36.6 07/30 1240 Pulse 99 07/30 1240 Resp 20 07/30 1240 Last Documented: Result Date Time Pulse Ox 100 07/30 1240 B/P 176/108 07/30 1240 B/P Mean 130 07/30 1240 O2 Delivery Room air 07/30 1240 Temp 36.6 07/30 1240 Pulse 99 07/30 1240 Resp 20 07/30 1240 All vital signs available at the time of this en try have been reviewed. Condition Stable Clinical Impression Clinical Impression Primary Impression: Cervical paraspinal muscle s pasm Disposition Decision Discharge )( Discharged to Home Yes )( Time 1400 )( Date 07/30/18 Discharge/Care Plan Counseled Regarding Diagnosi s, Imaging studies, Prescriptions, Need for follow- up, When to return to ED Prescriptions T3 / flexeril / naprosyn - see rx Prescriptions Reviewed Risks, Benefits, Alternat tere treatment Discharge Note I have spoken with the patie nt and/or caregivers. I have explained the patient's condition, diagnoses and melissa atment plan based on the information available to me at this time. I have answered the patient's and/ or caregiver's questions and addressed any concerns. The patient and/or careg enzo have as good an understanding of the patient 's diagnosis, condition and treatment plan as can be expected at this point. The vital signs have bee n stable. The patient's condition is stable and appr opriate for discharge from the emergency department. The patient will pursue further outpatient evalu ation with the primary care physician or other designated or consulting phys ician as outlined in the discharge instructions. The patient and/or caregivers are agreeable to this plan of care and follow-up instructions have been exp lained in detail. The patient and/or caregivers have received these instructio ns in written format and have expressed an understanding of the discharge inst ructions. The patient and/or caregivers are aware that any significant change in condition or worsening of symptoms should prompt an immediate return to [facility] or the closest emergency department or a call to 911. at 1549 RPT #:[id number] END OF REPORT 2018-07-30 13:58:00-00:00 [facility] ([facility]) EMERGENCY PROVIDER REPORT REPORT#:[id number] REPORT STATUS: Signed DATE:07/30/18 TIME: 1358 PATIENT: GONZALEZ CARDOSO UNIT #: [id number] ROOM/BED: AGE: 58 SEX: F PCP PHYS: No Primary or Family Ph ysician SERVICE AUTHOR: Carrington Mathews NP * ALL edits or amendments must be made on the [employer] document * Carrington Mathews 07/30/18 1358: HPI-Neck Pain General Confirmed Patient Yes Patient Type Existing patient Assumed Care at Time 1245 Presentation Chief Complaint Neck pain Hx Obtained From Patient Sudden in Onset? Yes Onset Occurred One week ago Symptom Duration Since onset Progression since Onset Gradually worsening Free Text HPI Notes Free Text HPI Notes Pt is a 58 year old female w ho presents to the ED with a cc of left para spinal neck pain x 3-5 days. Report s she woke up with pain. Denies injury, falls, fever , stiff neck. Risk-Neck Pain Risk Stratification High Risk for Injury Risk factors reviewed, Risk factors N/A, No risk factors Review of Systems ROS Statements All systems rev neg except as marked. Focused Review of Systems Constitutional Denies: Chills, Fatigue, Fever, Lethargy, Malais e, Recent wt loss, Weakness - generalized. Eyes Denies: Eye pain R, Eye pain L, Photophobia, Red ness R, Redness L. Ears/Nose/Throat Denies: Earache R, Earache L, Nasal congestion, Nose bleeding, Sinus problem, Sore throat. Respiratory Denies: Cough, non-productive, Cough, productive , Dyspnea on exertion, Hemoptysis, Parox nocturnal dyspnea, Pleuritic p ain, Shortness of breath, Wheezing. Cardiovascular Denies: Chest pain, Dyspnea on exertion, Edema, Orthopnea, Palpitations, Parox nocturnal dyspnea, Syncope. GI Denies: Abdominal pain, Anorexia, Belching, Bloo dy/tarry stool, Constipation, Diarrhea, Dysphagia, Hematemesis, Hemato chezia, Mucousy stool, Melena, Nausea, Rectal pain, Vomiting. Musculoskeletal Reports: Neck pain. Denies: Back pain, Extremity pain, Extremity swelling, Joint pain, Joint swelling, Lumbar pain, Myalgia , Thoracic pain. Skin Denies: Abrasion, Abscess, Burn, Contusion, Diap horesis, Erythema, Itching, Jaundice, Laceration, Rash, Swelling, Ulceration . Neurologic Denies: Generalized weakness, Headache. Past Medical History - Adult Stated Complaint RIGHT SHOULDER PAIN Allergies Coded Allergies: Sulfa (Sulfonamide Antibiotics) (Mild, ITCHING R CORY 11/13/15) tramadol (Mild, SHORTNESS OF BREATH 05/04/14) Home Medications Reported Medications ENALAPRIL (VASOTEC) 10 MG PO DAILY amLODIPine (NORVASC) 5 MG PO DAILY ASPIRIN EC (ECOTRIN) 81 MG PO DAILY CALCIUM CARBONATE/VIT D3 (CALTRATE-600 + D 600 M G/800 UNITS) 1 TAB PO TID Review of Nursing Notes Rev avail, and agree Past Medical History: Reports: Coronary artery disease, Hypertension. Denies: Cancer, Diabetes mellitus, GERD/gastritis, Thyroid disorder, Tapia sfusion history. Additional Medical History chronic back pain Past Surgical History: Reports: Spine surgery (back surgery 10 days ago ). Smoking status for patients 13 years old or olde r: Current every day smoker Pack years (pk/d)*(yrs): 5 Date last smoked: still smoking Other Social History Local resident Physical Exam Vital Signs Vital Signs First Documented: Result Date Time Pulse Ox 100 07/30 1240 B/P 176/108 07/30 1240 B/P Mean 130 07/30 1240 O2 Delivery Room air 07/30 1240 Temp 36.6 07/30 1240 Pulse 99 07/30 1240 Resp 20 07/30 1240 Last Documented: Result Date Time Pulse Ox 100 07/30 1240 B/P 176/108 07/30 1240 B/P Mean 130 07/30 1240 O2 Delivery Room air 07/30 1240 Temp 36.6 07/30 1240 Pulse 99 07/30 1240 Resp 20 07/30 1240 Review of Vital Signs Reviewed, Vital signs norm al Focused PE General/Const General/Const Awake, Alert, No acute di stress, Well appearing, Well developed , Well hydrated, Well nourished, Cooperative MS Head Head Atraumatic, Normocephalic Eyes Eyes Atraumatic, PERRL Ears/Nose/Throat Ears/Nose/Throat Atraumatic, Airway patent, Muc ous membranes moist, Pharynx NL MS Neck Neck/Muscle Tenderness Paraspinal L, Submandibular L, Trapezius L. Resp/Chest Respiratory/Chest Atraumatic, Breath sounds NL, Breath sounds = bilat Cardiovascular Cardiovascular Heart rate NL, Regular rhythm, H eart sounds NL MS Back Back Atraumatic, Inspection NL, Full range of m otion MS Upper Extrem Upper Extremity/MS Atraumatic, Inspection NL, F ull range of motion, No swelling, Non-tender, No snuffbox tenderness, No erythema, No deformity, Neurologic intact, Vascular intact, No l igamentous injury, Tendon function NL, No compartment syndrome, No circumferential inju ry, No clubbing/cyanosis, No edema Skin Skin Atraumatic, Color NL, No rash, War m, Dry, Intact, Turgor NL, No swelling Neurologic Neurologic Oriented X3, Speech NL Interpretation Diagnostics Lab Results Interpretation Results Recent Impressions: RADIOLOGY - XR C-SPINE 2-3 VIEWS 07/30 1315 Report Impression - Status: SIGNED Entered: 07/30/2018 1408 IMPRESSION: Considerable diffuse uncovertebral and mild face t arthropathy are redemonstrated, as is moderate disc height loss and endplate spondylosis at C6-C7 greater than C5-C6. Impression By: [email or web address] - Hemal Ivory Funez Imaging Statement Radiographic studies reviewed and considered in the medical decision-making. Re-Evaluation MDM Re-Evaluation/Progress Re-Evaluation/Progress Time of Re-Eval 1400 Re-Eval Status Improved Eval Following Treatment Pt. feels better ED Course Medication(s) Ordered Medication(s) Ordered: Autonomic Drugs Sig/Kristen Start time Last Medication Dose Route Stop Time Status Admin Cyclobenzaprine HCl 10 MG X1ED STA 07/30 1254 D C 07/30 PO 07/30 1255 1302 Central Nervous System Agents Sig/Kristen Start time Last Medication Dose Route Stop Time Status Admin Ketorolac 10 MG X1ED STA 07/30 1254 DC 07/30 Tromethamine PO 07/30 1255 1302 Patient Discharge Departure Vital Signs/Condition Vital Signs First Documented: Result Date Time Pulse Ox 100 07/30 1240 B/P 176/108 07/30 1240 B/P Mean 130 07/30 1240 O2 Delivery Room air 07/30 1240 Temp 36.6 07/30 1240 Pulse 99 07/30 1240 Resp 20 07/30 1240 Last Documented: Result Date Time Pulse Ox 100 07/30 1240 B/P 176/108 07/30 1240 B/P Mean 130 07/30 1240 O2 Delivery Room air 07/30 1240 Temp 36.6 07/30 1240 Pulse 99 07/30 1240 Resp 20 07/30 1240 All vital signs available at the time of this en try have been reviewed. Condition Stable Clinical Impression Clinical Impression Primary Impression: Cervical paraspinal muscle s pasm Disposition Decision Discharge )( Discharged to Home Yes )( Time 1400 )( Date 07/30/18 Discharge/Care Plan Counseled Regarding Diagnosi s, Imaging studies, Prescriptions, Need for follow- up, When to return to ED Prescriptions T3 / flexeril / naprosyn - see rx Prescriptions Reviewed Risks, Benefits, Alternat tere treatment Discharge Note I have spoken with the patie nt and/or caregivers. I have explained the patient's condition, diagnoses and melissa atment plan based on the information available to me at this time. I have answered the patient's and/ or caregiver's questions and addressed any concerns. The patient and/or careg enzo have as good an understanding of the patient 's diagnosis, condition and treatment plan as can be expected at this point. The vital signs have bee n stable. The patient's condition is stable and appr opriate for discharge from the emergency department. The patient will pursue further outpatient evalu ation with the primary care physician or other designated or consulting phys ician as outlined in the discharge instructions. The patient and/or caregivers are agreeable to this plan of care and follow-up instructions have been exp lained in detail. The patient and/or caregivers have received these instructio ns in written format and have expressed an understanding of the discharge inst ructions. The patient and/or caregivers are aware that any significant change in condition or worsening of symptoms should prompt an immediate return to [facility] or the closest emergency department or a call to 911. Hannah Cummings 08/06/18 1138: HPI-Neck Pain General Initial Greet Date/Time 07/30/18 1245 Physical Exam Vital Signs Vital Signs Interpretation Diagnostics Lab Results Interpretation Results Patient Discharge Departure Vital Signs/Condition Vital Signs Supervising Physician Note MidLv Saw Pt Alone I have reviewed the PA/PACKING AND WRAPPING SUPERVISOR's note and plan of car nayeli. I was available for consultation as needed at al l times during the patient's visit in the emergency department. I agree with the clinical impression , plan and disposition. at 1549 Electronically Signed by Hannah Cummings MD on 0 08/06/18 at 1138 RPT #:[id number] END OF REPORT
[2023-01-04 03:41] LABS: Absolute Lymphocytes (CBC) 2.2 K/uL (0.7-4.9); Hematocrit 39.1 % (36.0-45.0); Lymphocytes % 27.1 % (15.3-44.8); MCV 93.4 fL (80-100); MPV 7.5 fL (7.6-11.3); Platelets 283 thou/uL (152-406); RBC Red Blood Cell Count 4.19 M/uL (3.86-4.86)
[2023-01-04 03:42] LABS: Specific Gravity 1.019 (1.005-1.030); Urine Bacteria None Seen /HPF (<20); Urine Bilirubin NEGATIVE (Negative); Urine Blood 1+ (Negative); Urine Clarity Clear (Clear); Urine Color Light-Yellow (Yellow); Urine Glucose NEGATIVE (Negative); Urine Mucus Slight /HPF (None Seen); Urine Protein NEGATIVE (Negative); Urine Urobilinogen Normal (Normal)
[2023-01-04] MEDS ORDERED: NA CHLORIDE 0.9% 500 ML ONE (04:02)
[2023-01-04] MEDS ORDERED: METOPROLOL TAR 50 MG TAB ONE (04:02)
[2023-01-04] MEDS ORDERED: NA CHLORIDE 0.9% 1,000 ML ONE (04:03)
[2023-01-04] MEDS ORDERED: FAMOTIDINE 20 MG/2 ML VIAL IV ONE (04:03)
[2023-01-04] MEDS ORDERED: hydroCHLOROthiazide 25 MG TAB ONE (04:14)
[2023-01-04 04:20] LABS: ALT/SGPT 21 U/L (13-56); AST/SGOT 18 U/L (15-37); Albumin 3.9 g/dL (3.4-5.0); BUN Blood Urea Nitrogen 14 mg/dL (7-18); Bicarbonate 24 mEq/L (21-32); Bilirubin Direct < 0.1 mg/dL (0-0.2); Glomerular Filtration Rate 50 ml/min (=/>90); Glucose Level 110 mg/dL (74-106); Lipase 33 U/L (13-75); Magnesium 2.3 mg/dL (1.6-2.4); Potassium 3.4 mEq/L (3.5-5.1); Sodium Level 139 mEq/L (136-145)
[2023-01-04 04:21] LABS: Bilirubin Total 0.3 mg/dL (0.2-1.0)
[2023-01-04 04:25] LABS: Alkaline Phosphatase 77 U/L (45-117); NT PRO-BNP 63 pg/mL (<125); Troponin High Sensitivity 41.5 pg/mL (<58.9)
[2023-01-04 04:28] LABS: Bilirubin Indirect, Calculated ND mg/dL (0.2-0.8)
[2023-01-04] MEDS ORDERED: AMLODIPINE 10 MG TAB ONE (05:54)
[2023-01-04] MEDS ORDERED: POTASSIUM 25 MEQ EFFERV TAB ONE (05:54)
[2023-01-04] MEDS ORDERED: ENALAPRIL 10 MG TAB ONE (05:54)
[2023-01-04] MEDS ORDERED: ASPIRIN 81 MG CHEWABLE TABLET ONE (05:54)
--- NOTE | 2023-01-04 07:48 | ER ---
Nurse's Notes [facility] Name: Pebbles Bains Age: 62 yrs Sex: Female : 1960 Arrival Date: 01/04/2023 Time: 01:13 Bed 18 Private MD: Diagnosis: Unspecified symptoms and signs involving the musculoskeletal system;Essential (primary) hypertension;Hypokalemia;Atherosclerotic heart disease of [place] coronary artery without angina pectoris Presentation: 01/04 01:31 Chief complaint: Patient states: My head feels tight my blood pressure 171/ 90 vc1 something. Coronavirus screen: Client denies travel out of the [place] in the last 14 days. At this time, the client does not indicate any symptoms associated with coronavirus-19. Ebola Screen: Patient negative for fever greater than or equal to 101.5 degrees Fahrenheit, and additional compatible Ebola Virus Disease symptoms Patient denies exposure to infectious person. Patient denies travel to an Ebola-affected area in the 21 days before illness onset. No symptoms or risks identified at this time. Risk Assessment: Do you want to hurt yourself or someone else? Patient reports no desire to harm self or others. Onset of symptoms was January 04, 2023. 01:31 Method Of Arrival: Ambulatory vc1 01:31 Acuity: TRACY 3 vc1 01:33 Note Pt is from [facility]. vc1 01:38 Initial Sepsis Screen: Does the patient meet any 2 criteria? No. Patient's initial vc1 sepsis screen is negative. Does the patient have a suspected source of infection? No. Patient's initial sepsis screen is negative. Triage Assessment: 01:35 General: Appears in no apparent distress. uncomfortable, Behavior is calm, cooperative, vc1 appropriate for age. Pain: Complains of pain in left low back and right low back Pain does not radiate. Pain currently is 10 out of 10 on a pain scale. EENT: No deficits noted. No signs and/or symptoms were reported regarding the EENT system. Neuro: Level of Consciousness is awake, alert, obeys commands, Oriented to person, place, time, situation, Appropriate for age. Cardiovascular: No deficits noted. Respiratory: Airway is patent Respiratory effort is even, unlabored, Respiratory pattern is regular, symmetrical. GI: No deficits noted. No signs and/or symptoms were reported involving the gastrointestinal system. : Reports urinary frequency. Derm: No deficits noted. No signs and/or symptoms reported regarding the dermatologic system. Musculoskeletal: Circulation, motion, and sensation intact. Range of motion: intact in all extremities, Reports pain in back. Historical: - Allergies: 01:33 No Known Allergies; vc1 - PMHx: 01:33 Hypertensive disorder; Gastric reflux; Depressive disorder; vc1 - PSHx: 01:33 Total abdominal hysterectomy; vc1 - Immunization history:: Client reports receiving the 2nd dose of the Covid vaccine, x 5 Moderna. - Social history:: Smoking status: Reported history of juuling and/or vaping. Screenin:27 [facility] ED Fall Risk Assessment (Adult) History of falling in the last 3 months, lg3 including since admission No falls in past 3 months (0 pts). Abuse screen: Denies threats or abuse. Denies injuries from another. Nutritional screening: No deficits noted. Tuberculosis screening: No symptoms or risk factors identified. Assessment: 03:27 General: Appears in no apparent distress. comfortable, Behavior is calm, cooperative. lg3 Pain: Denies pain. Neuro: No deficits noted. [place] Agitation-Sedation Scale (RASS): 0 - Alert and Calm Level of Consciousness is awake, alert, obeys commands, Oriented to person, place, time, situation. Cardiovascular: No deficits noted. Denies chest pain, shortness of breath, Capillary refill < 3 seconds Clubbing of nail beds is absent JVD is absent Patient's skin is warm and dry. Respiratory: No deficits noted. Airway is patent Respiratory effort is even, unlabored, Respiratory pattern is regular, symmetrical. GI: No deficits noted. No signs and/or symptoms were reported involving the gastrointestinal system. : No deficits noted. No signs and/or symptoms were reported regarding the genitourinary system. EENT: No deficits noted. No signs and/or symptoms were reported regarding the EENT system. Derm: No deficits noted. No signs and/or symptoms reported regarding the dermatologic system. Skin is intact, is healthy with good turgor, Skin is dry, Skin is normal, Skin temperature is warm. Musculoskeletal: No deficits noted. No signs and/or symptoms reported regarding the musculoskeletal system. Circulation, motion, and sensation intact. Range of motion: intact in all extremities. 05:38 Reassessment: Patient appears in no apparent distress at this time. Patient and/or lg3 family updated on plan of care and expected duration. Pain level reassessed. Patient is alert, oriented x 3, equal unlabored respirations, skin warm/dry/pink. Patient states feeling better. Patient states symptoms have improved. 06:38 Reassessment: Patient appears in no apparent distress at this time. No changes from lg3 previously documented assessment. Patient and/or family updated on plan of care and expected duration. Pain level reassessed. Patient is alert, oriented x 3, equal unlabored respirations, skin warm/dry/pink. Patient denies pain at this time. 07:00 Reassessment: Patient appears in no apparent distress at this time. Patient and/or db family updated on plan of care and expected duration. Pain level reassessed. Patient is alert, oriented x 3, equal unlabored respirations, skin warm/dry/pink. PATIENT RESTING EASILY AROUSABLE Patient states feeling better. General: Appears in no apparent distress. comfortable, Behavior is calm, cooperative. 07:20 Reassessment: Patient appears in no apparent distress at this time. Patient and/or db family updated on plan of care and expected duration. Pain level reassessed. PATIENT AMBULATORY TO RESTROOM. 08:10 Reassessment: [facility] STATES ETA 20 MIN. PATIENT db STATES WILL WAIT IN WAITING ROOM FOR RIDE. Vital Signs: 01:31 Weight 71.67 kg; Height 5 ft. 7 in. ; Pain 10/10; vc1 01:36 BP 147 / 94; Pulse 77; Resp 14; Temp 98.8; Pulse Ox 99% ; vc1 03:47 BP 160 / 82; Pulse 67; Resp 15 S; Pulse Ox 99% on R/A; lg3 05:38 BP 167 / 95; Pulse 68; Pulse Ox 98% on R/A; lg3 06:38 BP 177 / 96; Pulse 63; Resp 15; Pulse Ox 99% on R/A; lg3 07:00 BP 169 / 88; Pulse 63; Resp 16; Pulse Ox 97% on R/A; db 07:30 BP 178 / 101; Pulse 65; Resp 16; Pulse Ox 98% on R/A; db 01:31 Body Mass Index 24.75 (71.67 kg, 170.18 cm) vc1 01:31 Pain Scale: Adult vc1 ED Course: 01:21 Patient arrived in ED. mr 01:33 Triage completed. vc1 01:35 Arm band placed on right wrist. vc1 02:19 Sg Pinto MD is Attending Physician. [facility] 02:33 Radiology exam delayed due to lab results not completed at this time. (BUN/Creatinine) eh4 IV insertion attempt and/or patient not having appropriate IV at this time. 02:52 XRAY Chest (1 view) In Process Unspecified. EDMS 03:07 Shakila Andrade, RN is Primary Nurse. lg3 03:27 Patient has correct armband on for positive identification. Placed in gown. Bed in low lg3 position. Call light in reach. Side rails up X 1. Client placed on continuous cardiac and pulse oximetry monitoring. NIBP monitoring applied. cleaning machine operator on. Door closed. Noise minimized. Warm blanket given. 03:27 Inserted saline lock: 20 gauge in left antecubital area, using aseptic technique. Blood lg3 collected. Patient maintains SpO2 saturation greater than 95% on room air. 03:29 Urinalysis w/ reflexes Sent. lg3 03:29 Lipase Sent. lg3 03:29 Basic Metabolic Panel Sent. lg3 03:30 CBC with Diff Sent. lg3 03:30 LFT's Sent. lg3 03:30 Magnesium Sent. lg3 03:30 NT PRO-BNP Sent. lg3 03:30 PT-INR Sent. lg3 03:30 Troponin HS Sent. lg3 04:57 CT Aorta for Dissection In Process Unspecified. EDMS 07:30 Provided Education on: DISCHARGE. db 07:30 No provider procedures requiring assistance completed. IV discontinued, intact, db bleeding controlled, No redness/swelling at site. 07:47 Tony Davidson MD is Referral Physician. evelia Administered Medications: 06:56 Discontinued: NS 0.9% IV 1000 ml IV at 125 ml/hr continuous lg3 04:00 Drug: NS 0.9% IV 500 ml Route: IV; Rate: bolus; Site: left antecubital; lg3 06:28 Follow up: Response: No adverse reaction; IV Status: Completed infusion; IV Intake: lg3 500ml 04:00 Drug: NS 0.9% IV 1000 ml Route: IV; Rate: 125 ml/hr; Site: left antecubital; lg3 06:56 Follow up: IV Status: Completed infusion; IV Intake: 500ml lg3 04:00 Drug: Metoprolol PO 50 mg Route: PO; lg3 06:28 Follow up: Response: No adverse reaction lg3 04:00 Drug: Famotidine IVP 20 mg Route: IVP; Site: left antecubital; lg3 06:29 Follow up: Response: No adverse reaction lg3 04:16 Drug: Hydrochlorothiazide PO 12.5 mg Route: PO; lg3 06:29 Follow up: Response: No adverse reaction lg3 05:51 Drug: Potassium PO Effervescent Tablet 25 mEq Route: PO; lg3 06:29 Follow up: Response: No adverse reaction lg3 05:51 Drug: Aspirin PO Chewable Tablet 81 mg Route: PO; lg3 06:29 Follow up: Response: No adverse reaction lg3 05:51 Drug: Enalapril PO 10 mg Route: PO; lg3 06:29 Follow up: Response: No adverse reaction lg3 05:51 Drug: Norvasc PO 10 mg Route: PO; lg3 06:29 Follow up: Response: No adverse reaction lg3 08:04 Drug: Atorvastatin PO 20 mg Route: PO; db 08:12 Follow up: Response: No adverse reaction db Medication: 07:30 VIS not applicable for this client. db Intake: 06:28 IV: 500ml; Total: 500ml. lg3 06:56 IV: 500ml; Total: 1000ml. lg3 Outcome: 07:48 Discharge ordered by . evelia 08:09 Discharged to home ambulatory. db 08:09 Condition: stable 08:09 Discharge instructions given to patient, Instructed on discharge instructions, follow up and referral plans. Prescriptions given X X 6 08:13 Patient left the ED. db Signatures: Dispatcher [employer] EDSg Dennis MD MD cha Rivera, Mary mr Gibson, Lacie RN RN lg3 Paty Daniel RN RN 1 Seun Zuniga [facility] Brittney Gilmore RN RN db
--- NOTE | 2023-01-04 07:49 | EDPHYS ---
Physician Documentation [facility] Name: Pebbles Bains Age: 62 yrs Sex: Female : 1960 Arrival Date: 01/04/2023 Time: 01:13 Bed 18 Private MD: SILVANO Physician Sg Pinto HPI: 01/04 03:52 This 62 yrs old Black Female presents to ER via Ambulatory with complaints of High evelia Blood Pressure, Back Pain. 03:52 The patient has elevated blood pressure and discovered this at home. Onset: The evelia symptoms/episode began/occurred yesterday, last night. Modifying factors: The symptoms are aggravated by activity, The symptoms are alleviated by remaining still. Associated signs and symptoms: The patient has no apparent associated signs or symptoms. Severity of symptoms: At its worst the blood pressure was moderate, in the emergency department the blood pressure is improved, mildly. The patient has experienced similar episodes in the past, a few times. Historical: - Allergies: 01:33 No Known Allergies; vc1 - PMHx: 01:33 Hypertensive disorder; Gastric reflux; Depressive disorder; vc1 - PSHx: 01:33 Total abdominal hysterectomy; vc1 - Immunization history:: Client reports receiving the 2nd dose of the Covid vaccine, x 5 Moderna. - Social history:: Smoking status: Reported history of juuling and/or vaping. ROS: 03:53 Constitutional: Negative for fever, chills, and weight loss, Eyes: Negative for injury, evelia pain, redness, and discharge, ENT: Negative for injury, pain, and discharge, Neck: Negative for injury, pain, and swelling, Cardiovascular: Negative for chest pain, palpitations, and edema, Respiratory: Negative for shortness of breath, cough, wheezing, and pleuritic chest pain, Abdomen/GI: Negative for abdominal pain, nausea, vomiting, diarrhea, and constipation, Back: Negative for injury and pain, : Negative for injury, bleeding, discharge, and swelling, MS/Extremity: Negative for injury and deformity, Skin: Negative for injury, rash, and discoloration, Neuro: Negative for headache, weakness, numbness, tingling, and seizure, Psych: Negative for depression, anxiety, suicide ideation, homicidal ideation, and hallucinations, Allergy/Immunology: Negative for hives, rash, and allergies, Endocrine: Negative for neck swelling, polydipsia, polyuria, polyphagia, and marked weight changes, Hematologic/Lymphatic: Negative for swollen nodes, abnormal bleeding, and unusual bruising. Exam: 03:53 Constitutional: This is a well developed, well nourished patient who is awake, alert, evelia and in no acute distress. Head/Face: Normocephalic, atraumatic. Eyes: Pupils equal round and reactive to light, extra-ocular motions intact. Lids and lashes normal. Conjunctiva and sclera are non-icteric and not injected. Cornea within normal limits. Periorbital areas with no swelling, redness, or edema. ENT: Nares patent. No nasal discharge, no septal abnormalities noted. Tympanic membranes are normal and external auditory canals are clear. Oropharynx with no redness, swelling, or masses, exudates, or evidence of obstruction, uvula midline. Mucous membranes moist. Neck: Trachea midline, no thyromegaly or masses palpated, and no cervical lymphadenopathy. Supple, full range of motion without nuchal rigidity, or vertebral point tenderness. No Meningismus. Chest/axilla: Normal chest wall appearance and motion. Nontender with no deformity. No lesions are appreciated. Cardiovascular: Regular rate and rhythm with a normal S1 and S2. No gallops, murmurs, or rubs. Normal PMI, no JVD. No pulse deficits. Respiratory: Lungs have equal breath sounds bilaterally, clear to auscultation and percussion. No rales, rhonchi or wheezes noted. No increased work of breathing, no retractions or nasal flaring. Abdomen/GI: Soft, non-tender, with normal bowel sounds. No distension or tympany. No guarding or rebound. No evidence of tenderness throughout. Back: No spinal tenderness. No costovertebral tenderness. Full range of motion. Female : Normal external genitalia. Skin: Warm, dry with normal turgor. Normal color with no rashes, no lesions, and no evidence of cellulitis. MS/ Extremity: Pulses equal, no cyanosis. Neurovascular intact. Full, normal range of motion. Neuro: Awake and alert, GCS 15, oriented to person, place, time, and situation. Cranial nerves II-XII grossly intact. Motor strength 5/5 in all extremities. Sensory grossly intact. Cerebellar exam normal. Normal gait. Psych: Awake, alert, with orientation to person, place and time. Behavior, mood, and affect are within normal limits. 03:53 Musculoskeletal/extremity: DVT Exam: No signs of deep vein thrombosis. no pain, no swelling, no tenderness, negative Homans' sign noted on exam, no appreciated bluish discoloration, no erythema, no increased warmth. 04:46 ECG was reviewed by the Attending Physician. [facility] Vital Signs: 01:31 Weight 71.67 kg; Height 5 ft. 7 in. ; Pain 10/10; vc1 01:36 BP 147 / 94; Pulse 77; Resp 14; Temp 98.8; Pulse Ox 99% ; vc1 03:47 BP 160 / 82; Pulse 67; Resp 15 S; Pulse Ox 99% on R/A; lg3 05:38 BP 167 / 95; Pulse 68; Pulse Ox 98% on R/A; lg3 06:38 BP 177 / 96; Pulse 63; Resp 15; Pulse Ox 99% on R/A; lg3 07:00 BP 169 / 88; Pulse 63; Resp 16; Pulse Ox 97% on R/A; db 07:30 BP 178 / 101; Pulse 65; Resp 16; Pulse Ox 98% on R/A; db 01:31 Body Mass Index 24.75 (71.67 kg, 170.18 cm) vc1 01:31 Pain Scale: Adult vc1 MDM: 02:19 Patient medically screened. [facility] 03:54 Differential diagnosis: hypertensive crisis, Malignant HTN. Data reviewed: vital signs, [facility] nurses notes, lab test result(s), EKG, radiologic studies, CT scan, plain films. Consideration of Admission/Observation Escalation of care including admission/observation considered. I considered the following discharge prescriptions or medication management in the emergency department Medications were administered in the Emergency Department. See MAR. Independent interpretation of the following test(s) in the Emergency Department EKG: See my EKG interpretation above. Test considered but Not performed: Ultrasound NO GB USG. Care significantly affected by the following chronic conditions: Hypertension, GERD, DEPRESSION. 01/04 02:23 Order name: Basic Metabolic Panel; Complete Time: 04:36 [facility] 01/04 02:23 Order name: CBC with Diff; Complete Time: 03:52 [facility] 01/04 02:23 Order name: LFT's; Complete Time: 04:36 [facility] 01/04 02:23 Order name: Magnesium; Complete Time: 04:36 [facility] 01/04 02:23 Order name: NT PRO-BNP; Complete Time: 04:36 [facility] 01/04 02:23 Order name: PT-INR; Complete Time: 03:52 [facility] 01/04 02:23 Order name: Troponin HS; Complete Time: 04:36 [facility] 01/04 02:23 Order name: Lipase; Complete Time: 04:36 [facility] 01/04 02:23 Order name: Urinalysis w/ reflexes; Complete Time: 03:52 [facility] 01/04 04:45 Order name: Troponin High Sensitivity: NOW; Complete Time: 06:13 [facility] 01/04 02:23 Order name: XRAY Chest (1 view) [facility] 01/04 02:23 Order name: CT Aorta for Dissection [facility] 01/04 02:23 Order name: EKG; Complete Time: 02:24 [facility] 01/04 02:23 Order name: Cardiac monitoring; Complete Time: 03:29 [facility] 01/04 02:23 Order name: EKG - Nurse/Tech; Complete Time: 04:17 [facility] 01/04 02:23 Order name: IV Saline Lock; Complete Time: 03:29 [facility] 01/04 02:23 Order name: Labs collected and sent; Complete Time: 03:29 [facility] 01/04 02:23 Order name: O2 Per Protocol; Complete Time: 03:29 [facility] 01/04 02:23 Order name: O2 Sat Monitoring; Complete Time: 03:29 [facility] EC:46 Rate is 67 beats/min. Rhythm is regular. QRS [place] is Normal. TN interval is normal. QRS evelia interval is normal. QT interval is normal. No Q waves. T waves are Normal. No ST changes noted. Clinical impression: NSR w/ Non-specific ST/T Changes and No evidence of ischemia. Interpreted by me. Reviewed by me. Administered Medications: 06:56 Discontinued: NS 0.9% IV 1000 ml IV at 125 ml/hr continuous lg3 04:00 Drug: NS 0.9% IV 500 ml Route: IV; Rate: bolus; Site: left antecubital; lg3 06:28 Follow up: Response: No adverse reaction; IV Status: Completed infusion; IV Intake: lg3 500ml 04:00 Drug: NS 0.9% IV 1000 ml Route: IV; Rate: 125 ml/hr; Site: left antecubital; lg3 06:56 Follow up: IV Status: Completed infusion; IV Intake: 500ml lg3 04:00 Drug: Metoprolol PO 50 mg Route: PO; lg3 06:28 Follow up: Response: No adverse reaction lg3 04:00 Drug: Famotidine IVP 20 mg Route: IVP; Site: left antecubital; lg3 06:29 Follow up: Response: No adverse reaction lg3 04:16 Drug: Hydrochlorothiazide PO 12.5 mg Route: PO; lg3 06:29 Follow up: Response: No adverse reaction lg3 05:51 Drug: Potassium PO Effervescent Tablet 25 mEq Route: PO; lg3 06:29 Follow up: Response: No adverse reaction lg3 05:51 Drug: Aspirin PO Chewable Tablet 81 mg Route: PO; lg3 06:29 Follow up: Response: No adverse reaction lg3 05:51 Drug: Enalapril PO 10 mg Route: PO; lg3 06:29 Follow up: Response: No adverse reaction lg3 05:51 Drug: Norvasc PO 10 mg Route: PO; lg3 06:29 Follow up: Response: No adverse reaction lg3 08:04 Drug: Atorvastatin PO 20 mg Route: PO; db 08:12 Follow up: Response: No adverse reaction db Disposition Summary: 01/04/23 07:48 Discharge Ordered Location: Home evelia Problem: new evelia Symptoms: have improved evelia Condition: Stable evelia Diagnosis - Unspecified symptoms and signs involving the musculoskeletal system evelia - Essential (primary) hypertension evelia - Hypokalemia evelia - Atherosclerotic heart disease of [place] coronary artery without angina pectoris evelia Followup: evelia - With: Private Physician - When: 2 - 3 days - Reason: Recheck today's complaints, Continuance of care, Re-evaluation by your physician Followup: evelia - With: - When: 2 - 3 days - Reason: Recheck today's complaints, Re-evaluation by your physician Discharge Instructions: - Discharge Summary Sheet evelia - Potassium Content of Foods evelia - Hypertension, Adult evelia - Hypertension, Adult, [id number] evelia - How to Take Your Blood Pressure, [id number] evelia - Aspirin and Your Heart evelia - Hypokalemia evelia - Managing Your Hypertension evelia Forms: - Medication Reconciliation Form evelia - Thank You Letter evelia - Antibiotic Education evelia - Prescription Opioid Use evelia - Patient Portal Instructions evelia - Leadership Thank You Letter evelia Prescriptions: - Lipitor 20 mg Oral tablet - take 1 tablet by ORAL route every day at bedtime; 30 tablet; Refills: 0, [facility] Product Selection Permitted - Norvasc 10 mg Oral Tablet - take 1 tablet by ORAL route once daily; 30 tablet; Refills: 0, Product evelia Selection Permitted - Pepcid 20 mg Oral Tablet - take 1 tablet by ORAL route every 12 hours for 21 days; 42 tablet; Refills: 0, [facility] Product Selection Permitted - Potassium Chloride 20 meq Oral Packet - take 1 packet by ORAL route once daily 1 packet in 6 (six) ounces of water or evelia juice; Take after meal; 30 packet; Refills: 0, Product Selection Permitted - Enalapril Maleate 10 mg Oral Tablet - take 1 tablet by ORAL route once daily; 30 tablet; Refills: 0, Product evelia Selection Permitted - Hydrochlorothiazide 12.5 mg Oral Tablet - take 1 tablet by ORAL route once daily; 30 tablet; Refills: 0, Product evelia Selection Permitted Signatures: Dispatcher [employer] Sg Muñiz MD MD cha Gibson, Lacie, RN RN lg3 Paty Daniel RN RN vc1 Brittney Gilmore RN RN db
--- NOTE | 2023-01-04 08:00 | RAD REPORT ---
EXAM DESCRIPTION: CT - Angio Aorta For Dissection - 01/04/2023 4:56 am CLINICAL HISTORY: BACK PAIN, HTN COMPARISON: Chest Single View dated 01/04/2023 TECHNIQUE: Dynamically enhanced 3 mm thick images of the chest, abdomen, and upper pelvis were obtai cesilia during administration of approximately 100mL Isovue 370 IV contrast. Sagittal and coronal reconst ructions as well as maximal intensity projection reconstruction were generated and reviewed per an [facility] angiography protocol. All CT scans are performed using dose optimization technique as appropriate and may include automated exposure control or mA/KV adjustment according to patient size. FINDINGS: Aorta is normal in diameter with no dissection or other acute aortic findings. Up to moder ate atherosclerotic calcifications along the abdominal aorta and iliac bifurcations. At least moderat e segmental narrowing of the right internal iliac artery. Other multifocal areas of mild narrowing al alan the external iliac and common femoral arteries with luminal irregularity. Pulmonary arteries are normal as well. No mass or infiltrate in the lung parenchyma. Bilateral dependent platelike atelectatic changes. Mild apical predominant paraseptal emphysematous changes. No pleural thickening, pleural effusion or pneu mothorax. No abnormal mediastinal or hilar mass or lymphadenopathy seen. No chest wall mass or abnormal axillar y lymphadenopathy. Celiac, SMA and renal arteries are patent with mild Celiac axis and left renal artery origin narrowin g. Solid abdominal viscera and bowel show no significant findings. No mass or abnormal lymphadenopath y. No acute osseous abnormality. Sequelae of posterior approach L4-S1 hardware fusion. Dianne-screw lucenc ies along the left L5 screw tip, and throughout the left S1 screw. IMPRESSION: No acute abnormalities on CT angiogram of the aorta. Up to moderate burden of atherosclerotic calcified and noncalcified plaque formation as above. Findin gs result in at least mild segmental narrowing of the right internal iliac artery, and multifocal up to mild narrowing along the external iliac and common femoral arteries. Mild Celiac axis and left ambika al artery origin narrowing. Dianne-screw lucencies along the left L5 and S1 screws as above, may relate to hardware loosening in th e appropriate clinical setting.
[2023-01-04] MEDS ORDERED: ATORVASTATIN 20 MG TAB ONE (08:13)
[2023-01-04 08:20] VITALS: TEMP 98.8
[2023-01-04 08:26] VITALS: BP 178/101; O2SAT 98
--- NOTE | 2023-01-04 14:36 | EKG ---
Test Date: 2023-01-04 Test Time: 04:13:16 [employer] Tube Setter: [place] MEASUREMENT RESULTS: Intervals: Rate: 68 AK: 138 QRSD: 86 QT: 424 QTc: 450 Crane: P: 55 AK: 138 QRS: 58 T: 165 INTERPRETIVE STATEMENTS: Normal sinus rhythm Possible Left atrial enlargement ST & T wave abnormality, consider inferolateral ischemia Abnormal ECG Compared to ECG 07/08/2002 19:20:00 ST (T wave) deviation now present Possible ischemia now present T-wave abnormality no longer present Electronically Signed On 01-04-23 14:35:30 CDT by Tnoy Davidson
--- NOTE | 2023-01-04 20:43 | RAD REPORT ---
EXAM DESCRIPTION: RAD - Chest Single View - 01/04/2023 2:50 am CLINICAL HISTORY: COUGH TECHNIQUE: AP chest COMPARISON: None available for comparison FINDINGS: CHEST: Heart: The cardiomediastinal silhouette is within normal limits. Lungs: No focal consolidation. Mediastinum: Unremarkable Pleura: No appreciable effusion. No pneumothorax. Bones: Old left clavicular fracture. IMPRESSION: No acute cardiopulmonary disease. Electronically signed by: Ishan Koroma MD 01/04/2023 3:08 AM CDT Due to temporary technical issues with the PACS/Fluency reporting system, reports are being signed by the in house radiologists without review as a courtesy to insure prompt reporting. The interpreting radiologist is fully responsible for the content of the report.
== END 2023-01-04 08:13 | disposition home or self-care (01) ==
LOC: ER 01:13
DX: R29.91 Unspecified symptoms and signs involving the musculoskeletal system (principal); I10 Essential (primary) hypertension; E87.6 Hypokalemia; I25.10 Atherosclerotic heart disease of native coronary artery without angina pectoris
CPT/HCPCS: 96361; 93005; 85025; 81001; 80048; 36415; 83735; 85610; 80076; 84484 ×2; 83690; 83880; 71275; 74175; 71045; 96374; 99285; Q9967; J7040; J7030